=== PATIENT | male | born 1940 ===

== ENCOUNTER 2023-08-22 09:01 | Inpatient (IN) | payer MEDICARE, BC, SELFPAY ==
[2023-08-20 12:41] VITALS: BP 119/67
[2023-08-20 14:42] VITALS: BP 121/73
--- NOTE | 2023-08-20 14:46 | CM ---
Addendum entered by Alesha Caceres RN 08/20/23 16:53:
CM spoke with PENNIE Damico and Steven, unix systems administrator at [facility]. They are refusing to have patient return. CM updated patient's and sister. They will work with CM for placement.
Addendum entered by Alesha Caceres RN 08/20/23 16:22:
JUS spoke with Margaux at [facility]. They are planning to speak with patient's daughter to confirm if they are willing to pay for 1:1. CM will await call back.
Addendum entered by Alesha Caceres RN 08/20/23 15:17:
JUS spoke to Margaux from [facility]. She discussed patient's disposition with her director Steven. Steven feels that patient requires too much care for them to handle patient. Margaux will discuss further with Steven and the patient's daughter to
discuss 1:1 plan. Cm will await call back.
Original Note:
JUS spoke with Margaux from [facility]. She stated that patient has been having frequent falls and they are concerned he needs a higher level of care.
Patient's and sister are at bedside. They are in agreement with having the patient return to [facility] and will pay for a 1:1.
Margaux will discuss this discharge plan with her director. CM will await call back.
[2023-08-20 14:48] LABS: % Basophils 0.6 % (0-2); % Immature Granulocytes 0.8 % (0-0.5); % Lymphocytes 15.6 % (20.5-51.1); % Monocytes 10.6 % (1.7-9.3); % Neutrophils 72.4 % (42.2-75.2); Absolute Lymphocytes 0.8 10^3/uL (1.2-3.4); Absolute Monocytes 0.5 10^3/uL (0.1-0.6); Absolute Neutrophils 3.6 10^3/uL (1.4-6.5); Hematocrit 28.1 % (39.0-52.0); Hemoglobin 9.4 g/dL (13.0-18.0); Mean Corp Hgb Conc. 33.5 g/dL (33.0-37.0); Mean Corpuscular Hgb 32.5 pg (27.0-31.0); Mean Corpuscular Volume 97.2 fL (80.0-94.0); Mean Platelet Volume 8.7 fL (7.4-10.4); Nucleated Red Blood Cells % 0 % (-); Platelet Count 145 10^3/uL (130-400); Red Blood Cell Count 2.89 10^6/uL (4.70-6.10); Red Cell Dist. Width 15.9 % (11.5-14.5)
[2023-08-20 15:27] LABS: ALT (SGPT) 19 U/L (0-50); AST (SGOT) 32 U/L (17-59); Albumin 3.1 g/dl (3.5-5.0); Alkaline Phosphatase 50 U/L (38-126); Blood Urea Nitrogen 18 mg/dl (9-20); Calcium 8.9 mg/dl (8.4-10.2); Carbon Dioxide 28 mmol/L (22-30); Chloride 104 mmol/L (98-107); Glucose 96 mg/dl (70-99); Potassium 4.5 mmol/L (3.5-5.1); Sodium 137 mmol/L (135-145); Total Bilirubin 1.4 mg/dl (0.2-1.3); Total Protein 5.7 g/dl (6.3-8.2); eGFR > 60.00
--- NOTE | 2023-08-20 16:06 | ED.GENMED ---
History of Present Illness
General
Chief Complaint: Fall
Source: patient and family
Exam Limitations: dementia
Time Seen by Provider: 08/20/23 13:13
Nursing documentation reviewed up to this point in time: agreed with
Travel History
Have you had any contact with someone who has COVID-19?: No
Do you have any symptoms of coronavirus? Fever > 100 degrees, chills, cough, shortness of breath, sore throat, loss of taste or smell, muscle aches, or headache?: No
History of Present Illness
History of Present Illness:
pt is a 83 y/o M with h/o alzheimers , HTN from [facility]
mutiple falls x 2-3 weeks (approx 17 times)
despite the rounds ever 45 min pt often gets up on his own and falls
he was on the groun probably no more than 15 min today but it was unwitnessed
has abrasio nto left elbow and complained maybe of right hip pain to staff
but i spoke with staff sarah who knows him well and thinks that with how often he has fallen, that he is too high risk to be there
pt isn't able to offer any complaints, he keeps his eyes closed
his is at bedside and says this is his baseline for a large part of the day
he has not had frequent utis
no fever, chills
Past History
Past History
ED Past Medical History: Arrthythmia (Atrial fibrillation), HTN, Psychiatric (Anxiety, depression) and Other (Dementia)
Review of Systems
Review of Systems
Allergies reviewed?: Yes
All Other Systems: Not applicable
Phy Exam
Physical Exam
Physical Exam:
GENERAL: Alert , in no apparent distress,eyes closed
HEAD: NCAT
EYE: pupils equal and reactive, no nystagmus, no photophobia
NECK: Supple,full rom, nontender
ENT: o/p clr, mmm.
CARDIAC: Regular rate and rhythm . no edema
LUNGS: Clear breath sounds bilaterally, no acute respiratory distress, no wheezes/rales/rhonchi
ABDOMEN: Soft, without focal tenderness, no r/g, no cvat
NEUROLOGICAL: sleeping, arousable but doesn't really open eyes; follows some commands; no obvious facial asymmetry, moves all extremities
SKIN: Warm and dry, skin intact.
MUSCULOSKELETAL: No edema, well perfused.
able to passively range hips
PSYCH: dementia
Course
Orders/Labs/Results
Orders:
Orders
08/20/23 13:38
CT Cervical Spine W/o Iv Contr Urgent
Comment:
Reason For Exam: fall, dementia
CT Head W/o Iv Contrast Urgent
Comment:
Reason For Exam: fall, dementia
08/20/23 14:00
Hip, Right 2-3 Views [CR Hip - RT w/wo Pel 2-3 Vw*] Urgent
Comment:
Reason For Exam: falls
Include a pelvis x-ray?: Yes
08/20/23 14:01
Case Management Consult ONCE
Case Management Consult: Discharge Planning
CR Chest Single View Urgent
Reason For Exam: falls
08/20/23 14:29
Complete Blood Count/With Diff Urgent
Comprehensive Metabolic Panel Urgent
Ferritin Urgent
Comment: ADD ON
Folate Urgent
Comment: ADD ON
Total Iron Binding Urgent
Comment: ADD ON
Vitamin B12 Urgent
Comment: ADD ON
08/20/23 18:12
Add On- LAB Urgent
Tests Added?: b12 folate iron tibc ferritin
08/20/23 18:28
COVID-19 Antigen Urgent
Source: Nasal Swab
Influenza A+B Rapid Molecular Urgent
MANUEL Source: Nasal Swab
Specimen Description:
08/20/23 18:37
Admit/Transfer Patient As Directed
Co-Sign Provider:
Level of Care: Observation services
Assign to:: Medical/Surgical
Physician / Group: lori galvez
Diagnosis: recurrent falls, l elbow skin david r thigh contusin, rash trunk, dementia
EKG [Electrocardiogram (*1)] Urgent
Reason for Study: QTc Monitoring
Code Status As Directed
Resuscitation Status: Do not resuscitate
Reached after discussion with pt or family/Healthcare POA: Yes
Based on pt advanced directive or healthcare POA form: Yes
Decision communicated with: Per Kayla
Olanzapine [Zyprexa] 10 mg IM NOW PRN
DNR Bracelet Application ONCE
Abnormal Lab Results
08/20/23
14:29
RBC 2.89 L 10^6/uL
(4.70-6.10)
Hgb 9.4 L g/dL
(13.0-18.0)
Hct 28.1 L %
(39.0-52.0)
MCV 97.2 H fL
(80.0-94.0)
MCH 32.5 H pg
(27.0-31.0)
RDW 15.9 H %
(11.5-14.5)
Absolute Lymphs (auto) 0.8 L 10^3/uL
(1.2-3.4)
Immature Gran % 0.8 H %
(0-0.5)
Lymphocytes % 15.6 L %
(20.5-51.1)
Monocytes % 10.6 H %
(1.7-9.3)
Total Bilirubin 1.4 H mg/dl
(0.2-1.3)
Total Protein 5.7 L g/dl
(6.3-8.2)
Albumin 3.1 L g/dl
(3.5-5.0)
08/20/23 14:29
08/20/23 14:29
Vital Signs
Initial and Last Documented VS:
Initial Vital Signs
Temp Pulse Resp BP Pulse Ox
98.3 F 73 18 119/67 97
08/20/23 12:41 08/20/23 12:41 08/20/23 12:41 08/20/23 12:41 08/20/23 12:41
Last Documented Vital Signs
Temp Pulse Resp BP Pulse Ox
98.3 F 79 18 124/72 97
08/20/23 12:41 08/20/23 17:38 08/20/23 17:38 08/20/23 17:38 08/20/23 17:38
MDM/Problems Addressed
Differential Diagnosis Includes:
Ambulatory dysfunction, dementia, UTI, hyponatremia
MDM/Problems Addressed:
83-year-old male with a history of dementia from memory care unit as assisted living patient presents after a fall. Has had multiple falls the past couple of weeks, to total 17 times. I spoke with the nurse at the facility who says that at this
point despite rounding on him every 45 minutes they do not feel safe keeping him there. For a brief time the family paid for one-to-one which was helpful but they do not have the funds to do this. The nurse apparently has reached out to the
daughter who is the power of towel hemmer as well as the regarding the needs for higher level of care and it sounds like they are apprehensive because of financial reasons.
Patient has no obvious signs of trauma from today's fall and was only on the ground for 15 minutes. He was initially sleeping and not very easily arousable. I was able to move his hips around without discomfort he really did not seem to have any
signs of trauma. He was worked up with a head and neck CTA because he was placed in a c-collar by EMS, screening blood work given the number of falls has had as well as x-rays of his chest and hips. I independently reviewed the x-rays I did not
see any fractures. His head and neck CTs were negative. There were no obvious causes on laboratory studies. Case management was consulted and she attempted to get the patient back to [facility] but they were unable to accept him unless he had
a one-to-one and the family cannot do that. Will admit
*Critical Care Note
Total Time (30-74mins, 75-104mins- exclusive of procedures): Not Applicable
ED Attending Note
-
Portions of this chart may have been created with voice recognition software.� Occasional wrong word or��sound alike� substitutions may have occurred due to the inherent limitations of voice recognition software.
Discharge Plan
Departure
Patient Disposition: Admit
Date of Disposition: 08/20/23
Time of Disposition: 17:08
Admit to: Med/Surg
Presentation/result/management discussed w/ accepting MD/DO: Hospitalist
Consults for patient: Case Management
Condition: Fair
Covid-19: Not Applicable
Discharge Problem:
Dementia, Multiple falls
Prescriptions:
No Action
lamotrigine 150 mg tablet
150 mg PO DAILY
carvedilol 25 mg tablet
25 mg PO BID
trazodone 50 mg tablet
25 mg PO HS
Rx Instructions:
taken w/ 100mg = 125mg
amlodipine 5 mg tablet
5 mg PO DAILY
aspirin 81 mg tablet,delayed release (DR/EC)
81 mg PO DAILY
potassium chloride 20 mEq tablet,ER particles/crystals
40 meq PO DAILY
tamsulosin 0.4 mg capsule
0.4 mg PO HS
trazodone 100 mg tablet
100 mg PO HS
Rx Instructions:
taken w/ 25mg = 125mg
olanzapine 5 mg tablet,disintegrating
5 mg PO BIDPRN PRN (Reason: anxiety)
duloxetine 20 mg capsule,delayed release(DR/EC)
20 mg PO DAILY
melatonin 5 mg tablet
5 mg PO HS
diphenoxylate-atropine 2.5-0.025 mg tablet
1 tab PO QID
olanzapine 7.5 mg tablet
7.5 mg PO TID
Referrals:
Brock Gandhi MD [Family Provider] -
Interventions
Interventions:
*Risk Screen - Suicide Last Done: 08/20/23 12:41
*General Assessment Last Done: 08/20/23 12:41
*Neglect/Abuse Screening Last Done: 08/20/23 12:41
ED- Fall Risk Assessment Last Done: 08/20/23 14:42
*ED COVID-19 Vaccine History Last Done: 08/20/23 14:42
ED-Musculoskeletal Assessment Last Done: 08/20/23 14:42
ED-Skin Assessment Last Done: 08/20/23 14:42
[2023-08-20 17:38] VITALS: BP 124/72
--- NOTE | 2023-08-20 18:10 | HPS.HSE ---
Addendum entered and electronically signed by Erasmo Ward MD 08/21/23 08:41:
I independently saw and examined the patient on August 20, 2023.
The NIGHT WAREHOUSE MANAGER's note was reviewed and I agree with the note.
Comment:
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
memory care for multiple falls approximately 17 times over the last 2 to 3 weeks per staff and patient's family. Patient's family was present in the room at the time of attempted patient encounter. He was sent to the ER for evaluation due to yet
another fall in the morning along with an abrasion to his left elbow with some right hip pain -- and no one was able to pick her up. [facility] reported they are unable to take care of him as he requires too much care.
Patient had a recent diarrheal illness in July 2023 and after the diarrheal illness, he started falling. Per patient's family, patient was agitated so agitation medications were increased. They also reported an itchy rash in patient's left chest
and left axillary area. His Kayla was at bedside and spoke with ER ship's officer who is going to initiate referral to [facility] for placement.
Vital Signs
AFVSS
Physical Exam
General: Not in acute distress
HEENT: Normocephalic, Moist mucous membranes, PERRL
Respiratory: CTAB
Cardiac: S1/S2, Regular Rhythm and Peripheral Edema (Trace bilateral)
GI: Soft, Non Tender, Non Distended, Normal Bowel Sounds
Musculoskeletal: No Cyanosis, Edema, Left Lower Extremity (Trace) and Edema, Right Lower Extremity (Trace); No Edema, Left Upper Extremity or Edema, Right Upper Extremity
Skin: Warm, Dry, Rash (Macular papular rash scattered left chest wall into axilla) and Other (Skin tear left elbow POA, ecchymosis right medial aspect of upper thigh)
Neuro: Awake, Alert, Oriented (To name only)
Psych: Calm. Intermittently agitated.
Assessment/Plan
#Recurrent falls - reported [facility] falls last [facility]
-Fall precautions
-Family unsure whether patient had any loss of consciousness at any of those falls
-Tylenol as needed
-Electrocardiogram
-Vitamin B12
-Check TSH
-Check Folate
-Iron Studies
-Orthostatic vital signs
-Consider echocardiogram
-Monitor on telemetry
-PT/OT/case management consult for alf placement as patient cannot return to [facility] memory care per staff
-Case management saw near will initiate referral to [facility] per family request
CT head: No acute intracranial abnormality
CT cervical spine no acute fracture or dislocation
Right hip and pelvis x-ray: Mild degenerative changes of the right and left hip no acute fracture or dislocation
CXR: No acute cardiopulmonary process
#Left elbow skin tear, right inner thigh bruise secondary to multiple falls
-Consult wound care
#Skin rash left and right lateral trunk unclear etiology
-Apply hydrocortisone as needed itching
-Will consider discussing with dermatology
#Recent Diarrheal Illness
-Unknown etiology, resolved a few weeks ago
#Alzheimer's Dementia�advanced
-Supportive care
#A-fib paroxysmal
Check EKG
Continue carvedilol 25 mg twice daily and aspirin 81 mg daily
#Anemia-macrocytic
Hgb 9.4 was 11.12 June 2023
-Check B12, folate, iron panel
#HTN�benign
BP 124/72
-Check orthostatic vitals
-Continue carvedilol 25 mg twice daily, Norvasc 5 mg daily
#Anxiety/depression
-Continue olanzapine 5 mg twice daily as needed anxiety and 7.5 mg p.o. 3 times daily scheduled
-Continue duloxetine 20 mg daily, Lamictal 150 mg daily
#Former alcohol abuse
Stopped 2022 drank greater than 2 glasses a day per
#Insomnia
-Continue melatonin at bedtime, trazodone 125 mg at bedtime
#Hx colon cancer with resection of [facility] 2018
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
#BPH
-Continue Flomax 0.4 mg at bedtime
DVT prophylaxis
SCDs
DNR per Kayla with sister at bedside
Original Note:
Family Physician
-
Family Physician: Brock Gandhi
Chief Complaint
-
Recurrent falls
History of Present Illness
83-year-old male from [facility] for multiple falls approximately 17 times over the last 2 to 3 weeks per staff. He was sent to the ER for evaluation has an abrasion to his left elbow with some right hip pain. [facility] reported
they are unable to take care of him as he requires too much care. His Kayla is at bedside and spoke with ER ship's officer who is going to initiate referral to [facility] for placement. He has past medical history of Alzheimer's,
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
Medical History
Past Medical History
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
Past Surgical History: Reports Bowel Resection (2/2 colon cancer )
Social History
Tobacco: Non-smoker
Alcohol: Former (Greater than 2 glasses a day stopped 2022)
Personal:
Living: Jail ([facility])
Employment: Retired
Family History
Family History: Other (mother cva, father killed in War )
Allergies / Home Medications
Allergies reflects when Allergies were last updated in [employer].
Home Medications with original date entered in [employer]
Allergy/Medication List:
Allergies
Allergy/AdvReac Type Severity Reaction Status Date / Time
No Known Allergies Allergy Verified 08/20/23 12:41
Home Medications
amlodipine 5 mg tablet 5 mg PO DAILY 07/03/23
aspirin 81 mg tablet,delayed release 81 mg PO DAILY 07/03/23
carvedilol 25 mg tablet 25 mg PO BID 07/03/23
duloxetine 20 mg capsule,delayed release 20 mg PO DAILY 07/03/23
lamotrigine 150 mg tablet 150 mg PO DAILY 07/03/23
melatonin 5 mg tablet 5 mg PO HS 07/03/23
olanzapine 5 mg disintegrating tablet 5 mg PO BIDPRN PRN anxiety 07/03/23
potassium chloride 20 mEq tablet,extended release(part/cryst) 40 meq PO DAILY 07/03/23
tamsulosin 0.4 mg capsule 0.4 mg PO HS 07/03/23
trazodone 100 mg tablet 100 mg PO HS 07/03/23
trazodone 50 mg tablet 25 mg PO HS 07/03/23
diphenoxylate-atropine 2.5 mg-0.025 mg tablet 1 tab PO QID 08/20/23
olanzapine 7.5 mg tablet 7.5 mg PO TID 08/20/23
Review of Systems
-
History Source: Family ( Kayla and patient's sister at bedside)
A 12 point ROS was completed and negative except as noted: Yes
Constitutional: Reports Other (Multiple falls); Denies Fatigue or Chills
Respiratory: Denies Cough or Trouble Breathing
Cardiac: Denies Diaphoresis or Syncope
Abdomen/GI: Denies Vomiting or Diarrhea
Musculoskeletal: Reports Joint Pain (Right hip, left elbow), Edema (Trace bilateral lower legs) and Other (Skin tear left elbow POA, ecchymosis right medial aspect of upper thigh)
Skin: Reports Rash (Macular papular rash scattered left and right lateral chest wall into axilla); Denies Itching
Neurological: Denies Headache or Weakness
Endocrine: Reports No Symptoms
Hematologic/Lymphatic: Reports No Symptoms
Psych: Reports Calm
Physical Exam
Vital Signs
Vital Signs
Temp Pulse Resp BP Pulse Ox
98.3 F 79 18 124/72 97
08/20/23 12:41 08/20/23 17:38 08/20/23 17:38 08/20/23 17:38 08/20/23 17:38
Physical Exam
General: Comfortable; No Pain, Fever or Chills
HEENT: NormoCephalic, Anicteric, Moist mucous membranes, Atraumatic, PERRLA, [place]in Conjunctivae and No Ptosis
Respiratory: Clear; No Wheezes, Rales or Rhonchi
Cardiac: S1/S2, Regular Rhythm and Peripheral Edema (Trace bilateral); No Murmur, Rub or Gallop
Breast: Deferred by me
GI: Soft, Non Tender, Non Distended, Normal Bowel Sounds and No Hepatosplenomegaly
Rectal: Deferred by Provider
Genito-urinary: Deferred by me
Musculoskeletal: No Clubbing, No Cyanosis, Edema, Left Lower Extremity (Trace) and Edema, Right Lower Extremity (Trace); No Edema, Left Upper Extremity or Edema, Right Upper Extremity
Skin: Warm, Dry, Rash (Macular papular rash scattered left and right lateral chest wall into axilla) and Other (Skin tear left elbow POA, ecchymosis right medial aspect of upper thigh); No Jaundice
Neuro: Awake, Alert, Oriented (To name only) and No Sensory Deficits; No Facial Droop or Tremors
Psych: Calm
Laboratory Results
-
08/20/23 14:29
08/20/23 14:29
Laboratory Results
Total Bilirubin 1.4 mg/dl (0.2-1.3) H 08/20/23 14:29
AST 32 U/L (17-59) 08/20/23 14:29
ALT 19 U/L (0-50) 08/20/23 14:29
Alkaline Phosphatase 50 U/L (38-126) 08/20/23 14:29
Data Reviewed
-
CT Scan: Report Reviewed by me
Lab Data: Labs Reviewed by me
Impression/Plan
-
Impression/plan:
Observation MedSurg
#Recurrent falls
Reported 17 falls last [facility] weeks [facility]
-Fall precautions
-Tylenol as needed
- ekg check
-PT/OT/case management consult for alf placement as patient cannot return to [facility] care per staff
-Case management saw near will initiate referral to [facility] per family request
CT head: No acute intracranial abnormality
CT cervical spine no acute fracture or dislocation
Right hip and pelvis x-ray: Mild degenerative changes of the right and left hip no acute fracture or dislocation
CXR: No acute cardiopulmonary process
#Left elbow skin tear, right inner thigh bruise secondary to multiple falls
-Consult wound care
#Skin rash left and right lateral trunk unclear etiology
-Apply hydrocortisone as needed itching
#Dementia�advanced
-Supportive care
#A-fib paroxysmal
Check EKG
Continue carvedilol 25 mg twice daily and aspirin 81 mg daily
#Anemia-macrocytic
Hgb 9.4 was 11.12 June 2023
-Check B12, folate, iron panel
#HTN�benign
BP 124/72
-Check orthostatic vitals
-Continue carvedilol 25 mg twice daily, Norvasc 5 mg daily
#Anxiety/depression
-Continue olanzapine 5 mg twice daily as needed anxiety and 7.5 mg p.o. 3 times daily scheduled
-Continue duloxetine 20 mg daily, Lamictal 150 mg daily
#Former alcohol abuse
Stopped 2022 drank greater than 2 glasses a day per
#Insomnia
-Continue melatonin at bedtime, trazodone 125 mg at bedtime
#Hx colon cancer with resection of [facility] 2019
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
#BPH
-Continue Flomax 0.4 mg at bedtime
DVT prophylaxis
SCDs
DNR per Kayla with sister at bedside
--- NOTE | 2023-08-20 18:19 | CM ---
Patient's family is requesting referral to be sent to [facility]. CM will send referral via [facility].
[2023-08-20 18:59] LABS: COVID-19 Antigen Negative (Negative)
[2023-08-20 19:10] LABS: Total Iron Binding Capacity 209 ug/dl (261-462)
[2023-08-20 19:20] LABS: Iron 73 ug/dl (49-181); Percent Saturation 34 % (20-50)
[2023-08-20 20:14] LABS: Vitamin B12 312 pg/ml (239-931)
[2023-08-20 20:21] VITALS: BP 123/76
[2023-08-20] MEDS: COREG 25 MG PO (22:29)
[2023-08-20 22:30] VITALS: BP 155/70; BMI 26.1
[2023-08-20] MEDS: DESYREL 100 MG PO (22:30)
[2023-08-20] MEDS: DESYREL 25 MG PO (22:30)
[2023-08-20] MEDS: ZYPREXA 7.5 MG PO (22:31)
[2023-08-20] MEDS: MELATONIN 5 MG PO (22:31)
[2023-08-20] MEDS: FLOMAX 0.400000000000000022 MG PO (22:31)
[2023-08-20] MEDS: HYDROCORTISONE 1% CREAM 1 APPLIC TOPICAL (22:33)
[2023-08-20] MEDS: TYLENOL 650 MG PO (23:58)
[2023-08-21] VITALS (9 sets, daily range): BP systolic 125–159; BP diastolic 60–83; PULSE 55–69; O2SAT 99; BMI 26.1
--- NOTE | 2023-08-21 01:54 | PTCARENOTE ---
Received pt from ER @ 2230, family at bedside. Pt slid over to bed, immediately trying to get up, yelling and becoming combative with staff. Pt calmed down but continues to attempt to get OOB, bed alarm placed. Pt AAOx0. Pt with L arm skin tear and
bruising throughout body.
[2023-08-21] MEDS: TYLENOL 650 MG PO ×5 (04:40→20:06)
[2023-08-21] MEDS: LAMICTAL 150 MG PO (08:23)
[2023-08-21] MEDS: COREG 25 MG PO (08:24)
[2023-08-21] MEDS: CYMBALTA DELAYED RELEASE 20 MG PO (08:24)
[2023-08-21] MEDS: ASPIR LOW (ENTERIC COATED) 81 MG PO (08:24)
[2023-08-21] MEDS: HYDROCORTISONE 1% CREAM 1 APPLIC TOPICAL ×2 (08:25→20:09)
[2023-08-21] MEDS: NORVASC 5 MG PO (08:25)
[2023-08-21 08:44] LABS: % Basophils 0.4 % (0-2); % Immature Granulocytes 1.3 % (0-0.5); % Lymphocytes 13.8 % (20.5-51.1); % Neutrophils 72.5 % (42.2-75.2); Absolute Immature Granulocytes 0.1 10^3/uL (0-0.05); Absolute Lymphocytes 0.8 10^3/uL (1.2-3.4); Absolute Monocytes 0.7 10^3/uL (0.1-0.6); Hemoglobin 9.9 g/dL (13.0-18.0); Mean Corpuscular Hgb 32.4 pg (27.0-31.0); Nucleated Red Blood Cells % 0 % (-); Platelet Count 164 10^3/uL (130-400); Red Blood Cell Count 3.06 10^6/uL (4.70-6.10); Red Cell Dist. Width 16.1 % (11.5-14.5); White Blood Cell Count 5.5 10^3/uL (4.8-10.8)
[2023-08-21 09:24] LABS: Blood Urea Nitrogen 19 mg/dl (9-20); Calcium 8.9 mg/dl (8.4-10.2); Carbon Dioxide 29 mmol/L (22-30); Chloride 101 mmol/L (98-107); Estimated Creatinine Clearance 77 ml/min; Glucose 87 mg/dl (70-99); Potassium 3.9 mmol/L (3.5-5.1); Sodium 138 mmol/L (135-145); eGFR > 60.00
[2023-08-21] MEDS: ZYPREXA 7.5 MG PO ×3 (09:26→21:24)
[2023-08-21 10:28] LABS: INR 1.11; PT 14.5 Sec (11.4-14.6)
[2023-08-21 10:36] LABS: Phosphorus 3.7 mg/dl (2.5-4.5)
[2023-08-21 11:05] LABS: TSH Reflex To Free T4 1.44 uIU/ml (0.47-4.68)
[2023-08-21] MEDS: CYANOCOBALAMIN 1000 MCG IM (11:12)
--- NOTE | 2023-08-21 12:46 | CM ---
Addendum entered by Teresita Vizcarra 08/21/23 14:07:
Patients sister is Ita, not Myriam.
CM met with Ita and patients , Юлия. Discussed referrals sent to LTC facilities, both Ita and Юлия do not feel that patient would benefit from SNF due to his behaviors and do not feel it will be helpful. CM sent message to [facility] as
families first choice in [facility]. Additional referrals sent to [facility] and [facility], awaiting response.
Original Note:
CM spoke with patients sister, Myriam Engel, reports she is currently staying in [place] with her sister in law, Юлия, and wanted to provide additional contacts (Myriam- [phone], Юлия- [phone]). Myriam provided CM with patients
daughter, Lou Ramirez [phone], POA of patient. CM explained to Myriam that patient is currently observation status, if going to SNF, would be private pay. Myriam reports patient has LTC insurance and Lou handles financial information. Myriam
request additional referrals to be sent out that are local to [facility]. CM reports no response from [facility] as of yet, will send additional referrals.
CM spoke with patients daughter and PHYLLIS Blake. Per daughter, her mother lives at [facility], where her father was living before entering [facility] 6 months ago. Lou reports they were surprised to hear that patient cannot return to
[facility] and are now ltrying to figure out the next steps for patient. CM discussed PT recommendation of SNF, and with LTC policy, not all policies will cover SNF. Daughter reports she is not sure how beneficial a SNF would be for her
father with his behaviors and dementia and is looking more for a LTC facility. Daughter reports the LTC policy is through [facility], daughter is going to call to see if SNF is covered. Daughter reports she lives in [place], however has
family that are local who visit her father every day. Daughter reports they do not have time to look at facilities and are asking the lpn medical assistant to lead them in the right direction of facilities they should send patient to. CM reports she
cannot recommend one facility over the other, provided Medicare.gov website to patient to look at list of facilities. Additional referrals sent to [facility] and [facility].
CM awaiting response of facilities at this time. JUS will continue to follow for discarge planning needs.
Plan; LTC pending accepting facility.
--- NOTE | 2023-08-21 14:20 | WOUNDNOTE ---
R BUTTOCKS/POSTERIOR HIP
--- NOTE | 2023-08-21 14:20 | WOUNDNOTE ---
[facility] RN note: Patient admitted with recurrent falls, L elbow skin tear, R thigh contusion. Patient for SNF placement.
See H&P for complete history.
PMH: Alzheimer's, HTN, anxiety/depression.
Wound Location and type/assessment: Patient admitted with: L elbow dermal skin tear. R elbow scabbed abrasion. L coccyx/buttocks blanchable red skin. Bruises R hip, inner thighs, feet.
Appetite: on regular diet.
Pressure redistribution devices in place: One Season Accumax. Patient can be uncooperative as per nursing staff.
Plan: L elbow silicone border foam changed L elbow. Protective silicone border foam applied L coccyx/buttocks. Heels elevated off bed. Air chair cushion placed under sacral/buttocks. t/c Bed tech Pacheco and requested an air mattress.
Will confirm orders with hospitalist and discussed with PENNIE Evans.
Care plan to be updated and will follow as needed.
--- NOTE | 2023-08-21 14:22 | WOUNDNOTE ---
[facility] RN note: Patient admitted with recurrent falls, L elbow skin tear, R thigh contusion. Patient for SNF placement.
See H&P for complete history.
PMH: Alzheimer's, HTN, anxiety/depression.
Wound Location and type/assessment: Patient admitted with: L elbow dermal skin tear. L coccyx/buttocks blanchable red skin. Bruises R hip, inner thighs, feet.
Appetite: on regular diet.
Pressure redistribution devices in place: [employer] Accumax. Patient can be uncooperative as per nursing staff.
Plan: L elbow silicone border foam changed L elbow. Protective silicone border foam applied L coccyx/buttocks. Heels elevated off bed. Air chair cushion placed under sacral/buttocks. t/c Bed tech Pacheco and requested an air mattress.
Will confirm orders with hospitalist and discussed with PENNIE Evans.
Care plan to be updated and will follow as needed.
[2023-08-21 14:29] LABS: Urine Albumin Negative (Neg - Trace); Urine Bilirubin 1+ (Negative); Urine Character Clear (Clear); Urine Color Yellow; Urine Glucose Negative (Negative); Urine Ketone Negative (Negative); Urine Leukocyte Trace (Negative); Urine Nitrite Negative (Negative); Urine Occult Blood Negative (Negative); Urine Urobilinogen 2+ (Neg - 1+)
--- NOTE | 2023-08-21 14:56 | WOUNDNOTE ---
WOC RN Note: Assisted nursing staff (PENNIE Connell, RN Nathan, PCT Grisel) with switching patient's bed from [employer] Accumax to a [employer] Air bed. heels off bed with air chair cushion. EPNNIE oCnnell to apply silicone foam to R elbow scabbed abrasion.
[2023-08-21 15:09] LABS: Urine Bacteria Few (Negative); Urine Mucus Few; Urine Red Blood Cell 0-2 /HPF (0-2); Urine White Cell 0-2 /HPF (0-5)
--- NOTE | 2023-08-21 18:20 | W.PN.HOSP.TC ---
Today's Communication/Plan
-
Monitor on drug regulatory affairs specialist for pauses, bradycardia, rapid A-Fib
Hold beta-gretchen for now
Assessment / Plan
Assessment / Plan
Physical Exam
General: Not in acute distress
HEENT: Normocephalic, Moist mucous membranes
Respiratory: CTAB
Cardiac: S1/S2, Regular Rhythm and Peripheral Edema (Trace bilateral)
GI: Soft, Non Tender, Non Distended, Normal Bowel Sounds
Musculoskeletal: No Cyanosis, Edema, Left Lower Extremity (Trace) and Edema, Right Lower Extremity (Trace); No Edema, Left Upper Extremity or Edema, Right Upper Extremity
Skin: Warm, Dry, Rash (Macular papular rash scattered left chest wall into axilla) and Other (Skin tear left elbow POA, ecchymosis right medial aspect of upper thigh)
Neuro: Awake, Alert, Oriented (To name only)
Psych: Calm. Intermittently agitated.
Assessment/Plan
#Recurrent falls - reported 17 falls last 2 to 3 weeks per [facility] staff
-Fall precautions
-Family unsure whether patient had any loss of consciousness at any of those falls
-Tylenol as needed
-Electrocardiogram
-Vitamin B12 is 312 significantly decreased from a few months ago; will supplement more Vitamin B12 for a short course
-TSH: 1.44
-Folate: 12
-Iron Studies noted
-Orthostatic vital signs
-Consider echocardiogram
-Monitor on telemetry: bradycardia, pauses on tele and A-Fib (has history of A-Fib) on EKG: will consult cardiology
-Hold Coreg for now due to above
-PT/OT/case management consult for [facility] placement as patient cannot return to [facility] memory care per staff
-Case management saw near will initiate referral to [facility] per family request
�� CT head: No acute intracranial abnormality
�� CT cervical spine no acute fracture or dislocation
�� Right hip and pelvis x-ray: Mild degenerative changes of the right and left hip no acute fracture or dislocation
�� CXR: No acute cardiopulmonary process
#Left elbow skin tear, right inner thigh bruise secondary to multiple falls
-Consulted wound care, recommendations appreciated
#Skin rash left and right lateral trunk unclear etiology
-Apply hydrocortisone as needed itching
-Will consider discussing with dermatology
-Triamcinolone cream. Antihistamines
-Will check fingers, groin for lesions to make sure not scabies and contagious
-Consider ID consultation
#Recent Diarrheal Illness
-Unknown etiology, resolved a few weeks ago
#Alzheimer's Dementia�advanced
-Supportive care
#A-fib paroxysmal
Hold carvedilol 25 mg twice daily for now (see above)
#Anemia-macrocytic
Hgb 9.4 was 11.12 June 2023
-B12, folate, iron panel as noted above
#HTN�benign
BP 124/72
-Check orthostatic vitals
-Hold carvedilol 25 mg twice daily
-Continue Norvasc 5 mg daily
#Anxiety/depression
-Continue olanzapine 5 mg twice daily as needed anxiety and 7.5 mg p.o. 3 times daily scheduled
-Continue duloxetine 20 mg daily, Lamictal 150 mg daily
#Former alcohol abuse
Stopped 2022 drank greater than 2 glasses a day per
#Insomnia
-Continue melatonin at bedtime, trazodone 125 mg at bedtime
#Hx colon cancer with resection of [facility] 2018
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
#BPH
-Continue Flomax 0.4 mg at bedtime
DVT prophylaxis
SCDs
DNR per Kayla with sister at bedside at the time of admission this hospitalization
Anticipated Discharge: > 48 hours
Subjective/Interval History
-
Date of Service: August 21, 2023
Patient was seen and examined seated at the nurses station. No new symptoms or complaints reported, however patient slid off bed and was agitated overnight.
Objective Data
-
Labs:
Laboratory Results
08/21/23 08/21/23
06:54 09:45
WBC 5.5
Hgb 9.9 L
Hct 30.0 L
Plt Count 164
PT 14.5
INR 1.11
Sodium 138
Potassium 3.9
Chloride 101
Carbon Dioxide 29
BUN 19
Creatinine 0.8
Glucose 87
Calcium 8.9
Vital Signs:
Vital Signs
Temp Pulse Resp BP Pulse Ox
97.4 F 66 16 156/69 99
08/21/23 15:33 08/21/23 15:33 08/21/23 15:33 08/21/23 15:33 08/21/23 15:33
I&O
08/20/23 08/21/23 08/22/23
06:59 06:59 06:59
Intake Total 590 / 590
Output Total 375 / 375
Balance 215 / 215
[2023-08-21] MEDS: DESYREL 100 MG PO (21:23)
[2023-08-21] MEDS: DESYREL 25 MG PO (21:24)
[2023-08-21] MEDS: MELATONIN 5 MG PO (21:24)
[2023-08-21] MEDS: FLOMAX 0.400000000000000022 MG PO (21:25)
[2023-08-22] MEDS: TYLENOL PO ×2 (01:23→05:08)
[2023-08-22 03:42] VITALS: BP 152/79
[2023-08-22 07:30] VITALS: BP 157/69
[2023-08-22] MEDS: ZYPREXA 7.5 MG PO (09:35)
[2023-08-22] MEDS: ASPIR LOW (ENTERIC COATED) 81 MG PO (09:36)
[2023-08-22] MEDS: NORVASC 5 MG PO (09:36)
[2023-08-22] MEDS: CYMBALTA DELAYED RELEASE 20 MG PO (09:36)
[2023-08-22] MEDS: LAMICTAL 150 MG PO (09:36)
[2023-08-22] MEDS: CYANOCOBALAMIN 1000 MCG IM (09:36)
[2023-08-22] MEDS: TYLENOL 650 MG PO ×4 (09:36→21:54)
[2023-08-22] MEDS: HYDROCORTISONE 1% CREAM 1 APPLIC TOPICAL ×2 (09:36→21:54)
[2023-08-22 09:46] LABS: Hematocrit 32.6 % (39.0-52.0); Hemoglobin 10.7 g/dL (13.0-18.0); Mean Corp Hgb Conc. 32.8 g/dL (33.0-37.0); Mean Corpuscular Hgb 31.9 pg (27.0-31.0); Mean Corpuscular Volume 97.3 fL (80.0-94.0); Mean Platelet Volume 8.5 fL (7.4-10.4); Platelet Count 169 10^3/uL (130-400); Red Blood Cell Count 3.35 10^6/uL (4.70-6.10); Red Cell Dist. Width 15.9 % (11.5-14.5); White Blood Cell Count 5.9 10^3/uL (4.8-10.8)
[2023-08-22 10:01] LABS: Blood Urea Nitrogen 17 mg/dl (9-20); Carbon Dioxide 29 mmol/L (22-30); Chloride 101 mmol/L (98-107); Estimated Creatinine Clearance 88 ml/min; Glucose 127 mg/dl (70-99); Magnesium 2.2 mg/dl (1.6-2.3); Potassium 3.8 mmol/L (3.5-5.1); Sodium 138 mmol/L (135-145); eGFR > 60.00
--- NOTE | 2023-08-22 10:21 | CON.CAR ---
Addendum entered and electronically signed by Darrell Tapia MD 08/22/23 11:50:
I saw and examined the patient.
The NOZZLE WORKER's note was reviewed and I agree with the note.
Comment: 83M with dementia and falls. We are called with permanent AF that is slow.
- carvedilol held -> probably will need some dose going forward, but less than 25
- I see no long pauses or profound bradycardia-> no indication that PPM would help
Original Note:
Consultation
Consultation Request
Date/Time Consultation Requested: 08/22/23 9:30a
Date/Time Consultation Performed: 08/22/23 10a
Requesting Provider: Dr. Ward
Performing Provider: TAMARA Gerard for Dr. Tapia
Reason for Consultation: slow Afib, falls
Medical History
-
Chief Complaint: fall
History of Present Illness:
Mr. Ramirez is an 83 yo male with HTN, Afib not on OAC, anxiety/depression and dementia, who presents to the ER from [facility] unit after a fall. They report he has fallen about 17 times in the last 2-3 weeks, not always witnessed
by staff so unclear if this is syncope. He is demented, disoriented and combative this am, therefore history is limited and obtained via his medical records. He is admitted to the hospitalist service and we are consulted for slow Afib. Tele shows
rates as slow as 43 bpm, no significant pauses. Coreg is being held currently. According to his medication list, he is only on ASA, no OAC.
Past Medical History
Past Medical History: Other (as above)
Social History
Tobacco: Non-Smoker
Alcohol: Former
Personal:
Living: Longterm ([facility])
Family History
Family History: Unable to Obtain (dementia, disoriented)
Allergies / Home Medications
Allergy/AdvReac Type Severity Reaction Status Date / Time
No Known Allergies Allergy Verified 08/20/23 12:41
Medication Instructions Recorded Confirmed Type
amlodipine 5 mg tablet 5 mg PO DAILY Blood Pressure 07/03/23 08/20/23 History
aspirin 81 mg tablet,delayed 81 mg PO DAILY Blood Clot 07/03/23 08/20/23 History
release Prevention/Tx
carvedilol 25 mg tablet 25 mg PO BID Heart Failure 07/03/23 08/20/23 History
duloxetine 20 mg capsule,delayed 20 mg PO DAILY Pain 07/03/23 08/20/23 History
release
lamotrigine 150 mg tablet 150 mg PO DAILY Neurological 07/03/23 08/20/23 History
Condition
melatonin 5 mg tablet 5 mg PO HS Sleep 07/03/23 08/20/23 History
olanzapine 5 mg disintegrating 5 mg PO BIDPRN PRN anxiety 07/03/23 08/20/23 History
tablet
potassium chloride 20 mEq 40 meq PO DAILY Electrolyte 07/03/23 08/20/23 History
tablet,extended release(part/cryst) Repletion
tamsulosin 0.4 mg capsule 0.4 mg PO HS Urinary Issue 07/03/23 08/20/23 History
trazodone 100 mg tablet 100 mg PO HS Sleep 07/03/23 08/20/23 History
trazodone 50 mg tablet 25 mg PO HS Sleep 07/03/23 08/20/23 History
diphenoxylate-atropine 2.5 1 tab PO QID diarrhea 08/20/23 08/20/23 History
mg-0.025 mg tablet
olanzapine 7.5 mg tablet 7.5 mg PO TID Mental Health/Anxiety 08/20/23 08/20/23 History
Review of Systems
-
Unable to obtain full review of systems at this time due to: Dementia
Physical Exam
Vital Signs
Temp Pulse Resp BP Pulse Ox
97.7 F 61 20 157/69 96
08/22/23 07:30 08/22/23 07:30 08/22/23 07:30 08/22/23 07:30 08/22/23 07:30
Lab Results
08/22/23 09:08
08/22/23 09:08
Physical Exam
General: Well Developed and Other (agitated/combative)
HEENT: Normocephalic and Moist Mucous Membranes
Respiratory: Other (did not perform as he was agitated/combative)
Cardiac: S1/S2 and Irregular Rhythm (slow Afib)
Breast: Deferred by me
GI: Other (did not perform as he was agitated/combative)
Rectal: Deferred by Provider
Skin: Warm and Dry
Neuro: Awake and Alert (disoriented, agitated, combative)
Psych: Agitated (combative)
Impression / Plan
-
Falls - recurrent.
- sometimes witnessed by staff and others not, unsure if syncope.
- monitor on tele.
- could be from slow Afib, Coreg held.
- he is unable to provide any symptoms or history.
- check echo today.
Afib - unknown chronicity.
- slow rates as low as 43 bpm on tele.
- monitor on tele.
- check echo today.
- [id number] VASC score is 3 (age, HTN), he is on ASA and with recurrent falls and dementia he is not a candidate for OAC at this time.
HTN - stable on meds, continue.
Dementia - chronic.
- lives at [facility].
- agitated and combative today, requires a 1:1.
Data Reviewed
-
EKG: Tracing Personally Visualized and interpreted (Afib 67 bpm)
Radiology: Report Reviewed by me (cxr: nad)
Labs: Labs Reviewed by me
[2023-08-22 12:14] VITALS: BP 152/81
--- NOTE | 2023-08-22 13:48 | CON.MD ---
Consultation - Medical
-
patient seen chart reviewed. discussed w dr galvez. this patient w hx of dementia is admitted after seventeen falls. he lives in [facility] and due to his repeated falls they are saying they cannot take him back. [facility] is
being investigated. he has hx dementia and mood disorder. his current meds include zypexa 7.5 mg tid with a prn for ten more mg trazodone 125 mg q hs lamictal 150 mg daily and cymbalta 20 mg daily. according to his med list he also had a prn for
lomotil up to qid and takes meds for bp including amlodopine and caredilol. no history can be obtained from patient given his dementia and his speech is very garbled. patient has had periods of agitation where he has been given even more
anticholinergic medications eg zyprexa 10 mg im
past medical hx see above re falls. he has hx a fib htn anxiety depession dementia colon ca w resection squamous cell ca macrocytic anemia bph there were incidences of bradycardia which are noted as 'no longer seen' unclear if falls
represent syncope. imaging of brain , chest, hip and cervical spine show no new findings. hbg is 10.7 bp 152/81
fh not relevant
substance abuse according to chart hx alcoholism in the very distant past
social resides in [place]. . alternate placement being sought
mse unable to engage verbally with patient
dx dementia with hx affective d/o and anxiety
recommendations if you are looking for a reason for the falls look no further than trazodone at hs and heavy doses of anticholinergic medications eg lomotil ordered qid for diarrhea not clear how much he is receiving and zyprexa. the top dose of
zyprexa is usually 20 mg for adults and he is as an 83 year old already receiving in a scheduled dose 22.5 mg. he has an order for ten more via 5 mg prn's and received 10 mg in an im dose since coming here. i would suggest that in addition to falls
he could be suffering from akathisia which is a known side effect of antipsychotic medication. it can be experienced by the patient as agitation which we are seeing although he was calm when i saw him. . have dc'ed trazodone use melatonin for
sleep . for now would try ativan prn for agitation which could also increase risk for falls but would not cause akathisia. would increase lamictal by 25 mg which may help w agitation. would continue cymbalta for now although i don't know that he
is truly depressed. lastly would avoid lomotil qid.
would check b12 and folate if not already checked given macrocytosis . psych will follow
--- NOTE | 2023-08-22 14:48 | CM ---
CM spoke with patients daughter, Lou, discussed patient now inpatient status. CM discussed there has still not been an accepting LTC facility. Lou reports [facility] still the number once choice, CM reports the admissions liaison at
[facility] is off today but aware that family is extremely interested in facility. Lou reports she will call [facility] to see if they would accept patient as her mother resides there. CM discussed patient can go to facility as skilled and
transition into LTC, patient would require three night inpatient stay. CM provided case management contact number as CM is not here this weekend. CM will continue to follow for discharge planning needs.
Plan; LTC, pending facility acceptance.
[2023-08-22 15:00] VITALS: BP 158/79
--- NOTE | 2023-08-22 17:35 | W.PN.HOSP.TC ---
Today's Communication/Plan
-
Placement still pending
See below
Assessment / Plan
Assessment / Plan
Physical Exam
General: Not in acute distress
HEENT: Normocephalic, Moist mucous membranes
Respiratory: CTAB
Cardiac: S1/S2, Regular Rhythm and Peripheral Edema (Trace bilateral)
GI: Soft, Non Tender, Non Distended, Normal Bowel Sounds
Musculoskeletal: No Cyanosis, Edema, Left Lower Extremity (Trace) and Edema, Right Lower Extremity (Trace)
Skin: Warm, Dry, Rash (Macular papular rash scattered left chest wall into axilla) and Other (Skin tear left elbow POA, ecchymosis right medial aspect of upper thigh)
Neuro: Awake, Alert, Oriented (To name only)
Psych: Calm. Intermittently agitated.
Assessment/Plan
#Recurrent falls - reported 17 falls last 2 to 3 weeks per [facility] staff
-Fall precautions
-Family unsure whether patient had any loss of consciousness at any of those falls
-Tylenol as needed
-Electrocardiogram
-Vitamin B12 is 312 significantly decreased from a few months ago; will supplement more Vitamin B12 for a short course
-TSH: 1.44
-Folate: 12
-Iron Studies noted
-Orthostatic vital signs
-Consider echocardiogram
-Monitor on telemetry: bradycardia, pauses on tele and A-Fib (has history of A-Fib) on EKG: consulted cardiology --> no long pauses or profound bradycardia-> no indication for PPM or that it would help ----> recommendations appreciated
-Hold Coreg for now due to above --> but will need a smaller dose then 25 mg BID
-PT/OT/case management consult for [facility] placement as patient cannot return to [facility] memory care per staff
-Case management saw near will initiate referral to [facility] per family request
�� CT head: No acute intracranial abnormality
�� CT cervical spine no acute fracture or dislocation
�� Right hip and pelvis x-ray: Mild degenerative changes of the right and left hip no acute fracture or dislocation
�� CXR: No acute cardiopulmonary process
#Left elbow skin tear, right inner thigh bruise secondary to multiple falls
-Consulted wound care, recommendations appreciated
#Skin rash left and right lateral trunk unclear etiology
-Apply hydrocortisone as needed itching
-Will consider discussing with dermatology
-Triamcinolone cream. Antihistamines
-ID consulted, recommendations appreciated
#Recent Diarrheal Illness
-Unknown etiology, resolved a few weeks ago
#Alzheimer's Dementia�advanced
-Supportive care
#A-fib paroxysmal
Hold carvedilol 25 mg twice daily for now (see above) --> but consider resuming soon at a lower dose
#Anemia-macrocytic
Hgb 9.4 was 11.12 June 2023
-B12, folate, iron panel as noted above
#HTN�benign
BP 124/72
-Check orthostatic vitals
-Hold carvedilol 25 mg twice daily -- see above
-Continue Norvasc 5 mg daily
#Anxiety/depression
#Agitation
-Continue olanzapine 5 mg twice daily as needed anxiety and 7.5 mg p.o. 3 times daily scheduled
-Continue duloxetine 20 mg daily, Lamictal 150 mg daily
-Consulted psychiatry, recommendations appreciated
#Former alcohol abuse
Stopped 2022 drank greater than 2 glasses a day per
#Insomnia
-Continue melatonin at bedtime, trazodone 125 mg at bedtime
#Hx colon cancer with resection of [facility] 2018
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
#BPH
-Continue Flomax 0.4 mg at bedtime
DVT prophylaxis
SCDs
DNR per Kayla with sister at bedside at the time of admission this hospitalization
Anticipated Discharge: 24 - 48 hours
Subjective/Interval History
-
Date of Service: August 22, 2023
Patient was seen and examined. He was agitated earlier but then the 1:1 sitter was able to help him relax. No other events reported.
Objective Data
-
Labs:
Laboratory Results
08/22/23
09:08
WBC 5.9
Hgb 10.7 L
Hct 32.6 L
Plt Count 169
Sodium 138
Potassium 3.8
Chloride 101
Carbon Dioxide 29
BUN 17
Creatinine 0.7
Glucose 127 H
Calcium 9.0
Vital Signs:
Vital Signs
Temp Pulse Resp BP Pulse Ox
97.7 F 76 20 158/79 96
08/22/23 15:00 08/22/23 15:00 08/22/23 15:00 08/22/23 15:00 08/22/23 15:00
I&O
08/21/23 08/22/23 08/23/23
06:59 06:59 06:59
Intake Total 1070 / 1070 420 / 420
Output Total 375 / 375
Balance 695 / 695 420 / 420
[2023-08-22 19:30] VITALS: BP 139/71
[2023-08-22] MEDS: FLOMAX 0.400000000000000022 MG PO (21:54)
[2023-08-22] MEDS: MELATONIN 5 MG PO (21:54)
[2023-08-22 23:15] VITALS: BP 162/80
[2023-08-23] MEDS: TYLENOL PO ×3 (01:08→23:54)
[2023-08-23] MEDS: TYLENOL 650 MG PO ×4 (07:53→22:10)
[2023-08-23 07:54] VITALS: BP 109/83
[2023-08-23] MEDS: HYDROCORTISONE 1% CREAM 1 APPLIC TOPICAL ×2 (07:54→22:10)
[2023-08-23] MEDS: NORVASC 5 MG PO (07:54)
[2023-08-23] MEDS: LAMICTAL 175 MG PO (07:54)
[2023-08-23] MEDS: ASPIR LOW (ENTERIC COATED) 81 MG PO (07:54)
[2023-08-23] MEDS: CYANOCOBALAMIN 1000 MCG IM (07:54)
[2023-08-23] MEDS: COREG 6.25 MG PO (11:00)
[2023-08-23 11:30] VITALS: BP 126/64; BP 128/65; PULSE 63; PULSE 66
--- NOTE | 2023-08-23 11:56 | W.PN.CD ---
Addendum entered and electronically signed by Darrell Tapia MD 08/23/23 12:15:
I saw and examined the patient.
The BINDER STRIPPER HAND's note was reviewed and I agree with the note.
Comment: 83M with AF with slower ventricular response on carvedilol 25 po BID. There were no long pauses (>3 seconds) or profound bradycardia. Rhythm is improved off BB
- hold carvedilol
- when/if HR averages over 100, resume carvedilol 6.25 po BID
- I will sign off
- follow up with me prn (if PMD feels it is indicated). I see Mr. Ramirez's .
Original Note:
Today's Communication / Plan
-
-remain off BB and follow tele
Impression / Plan
-
Assessment/Plan: 83 yo male with HTN, Afib not on OAC, anxiety/depression and dementia, who presented to the ER from [facility] with recurrent falls and details unclear. We were consulted since HR slow, and BB held
Falls - recurrent.
-details unclear
-PT/OT
-tele with mild valentina, but no severe valentina or long pauses on my review- remain off BB
-echo normal: Normal left ventricular systolic function. Left ventricular ejection fraction is 60-65%. Mild mitral regurgitation. Mild tricuspid regurgitation. Estimated pulmonary artery pressure of 30 mmHg
Afib - unknown chronicity.
- off BB as above, for bradycardia
- [id number] VASC score is 3 (age, HTN), he is on ASA and with recurrent falls and dementia he is not a candidate for OAC at this time.
HTN:
-stable, monitor with medicine adjustments
Dementia - chronic.
- cooperative for me
-no distress
Physical Exam
Vital Signs/Labs
Vital Signs
Temp Pulse Resp BP Pulse Ox
97.8 F 66 16 128/65 97
08/23/23 07:54 08/23/23 11:00 08/23/23 07:54 08/23/23 11:00 08/23/23 07:54
08/22/23 09:08
08/22/23 09:08
PT 14.5 Sec (11.4-14.6) 08/21/23 09:45
INR 1.11 08/21/23 09:45
Magnesium 2.2 mg/dl (1.6-2.3) 08/22/23 09:08
Physical Exam
Constitutional: No acute distress
EENT: Anicteric
Cardiovascular: Rhythm/rate is irregular
Respiratory: Respiratory effort normal and Lungs clear to auscul.
GI: Soft, Non tender and Normal bowel sounds
Neuro/Psych: Alert
Data Reviewed
-
Date of Service: August 23, 2023
EKG: Other (tele afib, bradycardia)
[2023-08-23] MEDS: ZYPREXA 10 MG IM (12:12)
--- NOTE | 2023-08-23 13:38 | W.PN.UPDATE ---
Update Note
Progress Note Update
Pt. who has history of falls in longterm has had all psych meds except Lamictal stopped during this admission as they were thought to be the cause of his falls. He required Zyprexa 10 mg. IM at 12:12 today and is now fast asleep and snoring.
Will follow-may need some amount of antipsychotic medication, ideally one that does not cause hypotension or have strong anticholinergic effects. Discussed case with nurse.
--- NOTE | 2023-08-23 13:44 | CON.ID ---
Consultation
-
Date/Time Consultation Requested: 08/22/23 17:40
Date/Time Consultation Performed: 08/23/23 13:44
Requesting Provider: Dr Ward
Performing Provider: Dr Sethi
Reason for Consultation: Itchy rash on left upper chest - consulting to eval for infection
Chief Complaint / Past History
Chief Complaint
falls
History of Present Illness
Mr Ramirez is an 83 year old male with history of SCC removal from back, former etoh abuse who presented here 08/20 for multiple falls. Of note with recent increase in sedative medications for agitation. No reporting an itchy rash on the L chest
and left axillary area.
Since arrival here she has been afebrile, bp stable, without leukocytosis or L shift, cr stable,t bili 1.4, ast 32, alt 19, alk phos 50, covid ag negative, imaging reports this admission reviewed and unremarkable, flu negative
Past History
Additional Past Medical History:
Alzheimer's Dementia, anxiety, depression, paroxysmal A-fib, hypertension, colon cancer with resection 2018, squamous cell CA removal from back and former alcohol abuse�
Additional Past Surgical History:
Bowel Resection (2/2 colon cancer )
Allergy History:
No Known Allergies Allergy (Verified 08/20/23 12:41)
Medications Reviewed: Yes
Social History
Tobacco: Non-Smoker
Alcohol: Former
Personal:
Family History
Family History: Not Pertinent
Review of Systems
Review of Systems
General: Negative Fever or Chills
All systems: All other systems were reviewed and were negative
Vital Signs
Temp Pulse Resp BP Pulse Ox
97.8 F 66 16 128/65 97
08/23/23 07:54 08/23/23 11:00 08/23/23 07:54 08/23/23 11:00 08/23/23 07:54
Physical Exam
Physical Exam
Constitutional: No Acute Distress
Cardiovascular: Regular Rate
Pulmonary: Symmetric and Non Labored
Gastrointestinal: Non Tender and Non Distended
Skin: Warm, Dry and Rash (raise, red, nonexcoriated papules on the L chest); Negative Jaundice
Neurological: Awake
Lab / Diagnostic Study Results
08/22/23 09:08
08/22/23 09:08
Abs Immat Gran (auto) 0.1 10^3/uL (0-0.05) H 08/21/23 06:54
Absolute Neuts (auto) 4.0 10^3/uL (1.4-6.5) 08/21/23 06:54
Absolute Lymphs (auto) 0.8 10^3/uL (1.2-3.4) L 08/21/23 06:54
Absolute Monos (auto) 0.7 10^3/uL (0.1-0.6) H 08/21/23 06:54
Absolute Basos (auto) 0.0 10^3/uL (0-0.2) 08/21/23 06:54
Immature Gran % 1.3 % (0-0.5) H 08/21/23 06:54
Neutrophils % 72.5 % (42.2-75.2) 08/21/23 06:54
Lymphocytes % 13.8 % (20.5-51.1) L 08/21/23 06:54
Monocytes % 12.0 % (1.7-9.3) H 08/21/23 06:54
Eosinophils % 0.0 % (0-6) 08/21/23 06:54
Basophils % 0.4 % (0-2) 08/21/23 06:54
PT 14.5 Sec (11.4-14.6) 08/21/23 09:45
INR 1.11 08/21/23 09:45
Ur Squamous Epith Cells 3-5 /LPF (Few) 08/21/23 14:18
Microbiology Results
Micro:
08/20/23 18:28 Influenza Types A & B (SERGE) - Final
Nasal Swab Negative for Influenza A & B, NAAT
Negative results must be combined with clinical observations
and patient history.
Nucleic Acid Amplification test (NAAT)performed on the
[employer] ID NOW platform.
Assessment / Plan
Possible Folliculitis
- raised, papular rash, no excoriations
- fine to try a 5 day course of keflex
- if not resolving then can follow up with PCP outpatient
ID service will no longer actively follow this patient please recall for further questions
[2023-08-23] MEDS: ATIVAN 0.5 MG PO ×2 (15:04→22:14)
[2023-08-23 15:14] VITALS: BP 137/79
[2023-08-23] MEDS: KEFLEX 500 MG PO ×2 (17:00→22:14)
[2023-08-23] MEDS: ZYPREXA 2.5 MG IM (18:05)
[2023-08-23] MEDS: STERILE WATER FOR INJECTION 2.10000000000000009 ML IM (18:05)
[2023-08-23 19:00] VITALS: BP 161/73
--- NOTE | 2023-08-23 19:08 | W.PN.HOSP.TC ---
Today's Communication/Plan
-
Placement Pending
Please see below
Assessment / Plan
Assessment / Plan
Physical Exam
General: Not in acute distress
HEENT: Normocephalic, Moist mucous membranes
Respiratory: CTAB
Cardiac: S1/S2, Regular Rhythm and Peripheral Edema (Trace bilateral)
GI: Soft, Non Tender, Non Distended, Normal Bowel Sounds
Musculoskeletal: No Cyanosis, Edema, Left Lower Extremity (Trace) and Edema, Right Lower Extremity (Trace)
Skin: Warm, Dry, Rash (Macular papular rash scattered left chest wall into axilla) and Other (Skin tear left elbow POA, ecchymosis right medial aspect of upper thigh)
Neuro: Awake, Alert, Oriented (To name only)
Psych: Calm. Intermittently agitated.
Assessment/Plan
#Recurrent falls - reported 17 falls last 2 to 3 weeks per NH staff
-Fall precautions
-Family unsure whether patient had any loss of consciousness at any of those falls
-Tylenol as needed
-Electrocardiogram
-Vitamin B12 is 312 significantly decreased from a few months ago; will supplement more Vitamin B12 for a short course
-TSH: 1.44
-Folate: 12
-Iron Studies noted
-Orthostatic vital signs
-Consider echocardiogram
-Monitor on telemetry: bradycardia, pauses on tele and A-Fib (has history of A-Fib) on EKG: consulted cardiology --> no long pauses or profound bradycardia-> no indication for PPM or that it would help ----> recommendations appreciated
-Hold Coreg for now due to above --> but if HR averages over 100 bpm, resume carvedilol 6.25 po BID
-Consulted psychiatry: trazodone and Lomotil (Diphenoxylate-Atropine) discontinued. Zyprexa should be avoided due to possible akathisia resulting in falls. Lamictal increased to 175 mg daily
-PT/OT/case management consult for prison placement as patient cannot return to [facility] memory care per staff
-Case management saw near will initiate referral to [facility] per family request
�� CT head: No acute intracranial abnormality
�� CT cervical spine no acute fracture or dislocation
�� Right hip and pelvis x-ray: Mild degenerative changes of the right and left hip no acute fracture or dislocation
�� CXR: No acute cardiopulmonary process
#Agitation
-Use prn Ativan only (see psychiatry noted from August 22, 2023)
#Left elbow skin tear, right inner thigh bruise secondary to multiple falls
-Consulted wound care, recommendations appreciated
#Skin rash left and right lateral trunk unclear etiology - Possible folliculitis
-Apply hydrocortisone as needed itching
-Will consider discussing with dermatology
-Triamcinolone cream. Antihistamines
-ID consulted, recommendations appreciated: 5 day course of Keflex - if not resolving then can follow up with PCP outpatient
#Recent Diarrheal Illness
-Unknown etiology, resolved a few weeks ago
#Alzheimer's Dementia�advanced
-Supportive care
#A-fib paroxysmal
#Mild Bradycardia on Telemetry
No severe bradycardia or long pauses on telemetry, as per cardiology
Hold carvedilol 25 mg twice daily for now (see above) --> but if HR averages over 100 bpm, resume carvedilol 6.25 po BID
With recurrent falls, he is not a candidate for anticoagulation right now
Follow-up as needed with [facility] cardiology with Dr. Tapia
#Anemia-macrocytic
Hgb 9.4 was 11.12 June 2023
-B12, folate, iron panel as noted above
#HTN�benign
BP 124/72
-Check orthostatic vitals
-Hold carvedilol 25 mg twice daily -- see above
-Continue Norvasc 5 mg daily
#Anxiety/depression
#Agitation
-Consulted psychiatry: trazodone and Lomotil (Diphenoxylate-Atropine) discontinued. Zyprexa should be avoided due to possible akathisia resulting in falls. Lamictal increased to 175 mg daily
-Continue duloxetine 20 mg daily
-Consulted psychiatry, recommendations appreciated
#Former alcohol abuse
Stopped 2022 drank greater than 2 glasses a day per
#Insomnia
-Continue melatonin at bedtime, trazodone 125 mg at bedtime
#Hx colon cancer with resection of [facility] 2018
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
#BPH
-Continue Flomax 0.4 mg at bedtime
DVT prophylaxis
SCDs
DNR per Kayla with sister at bedside at the time of admission this hospitalization
Anticipated Discharge: 24 - 48 hours
Subjective/Interval History
-
Date of Service: August 23, 2023
Patient was seen and examined. No new symptoms or complaints reported.
Objective Data
-
Vital Signs:
Vital Signs
Temp Pulse Resp BP Pulse Ox
98.2 F 60 18 137/79 97
08/23/23 15:14 08/23/23 15:14 08/23/23 15:14 08/23/23 15:14 08/23/23 07:54
I&O
08/22/23 08/23/23 08/24/23
06:59 06:59 06:59
Intake Total 1070 / 1070 1140 / 1140 300 / 300
Output Total 375 / 375 975 / 975
Balance 695 / 695 165 / 165 300 / 300
[2023-08-23] MEDS: FLOMAX 0.400000000000000022 MG PO (22:14)
[2023-08-23] MEDS: MELATONIN 5 MG PO (22:14)
[2023-08-23 22:59] VITALS: BP 158/73
[2023-08-24] VITALS (7 sets, daily range): BP systolic 119–152; BP diastolic 62–76; PULSE 78–79
[2023-08-24] MEDS: TYLENOL PO ×2 (03:57→12:30)
[2023-08-24] MEDS: ATIVAN 0.5 MG PO ×3 (04:53→18:26)
--- NOTE | 2023-08-24 08:34 | CM ---
Addendum entered by Ofelia Mckeon 08/24/23 11:10:
spoke again with daughter she is concerned about medications and update provided re SNF options. CM will continue to try to reach admissions.
Original Note:
CM spoke with patient daughter 08/23 additional referrals sent and awaiting bed availability. Patient family continue to hope for [facility], however, no response to call and VM. CM will continue to look for available bed. CM will continue to follow for
discharge planning needs.
Plan; SNF
[2023-08-24] MEDS: ASPIR LOW (ENTERIC COATED) 81 MG PO (09:59)
[2023-08-24] MEDS: KEFLEX 500 MG PO ×4 (10:00→21:41)
[2023-08-24] MEDS: LAMICTAL 175 MG PO (10:00)
[2023-08-24] MEDS: TYLENOL 650 MG PO ×3 (10:01→21:40)
[2023-08-24] MEDS: NORVASC 5 MG PO (10:02)
[2023-08-24] MEDS: HYDROCORTISONE 1% CREAM 1 APPLIC TOPICAL ×2 (10:10→21:41)
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
[2023-08-24 17:26] LABS: COVID-19 Antigen Negative (Negative)
[2023-08-24] MEDS: CELEXA 20 MG PO (17:43)
--- NOTE | 2023-08-24 18:21 | PTCARENOTE ---
Assumed care of pt from previous nurse. Pt provided ativan for agitation with positive results. Pt with no noted pain. Pt call ghotra is within reach, pt does not ring, 1:1 at bedside, rounding in place. 1:1 calls for pt, will cont to monitor.
--- NOTE | 2023-08-24 19:07 | W.PN.HOSP.TC ---
Today's Communication/Plan
-
Disposition Efforts
Assessment / Plan
Assessment / Plan
Physical Exam
General: Not in acute distress
HEENT: Normocephalic, Moist mucous membranes
Respiratory: CTAB
Cardiac: S1/S2, Regular Rhythm and Peripheral Edema (Trace bilateral)
GI: Soft, Non Tender, Non Distended, Normal Bowel Sounds
Musculoskeletal: No Cyanosis, Edema, Left Lower Extremity (Trace) and Edema, Right Lower Extremity (Trace)
Skin: Warm, Dry, Rash (Macular papular rash scattered left chest wall into axilla) and Other (Skin tear left elbow POA, ecchymosis right medial aspect of upper thigh)
Neuro: Awake, Alert, Oriented (To name only)
Psych: Calm. Intermittently agitated.
Assessment/Plan
#Recurrent falls - reported 17 falls last 2 to 3 weeks per NH staff
-Fall precautions
-Family unsure whether patient had any loss of consciousness at any of those falls
-Tylenol as needed
-Electrocardiogram
-Vitamin B12 is 312 significantly decreased from a few months ago; although technically in normal range, will supplement more Vitamin B12 for a short course during hospitalization with plans to recheck it outpatient
-TSH: 1.44
-Folate: 12
-Iron Studies noted
-Orthostatic vital signs
-Monitor on telemetry: bradycardia, pauses on tele and A-Fib (has history of A-Fib) on EKG: consulted cardiology --> no long pauses or profound bradycardia-> no indication for PPM or that it would help ----> recommendations appreciated
-Hold Coreg for now due to bradycardia --> but if HR averages over 100 bpm, resume carvedilol 6.25 po BID
-Consulted psychiatry: trazodone and Lomotil (Diphenoxylate-Atropine) discontinued. Zyprexa made scheduled medication per psychiatry on August 24, 2023. Lamictal increased to 175 mg daily
-PT/OT/case management consult for snf placement as patient cannot return to [facility] memory care per staff
-Case management saw near will initiate referral to [facility] per family request
�� CT head: No acute intracranial abnormality
�� CT cervical spine no acute fracture or dislocation
�� Right hip and pelvis x-ray: Mild degenerative changes of the right and left hip no acute fracture or dislocation
�� CXR: No acute cardiopulmonary process
#Agitation
-Use prn Ativan and prn Zyprexa as per psychiatry (see psychiatry noted from August 22, 2023)
#Left elbow skin tear, right inner thigh bruise secondary to multiple falls
-Consulted wound care, recommendations appreciated
#Skin rash left and right lateral trunk unclear etiology - Possible folliculitis
-Apply hydrocortisone as needed itching
-No barrel rifler button control manager at the time to see patient
-Triamcinolone cream. Antihistamines
-ID consulted, recommendations appreciated: 5 day course of Keflex - if not resolving then can follow up with PCP outpatient
#Recent Diarrheal Illness
-Unknown etiology, resolved a few weeks ago
#Alzheimer's Dementia�advanced
-Supportive care
#A-fib paroxysmal
#Mild Bradycardia on Telemetry
No severe bradycardia or long pauses on telemetry, as per cardiology
Hold carvedilol 25 mg twice daily for now (see above) --> but if HR averages over 100 bpm, resume carvedilol 6.25 po BID
With recurrent falls, he is not a candidate for anticoagulation right now
Follow-up as needed with [facility] cardiology with Dr. Tapia
#Anemia-macrocytic
Hgb 9.4 was 11.12 June 2023
-B12, folate, iron panel as noted above
#HTN�benign
BP 124/72
-Check orthostatic vitals
-Hold carvedilol 25 mg twice daily -- see above
-Continue Norvasc 5 mg daily
#Anxiety/depression
#Agitation
-Consulted psychiatry: trazodone and Lomotil (Diphenoxylate-Atropine) discontinued. Zyprexa continued. Lamictal increased to 175 mg daily
-Consulted psychiatry, recommendations appreciated
#Former alcohol abuse
Stopped 2022 drank greater than 2 glasses a day per
#Insomnia
-Continue melatonin at bedtime, trazodone 125 mg at bedtime
#Hx colon cancer with resection of [facility] 2018
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
#BPH
-Continue Flomax 0.4 mg at bedtime
DVT prophylaxis
SCDs
DNR per Kayla with sister at bedside at the time of admission this hospitalization
Family will need update before discharge
Anticipated Discharge: 24 - 48 hours
Subjective/Interval History
-
Date of Service: August 24, 2023
Patient was seen and examined. He was sleeping comfortably and woke up when called, no new complaints.
Objective Data
-
Vital Signs:
Vital Signs
Temp Pulse Resp BP Pulse Ox
98.0 F 71 18 128/65 96
08/24/23 15:19 08/24/23 15:19 08/24/23 15:19 08/24/23 15:19 08/24/23 15:19
I&O
08/23/23 08/24/23 08/25/23
06:59 06:59 06:59
Intake Total 1140 / 1140 300 / 300
Output Total 975 / 975
Balance 165 / 165 300 / 300
[2023-08-24 19:28] LABS: Hematocrit 33.3 % (39.0-52.0); Hemoglobin 11.4 g/dL (13.0-18.0); Mean Corp Hgb Conc. 34.2 g/dL (33.0-37.0); Mean Corpuscular Hgb 32.2 pg (27.0-31.0); Mean Corpuscular Volume 94.1 fL (80.0-94.0); Mean Platelet Volume 8.3 fL (7.4-10.4); Platelet Count 165 10^3/uL (130-400); Red Blood Cell Count 3.54 10^6/uL (4.70-6.10); Red Cell Dist. Width 16.1 % (11.5-14.5); White Blood Cell Count 7.3 10^3/uL (4.8-10.8)
[2023-08-24 19:54] LABS: Blood Urea Nitrogen 18 mg/dl (9-20); Calcium 9.1 mg/dl (8.4-10.2); Carbon Dioxide 29 mmol/L (22-30); Chloride 101 mmol/L (98-107); Estimated Creatinine Clearance 77 ml/min; Glucose 134 mg/dl (70-99); Potassium 3.9 mmol/L (3.5-5.1); Sodium 135 mmol/L (135-145); eGFR > 60.00
[2023-08-24] MEDS: MELATONIN 5 MG PO (21:41)
[2023-08-24] MEDS: FLOMAX 0.400000000000000022 MG PO (21:41)
[2023-08-25] MEDS: TYLENOL PO ×2 (00:32→04:24)
[2023-08-25 03:06] VITALS: BP 148/68
[2023-08-25 08:00] VITALS: BP 163/68
[2023-08-25] MEDS: ASPIR LOW (ENTERIC COATED) 81 MG PO (08:48)
[2023-08-25] MEDS: NORVASC 5 MG PO (08:49)
[2023-08-25] MEDS: KEFLEX 500 MG PO ×4 (08:49→20:46)
[2023-08-25] MEDS: LAMICTAL 175 MG PO (08:49)
[2023-08-25] MEDS: TYLENOL 650 MG PO ×4 (08:50→20:38)
[2023-08-25] MEDS: HYDROCORTISONE 1% CREAM 1 APPLIC TOPICAL ×2 (08:51→20:39)
[2023-08-25] MEDS: CELEXA 20 MG PO (08:51)
[2023-08-25 08:55] LABS: Blood Urea Nitrogen 15 mg/dl (9-20); Calcium 8.9 mg/dl (8.4-10.2); Carbon Dioxide 32 mmol/L (22-30); Chloride 103 mmol/L (98-107); Estimated Creatinine Clearance 77 ml/min; Glucose 86 mg/dl (70-99); Potassium 3.9 mmol/L (3.5-5.1); Sodium 138 mmol/L (135-145); eGFR > 60.00
[2023-08-25 09:43] LABS: Hematocrit 36.4 % (39.0-52.0); Hemoglobin 11.9 g/dL (13.0-18.0); Mean Corp Hgb Conc. 32.7 g/dL (33.0-37.0); Mean Corpuscular Hgb 32.4 pg (27.0-31.0); Mean Corpuscular Volume 99.2 fL (80.0-94.0); Mean Platelet Volume 8.6 fL (7.4-10.4); Platelet Count 170 10^3/uL (130-400); Red Blood Cell Count 3.67 10^6/uL (4.70-6.10); Red Cell Dist. Width 15.9 % (11.5-14.5); White Blood Cell Count 5.5 10^3/uL (4.8-10.8)
[2023-08-25 11:49] VITALS: PULSE 65; O2SAT 99
--- NOTE | 2023-08-25 12:14 | CM ---
Chart reviewed and patient is currently on 1:1 supervision. Plan is for skilled placement however patient will need to be off 1:1 for placement. Patient cannot be on med sitter for residential placement. Nursing and physician made aware.
Plan; Placement, patient needs to be off 1:1 for placement, patient cannot be on med sitter.
--- NOTE | 2023-08-25 12:36 | W.PN.HOSP.TC ---
Today's Communication/Plan
-
med adjustment per psychiatry
eventual SNF
Assessment / Plan
Assessment / Plan
Physical Exam
General: Not in acute distress, confused
HEENT: Normocephalic, Moist mucous membranes
Respiratory: CTAB
Cardiac: S1/S2, Regular Rhythm and Peripheral Edema (Trace bilateral)
GI: Soft, Non Tender, Non Distended, Normal Bowel Sounds
Musculoskeletal: No Cyanosis, Edema, Left Lower Extremity (Trace) and Edema, Right Lower Extremity (Trace)
Skin: Warm, Dry, Rash (Macular papular rash scattered left chest wall into axilla) and Other (Skin tear left elbow POA, ecchymosis right medial aspect of upper thigh)
Neuro: Awake, Alert, Oriented (To name only)
Psych: Calm. Intermittently agitated.
Assessment/Plan
#Recurrent falls - reported 17 falls last 2 to 3 weeks per NH staff
-Fall precautions
-Family unsure whether patient had any loss of consciousness at any of those falls
-Tylenol as needed
-Electrocardiogram
-Vitamin B12 is 312 significantly decreased from a few months ago; although technically in normal range, will supplement more Vitamin B12 for a short course during hospitalization with plans to recheck it outpatient
-TSH: 1.44
-Folate: 12
-Iron Studies noted
-Orthostatic vital signs
-Monitor on telemetry: bradycardia, pauses on tele and A-Fib (has history of A-Fib) on EKG: consulted cardiology --> no long pauses or profound bradycardia-> no indication for PPM or that it would help ----> recommendations appreciated
-held Coreg for now due to bradycardia --> but if HR averages over 100 bpm, resume carvedilol 6.25 po BID
-Consulted psychiatry: trazodone and Lomotil (Diphenoxylate-Atropine) discontinued. Zyprexa made scheduled medication per psychiatry on August 24, 2023. Lamictal increased to 175 mg daily
-patient remains confused on 1:1, needs to be off 1:1 for 24 hours before SNF placement; appreciate Psychiatry
-PT/OT/case management consult for [facility] placement as patient cannot return to [facility] care per staff
-Case management saw near will initiate referral to [facility] per family request
�� CT head: No acute intracranial abnormality
�� CT cervical spine no acute fracture or dislocation
�� Right hip and pelvis x-ray: Mild degenerative changes of the right and left hip no acute fracture or dislocation
�� CXR: No acute cardiopulmonary process
#Agitation
-Use prn Ativan and prn Zyprexa as per psychiatry (see psychiatry noted from August 22, 2023)
#Left elbow skin tear, right inner thigh bruise secondary to multiple falls
-Consulted wound care, recommendations appreciated
#Skin rash left and right lateral trunk unclear etiology - Possible folliculitis
-Apply hydrocortisone as needed itching
-No stage director transplant surgeon at the time to see patient
-Triamcinolone cream. Antihistamines
-ID consulted, recommendations appreciated: 5 day course of Keflex - if not resolving then can follow up with PCP outpatient (take through 08/28)
#Recent Diarrheal Illness
-Unknown etiology, resolved a few weeks ago
#Alzheimer's Dementia�advanced
-Supportive care
#A-fib paroxysmal
#Mild Bradycardia on Telemetry
No severe bradycardia or long pauses on telemetry, as per cardiology
Hold carvedilol 25 mg twice daily for now (see above) --> but if HR averages over 100 bpm, resume carvedilol 6.25 po BID
With recurrent falls, he is not a candidate for anticoagulation right now
Follow-up as needed with [facility] cardiology with Dr. Tapia
#Anemia-macrocytic
Hgb 9.4 was 11.12 June 2023
-B12, folate, iron panel as noted above
#HTN�benign
BP 124/72
-Check orthostatic vitals
-Hold carvedilol 25 mg twice daily -- see above
-Continue Norvasc 5 mg daily
#Anxiety/depression
#Agitation
-Consulted psychiatry: trazodone and Lomotil (Diphenoxylate-Atropine) discontinued. Zyprexa continued. Lamictal increased to 175 mg daily
-Consulted psychiatry, recommendations appreciated
#Former alcohol abuse
Stopped 2022 drank greater than 2 glasses a day per
#Insomnia
-Continue melatonin at bedtime, trazodone 125 mg at bedtime
#Hx colon cancer with resection of [facility] 2018
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
#BPH
-Continue Flomax 0.4 mg at bedtime
DVT prophylaxis
SCDs
DNR per Kayla with sister at bedside at the time of admission this hospitalization
Family will need update before discharge
Anticipated Discharge: 24 - 48 hours
Subjective/Interval History
-
Date of Service: August 25, 2023
no new complaints
patient confused
Objective Data
-
Labs:
Laboratory Results
08/25/23
07:22
WBC 5.5
Hgb 11.9 L
Hct 36.4 L
Plt Count 170
Sodium 138
Potassium 3.9
Chloride 103
Carbon Dioxide 32 H
BUN 15
Creatinine 0.8
Glucose 86
Calcium 8.9
Vital Signs:
Vital Signs
Temp Pulse Resp BP Pulse Ox
98.0 F 65 16 163/68 99
08/25/23 11:47 08/25/23 11:47 08/25/23 11:47 08/25/23 08:00 08/25/23 11:47
I&O
08/24/23 08/25/23 08/26/23
06:59 06:59 06:59
Intake Total 300 / 300 240 / 240
Output Total 100 / 100
Balance 300 / 300 140 / 140
Review of Systems
-
History Source: Patient
All other systems: Reviewed and negative
Data Reviewed
-
Diagnostic Radiology: Report Reviewed by me
Labs: Labs Reviewed by me
[2023-08-25] MEDS: ZYPREXA 2.5 MG PO (17:22)
[2023-08-25] MEDS: STERILE WATER FOR INJECTION 2.10000000000000009 ML IM (18:10)
[2023-08-25] MEDS: ZYPREXA 2.5 MG IM (18:10)
--- NOTE | 2023-08-25 18:16 | PTCARENOTE ---
Pt with increasing agitation. Attempting to get out of bed. Toileting attempted but pt pushing away. Unable to redirect. PRN Zyprexa 2.5mg IM administered. 1:1 observation maintained.
[2023-08-25 19:25] VITALS: BP 121/64
[2023-08-25] MEDS: MELATONIN 5 MG PO (20:46)
[2023-08-25] MEDS: FLOMAX 0.400000000000000022 MG PO (20:46)
[2023-08-25 23:31] VITALS: BP 100/46
[2023-08-26] MEDS: TYLENOL PO ×4 (00:14→23:31)
[2023-08-26] MEDS: ATIVAN 0.5 MG PO ×3 (02:02→19:16)
[2023-08-26 03:21] VITALS: BP 129/75
[2023-08-26 07:21] VITALS: BP 170/97
[2023-08-26 08:06] LABS: Hematocrit 33.7 % (39.0-52.0); Hemoglobin 11.2 g/dL (13.0-18.0); Mean Corp Hgb Conc. 33.2 g/dL (33.0-37.0); Mean Corpuscular Hgb 32.8 pg (27.0-31.0); Mean Corpuscular Volume 98.8 fL (80.0-94.0); Mean Platelet Volume 8.9 fL (7.4-10.4); Platelet Count 157 10^3/uL (130-400); Red Blood Cell Count 3.41 10^6/uL (4.70-6.10); White Blood Cell Count 4.5 10^3/uL (4.8-10.8)
[2023-08-26 08:38] LABS: Blood Urea Nitrogen 19 mg/dl (9-20); Calcium 8.9 mg/dl (8.4-10.2); Carbon Dioxide 29 mmol/L (22-30); Chloride 102 mmol/L (98-107); Estimated Creatinine Clearance 77 ml/min; Glucose 87 mg/dl (70-99); Potassium 3.7 mmol/L (3.5-5.1); Sodium 139 mmol/L (135-145); eGFR > 60.00
[2023-08-26] MEDS: LAMICTAL 175 MG PO (09:00)
[2023-08-26] MEDS: TYLENOL 650 MG PO ×3 (09:00→19:17)
[2023-08-26] MEDS: ASPIR LOW (ENTERIC COATED) 81 MG PO (09:00)
[2023-08-26] MEDS: NORVASC 5 MG PO (09:00)
[2023-08-26] MEDS: CELEXA 20 MG PO (09:00)
[2023-08-26] MEDS: HYDROCORTISONE 1% CREAM 1 APPLIC TOPICAL ×2 (09:01→19:17)
[2023-08-26] MEDS: KEFLEX 500 MG PO ×4 (09:01→21:36)
[2023-08-26 11:00] VITALS: BP 162/69
--- NOTE | 2023-08-26 11:31 | W.PN.UPDATE ---
Update Note
Progress Note Update
Patient seen at bedside, chart reviewed, discussed with staff. Patient continues to have periods of agitation that can be difficult to redirect. RN reports most episodes seem to be related to a need such as needing to be changed. It is reported that
most times after need is met, patient will settle down. Efforts for placement continue however, patient will need to be off of 1:1 supervision prior to this happening. Unfortunately, at this time he is in a room in the corner and that is not an
option. They are looking to move him closer to the nursing station if room becomes available as well as using a gerichair in the hallway. Patient had been on much higher doses of Zyprexa and may need to consider with his size he may require a small
increase in dose for better behavioral support.
Impression/Plan: Advanced dementia�with history of affective disorder and anxiety - Increase Zyprexa to 5mg HS in hopes to decreased need for PRNs and 1:1 supervision. Cymbalta and Trazodone have been DC'd. Continue with citalopram 20 mg. Psych will
follow.
--- NOTE | 2023-08-26 11:33 | W.PN.HOSP.TC ---
Today's Communication/Plan
-
F/U further psychiatry recommendations
Assessment / Plan
Assessment / Plan
Physical Exam
General: Not in acute distress, confused
HEENT: Normocephalic, Moist mucous membranes
Respiratory: CTAB
Cardiac: S1/S2, Regular Rhythm and Peripheral Edema (Trace bilateral)
GI: Soft, Non Tender, Non Distended, Normal Bowel Sounds
Musculoskeletal: No Cyanosis, Edema, Left Lower Extremity (Trace) and Edema, Right Lower Extremity (Trace)
Skin: Warm, Dry, Rash (Macular papular rash scattered left chest wall into axilla) and Other (Skin tear left elbow POA, ecchymosis right medial aspect of upper thigh)
Neuro: Awake, Alert, Oriented (To name only)
Psych: Calm. Intermittently agitated.
Assessment/Plan
#Recurrent falls - reported 17 falls last 2 to 3 weeks per NH staff
-Fall precautions
-Family unsure whether patient had any loss of consciousness at any of those falls
-Tylenol as needed
-Electrocardiogram
-Vitamin B12 is 312 significantly decreased from a few months ago; although technically in normal range, will supplement more Vitamin B12 for a short course during hospitalization with plans to recheck it outpatient
-TSH: 1.44
-Folate: 12
-Iron Studies noted
-Orthostatic vital signs
-Monitor on telemetry: bradycardia, pauses on tele and A-Fib (has history of A-Fib) on EKG: consulted cardiology --> no long pauses or profound bradycardia-> no indication for PPM or that it would help ----> recommendations appreciated
-held Coreg for now due to bradycardia --> but if HR averages over 100 bpm, resume carvedilol 6.25 po BID
-Consulted psychiatry: trazodone and Lomotil (Diphenoxylate-Atropine) discontinued. Zyprexa made scheduled medication per psychiatry on August 24, 2023. Lamictal increased to 175 mg daily
-patient remains confused on 1:1, needs to be off 1:1 for 24 hours before SNF placement; appreciate Psychiatry
-PT/OT/case management consult for snf placement as patient cannot return to [facility] care per staff
-Case management saw near will initiate referral to [facility] per family request
�� CT head: No acute intracranial abnormality
�� CT cervical spine no acute fracture or dislocation
�� Right hip and pelvis x-ray: Mild degenerative changes of the right and left hip no acute fracture or dislocation
�� CXR: No acute cardiopulmonary process
#Agitation
-Use prn Ativan and prn Zyprexa as per psychiatry (see psychiatry noted from August 22, 2023)
#Left elbow skin tear, right inner thigh bruise secondary to multiple falls
-Consulted wound care, recommendations appreciated
#Skin rash left and right lateral trunk unclear etiology - Possible folliculitis
-Apply hydrocortisone as needed itching
-No cloth cutting machine operator stoneworker at the time to see patient
-Triamcinolone cream. Antihistamines
-ID consulted, recommendations appreciated: 5 day course of Keflex - if not resolving then can follow up with PCP outpatient (take through 08/28)
#Recent Diarrheal Illness
-Unknown etiology, resolved a few weeks ago
#Alzheimer's Dementia�advanced
-Supportive care
#A-fib paroxysmal
#Mild Bradycardia on Telemetry
No severe bradycardia or long pauses on telemetry, as per cardiology
Hold carvedilol 25 mg twice daily for now (see above) --> but if HR averages over 100 bpm, resume carvedilol 6.25 po BID
With recurrent falls, he is not a candidate for anticoagulation right now
Follow-up as needed with [facility] cardiology with Dr. Tapia
#Anemia-macrocytic
Hgb 9.4 was 11.12 June 2023
-B12, folate, iron panel as noted above
#HTN�benign
BP 124/72
-Check orthostatic vitals
-Hold carvedilol 25 mg twice daily -- see above
-Continue Norvasc 5 mg daily
#Former alcohol abuse
Stopped 2022 drank greater than 2 glasses a day per
#Insomnia
-Continue melatonin at bedtime, trazodone 125 mg at bedtime
#Hx colon cancer with resection of [facility] 2018
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
#BPH
-Continue Flomax 0.4 mg at bedtime
DVT prophylaxis
SCDs
DNR per Kayla with sister at bedside at the time of admission this hospitalization
Family will need update before discharge
Anticipated Discharge: 24 - 48 hours
Subjective/Interval History
-
Date of Service: August 26, 2023
patient resting
he was agitated earlier
Objective Data
-
Labs:
Laboratory Results
08/26/23
07:08
WBC 4.5 L
Hgb 11.2 L
Hct 33.7 L
Plt Count 157
Sodium 139
Potassium 3.7
Chloride 102
Carbon Dioxide 29
BUN 19
Creatinine 0.8
Glucose 87
Calcium 8.9
Vital Signs:
Vital Signs
Temp Pulse Resp BP Pulse Ox
97.9 F 79 18 170/97 93
08/26/23 03:21 08/26/23 07:21 08/26/23 07:21 08/26/23 07:21 08/26/23 07:21
I&O
08/25/23 08/26/23 08/27/23
06:59 06:59 06:59
Intake Total 240 / 240 720 / 720
Output Total 100 / 100 250 / 250
Balance 140 / 140 470 / 470
Review of Systems
-
History Source: Patient
All other systems: Reviewed and negative
Physical Exam
-
General: No Apparent Distress
Neuro: Sedated
Psych: Calm
Data Reviewed
-
Diagnostic Radiology: Report Reviewed by me
Labs: Labs Reviewed by me
--- NOTE | 2023-08-26 12:50 | CM ---
outpatient pharmacy manager reviewed patient's chart and patient remains on 1:1, plan is for detention placement however patient will need to be off 1:1 for placement, caser up spoke with patient's spouse and patient's daughter regarding placement.
patient's daughter has selected [facility], application form for admission was placed in patient's room family will need to complete. Daughter who is out of state plans on looking for online application form for [facility].
Plan; Skilled placement when patient is off 1:1.
--- NOTE | 2023-08-26 13:11 | PTCARENOTE ---
Pt combative and making repeated attempts to get OOB. Elissa- chair order requested and rec'd from Dr. Branham. Request to remove Tele also approved by Dr. Branham as Cardiology has signed off and Pt does not meet protocol. Pt medicated with PRN ativan
and scheduled meds as ordered.
[2023-08-26 15:00] VITALS: BP 112/55; BP 119/67
[2023-08-26] MEDS: ZYPREXA 5 MG PO (17:29)
[2023-08-26] MEDS: FLOMAX 0.400000000000000022 MG PO (21:36)
[2023-08-26] MEDS: MELATONIN 5 MG PO (21:36)
[2023-08-26 22:41] VITALS: BP 123/54
[2023-08-26 23:00] VITALS: BP 123/54
[2023-08-27] MEDS: TYLENOL PO (04:52)
[2023-08-27 07:31] VITALS: BP 127/60
[2023-08-27 08:28] LABS: COVID-19 Antigen Negative (Negative)
[2023-08-27] MEDS: CELEXA 20 MG PO (08:52)
[2023-08-27] MEDS: LAMICTAL 175 MG PO (08:52)
[2023-08-27] MEDS: HYDROCORTISONE 1% CREAM 1 APPLIC TOPICAL ×2 (08:52→20:48)
[2023-08-27] MEDS: ATIVAN 0.5 MG PO ×2 (08:52→22:53)
[2023-08-27] MEDS: TYLENOL 650 MG PO ×4 (08:53→20:49)
[2023-08-27] MEDS: ASPIR LOW (ENTERIC COATED) 81 MG PO (08:53)
[2023-08-27] MEDS: KEFLEX 500 MG PO ×4 (08:53→22:53)
[2023-08-27] MEDS: NORVASC 5 MG PO (08:53)
--- NOTE | 2023-08-27 11:08 | W.PN.HOSP.TC ---
Addendum entered and electronically signed by Cassie Branham MD 08/27/23 11:54:
I spoke to daughter, Lou, and updated her.
Original Note:
Today's Communication/Plan
-
dispo planning
appreciate psych
Assessment / Plan
Assessment / Plan
Physical Exam
General: Not in acute distress, confused
HEENT: Normocephalic, Moist mucous membranes
Respiratory: CTAB
Cardiac: S1/S2, Regular Rhythm and Peripheral Edema (Trace bilateral)
GI: Soft, Non Tender, Non Distended, Normal Bowel Sounds
Musculoskeletal: No Cyanosis, Edema, Left Lower Extremity (Trace) and Edema, Right Lower Extremity (Trace)
Skin: Warm, Dry, Rash (Macular papular rash scattered left chest wall into axilla) and Other (Skin tear left elbow POA, ecchymosis right medial aspect of upper thigh)
Neuro: Awake, Alert, Oriented (To name only)
Psych: Calm. Intermittently agitated.
Assessment/Plan
#Recurrent falls - reported 17 falls last 2 to 3 weeks per NH staff
-Fall precautions
-Family unsure whether patient had any loss of consciousness at any of those falls
-Vitamin B12 is 312 significantly decreased from a few months ago; although technically in normal range, will supplement more Vitamin B12 for a short course during hospitalization with plans to recheck it outpatient
-TSH: 1.44
-Folate: 12
-Iron Studies noted
-Orthostatic vital signs
-Monitor on telemetry: bradycardia, pauses on tele and A-Fib (has history of A-Fib) on EKG: coreg held; --> no long pauses or profound bradycardia-> no indication for PPM per cardiology
-Consulted psychiatry: trazodone and Lomotil (Diphenoxylate-Atropine) discontinued. Zyprexa made scheduled medication per psychiatry on August 24, 2023 and dose increased 08/25. Lamictal increased to 175 mg daily
-improvement in confusion today; off 1:1
-PT/OT/case management consult for intermediate placement as patient cannot return to [facility] memory care per staff
-Case management saw near will initiate referral to [facility] per family request
�� CT head: No acute intracranial abnormality
�� CT cervical spine no acute fracture or dislocation
�� Right hip and pelvis x-ray: Mild degenerative changes of the right and left hip no acute fracture or dislocation
�� CXR: No acute cardiopulmonary process
#Agitation
-Use prn Ativan and prn Zyprexa as per psychiatry (see psychiatry noted from August 22, 2023)
#Left elbow skin tear, right inner thigh bruise secondary to multiple falls
-Consulted wound care, recommendations appreciated
#Skin rash left and right lateral trunk unclear etiology - Possible folliculitis
-Apply hydrocortisone as needed itching
-No voice and data technician data visualization developer at the time to see patient
-Triamcinolone cream. Antihistamines
-ID consulted, recommendations appreciated: 5 day course of Keflex - if not resolving then can follow up with PCP outpatient (take through 08/28)
#Recent Diarrheal Illness
-Unknown etiology, resolved a few weeks ago
#Alzheimer's Dementia�advanced
-Supportive care
#Afib
-not candidate for AC 2/2 falls
#Anemia-macrocytic
Hgb 9.4 was 11.12 June 2023
-B12, folate, iron panel as noted above
#HTN�benign
BP 124/72
-Check orthostatic vitals
-Hold carvedilol 25 mg twice daily -- see above
-Continue Norvasc 5 mg daily
#Former alcohol abuse
Stopped 2022 drank greater than 2 glasses a day per
#Insomnia
-Continue melatonin at bedtime, trazodone 125 mg at bedtime
#Hx colon cancer with resection of [facility] 2018
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
#BPH
-Continue Flomax 0.4 mg at bedtime
DVT prophylaxis
SCDs
DNR per Kayla with sister at bedside at the time of admission this hospitalization
Family will need update before discharge
Anticipated Discharge: 24 - 48 hours
Subjective/Interval History
-
Date of Service: August 27, 2023
patient getting cleaned, resting
Objective Data
-
Vital Signs:
Vital Signs
Temp Pulse Resp BP Pulse Ox
97.5 F 62 18 127/60 98
08/27/23 07:31 08/27/23 07:31 08/27/23 07:31 08/27/23 07:31 08/27/23 07:31
I&O
08/26/23 08/27/23 08/28/23
06:59 06:59 06:59
Intake Total 720 / 720 900 / 900
Output Total 250 / 250
Balance 470 / 470 900 / 900
Review of Systems
-
History Source: Patient
All other systems: Reviewed and negative
Physical Exam
-
General: No Apparent Distress
Neuro: Sedated
Psych: Calm
Data Reviewed
-
Diagnostic Radiology: Report Reviewed by me
Labs: Labs Reviewed by me
--- NOTE | 2023-08-27 11:30 | CM ---
operations manager spoke with admissions at [facility] and per admissions they may not be able to accept patient as patient still with agitation and they do not any beds in their care home dementia unit. operations manager reviewed other options with
patient's daughter and will need to wait till patient stabilizes and then proceed with placement.
Plan; Skilled placement.
--- NOTE | 2023-08-27 12:53 | W.PN.UPDATE ---
Update Note
Progress Note Update
patient seen chart reviewed. spoke with nursing. patient has had periods of agitation. yesterday zyprexa was increased to 5 mg daily. it is too soon to see an impact. he has been receiving one to three doses of prn ativan daily. he was in a
recliner this evening from 2 am to about an hour and a half ago. he is now in bed sleeping deeply and snoring loudly. i tried half heartedly to wake him but it seemed after my discussion w nursing that he needed to sleep. on the one hand we do not
want him needing large amounts of ativan ...on the other zyprexa is very anticholinergic and i am reluctant to increase beyond 5 mg. will see how he does between now and tomorrow. as stated right now he is very calm....if he continues tomorrow to
require several doses of atvain will consider a standing am dose of ativan to see if that would prevent him from getting to the point of needing multiple doses and / or consider switch to risperdal which is not quite so anticholinergic although it
does have other side effects. anothe option would be to increase lamictal but i just increased it on the and to decrease risk of brannon kathy in psych we only increase by 25 mg every seven days. so this coming friday could increase am
dose. should consider perhaps moving him closer to the nurses station. nursing plans to try a recliner as well. need to dc med sitter restraints etc to get him into nh.
[2023-08-27] MEDS: ZYPREXA 5 MG PO (17:03)
--- NOTE | 2023-08-27 18:11 | PTCARENOTE ---
Pt removed from 1:1 and placed on Medsitter at 11am. Medsitter then had downtime until approx 1600. No issues- was visiting for part of the time. Pt more calm and slightly more re-directable today. Elissa-chair order not renewed at this time. Pt
has great appetite and is motivated to be cooperative when assisted with meals.
[2023-08-27] MEDS: MELATONIN 5 MG PO (22:53)
[2023-08-27] MEDS: FLOMAX 0.400000000000000022 MG PO (22:54)
[2023-08-27 23:35] VITALS: BP 106/62
[2023-08-28] MEDS: TYLENOL PO ×3 (00:33→15:27)
[2023-08-28 07:00] VITALS: BP 163/83
[2023-08-28] MEDS: KEFLEX 500 MG PO ×2 (08:11→12:34)
[2023-08-28] MEDS: CELEXA 20 MG PO (08:11)
[2023-08-28] MEDS: LAMICTAL 175 MG PO (08:12)
[2023-08-28] MEDS: ASPIR LOW (ENTERIC COATED) 81 MG PO (08:12)
[2023-08-28] MEDS: TYLENOL 650 MG PO ×3 (08:13→19:13)
[2023-08-28] MEDS: NORVASC 5 MG PO (09:28)
[2023-08-28] MEDS: HYDROCORTISONE 1% CREAM 1 APPLIC TOPICAL ×2 (09:29→19:12)
--- NOTE | 2023-08-28 10:05 | CM ---
Addendum entered by Ludivina Burciaga 08/28/23 14:26:
Referrals sent to [facility], bottle caser spoke with [facility] care facility, admissions, Dominique [phone], and per Dominique they have a director foundation on staff which may benefit patient. manager risk management will
follow with patient's activity level, and alertness. manager risk management will invite facilities out to meet with patient in person. Calls placed to patient's spouse and daughter.
Original Note:
manager risk management reviewed patient's chart and per updated progress notes patient is off 1:1 nursing but patient has been sleeping most of the time. manager risk management spoke with family and discussed referrals and referrals sent to [facility]
[place]. manager risk management reached out again to admissions at [facility] but they do not have any beds for patient. Update provided to family
Plan; Skilled placement with LTC option.
--- NOTE | 2023-08-28 11:59 | W.PN.HOSP.TC ---
Today's Communication/Plan
-
dispo planning
Assessment / Plan
Assessment / Plan
Physical Exam
General: Not in acute distress, confused
HEENT: Normocephalic, Moist mucous membranes
Respiratory: CTAB
Cardiac: S1/S2, Regular Rhythm and Peripheral Edema (Trace bilateral)
GI: Soft, Non Tender, Non Distended, Normal Bowel Sounds
Musculoskeletal: No Cyanosis, Edema, Left Lower Extremity (Trace) and Edema, Right Lower Extremity (Trace)
Skin: Warm, Dry, Rash (Macular papular rash scattered left chest wall into axilla) and Other (Skin tear left elbow POA, ecchymosis right medial aspect of upper thigh)
Neuro: Awake, Alert, Oriented (To name only)
Psych: Calm. Intermittently agitated.
Assessment/Plan
#Recurrent falls - reported 17 falls last 2 to 3 weeks per [facility] staff
-Fall precautions
-Family unsure whether patient had any loss of consciousness at any of those falls
-Vitamin B12 is 312 significantly decreased from a few months ago; although technically in normal range, will supplement more Vitamin B12 for a short course during hospitalization with plans to recheck it outpatient
-TSH: 1.44
-Folate: 12
-Iron Studies noted
-Orthostatic vital signs
-Monitor on telemetry: bradycardia, pauses on tele and A-Fib (has history of A-Fib) on EKG: coreg held; --> no long pauses or profound bradycardia-> no indication for PPM per cardiology
-Consulted psychiatry: trazodone and Lomotil (Diphenoxylate-Atropine) discontinued. Zyprexa made scheduled medication per psychiatry on August 24, 2023 and dose increased 08/25. Lamictal increased to 175 mg daily
-improvement in confusion today; off 1:1
-PT/OT/case management consult for shelter placement as patient cannot return to [facility] memory care per staff
-Case management saw near will initiate referral to [facility] per family request
�� CT head: No acute intracranial abnormality
�� CT cervical spine no acute fracture or dislocation
�� Right hip and pelvis x-ray: Mild degenerative changes of the right and left hip no acute fracture or dislocation
�� CXR: No acute cardiopulmonary process
#Agitation
-Use prn Ativan and prn Zyprexa as per psychiatry; hesitant to increase zyprexa further given risk falls
#Left elbow skin tear, right inner thigh bruise secondary to multiple falls
-Consulted wound care, recommendations appreciated
#Skin rash left and right lateral trunk unclear etiology - Possible folliculitis
-Apply hydrocortisone as needed itching
-No solar electric/photovoltaic installer finance and administration manager at the time to see patient
-Triamcinolone cream. Antihistamines
-ID consulted, recommendations appreciated: 5 day course of Keflex - if not resolving then can follow up with PCP outpatient (take through 08/28) - last day today
#Recent Diarrheal Illness
-Unknown etiology, resolved a few weeks ago
#Alzheimer's Dementia�advanced
-Supportive care
#Afib
-not candidate for AC 2/2 falls
#Anemia-macrocytic
Hgb 9.4 was 11.12 June 2023
-B12, folate, iron panel as noted above
#HTN�benign
BP 124/72
-Check orthostatic vitals
-BP ranges widely
-Hold carvedilol 25 mg twice daily -- see above
-Continue Norvasc 5 mg daily
#Former alcohol abuse
Stopped 2022 drank greater than 2 glasses a day per
#Insomnia
-Continue melatonin at bedtime, trazodone 125 mg at bedtime
#Hx colon cancer with resection of [facility] 2018
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
#BPH
-Continue Flomax 0.4 mg at bedtime
DVT prophylaxis
SCDs
DNR per Kayla with sister at bedside at the time of admission this hospitalization
updating family
Anticipated Discharge: 24 - 48 hours
Subjective/Interval History
-
Date of Service: August 28, 2023
sleeping comfortably, did not disturb
Objective Data
-
Vital Signs:
Vital Signs
Temp Pulse Resp BP Pulse Ox
97.3 F 71 18 163/83 97
08/28/23 07:00 08/28/23 07:00 08/28/23 07:00 08/28/23 07:00 08/28/23 07:00
I&O
08/27/23 08/28/23 08/29/23
06:59 06:59 06:59
Intake Total 900 / 900 1800 / 1800
Balance 900 / 900 1800 / 1800
Review of Systems
-
History Source: Patient
All other systems: Reviewed and negative
Physical Exam
-
General: No Apparent Distress
Neuro: Sedated
Psych: Calm
Data Reviewed
-
Diagnostic Radiology: Report Reviewed by me
Labs: Labs Reviewed by me
[2023-08-28 15:00] VITALS: BP 115/58
--- NOTE | 2023-08-28 15:20 | W.PN.UPDATE ---
Update Note
Progress Note Update
Patient is calmer now, possibly as his Zyprexa was increased and/or his sister is visiting. Presently not aggressive or agitated.
For now would continue current meds.
Discussed with sister.
[2023-08-28] MEDS: ZYPREXA 5 MG PO (17:54)
[2023-08-28] MEDS: MELATONIN 5 MG PO (21:14)
[2023-08-28] MEDS: ATIVAN 0.5 MG PO (21:14)
[2023-08-28] MEDS: FLOMAX 0.400000000000000022 MG PO (21:14)
[2023-08-28 23:04] VITALS: BP 113/51
[2023-08-29] MEDS: TYLENOL PO ×4 (00:07→16:50)
[2023-08-29] MEDS: ATIVAN 0.5 MG PO ×3 (05:51→21:45)
[2023-08-29 07:45] VITALS: BP 109/73
[2023-08-29] MEDS: CELEXA 20 MG PO (09:24)
[2023-08-29] MEDS: LAMICTAL 175 MG PO (09:24)
[2023-08-29] MEDS: TYLENOL 650 MG PO ×2 (09:24→20:25)
[2023-08-29] MEDS: ASPIR LOW (ENTERIC COATED) 81 MG PO (09:24)
[2023-08-29] MEDS: HYDROCORTISONE 1% CREAM 1 APPLIC TOPICAL ×2 (09:25→20:25)
[2023-08-29] MEDS: NORVASC 5 MG PO (09:25)
--- NOTE | 2023-08-29 09:36 | W.PN.HOSP.TC ---
Today's Communication/Plan
-
dispo planning
Assessment / Plan
Assessment / Plan
Physical Exam
General: Not in acute distress, confused
HEENT: Normocephalic, Moist mucous membranes
Respiratory: CTAB
Cardiac: S1/S2, Regular Rhythm and Peripheral Edema (Trace bilateral)
GI: Soft, Non Tender, Non Distended, Normal Bowel Sounds
Musculoskeletal: No Cyanosis, Edema, Left Lower Extremity (Trace) and Edema, Right Lower Extremity (Trace)
Skin: Warm, Dry, Rash (Macular papular rash scattered left chest wall into axilla) and Other (Skin tear left elbow POA, ecchymosis right medial aspect of upper thigh)
Neuro: Awake, Alert, Oriented (To name only)
Psych: Calm. Intermittently agitated.
Assessment/Plan
#Recurrent falls - reported 17 falls last 2 to 3 weeks per [facility] staff
-Fall precautions
-Family unsure whether patient had any loss of consciousness at any of those falls
-Vitamin B12 is 312 significantly decreased from a few months ago; although technically in normal range, will supplement more Vitamin B12 for a short course during hospitalization with plans to recheck it outpatient
-TSH: 1.44
-Folate: 12
-Iron Studies noted
-Orthostatic vital signs
-Monitor on telemetry: bradycardia, pauses on tele and A-Fib (has history of A-Fib) on EKG: coreg held; --> no long pauses or profound bradycardia-> no indication for PPM per cardiology
-Consulted psychiatry: trazodone and Lomotil (Diphenoxylate-Atropine) discontinued. Zyprexa made scheduled at lower dosing than ADMINISTRATIVE SUPPORT MANAGER. Lamictal increased to 175 mg daily
-may need scheduled ativan? discuss further with psych
-still requiring med sitter
-PT/OT/case management consult for half-way placement as patient cannot return to [facility] memory care per staff
-Case management saw near will initiate referral to [facility] per family request
�� CT head: No acute intracranial abnormality
�� CT cervical spine no acute fracture or dislocation
�� Right hip and pelvis x-ray: Mild degenerative changes of the right and left hip no acute fracture or dislocation
�� CXR: No acute cardiopulmonary process
#Agitation
-Use prn Ativan and prn Zyprexa as per psychiatry; hesitant to increase zyprexa further given risk falls
#Left elbow skin tear, right inner thigh bruise secondary to multiple falls
-Consulted wound care, recommendations appreciated
#Skin rash left and right lateral trunk unclear etiology - Possible folliculitis
-Apply hydrocortisone as needed itching
-No biomass technician neonatal intensive care nurse at the time to see patient
-Triamcinolone cream. Antihistamines
-ID consulted, recommendations appreciated: 5 day course of Keflex - if not resolving then can follow up with PCP outpatient (take through 08/28) - last day today
#Recent Diarrheal Illness
-Unknown etiology, resolved a few weeks ago
#Alzheimer's Dementia�advanced
-Supportive care
#Afib
-not candidate for AC 2/2 falls
#Anemia-macrocytic
Hgb 9.4 was 11.12 June 2023
-B12, folate, iron panel as noted above
#HTN�benign
BP 124/72
-Check orthostatic vitals
-BP ranges widely
-Hold carvedilol 25 mg twice daily -- see above
-Continue Norvasc 5 mg daily
#Former alcohol abuse
Stopped 2022 drank greater than 2 glasses a day per
#Insomnia
-Continue melatonin at bedtime, trazodone 125 mg at bedtime
#Hx colon cancer with resection of [facility] 2018
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
#BPH
-Continue Flomax 0.4 mg at bedtime
DVT prophylaxis
SCDs
DNR per Kayla with sister at bedside at the time of admission this hospitalization
updating family
Anticipated Discharge: 24 - 48 hours
Subjective/Interval History
-
Date of Service: August 29, 2023
patient sedated post morning ativan
Objective Data
-
Vital Signs:
Vital Signs
Temp Pulse Resp BP Pulse Ox
98.1 F 66 16 113/51 95
08/28/23 23:04 08/28/23 23:04 08/28/23 23:04 08/28/23 23:04 08/28/23 23:04
I&O
08/28/23 08/29/23 08/30/23
06:59 06:59 06:59
Intake Total 1800 / 1800 1200 / 1200 1440 / 1440
Balance 1800 / 1800 1200 / 1200 1440 / 1440
Review of Systems
-
History Source: Patient
All other systems: Reviewed and negative
Physical Exam
-
General: No Apparent Distress
Neuro: Sedated
Psych: Calm
Data Reviewed
-
Diagnostic Radiology: Report Reviewed by me
Labs: Labs Reviewed by me
--- NOTE | 2023-08-29 09:50 | PN.CDI ---
CDI
- -
CDI:
Physician Documentation Request
Admit Date: 08/22/23 09:01
Dear Doctor Yonas,
Please review the following and provide your response in the progress notes.
Clinical Indicators:
H+P, 08/20
#A-fib paroxysmal
Cardiology, consult, 08/22
#...We are called with permanent AF that is slow.
PN, 08/28
#Afib
#...-not candidate for AC 2/2 falls
Please provide further specificity regarding atrial fibrillation, such as:
Permanent atrial fibrillation - when a decision has been made to accept the presence of AF and there is no further attempt to restore or maintain sinus rhythm
Paroxysmal atrial fibrillation - terminates spontaneously or with intervention within 7 days of onset
Other - please specify
Use of terms such as suspected, likely, concern for, or probable (associated with a specific diagnosis that is being evaluated, monitored, or treated as if it exists) are acceptable and can be coded in the inpatient setting, when documented at the
time of discharge.
Thank you,
Mahnaz Rodriguez RN BSN CCDS
CDI Specialist
please contact via tiger text
Please use your independent medical judgment in providing your response.
--- NOTE | 2023-08-29 15:31 | CM ---
account financial manager reviewed patient's chart and met with patient and spouse and sister in law today, patient's spouse would like patient to go to the [facility]. account financial manager spoke with Hayde in admissions at the [facility] along with HINA at [place]
[place] and they plan on coming out to the hospital to meet with patient, patient will need to be off med sitter for residential placement, nursing aware.
Plan; Placement, patient needs to be off medsitter.
--- NOTE | 2023-08-29 15:41 | W.PN.UPDATE ---
Update Note
Progress Note Update
Patient is still agitated frequently. He needs 1:1 as he keeps getting up and is a fall risk. Family is very helpful in supervising him.
Interms of medications I could increase the Lamictal to 200 mg daily starting tomorrow. I would be reluctant to use Ativan regularly as it tends to impair cognition and increases risk for falling.
[2023-08-29 16:00] VITALS: BP 130/57
[2023-08-29] MEDS: ZYPREXA 5 MG PO (17:32)
--- NOTE | 2023-08-29 21:03 | PTCARENOTE ---
Patient transfered to room 426 to be closer to nurses station. Medsitter discontinued at 19:45.
[2023-08-29] MEDS: FLOMAX 0.400000000000000022 MG PO (21:29)
[2023-08-29] MEDS: MELATONIN 5 MG PO (21:29)
[2023-08-29 22:45] VITALS: BP 133/63
[2023-08-30] MEDS: TYLENOL PO ×4 (00:30→16:56)
[2023-08-30] MEDS: ZYPREXA 2.5 MG IM (02:33)
[2023-08-30] MEDS: STERILE WATER FOR INJECTION 2.10000000000000009 ML IM (02:34)
[2023-08-30] MEDS: ZYRTEC 5 MG PO (03:53)
[2023-08-30] MEDS: TYLENOL 650 MG PO ×3 (03:53→22:02)
[2023-08-30 07:07] VITALS: BP 141/72
[2023-08-30] MEDS: HYDROCORTISONE 1% CREAM 1 APPLIC TOPICAL ×2 (09:28→22:02)
[2023-08-30] MEDS: NORVASC 5 MG PO (09:28)
[2023-08-30] MEDS: CELEXA 20 MG PO (09:28)
[2023-08-30] MEDS: LAMICTAL 200 MG PO (09:28)
[2023-08-30] MEDS: ASPIR LOW (ENTERIC COATED) 81 MG PO (09:28)
--- NOTE | 2023-08-30 12:16 | W.PN.HOSP.TC ---
Addendum entered and electronically signed by Cassie Branham MD 08/30/23 14:28:
Permanent atrial fibrillation�
-not cancidate for AC
-stable off coreg
Original Note:
Today's Communication/Plan
-
continue current med regimen
dispo planning
Assessment / Plan
Assessment / Plan
Physical Exam
General: Not in acute distress, confused
HEENT: Normocephalic, Moist mucous membranes
Respiratory: CTAB
Cardiac: S1/S2, Regular Rhythm and Peripheral Edema (Trace bilateral)
GI: Soft, Non Tender, Non Distended, Normal Bowel Sounds
Musculoskeletal: No Cyanosis, Edema, Left Lower Extremity (Trace) and Edema, Right Lower Extremity (Trace)
Skin: Warm, Dry, Rash (Macular papular rash scattered left chest wall into axilla) and Other (Skin tear left elbow POA, ecchymosis right medial aspect of upper thigh)
Neuro: Awake, Alert, Oriented (To name only)
Psych: Calm. Intermittently agitated.
�� CT head: No acute intracranial abnormality
�� CT cervical spine no acute fracture or dislocation
�� Right hip and pelvis x-ray: Mild degenerative changes of the right and left hip no acute fracture or dislocation
�� CXR: No acute cardiopulmonary process
Assessment/Plan
#Recurrent falls - reported 17 falls last 2 to 3 weeks per NH staff
-likely 2/2 antipsychotic regimen wtih high doses zyprexa that has anticholinergic properties
-fall precautions
-PT/OT, eventual SNF
-not concerned falls related to syncope (see below)
-psychotropic med adjustment per psychiatry - stop trazodone, decreased zyprexa dosing, stop standing Lomotil (Diphenoxylate-Atropine)
-patient now off sitter since last night
#Agitation
-continue lower dose Zyprexa
-Lamictal dose increased today
-ativan PRN
#Left elbow skin tear, right inner thigh bruise secondary to multiple falls
-Consulted wound care, recommendations appreciated
#Skin rash left and right lateral trunk unclear etiology - Possible folliculitis
-s/p keflex course
#Recent Diarrheal Illness
-Unknown etiology, resolved a few weeks ago
#Alzheimer's Dementia�advanced
-Supportive care
#Afib
-not candidate for AC 2/2 falls
Bradycardia
-ENTEROSTOMAL NURSE Coreg stopped
#Anemia-macrocytic
Hgb 9.4 was 11.12 June 2023
-B12, folate, iron panel as noted above
#HTN�benign
BP 124/72
-BP ranges widely
-Continue Norvasc 5 mg daily
-hold Coreg 2/2 falls, bradycardia
#Former alcohol abuse
Stopped 2022 drank greater than 2 glasses a day per
#Insomnia
-Continue melatonin at bedtime, trazodone 125 mg at bedtime
#Hx colon cancer with resection of [facility] 2018
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
#BPH
-Continue Flomax 0.4 mg at bedtime
DVT prophylaxis
SCDs
DNR per Kayla with sister at bedside at the time of admission this hospitalization
updating family
Anticipated Discharge: 24 - 48 hours
Subjective/Interval History
-
Date of Service: August 30, 2023
patient resting comfortably, did not disturb
Objective Data
-
Vital Signs:
Vital Signs
Temp Pulse Resp BP Pulse Ox
97.4 F 68 20 141/72 95
08/30/23 07:07 08/30/23 07:07 08/30/23 07:07 08/30/23 07:07 08/30/23 07:07
I&O
08/29/23 08/30/23 08/31/23
06:59 06:59 06:59
Intake Total 1200 / 1200 2240 / 2240 960 / 960
Balance 1200 / 1200 2240 / 2240 960 / 960
Review of Systems
-
History Source: Patient
All other systems: Reviewed and negative
Physical Exam
-
General: No Apparent Distress
Neuro: Sedated
Psych: Calm
Data Reviewed
-
Diagnostic Radiology: Report Reviewed by me
Labs: Labs Reviewed by me
--- NOTE | 2023-08-30 14:45 | PTCARENOTE ---
Patients visitors brought a bag of cookies for a snack. Patients visitor informed us that he would not stop eating cookies, so they were given to us in the nursing station.
--- NOTE | 2023-08-30 15:16 | CM ---
Per update note, patient off of Medsitter as of 08/29/23 at 19:45. CM will update Cheryl Ruvalcaba in [facility] as families first choice. CM will continue to follow for discharge planning needs.
Plan; Placement pending accepting facility.
[2023-08-30 15:46] VITALS: BP 142/63
[2023-08-30] MEDS: ATIVAN 0.5 MG PO ×2 (16:02→22:02)
--- NOTE | 2023-08-30 16:14 | PTCARENOTE ---
Patient increasingly restless, making multiple, consecutive attempts to get OOB unassisted without using his call ghotra. Bed alarm in place. Patient redirected, made comfortable, and toileting offered. Ativan given.
[2023-08-30] MEDS: ZYPREXA 5 MG PO (17:08)
[2023-08-30] MEDS: MELATONIN 5 MG PO (22:02)
[2023-08-30] MEDS: FLOMAX 0.400000000000000022 MG PO (22:02)
[2023-08-31] MEDS: TYLENOL PO ×3 (01:31→12:05)
[2023-08-31 03:00] VITALS: BP 160/82
[2023-08-31 07:46] VITALS: BP 167/85
[2023-08-31] MEDS: LAMICTAL 200 MG PO (07:50)
[2023-08-31] MEDS: NORVASC 5 MG PO (07:50)
[2023-08-31] MEDS: ASPIR LOW (ENTERIC COATED) 81 MG PO (07:50)
[2023-08-31] MEDS: TYLENOL 650 MG PO ×2 (07:50→17:25)
[2023-08-31] MEDS: CELEXA 20 MG PO (07:50)
[2023-08-31] MEDS: HYDROCORTISONE 1% CREAM 1 APPLIC TOPICAL (07:51)
--- NOTE | 2023-08-31 12:09 | W.PN.HOSP.TC ---
Addendum entered and electronically signed by Cassie Branham MD 08/31/23 14:42:
left VM for daughter
Original Note:
Today's Communication/Plan
-
dispo planning
Assessment / Plan
Assessment / Plan
�� CT head: No acute intracranial abnormality
�� CT cervical spine no acute fracture or dislocation
�� Right hip and pelvis x-ray: Mild degenerative changes of the right and left hip no acute fracture or dislocation
�� CXR: No acute cardiopulmonary process
Assessment/Plan
#Recurrent falls - reported 17 falls last 2 to 3 weeks per [facility] staff
-likely 2/2 antipsychotic regimen with high doses zyprexa that has anticholinergic properties
-fall precautions
-PT/OT, eventual SNF
-not concerned falls related to syncope (see below)
-psychotropic med adjustment per psychiatry - stop trazodone, decreased zyprexa dosing, stop standing Lomotil (Diphenoxylate-Atropine)
-patient now off sitter over 24 hours; hopefully SNF on Friday
#Agitation
-continue lower dose Zyprexa
-Lamictal dose increased on 08/30
-ativan PRN
-has been without sitter; OK for SNF tomorrow
#Left elbow skin tear, right inner thigh bruise secondary to multiple falls
-Consulted wound care, recommendations appreciated
#Skin rash left and right lateral trunk unclear etiology - Possible folliculitis
-s/p keflex course
#Recent Diarrheal Illness
-Unknown etiology, resolved a few weeks ago
#Alzheimer's Dementia�advanced
-Supportive care
#Afib
-not candidate for AC 2/2 falls
-rate OK off of Coreg
Bradycardia
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
#Anemia-macrocytic
Hgb 9.4 was 11.12 June 2023
-B12, folate, iron panel as noted above
#HTN�benign
BP 124/72
-BP ranges widely
-Continue Norvasc 5 mg daily
-hold Coreg 2/2 falls, bradycardia
#Former alcohol abuse
Stopped 2022 drank greater than 2 glasses a day per
#Insomnia
-Continue melatonin at bedtime, trazodone 125 mg at bedtime
#Hx colon cancer with resection of [facility] 2018
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
#BPH
-Continue Flomax 0.4 mg at bedtime
DVT prophylaxis
SCDs
DNR per Kayla with sister at bedside at the time of admission this hospitalization
updating family
Anticipated Discharge: 24 - 48 hours
Subjective/Interval History
-
Date of Service: August 31, 2023
sleeping comfortably
Objective Data
-
Vital Signs:
Vital Signs
Temp Pulse Resp BP Pulse Ox
97.5 F 74 20 167/85 100
08/31/23 07:46 08/31/23 07:46 08/31/23 07:46 08/31/23 07:46 08/31/23 07:46
I&O
08/30/23 08/31/23 09/01/23
06:59 06:59 06:59
Intake Total 2240 / 2240 2360 / 2360
Balance 2240 / 2240 2360 / 2360
Review of Systems
-
Unable to obtain full review of systems at this time due to: Dementia
History Source: Patient
Physical Exam
-
General: No Apparent Distress
Neuro: Sedated
Psych: Calm
Data Reviewed
-
Diagnostic Radiology: Report Reviewed by me
Labs: Labs Reviewed by me
[2023-08-31 15:25] VITALS: BP 144/69
[2023-08-31] MEDS: ZYPREXA 5 MG PO (17:25)
[2023-08-31 19:36] VITALS: BP 147/67
[2023-09-01] MEDS: HYDROCORTISONE 1% CREAM 1 APPLIC TOPICAL ×3 (01:14→20:20)
[2023-09-01] MEDS: TYLENOL PO ×4 (01:15→12:00)
[2023-09-01] MEDS: FLOMAX 0.400000000000000022 MG PO ×2 (01:15→22:05)
[2023-09-01] MEDS: TYLENOL 650 MG PO ×4 (01:15→22:05)
[2023-09-01] MEDS: MELATONIN 5 MG PO ×2 (01:16→22:05)
[2023-09-01] MEDS: ASPIR LOW (ENTERIC COATED) 81 MG PO (07:41)
[2023-09-01] MEDS: NORVASC 5 MG PO (07:41)
[2023-09-01] MEDS: CELEXA 20 MG PO (07:41)
[2023-09-01] MEDS: LAMICTAL 200 MG PO (07:41)
[2023-09-01 07:44] VITALS: BP 144/87
--- NOTE | 2023-09-01 09:04 | W.PN.HOSP.TC ---
Today's Communication/Plan
-
Disposition efforts, appreciate CM efforts
Assessment / Plan
Assessment / Plan
Physical Exam
General: No Apparent Distress
Cardiac: S1 and S2
Respiratory: CTAB
GI: Positive bowel sounds. Soft and nontender.
Neuro: Alert. Awake.
Psych: Calm

�� CT head: No acute intracranial abnormality
�� CT cervical spine no acute fracture or dislocation
�� Right hip and pelvis x-ray: Mild degenerative changes of the right and left hip no acute fracture or dislocation
�� CXR: No acute cardiopulmonary process

Assessment/Plan
#Recurrent falls - reported 17 falls (in the 2 to 3 weeks prior to admission) per [facility] staff
-likely 2/2 antipsychotic regimen with high doses zyprexa that has anticholinergic properties
-fall precautions
-PT/OT, eventual SNF
-not concerned falls related to syncope (see below)
-psychotropic med adjustment per psychiatry - stop trazodone, decreased zyprexa dosing, stop standing Lomotil (Diphenoxylate-Atropine)
-patient now off sitter over 24 hours; hopefully SNF soon
#Agitation
-continue lower dose Zyprexa
-Lamictal dose increased on 08/30
-ativan PRN
-has been without sitter; OK for SNF anytime
#Left elbow skin tear, right inner thigh bruise secondary to multiple falls
-Consulted wound care, recommendations appreciated
#Skin rash left and right lateral trunk unclear etiology - Possible folliculitis
-s/p keflex course
#Recent Diarrheal Illness
-Unknown etiology, resolved a few weeks ago
#Alzheimer's Dementia�advanced
-Supportive care
#Afib
-not candidate for AC 2/2 falls
-rate OK off of Coreg
Bradycardia
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
#Anemia-macrocytic
Hgb 9.4 was 11.12 June 2023
-B12, folate, iron panel as noted above
#HTN�benign
BP 124/72
-BP ranges widely
-Continue Norvasc 5 mg daily
-hold Coreg 2/2 falls, bradycardia
#Former alcohol abuse
Stopped 2022 drank greater than 2 glasses a day per
#Insomnia
-Continue melatonin at bedtime, trazodone 125 mg at bedtime
#Hx colon cancer with resection of [facility] 2018
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
#BPH
-Continue Flomax 0.4 mg at bedtime
DVT prophylaxis
SCDs
DNR per Kayla with sister at bedside at the time of admission this hospitalization
Anticipated Discharge: 24 - 48 hours
Subjective/Interval History
-
Date of Service: September 01, 2023
Patient was seen and examined. He was sitting up in his chair eating snacks. No new events reported.
Objective Data
-
Vital Signs:
Vital Signs
Temp Pulse Resp BP Pulse Ox
98.1 F 70 16 144/87 98
09/01/23 07:44 09/01/23 07:44 09/01/23 07:44 09/01/23 07:44 09/01/23 07:44
I&O
08/31/23 09/01/23 09/02/23
06:59 06:59 06:59
Intake Total 2360 / 2360 700 / 700
Output Total /
Balance 2360 / 2360 696 / 696
--- NOTE | 2023-09-01 14:35 | W.PN.UPDATE ---
Update Note
Progress Note Update
Pt seen, reviewed with nursing staff. Pt in darrel-chair, sleeping/resting quietly in the nurse's station. Staff reports pt has been manageable with close supervision and reassurance. No apparent side effects on current psychotropic medications.
Pt on routine Zyprexa, has not required prn dose since overnight 08/29 to 08/30.
Imp: advanced Dementia, with intermittent agitation, improved on medication adjustments
Rec: continue current psych med mgt
pt psychiatrically stable for discharge to SNF
[2023-09-01 15:30] VITALS: BP 118/65
[2023-09-01] MEDS: ZYPREXA 5 MG PO (17:22)
[2023-09-01] MEDS: ATIVAN 0.5 MG PO (20:20)
[2023-09-01 23:06] VITALS: BP 118/70
[2023-09-02] MEDS: TYLENOL PO ×5 (01:02→23:53)
[2023-09-02] MEDS: LAMICTAL 200 MG PO (07:57)
[2023-09-02] MEDS: TYLENOL 650 MG PO ×2 (07:57→19:37)
[2023-09-02] MEDS: ASPIR LOW (ENTERIC COATED) 81 MG PO (07:57)
[2023-09-02] MEDS: CELEXA 20 MG PO (07:58)
[2023-09-02] MEDS: NORVASC 5 MG PO (08:01)
[2023-09-02] MEDS: HYDROCORTISONE 1% CREAM 1 APPLIC TOPICAL ×2 (08:02→19:36)
[2023-09-02 08:15] VITALS: BP 139/82
[2023-09-02 08:18] LABS: Hematocrit 33.9 % (39.0-52.0); Hemoglobin 11.5 g/dL (13.0-18.0); Mean Corp Hgb Conc. 33.9 g/dL (33.0-37.0); Mean Corpuscular Volume 97.4 fL (80.0-94.0); Mean Platelet Volume 8.8 fL (7.4-10.4); Platelet Count 155 10^3/uL (130-400); Red Blood Cell Count 3.48 10^6/uL (4.70-6.10); Red Cell Dist. Width 15.8 % (11.5-14.5); White Blood Cell Count 4.4 10^3/uL (4.8-10.8)
[2023-09-02 08:58] LABS: ALT (SGPT) 62 U/L (0-50); AST (SGOT) 51 U/L (17-59); Albumin 3.2 g/dl (3.5-5.0); Alkaline Phosphatase 60 U/L (38-126); Blood Urea Nitrogen 19 mg/dl (9-20); Calcium 8.8 mg/dl (8.4-10.2); Carbon Dioxide 32 mmol/L (22-30); Chloride 104 mmol/L (98-107); Estimated Creatinine Clearance 77 ml/min; Glucose 83 mg/dl (70-99); Magnesium 2.2 mg/dl (1.6-2.3); Potassium 4.1 mmol/L (3.5-5.1); Sodium 136 mmol/L (135-145); Total Bilirubin 0.7 mg/dl (0.2-1.3); Total Protein 5.6 g/dl (6.3-8.2); eGFR > 60.00
--- NOTE | 2023-09-02 10:47 | W.PN.UPDATE ---
Update Note
Progress Note Update
Patient seen in his room, sitting up in the chair. Chart reviewed, discussed with staff. Mr. Ramirez is awake and alert, cooperative and pleasant. Awaiting D/C to SNF. Some restlessness last evening. more easily redirected. No other issues reported.
Impression/Plan: Advanced dementia�with history of affective disorder and anxiety - Continue Zyprexa 5mg HS, Lamictal 200mg daily, and citalopram 20 mg; 1:1 discontinued since ; PRN ativan and Zyprexa available as needed. Psych will follow.
[2023-09-02] MEDS: ATIVAN 0.5 MG PO (14:35)
[2023-09-02 15:20] VITALS: BP 144/97
[2023-09-02] MEDS: ZYPREXA 5 MG PO (17:20)
--- NOTE | 2023-09-02 17:53 | W.PN.HOSP.TC ---
Today's Communication/Plan
-
Still waiting for bed; CM efforts appreciated
Assessment / Plan
Assessment / Plan
Physical Exam
General: No Apparent Distress
Cardiac: S1 and S2
Respiratory: CTAB
GI: Positive bowel sounds. Soft and nontender.
Neuro: Alert. Awake.
Psych: Calm

�� CT head: No acute intracranial abnormality
�� CT cervical spine no acute fracture or dislocation
�� Right hip and pelvis x-ray: Mild degenerative changes of the right and left hip no acute fracture or dislocation
�� CXR: No acute cardiopulmonary process

Assessment/Plan
#Recurrent falls - reported 17 falls (in the 2 to 3 weeks prior to admission) per [facility] staff
-likely 2/2 antipsychotic regimen with high doses zyprexa that has anticholinergic properties
-fall precautions
-PT/OT, eventual SNF
-not concerned falls related to syncope (see below)
-psychotropic med adjustment per psychiatry - stop trazodone, decreased zyprexa dosing, stop standing Lomotil (Diphenoxylate-Atropine)
-patient now off sitter over 24 hours; hopefully SNF soon
#Agitation
-continue lower dose Zyprexa
-Lamictal dose increased on 08/30
-Continue Citalopram
-ativan PRN and zyprexa prn
-has been without sitter; OK for SNF anytime
#Left elbow skin tear, right inner thigh bruise secondary to multiple falls
-Consulted wound care, recommendations appreciated
#Skin rash left and right lateral trunk unclear etiology - Possible folliculitis
-s/p keflex course
#Recent Diarrheal Illness
-Unknown etiology, resolved a few weeks ago
#Alzheimer's Dementia�advanced
-Supportive care
#Afib
-not candidate for AC 2/2 falls
-rate OK off of Coreg
Bradycardia
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
#Anemia-macrocytic
Hgb 9.4 was 11.12 June 2023
-B12, folate, iron panel as noted above
#HTN�benign
BP 124/72
-BP ranges widely
-Continue Norvasc 5 mg daily
-hold Coreg 2/2 falls, bradycardia
#Former alcohol abuse
Stopped 2022 drank greater than 2 glasses a day per
#Insomnia
-Continue melatonin at bedtime, trazodone 125 mg at bedtime
#Hx colon cancer with resection of [facility] 2018
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
#BPH
-Continue Flomax 0.4 mg at bedtime
DVT prophylaxis
SCDs
DNR per Kayla with sister at bedside at the time of admission this hospitalization
Anticipated Discharge: 24 - 48 hours
Subjective/Interval History
-
Date of Service: September 02, 2023
Patient was seen and examined. He was sleeping comfortably, was arousable when called, and was able answer and say that he did not have any new complaints.
Objective Data
-
Labs:
Laboratory Results
09/02/23
07:36
WBC 4.4 L
Hgb 11.5 L
Hct 33.9 L
Plt Count 155
Sodium 136
Potassium 4.1
Chloride 104
Carbon Dioxide 32 H
BUN 19
Creatinine 0.8
Glucose 83
Calcium 8.8
Total Bilirubin 0.7
AST 51
ALT 62 H
Alkaline Phosphatase 60
Vital Signs:
Vital Signs
Temp Pulse Resp BP Pulse Ox
98.0 F 73 18 144/97 95
09/02/23 15:20 09/02/23 15:20 09/02/23 15:20 09/02/23 15:20 09/02/23 15:20
I&O
09/01/23 09/02/23 09/03/23
06:59 06:59 06:59
Intake Total 700 / 700 1740 / 1740
Output Total
Balance 696 / 696 1740 / 1740
--- NOTE | 2023-09-02 17:57 | CM ---
Level 2 assessment initiated and all paperwork completed and faxed to [facility]. Family are looking at [facility] placement, despite patient having been accepted at [facility] and [facility] assisted livings/personal care facilities.
Plan; Skilled placement, with [facility] care option needs Level 2 assessment.
[2023-09-02] MEDS: MELATONIN 5 MG PO (21:49)
[2023-09-02] MEDS: FLOMAX 0.400000000000000022 MG PO (21:49)
[2023-09-02 23:30] VITALS: BP 115/59
[2023-09-03] MEDS: TYLENOL PO ×5 (03:50→23:45)
[2023-09-03 07:20] VITALS: BP 134/116
[2023-09-03] MEDS: LAMICTAL PO ×2 (08:12→08:48)
[2023-09-03] MEDS: NORVASC PO ×2 (08:12→08:48)
[2023-09-03] MEDS: HYDROCORTISONE 1% CREAM 1 APPLIC TOPICAL ×2 (08:21→20:17)
[2023-09-03] MEDS: CELEXA PO ×2 (08:21→08:48)
[2023-09-03] MEDS: ASPIR LOW (ENTERIC COATED) PO ×2 (08:21→08:48)
[2023-09-03] MEDS: ATIVAN 0.5 MG PO ×2 (10:40→16:54)
[2023-09-03] MEDS: LAMICTAL 200 MG PO (10:45)
[2023-09-03] MEDS: ASPIR LOW (ENTERIC COATED) 81 MG PO (10:46)
[2023-09-03] MEDS: CELEXA 20 MG PO (10:46)
[2023-09-03] MEDS: NORVASC 5 MG PO (10:46)
--- NOTE | 2023-09-03 11:55 | CM ---
Addendum entered by Tiff Linn 09/03/23 16:07:
Nile from [facility] here to evaluate patient.
Await determination.
Will continue skilled bed search.
Patient with medicare primary.
Original Note:
TC from Jasmin ESCALONA
Jasmin requested H+P and correction to MA51 form.
Per Jasmin patient may not require a level 2.
Await TCB.
Plan: Skilled rehab once cleared by [facility] and bed available.
--- NOTE | 2023-09-03 12:47 | W.PN.UPDATE ---
Addendum entered and electronically signed by Yayo Dixon MD 09/03/23 12:50:
note family asked a number of ? re meds, placement which i did my best to answer. they report they are happy that he seemed calm and comfortable today. they also told me some of the background hx of mr alonso's life.
Original Note:
Update Note
Progress Note Update
patient seen chart reviewed. discussed w nursing. family at bedside who seemed very kind and concerned about mr wilson. the patient was calm and appeared comfortable.nursing tells me he is not always cooperative eg w taking meds but he is no
longer agitated and combative. i also spoke w xavier who report he was accepted [facility] but patient want a higher level of care . would not make any changes in his current psych meds. he has used occasional ativan prn. has not required im zyprexa
in past several days. psych will check in every couple of days.
[2023-09-03 15:15] VITALS: BP 129/67
--- NOTE | 2023-09-03 16:20 | W.PN.HOSP.TC ---
Today's Communication/Plan
-
Waiting for placement
Assessment / Plan
Assessment / Plan
Physical Exam
General: No Apparent Distress
Cardiac: S1 and S2
Respiratory: CTAB
GI: Positive bowel sounds. Soft and nontender.
Neuro: Alert. Awake.
Psych: Calm

�� CT head: No acute intracranial abnormality
�� CT cervical spine no acute fracture or dislocation
�� Right hip and pelvis x-ray: Mild degenerative changes of the right and left hip no acute fracture or dislocation
�� CXR: No acute cardiopulmonary process

Assessment/Plan
#Recurrent falls - reported 17 falls (in the 2 to 3 weeks prior to admission) per [place] staff
-likely 2/2 antipsychotic regimen with high doses zyprexa that has anticholinergic properties
-fall precautions
-PT/OT, eventual SNF
-not concerned falls related to syncope (see below)
-psychotropic med adjustment per psychiatry - stop trazodone, decreased zyprexa dosing, stop standing Lomotil (Diphenoxylate-Atropine)
-patient now off sitter over 24 hours; hopefully SNF soon
#Agitation
-continue lower dose Zyprexa
-Lamictal dose increased on 08/30
-Continue Citalopram
-ativan PRN and zyprexa prn
-has been without sitter; OK for SNF anytime
#Left elbow skin tear, right inner thigh bruise secondary to multiple falls
-Consulted wound care, recommendations appreciated
#Skin rash left and right lateral trunk unclear etiology - Possible folliculitis
-s/p keflex course
#Recent Diarrheal Illness
-Unknown etiology, resolved a few weeks ago
#Alzheimer's Dementia�advanced
-Supportive care
#Afib
-not candidate for AC 2/2 falls
-rate OK off of Coreg
Bradycardia
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
#Anemia-macrocytic
Hgb 9.4 was 11.12 June 2023
-B12, folate, iron panel as noted above
#HTN�benign
-BP ranges widely
-Continue Norvasc 5 mg daily
-hold Coreg 2/2 falls, bradycardia
#Former alcohol abuse
Stopped 2022 drank greater than 2 glasses a day per
#Insomnia
-Continue melatonin at bedtime, trazodone 125 mg at bedtime
#Hx colon cancer with resection of [facility] 2018
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
#BPH
-Continue Flomax 0.4 mg at bedtime
DVT prophylaxis
SCDs
DNR per Kayla with sister at bedside at the time of admission this hospitalization
Anticipated Discharge: > 48 hours
Subjective/Interval History
-
Date of Service: September 03, 2023
Patient was seen and examined. Per patient's nurse, he spit out his medications this morning. No other new symptoms or significant complaints reported.
Objective Data
-
Vital Signs:
Vital Signs
Temp Pulse Resp BP Pulse Ox
98.5 F 64 16 134/116 98
09/03/23 07:20 09/03/23 07:20 09/03/23 07:20 09/03/23 07:20 09/03/23 07:20
I&O
09/02/23 09/03/23 09/04/23
06:59 06:59 06:59
Intake Total 1740 / 1740 1979 / 1979
Output Total 100 / 100
Balance 1740 / 1740 1879 / 1879
[2023-09-03] MEDS: ZYPREXA 5 MG PO (17:03)
[2023-09-03] MEDS: TYLENOL 650 MG PO (20:17)
[2023-09-03] MEDS: MELATONIN 5 MG PO (21:04)
[2023-09-03] MEDS: FLOMAX 0.400000000000000022 MG PO (21:04)
[2023-09-03 23:10] VITALS: BP 121/65
[2023-09-04] MEDS: TYLENOL PO (03:04)
[2023-09-04 07:30] VITALS: BP 139/60
[2023-09-04] MEDS: CELEXA 20 MG PO (08:12)
[2023-09-04] MEDS: NORVASC 5 MG PO (08:13)
[2023-09-04] MEDS: TYLENOL 650 MG PO ×4 (08:13→20:06)
[2023-09-04] MEDS: ASPIR LOW (ENTERIC COATED) 81 MG PO (08:14)
[2023-09-04] MEDS: LAMICTAL 200 MG PO (08:14)
[2023-09-04] MEDS: HYDROCORTISONE 1% CREAM 1 APPLIC TOPICAL ×2 (08:15→20:07)
--- NOTE | 2023-09-04 11:18 | CM ---
Await state/[place]ounty fax.
[facility] in for level 2 eval yesterday.
PT/OT recommending skilled rehab.
Patient will require skilled rehab, medicare primary.
Spoke with daughter Lou by phone late yesterday she would like skilled rehab with probable LTC, she will reach out to [facility] again.
Per nursing patient calm, sitting in chair.
Multiple referrals placed.
Will continue bed search.
Plan: skilled rehab once bed available.
--- NOTE | 2023-09-04 12:43 | W.PN.HOSP.TC ---
Today's Communication/Plan
-
Dispositions efforts - appreciate case management efforts
Assessment / Plan
Assessment / Plan
Physical Exam
General: No Apparent Distress
Cardiac: S1 and S2
Respiratory: CTAB
GI: Positive bowel sounds. Soft and nontender.
Neuro: Alert. Awake.
Psych: Calm

�� CT head: No acute intracranial abnormality
�� CT cervical spine no acute fracture or dislocation
�� Right hip and pelvis x-ray: Mild degenerative changes of the right and left hip no acute fracture or dislocation
�� CXR: No acute cardiopulmonary process

Assessment/Plan
#Recurrent falls - reported 17 falls (in the 2 to 3 weeks prior to admission) per [place] staff
-likely 2/2 antipsychotic regimen with high doses zyprexa that has anticholinergic properties
-fall precautions
-PT/OT, eventual SNF
-not concerned falls related to syncope (see below)
-psychotropic med adjustment per psychiatry - stop trazodone, decreased zyprexa dosing, stop standing Lomotil (Diphenoxylate-Atropine)
-patient now off sitter over 24 hours; hopefully SNF soon
#Agitation
-continue lower dose Zyprexa
-Lamictal dose increased on 08/30
-Continue Citalopram
-ativan PRN and zyprexa prn
-has been without sitter; OK for SNF anytime
#Left elbow skin tear, right inner thigh bruise secondary to multiple falls
-Consulted wound care, recommendations appreciated
#Skin rash left and right lateral trunk unclear etiology - Possible folliculitis
-s/p keflex course
#Recent Diarrheal Illness
-Unknown etiology, resolved a few weeks ago
#Alzheimer's Dementia�advanced
-Supportive care
#Afib
-not candidate for AC 2/2 falls
-rate OK off of Coreg
Bradycardia
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
#Anemia-macrocytic
Hgb 9.4 was 11.12 June 2023
-B12, folate, iron panel as noted above
#HTN�benign
-BP ranges widely
-Continue Norvasc 5 mg daily
-hold Coreg 2/2 falls, bradycardia
#Former alcohol abuse
Stopped 2022 drank greater than 2 glasses a day per
#Insomnia
-Continue melatonin at bedtime, trazodone 125 mg at bedtime
#Hx colon cancer with resection of [facility] 2018
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
#BPH
-Continue Flomax 0.4 mg at bedtime
DVT prophylaxis
SCDs
DNR per Kayla with sister at bedside at the time of admission this hospitalization
Anticipated Discharge: > 48 hours
Subjective/Interval History
-
Date of Service: September 04, 2023
Patient was seen and examined. He was sitting at the nurses station, and appeared to have already had breakfast.
Objective Data
-
Vital Signs:
Vital Signs
Temp Pulse Resp BP Pulse Ox
98.0 F 61 16 139/60 98
09/04/23 07:30 09/04/23 07:30 09/04/23 07:30 09/04/23 07:30 09/04/23 11:59
I&O
09/03/23 09/04/23 09/05/23
06:59 06:59 06:59
Intake Total 1979 / 1979 1140 / 1140
Output Total 100 / 100
Balance 1879 / 1879 1140 / 1140
[2023-09-04] MEDS: ATIVAN 0.5 MG PO (13:49)
--- NOTE | 2023-09-04 13:55 | PTCARENOTE ---
Pt with frequent attempts to stand. Assisted to bathroom. Pt (+) large soft formed bowel movement and voided judah urine. Assisted back to chair. Pt still with frequent attempts to stand. Hypervigilant; sensitive to stimuli. Quickly snapping head to
sounds or lights or touch. Furrowed brow. PRN Ativan 0.5mg PO administered for agitation.
--- NOTE | 2023-09-04 15:13 | W.PN.UPDATE ---
Update Note
Progress Note Update
patient seen chart reviewed. discussed w nursing. mrs alonso at bedside. mr alonso has had a few moments of agitation requiring a prn but overall he is better. he was smiling when i saw him and actually asked his a relevant clearly
articulated question 'are you staying with me here today?' they were sitting together her feet up on his chair his feet on hers with him holding on to her foot. it was truly a touching scene. mrs alonso does feel that her is improving
although he remains of course confused. i discussed w nursing whether we should make the ativan cortes but he felt it would be better to have it available when he needs it and hopefully avoid sedating him unnecessarily. will continue to follow
[2023-09-04 15:30] VITALS: BP 129/61
[2023-09-04] MEDS: ZYPREXA 5 MG PO (17:01)
[2023-09-04] MEDS: FLOMAX 0.400000000000000022 MG PO (21:38)
[2023-09-04] MEDS: MELATONIN 5 MG PO (21:38)
[2023-09-04 23:59] VITALS: BP 139/65
[2023-09-05] MEDS: TYLENOL PO ×2 (00:06→04:12)
[2023-09-05] MEDS: ATIVAN 0.5 MG PO ×2 (00:43→16:15)
[2023-09-05] MEDS: ZYPREXA 2.5 MG IM (03:55)
[2023-09-05 08:03] VITALS: BP 174/87
[2023-09-05] MEDS: NORVASC 5 MG PO (09:03)
[2023-09-05] MEDS: TYLENOL 650 MG PO ×4 (09:03→20:07)
[2023-09-05] MEDS: CELEXA 20 MG PO (09:03)
[2023-09-05] MEDS: ASPIR LOW (ENTERIC COATED) 81 MG PO (09:03)
[2023-09-05] MEDS: LAMICTAL 200 MG PO (09:03)
[2023-09-05] MEDS: HYDROCORTISONE 1% CREAM 1 APPLIC TOPICAL ×2 (09:04→20:13)
--- NOTE | 2023-09-05 12:18 | CM ---
Level 2 assessment was completed and paperwork submitted, waiting on letter of determination. Patient cannot be on restraints for skilled placement. Reviewed with nursing. Plan will be skilled placement for patient.
Plan; Skilled placement when Level 2 determination received.
--- NOTE | 2023-09-05 13:46 | W.PN.UPDATE ---
Update Note
Progress Note Update
patient seen chart reviewed. discussed w nursing. the patient was dozing in the hallway in a recliner. he has received prn twice over the past day..once ativan as well as im zyprexa. noted he gets up from chair but the type of agitation for which
zyprexa used is not noted in chart. i considered yesterday and today leaving a cortes dose of ativan and given that he had two prns one of them an im which i would lke to avoid i am going to order a scheduled small dose of ativan to see if im's can be
avoided. will check in tomorrow to reasses.
[2023-09-05 16:25] VITALS: BP 129/71
[2023-09-05] MEDS: ZYPREXA 5 MG PO (17:50)
--- NOTE | 2023-09-05 18:20 | W.PN.HOSP.TC ---
Today's Communication/Plan
-
Placement pending
Assessment / Plan
Assessment / Plan
Physical Exam
General: No Apparent Distress
Cardiac: S1 and S2
Respiratory: CTAB
GI: Positive bowel sounds. Soft and nontender.
Neuro: Alert. Awake.
Psych: Calm

�� CT head: No acute intracranial abnormality
�� CT cervical spine no acute fracture or dislocation
�� Right hip and pelvis x-ray: Mild degenerative changes of the right and left hip no acute fracture or dislocation
�� CXR: No acute cardiopulmonary process

Assessment/Plan
#Recurrent falls - reported 17 falls (in the 2 to 3 weeks prior to admission) per [place] staff
-likely 2/2 antipsychotic regimen with high doses zyprexa that has anticholinergic properties
-fall precautions
-PT/OT, eventual SNF
-not concerned falls related to syncope (see below)
-psychotropic med adjustment per psychiatry - stop trazodone, decreased zyprexa dosing, stop standing Lomotil (Diphenoxylate-Atropine)
-Hopefully SNF soon
#Agitation
-continue lower dose Zyprexa
-Lamictal dose increased on 08/30
-Continue Citalopram
-ativan PRN and zyprexa prn
-has been without sitter; OK for SNF anytime
#Left elbow skin tear, right inner thigh bruise secondary to multiple falls
-Consulted wound care, recommendations appreciated
#Skin rash left and right lateral trunk unclear etiology - Possible folliculitis
-s/p keflex course
#Recent Diarrheal Illness
-Unknown etiology, resolved a few weeks ago
#Alzheimer's Dementia�advanced
-Supportive care
#Afib
-not candidate for AC 2/2 falls
-rate OK off of Coreg
Bradycardia
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
#Anemia-macrocytic
Hgb 9.4 was 11.12 June 2023
-B12, folate, iron panel as noted above
#Hypertension�benign
-BP ranges widely
-Continue Norvasc 5 mg daily
-hold Coreg 2/2 falls, bradycardia
#Former alcohol abuse
Stopped 2022 drank greater than 2 glasses a day per
#Insomnia
-Continue melatonin at bedtime, trazodone 125 mg at bedtime
#History of colon cancer with resection of [facility] 2018
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
#BPH
-Continue Flomax 0.4 mg at bedtime
DVT prophylaxis
SCDs
DNR per Kayla with sister at bedside at the time of admission this hospitalization
Anticipated Discharge: > 48 hours
Subjective/Interval History
-
Date of Service: September 05, 2023
Patient was seen and examined. He was at the nurses station in a chair since he was agitated overnight.
Objective Data
-
Vital Signs:
Vital Signs
Temp Pulse Resp BP Pulse Ox
97.6 F 60 17 129/71 97
09/05/23 16:25 09/05/23 16:25 09/05/23 16:25 09/05/23 16:25 09/05/23 16:25
I&O
09/04/23 09/05/23 09/06/23
06:59 06:59 06:59
Intake Total 1140 / 1140 1260 / 1260 660 / 660
Output Total 150 / 150
Balance 1140 / 1140 1110 / 1110 660 / 660
[2023-09-05] MEDS: ATIVAN 0.25 MG PO (20:08)
[2023-09-05] MEDS: MELATONIN 5 MG PO (21:05)
[2023-09-05] MEDS: FLOMAX 0.400000000000000022 MG PO (21:05)
[2023-09-06] MEDS: TYLENOL PO ×2 (01:07→05:11)
[2023-09-06] MEDS: ATIVAN 0.5 MG PO ×2 (01:56→19:55)
[2023-09-06 07:25] VITALS: BP 151/66
[2023-09-06] MEDS: ASPIR LOW (ENTERIC COATED) 81 MG PO (08:44)
[2023-09-06] MEDS: CELEXA 20 MG PO (08:44)
[2023-09-06] MEDS: LAMICTAL 200 MG PO (08:44)
[2023-09-06] MEDS: NORVASC 5 MG PO (08:44)
[2023-09-06] MEDS: TYLENOL 650 MG PO ×4 (08:45→19:55)
[2023-09-06] MEDS: ATIVAN 0.25 MG PO (08:45)
[2023-09-06] MEDS: HYDROCORTISONE 1% CREAM 1 APPLIC TOPICAL ×2 (08:49→19:56)
--- NOTE | 2023-09-06 14:27 | W.PN.UPDATE ---
Update Note
Progress Note Update
patient seen chart reviewed. mr alonso continues w periods of agitation. have increase the ativan to o.5 mg bid and will reassess tomorrow whether this is smoothing out agitation during the daytime hours. i can see little rhyme or reason to how
his days go. a couple of days ago sitting w his he was the best i have seen him then he was struggling again ....discussed w case reviewer whether he might benefit from a psychiatric ([facility] ) stay. not clear to me that they would accept him
given how much care he needs. the next stop might be an am dose of zyprexa perhaps. will continue to follow
[2023-09-06 15:50] VITALS: BP 151/79
[2023-09-06] MEDS: ZYPREXA 5 MG PO (17:45)
--- NOTE | 2023-09-06 18:54 | W.PN.HOSP.TC ---
Today's Communication/Plan
-
Awaiting placement
Assessment / Plan
Assessment / Plan
Physical Exam
General: No Apparent Distress
Cardiac: S1 and S2
Respiratory: CTAB
GI: Positive bowel sounds. Soft and nontender.
Neuro: Alert. Awake.
Psych: Calm

�� CT head: No acute intracranial abnormality
�� CT cervical spine no acute fracture or dislocation
�� Right hip and pelvis x-ray: Mild degenerative changes of the right and left hip no acute fracture or dislocation
�� CXR: No acute cardiopulmonary process

Assessment/Plan
#Recurrent falls - reported 17 falls (in the 2 to 3 weeks prior to admission) per [facility] staff
-likely 2/2 antipsychotic regimen with high doses zyprexa that has anticholinergic properties
-fall precautions
-PT/OT, eventual SNF
-not concerned falls related to syncope (see below)
-psychotropic med adjustment per psychiatry - stop trazodone, decreased zyprexa dosing, stop standing Lomotil (Diphenoxylate-Atropine)
-Hopefully SNF soon
#Agitation
-continue lower dose Zyprexa
-Lamictal dose increased on 08/30
-Continue Citalopram
-ativan PRN and zyprexa prn
-has been without sitter; OK for SNF anytime
#Left elbow skin tear, right inner thigh bruise secondary to multiple falls
-Consulted wound care, recommendations appreciated
#Skin rash left and right lateral trunk unclear etiology - Possible folliculitis
-s/p keflex course
#Recent Diarrheal Illness
-Unknown etiology, resolved a few weeks ago
#Alzheimer's Dementia�advanced
-Supportive care
#Afib
-not candidate for AC 2/2 falls
-rate OK off of Coreg
Bradycardia - RESOLVED
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
#Anemia-macrocytic
Hgb 9.4 was 11.12 June 2023
-B12, folate, iron panel as noted above
#Hypertension�benign
-BP ranges widely
-Continue Norvasc 5 mg daily
-hold Coreg 2/2 falls, bradycardia
#Former alcohol abuse
Stopped 2022 drank greater than 2 glasses a day per
#Insomnia
-Continue melatonin at bedtime, trazodone 125 mg at bedtime
#History of colon cancer with resection of [facility] 2018
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
#BPH
-Continue Flomax 0.4 mg at bedtime
DVT prophylaxis
SCDs
DNR per Kayla with sister at bedside at the time of admission this hospitalization
Anticipated Discharge: > 48 hours
Subjective/Interval History
-
Date of Service: September 06, 2023
Patient was seen and examined. He was sleeping comfortably.
Objective Data
-
Vital Signs:
Vital Signs
Temp Pulse Resp BP Pulse Ox
97.3 F 72 18 151/79 98
09/06/23 15:50 09/06/23 15:50 09/06/23 15:50 09/06/23 15:50 09/06/23 15:50
I&O
09/05/23 09/06/23 09/07/23
06:59 06:59 06:59
Intake Total 1260 / 1260 1020 / 1020 1080 / 1080
Output Total 150 / 150
Balance 1110 / 1110 1020 / 1020 1080 / 1080
[2023-09-06] MEDS: MELATONIN 5 MG PO (22:05)
[2023-09-06] MEDS: FLOMAX 0.400000000000000022 MG PO (22:05)
[2023-09-06 23:54] VITALS: BP 149/85
[2023-09-07] MEDS: TYLENOL 650 MG PO ×5 (00:45→23:30)
[2023-09-07] MEDS: ATIVAN 0.5 MG PO ×5 (02:36→23:30)
[2023-09-07] MEDS: TYLENOL PO ×2 (05:19→16:00)
[2023-09-07] MEDS: LAMICTAL 200 MG PO (08:50)
[2023-09-07] MEDS: ASPIR LOW (ENTERIC COATED) 81 MG PO (08:53)
[2023-09-07] MEDS: HYDROCORTISONE 1% CREAM 1 APPLIC TOPICAL ×2 (08:54→20:12)
[2023-09-07] MEDS: NORVASC 5 MG PO (08:54)
[2023-09-07] MEDS: CELEXA 20 MG PO (08:54)
--- NOTE | 2023-09-07 09:57 | PTCARENOTE ---
Patient incont of large amount of loose stool, is able to follow simple commands at times. Out of bed to chair for breakfast , gait is slow and slightly unsteady, did tolerate out of bed for about 1 hour then back to bed. No respiratory distress
noted. 1:1 maintained for patient safety.
--- NOTE | 2023-09-07 10:47 | W.PN.UPDATE ---
Update Note
Progress Note Update
patient seen chart reviewed. spoke w nursing and patient's aide. he is doing better this am so far. nursing feels the cortes ativan dose is helping. nursing describes that he is cooperative with eating toileting. the issues arise when he tries to get
up. he does not remember to ask for help and that is not going to change given dementia. nursing also suggests he may have gt. she reports snoring which is very very loud during the day ( which i can attest to) and stoppages of respiration. not
clear what we would do even w a sleep study which would be hard to get not to mention eliciting cooperation w the therapy for gt. have dc'ed celexa. sometimes it can agitated patients. another possibility might be to increase lamictal in the
future. i did not do this today. will continue to follow
--- NOTE | 2023-09-07 16:11 | CM ---
Await level 2 determination.
Patient currently on 1:1.
Snf referrals (P).
Plan: skilled rehab when medically stable and bed available.
[2023-09-07] MEDS: ZYPREXA 5 MG PO (17:25)
--- NOTE | 2023-09-07 18:09 | PTCARENOTE ---
Patient woke up from nap incontinent of large amount of urine, physically aggressive with staff when trying to change linens. Removed all clothing, refuses to put on diaper or other incontinent products. Removed socks, insists on being naked.
Received Prn ativan for agitation. Takes meds crushed in applesauce.
--- NOTE | 2023-09-07 18:19 | W.PN.HOSP.TC ---
Today's Communication/Plan
-
Placement pending
Psychiatry recommendations appreciated
Case management disposition efforts appreciated
Assessment / Plan
Assessment / Plan
Physical Exam
General: No Apparent Distress
Cardiac: S1 and S2
Respiratory: CTAB
GI: Positive bowel sounds. Soft and nontender.
Neuro: Alert. Awake.
Psych: Calm

�� CT head: No acute intracranial abnormality
�� CT cervical spine no acute fracture or dislocation
�� Right hip and pelvis x-ray: Mild degenerative changes of the right and left hip no acute fracture or dislocation
�� CXR: No acute cardiopulmonary process

Assessment/Plan
#Recurrent falls - reported 17 falls (in the 2 to 3 weeks prior to admission) per [facility] staff
-likely 2/2 antipsychotic regimen with high doses zyprexa that has anticholinergic properties
-fall precautions
-PT/OT, eventual SNF
-not concerned falls related to syncope (see below)
-psychotropic med adjustment per psychiatry - stop trazodone, decreased zyprexa dosing, stop standing Lomotil (Diphenoxylate-Atropine)
-Hopefully SNF soon
#Agitation
-continue lower dose Zyprexa
-Lamictal dose increased on 08/30
-Continue scheduled Ativan
-Citalopram discontinued on 09/07/23 as per psychiatry
-has been without sitter; OK for SNF anytime
#Left elbow skin tear, right inner thigh bruise secondary to multiple falls
-Consulted wound care, recommendations appreciated
#Skin rash left and right lateral trunk unclear etiology - Possible folliculitis
-s/p keflex course
#Recent Diarrheal Illness
-Unknown etiology, resolved a few weeks ago
#Alzheimer's Dementia�advanced
-Supportive care
#Afib
-not candidate for AC 2/2 falls
-rate OK off of Coreg
Bradycardia - RESOLVED
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
#Anemia-macrocytic
Hgb 9.4 was 11.12 June 2023
-B12, folate, iron panel as noted above
#Hypertension�benign
-BP ranges widely
-Continue Norvasc 5 mg daily
-hold Coreg 2/2 falls, bradycardia
#Former alcohol abuse
Stopped 2022 drank greater than 2 glasses a day per
#Insomnia
-Continue melatonin at bedtime, trazodone 125 mg at bedtime
#History of colon cancer with resection of [facility] 2018
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
#BPH
-Continue Flomax 0.4 mg at bedtime
DVT prophylaxis
SCDs
DNR per Kayla with sister at bedside at the time of admission this hospitalization
Anticipated Discharge: > 48 hours
Subjective/Interval History
-
Date of Service: September 07, 2023
Patient was seen and examined. He was sleeping comfortably. No new significant issues reported. He is eating and drinking well.
Objective Data
-
Vital Signs:
Vital Signs
Temp Pulse Resp BP Pulse Ox
97.5 F 67 18 149/85 97
09/06/23 23:54 09/06/23 23:54 09/06/23 23:54 09/06/23 23:54 09/06/23 23:54
I&O
09/06/23 09/07/23 09/08/23
06:59 06:59 06:59
Intake Total 1020 / 1020 1320 / 1320
Balance 1020 / 1020 1320 / 1320
[2023-09-07] MEDS: FLOMAX 0.400000000000000022 MG PO (20:12)
[2023-09-07] MEDS: MELATONIN 5 MG PO (20:12)
[2023-09-07 23:30] VITALS: BP 174/78
[2023-09-08] MEDS: ATIVAN 0.5 MG PO ×6 (00:05→23:45)
--- NOTE | 2023-09-08 00:20 | PTCARENOTE ---
This nurse attempted to give pt. PRN ativan d/t agitation and repeatedly attempting to get OOB while becoming increasingly uncooperative. Pt. spit medication and applesauce out all over himself. Provider notified and a one time dose was ordered in
order for pt. to receive medication. Med given whole, in ice cream; pt. successfully swallowed medication. VSS at this time, will continue to monitor.
[2023-09-08] MEDS: TYLENOL PO ×2 (05:21→12:09)
[2023-09-08 07:47] VITALS: BP 134/80
[2023-09-08] MEDS: HYDROCORTISONE 1% CREAM 1 APPLIC TOPICAL ×2 (08:00→19:27)
[2023-09-08] MEDS: LAMICTAL 200 MG PO (08:01)
[2023-09-08] MEDS: ASPIR LOW (ENTERIC COATED) 81 MG PO (08:01)
[2023-09-08] MEDS: NORVASC 5 MG PO (08:01)
[2023-09-08] MEDS: TYLENOL 650 MG PO ×4 (08:02→23:45)
[2023-09-08 14:52] VITALS: BP 143/73
--- NOTE | 2023-09-08 15:39 | W.PN.UPDATE ---
Update Note
Progress Note Update
Pt seen, reviewed with staff, fairly alert, sitting up, attempting to eat. No agitation or aggressive behavior when seen this morning. Pt reportedly has been sleepy this am, did not sleep well last night, was given Ativan 0.5 mg. Pt continues to
be on Zyprexa 5 mg at 1800, Ativan 0.5 mg BID added on 09/06/23, Lamictal 200 mg daily. Celexa trial was stopped after 15 days with no clear benefit and possibility of worsening agitation.
Imp: Dementia, advanced, with intermittent behavior disturbance/agitation. Pt showing typical progression of dementia; behavior overall manageable
Rec: Will continue current psychotropic medications; continue to follow peripherally. Pt appears psychiatrically stable for discharge to SNF
[2023-09-08] MEDS: ZYPREXA 5 MG PO (16:51)
--- NOTE | 2023-09-08 17:44 | CM ---
Patient remains on a 1:1
medications being adjusted.
Needs skilled placement.
Plan: Await skilled bed.
--- NOTE | 2023-09-08 18:22 | W.PN.HOSP.TC ---
Today's Communication/Plan
-
await dispo
Assessment / Plan
Assessment / Plan
�� CT head: No acute intracranial abnormality
�� CT cervical spine no acute fracture or dislocation
�� Right hip and pelvis x-ray: Mild degenerative changes of the right and left hip no acute fracture or dislocation
�� CXR: No acute cardiopulmonary process

Assessment/Plan
#Recurrent falls - reported 17 falls (in the 2 to 3 weeks prior to admission) per [facility] staff
-likely 2/2 antipsychotic regimen with high doses zyprexa that has anticholinergic properties
-fall precautions
-PT/OT, eventual SNF
-not concerned falls related to syncope (see below)
-psychotropic med adjustment per psychiatry - stop trazodone, decreased zyprexa dosing, stop standing Lomotil (Diphenoxylate-Atropine)
-Hopefully SNF soon
#Agitation/Dementia
-continue lower dose Zyprexa
-Lamictal dose increased on 08/30
-Continue scheduled Ativan
-Citalopram discontinued on 09/07/23 as per psychiatry
-has been without sitter; OK for SNF anytime
#Left elbow skin tear, right inner thigh bruise secondary to multiple falls
-Consulted wound care, recommendations appreciated
#Skin rash left and right lateral trunk unclear etiology - Possible folliculitis
-s/p keflex course
#Recent Diarrheal Illness
-Unknown etiology, resolved a few weeks ago
#Alzheimer's Dementia�advanced
-Supportive care
#Afib
-not candidate for AC 2/2 falls
-rate OK off of Coreg
Bradycardia - RESOLVED
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
#Anemia-macrocytic
Hgb 9.4 was 11.12 June 2023
-B12, folate, iron panel as noted above
#Hypertension�benign
-BP ranges widely
-Continue Norvasc 5 mg daily
-hold Coreg 2/2 falls, bradycardia
#Former alcohol abuse
Stopped 2022 drank greater than 2 glasses a day per
#Insomnia
-Continue melatonin at bedtime, trazodone 125 mg at bedtime
#History of colon cancer with resection of [facility] 2018
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
#BPH
-Continue Flomax 0.4 mg at bedtime
DVT prophylaxis
SCDs
DNR per Kayla with sister at bedside at the time of admission this hospitalization
Anticipated Discharge: > 48 hours
Subjective/Interval History
-
Date of Service: September 08, 2023
Appears calm
Objective Data
-
Vital Signs:
Vital Signs
Temp Pulse Resp BP Pulse Ox
97.8 F 79 18 143/73 98
09/08/23 14:52 09/08/23 14:52 09/08/23 14:52 09/08/23 14:52 09/08/23 14:52
I&O
09/07/23 09/08/23 09/09/23
06:59 06:59 06:59
Intake Total 1320 / 1320 780 / 780 480 / 480
Output Total 700 / 700
Balance 1320 / 1320 80 / 80 480 / 480
Review of Systems
-
Unable to obtain full review of systems at this time due to: Dementia
History Source: Coordinated Provider
Constitutional: Denies Fever
Respiratory: Reports No Symptoms
Cardiac: Reports No Symptoms
Physical Exam
-
General: Well Developed, Well Nourished and No Apparent Distress
HEENT: Normocephalic and Atraumatic
Respiratory: Clear to Auscultation; Negative Wheezes, Rales or Rhonchi
Cardiac: Regular Rhythm and S1/S2
GI: Soft, Nontender and Nondistended
Musculoskeletal: No Clubbing, No Cyanosis and No Edema
Neuro: Awake
Psych: Confused
[2023-09-08] MEDS: FLOMAX 0.400000000000000022 MG PO (19:58)
[2023-09-08] MEDS: MELATONIN 5 MG PO (19:58)
[2023-09-08] MEDS: ZYRTEC 10 MG PO (21:22)
[2023-09-08 23:53] VITALS: BP 151/77
[2023-09-09] MEDS: TYLENOL PO ×2 (04:01→12:49)
[2023-09-09] MEDS: ATIVAN 0.5 MG PO ×3 (05:53→21:29)
[2023-09-09] MEDS: TYLENOL 650 MG PO ×3 (09:29→21:29)
[2023-09-09] MEDS: NORVASC 5 MG PO (09:30)
[2023-09-09] MEDS: LAMICTAL 200 MG PO (09:30)
[2023-09-09] MEDS: HYDROCORTISONE 1% CREAM 1 APPLIC TOPICAL ×2 (09:30→21:30)
[2023-09-09] MEDS: ASPIR LOW (ENTERIC COATED) 81 MG PO (09:31)
[2023-09-09 09:36] VITALS: BP 150/99
--- NOTE | 2023-09-09 10:30 | W.PN.UPDATE ---
Update Note
Progress Note Update
Patient seen at bedside resting, 1:1 present, chart reviewed, discussed with staff. Patient continues to have intermittent episodes of agitation that seem to be trigger by staff trying to get him to do something or when staff is performing care. He
also continues to attempt to get up on his own and can be unsteady on his feet at first. Patient did well with PT per RN.
Pt continues to be on Zyprexa 5 mg at 1800, Ativan 0.5 mg BID added on 09/06/23, Lamictal 200 mg daily.� Celexa trial was stopped after 15 days with no clear benefit and possibility of worsening agitation.
Impression/Plan:� Advanced dementia with intermittent behavioral disturbances/agitation which is typical progression of the disease; behavior is manageable with current medication regimen. Continue Zyprexa 5 mg at 1800, Ativan 0.5 mg BID & Lamictal
200 mg daily. Safety precautions in place at this time with a 1:1. Patient appears to be psychiatrically stable for discharge to SNF.
--- NOTE | 2023-09-09 13:29 | PTCARENOTE ---
Late entry 2/5 1600 Pt with restless agitation, unable to redirect, voided on floor. Received Ativan Prn with some effect. Rests for short periods and awake for short periods. Easily agitated, need to anticipate needs.1:1 maintained for patient
safety.
[2023-09-09] MEDS: ZYPREXA 5 MG PO (16:37)
--- NOTE | 2023-09-09 17:06 | W.PN.HOSP.TC ---
Today's Communication/Plan
-
await placement, confirmed with that she is unable to care for patient
Assessment / Plan
Assessment / Plan
#Recurrent falls - reported 17 falls (in the 2 to 3 weeks prior to admission) per [facility] staff
-likely 2/2 antipsychotic regimen with high doses zyprexa that has anticholinergic properties
-fall precautions
-PT/OT, eventual SNF
-not concerned falls related to syncope (see below)
-psychotropic med adjustment per psychiatry - stop trazodone, decreased zyprexa dosing, stop standing Lomotil (Diphenoxylate-Atropine)
-Hopefully SNF soon
#Agitation/Dementia
-continue lower dose Zyprexa
-Lamictal dose increased on 08/30
-Continue scheduled Ativan
-Citalopram discontinued on 09/07/23 as per psychiatry
-has been without sitter; OK for SNF anytime
#Left elbow skin tear, right inner thigh bruise secondary to multiple falls
-Consulted wound care, recommendations appreciated
#Skin rash left and right lateral trunk unclear etiology - Possible folliculitis
-s/p keflex course
#Recent Diarrheal Illness
-Unknown etiology, resolved a few weeks ago
#Alzheimer's Dementia�advanced
-Supportive care
#Afib
-not candidate for AC 2/2 falls
-rate OK off of Coreg
Bradycardia - RESOLVED
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
#Anemia-macrocytic
Hgb 9.4 was 11.12 June 2023
#Hypertension�benign
-BP ranges widely
-Continue Norvasc 5 mg daily
-hold Coreg 2/2 falls, bradycardia
#Former alcohol abuse
Stopped 2022 drank greater than 2 glasses a day per
#Insomnia
-Continue melatonin at bedtime, trazodone 125 mg at bedtime
#History of colon cancer with resection of [facility] 2018
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
#BPH
-Continue Flomax 0.4 mg at bedtime
DVT prophylaxis
SCDs
DNR per Kayla with sister at bedside at the time of admission this hospitalization
Anticipated Discharge: > 48 hours
Anticipated Discharge: > 48 hours
Subjective/Interval History
-
Date of Service: September 09, 2023
Walking around room, met with pt's in the room
Objective Data
-
Vital Signs:
Vital Signs
Temp Pulse Resp BP Pulse Ox
97.4 F 67 20 150/99 98
09/09/23 09:36 09/09/23 09:36 09/09/23 09:36 09/09/23 09:36 09/09/23 09:36
I&O
09/08/23 09/09/23 09/10/23
06:59 06:59 06:59
Intake Total 780 / 780 480 / 480
Output Total 700 / 700
Balance 80 / 80 480 / 480
Review of Systems
-
Unable to obtain full review of systems at this time due to: Dementia
History Source: Coordinated Provider
Constitutional: Denies Fever
Respiratory: Reports No Symptoms
Cardiac: Reports No Symptoms
Physical Exam
-
General: Well Developed, Well Nourished and No Apparent Distress
HEENT: Normocephalic and Atraumatic
Respiratory: Clear to Auscultation; Negative Wheezes, Rales or Rhonchi
Cardiac: Regular Rhythm and S1/S2
GI: Soft, Nontender and Nondistended
Musculoskeletal: No Clubbing, No Cyanosis and No Edema
Neuro: Awake
Psych: Confused
--- NOTE | 2023-09-09 17:45 | PTCARENOTE ---
Patient with varying behaviors throughout the day. Emotionally labile at times, goes from being agreeable to being frustrated. Difficulty redirecting. Smiled a few times today. Attempts to urinate in bathroom but dribble as he walks. Garbled
speech, which is his baseline. Resting at present
[2023-09-09] MEDS: FLOMAX 0.400000000000000022 MG PO (21:29)
[2023-09-09] MEDS: MELATONIN 5 MG PO (21:29)
[2023-09-09 23:37] VITALS: BP 147/96
[2023-09-10] MEDS: TYLENOL 650 MG PO ×3 (00:04→19:45)
[2023-09-10] MEDS: ATIVAN 0.5 MG PO ×3 (00:05→19:45)
[2023-09-10] MEDS: TYLENOL PO ×3 (04:46→13:07)
[2023-09-10] MEDS: NORVASC 5 MG PO (09:04)
[2023-09-10] MEDS: ASPIR LOW (ENTERIC COATED) 81 MG PO (09:04)
[2023-09-10] MEDS: LAMICTAL 200 MG PO (09:04)
[2023-09-10] MEDS: HYDROCORTISONE 1% CREAM 1 APPLIC TOPICAL (09:05)
--- NOTE | 2023-09-10 10:03 | CM ---
Addendum entered by Ludivina Burciaga 09/10/23 14:48:
Patient has been denied at [facility], and denied at [facility] facilities.
Addendum entered by Ludivina Burciaga 09/10/23 11:12:
Referral also sent to [facility], , residential case manager spoke with Iveth in admissions.
Original Note:
auto fleet manager reviewed patient's chart and patient is still with behaviors/agitation and on 1:1, patient cannot be placed in a retirement on 1:1, therefore residential case manager reached out to [facility] and spoke with Lynn in
admissions and referral faxed to [phone], [facility] Sergio in [facility] and faxed a referral .
Plan; To follow up with above facilities for possible further treatment for behaviors/agitation.
--- NOTE | 2023-09-10 12:47 | CM ---
Patient seen bedside.
Remains on 1:1.
Level 2 completed. Forms on chart.
Skilled bed search continues.
additional referrals and calls completed.
Spoke with daughter by phone, updated on bed search.
Plan: skilled rehab placement vs geripsych
--- NOTE | 2023-09-10 13:37 | W.PN.UPDATE ---
Update Note
Progress Note Update
patient seen chart reviewed. discussed with case mgt. the patient continues w periods of agitation. at this moment he was pleasant as he devoured the food on his tray with one to one present. he offered no complaints. discussed w cm whether we
might find him a [facility] psych bed for further stabilization of his periods of agitation which typically occur in the evening. have increase daily zyprexa dose to 7.5 mg
--- NOTE | 2023-09-10 16:10 | W.PN.HOSP.TC ---
Today's Communication/Plan
-
Psych medication adjusted by Psych otherwise await dispo
Assessment / Plan
Assessment / Plan
#Recurrent falls - reported 17 falls (in the 2 to 3 weeks prior to admission) per [place] staff
-likely 2/2 antipsychotic regimen with high doses zyprexa that has anticholinergic properties
-fall precautions
-PT/OT, eventual SNF
-not concerned falls related to syncope (see below)
-psychotropic med adjustment per psychiatry - stop trazodone, decreased zyprexa dosing, stop standing Lomotil (Diphenoxylate-Atropine)
-Hopefully SNF soon
#Agitation/Dementia
- Zyprexa increased to 7.5 mg daily
-Lamictal dose increased on 08/30
-Continue scheduled Ativan
-Citalopram discontinued on 09/07/23 as per psychiatry
-has been without sitter; OK for SNF anytime
#Left elbow skin tear, right inner thigh bruise secondary to multiple falls
-Consulted wound care, recommendations appreciated
#Skin rash left and right lateral trunk unclear etiology - Possible folliculitis
-s/p keflex course. Will need follow up with winemaker once determined where he will be residing
#Recent Diarrheal Illness
-Unknown etiology, resolved a few weeks ago
#Alzheimer's Dementia�advanced
-Supportive care
#Afib
-not candidate for AC 2/2 falls
-rate OK off of Coreg
Bradycardia - RESOLVED
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
#Anemia-macrocytic
Hgb 9.4 was 11.12 June 2023
#Hypertension�benign
-BP ranges widely
-Continue Norvasc 5 mg daily
-hold Coreg 2/2 falls, bradycardia
#Former alcohol abuse
Stopped 2022 drank greater than 2 glasses a day per
#Insomnia
-Continue melatonin at bedtime, trazodone 125 mg at bedtime
#History of colon cancer with resection of [facility] 2019
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
#BPH
-Continue Flomax 0.4 mg at bedtime
DVT prophylaxis
SCDs
DNR per Kayla with sister at bedside at the time of admission this hospitalization
nursing relayed that dgtNazia, requested phone call to update. Attempted to reach, left message on voice mail
Anticipated Discharge: > 48 hours
Anticipated Discharge: > 48 hours
Subjective/Interval History
-
Date of Service: September 10, 2023
Appears comfortable
Objective Data
-
Vital Signs:
Vital Signs
Temp Pulse Resp BP Pulse Ox
97.5 F 86 16 147/96 94
09/09/23 23:37 09/09/23 23:37 09/09/23 23:37 09/09/23 23:37 09/09/23 23:37
I&O
09/09/23 09/10/23 09/11/23
06:59 06:59 06:59
Intake Total 480 / 480 1220 / 1220
Balance 480 / 480 1220 / 1220
Review of Systems
-
Unable to obtain full review of systems at this time due to: Dementia
History Source: Coordinated Provider
Constitutional: Denies Fever
Respiratory: Reports No Symptoms
Cardiac: Reports No Symptoms
Physical Exam
-
General: Well Developed, Well Nourished and No Apparent Distress
HEENT: Normocephalic and Atraumatic
Respiratory: Clear to Auscultation; Negative Wheezes, Rales or Rhonchi
Cardiac: Regular Rhythm and S1/S2
GI: Soft, Nontender and Nondistended
Musculoskeletal: No Clubbing, No Cyanosis and No Edema
Neuro: Awake
Psych: Confused
[2023-09-10] MEDS: ZYPREXA 7.5 MG PO (17:29)
[2023-09-10] MEDS: FLOMAX 0.400000000000000022 MG PO (21:42)
[2023-09-10] MEDS: MELATONIN 5 MG PO (21:42)
[2023-09-10] MEDS: HYDROCORTISONE 1% CREAM TOPICAL (22:16)
[2023-09-10 23:13] VITALS: BP 136/71
[2023-09-11] MEDS: TYLENOL PO ×4 (00:44→16:30)
[2023-09-11] MEDS: ATIVAN 0.5 MG PO ×4 (02:15→20:14)
[2023-09-11 07:29] VITALS: BP 119/95
[2023-09-11] MEDS: LAMICTAL 200 MG PO (09:06)
[2023-09-11] MEDS: HYDROCORTISONE 1% CREAM 1 APPLIC TOPICAL ×2 (09:06→20:15)
[2023-09-11] MEDS: ASPIR LOW (ENTERIC COATED) 81 MG PO (09:06)
[2023-09-11] MEDS: TYLENOL 650 MG PO ×2 (09:06→20:14)
[2023-09-11] MEDS: NORVASC 5 MG PO (09:07)
--- NOTE | 2023-09-11 09:36 | CM ---
transcription manager spoke with Sergio in admissions at [facility] and they have declined patient, at this time plan will be to stabilize patient, remove one to one supervision and place patient in a skilled facility.
Plan; Follow with patient and when patient is off one to one supervision proceed with skilled placement.
--- NOTE | 2023-09-11 10:15 | CM ---
Addendum entered by Tiff Linn 09/11/23 16:27:
TCB from [facility], patient does not seem to meet criteria for admission at this time and needs a disposition.
If anything changes they will re-review.
Addendum entered by Tiff Linn 09/11/23 12:09:
TCB from [facility] requesting additional information.
Most recent EKG, CXR, labs and admission Psychiatry note sent for review.
Original Note:
Patient remains on 1:1.
Per nursing OOB to bathroom with assistance.
Medications adjusted yesterday.
Plan: Disposition efforts continue.
Unable to transfer to skilled rehab until patient of 1:1.
Referral to be sent to [facility] agreeable to review.
--- NOTE | 2023-09-11 13:11 | W.PN.UPDATE ---
Addendum entered and electronically signed by Yayo Dixon MD 09/11/23 13:26:
dr driver replied she is no longer on staff.
Original Note:
Update Note
Progress Note Update
patient seen chart reviewed. discussed w nursing and case mgt. the patient continues to have periods of agitation. it is not possible to really get from him as he is so impaired cognitively what is going on with him. at this moment he is quietly
sleeping and he received ativan at midday. i did not he was scratching his arms and legs and the rash noted before seems to be worsening in terms of itching. i don't think this is brannon chavez ...he is on lamictal as mucous membranes don't seem
involved...he eats with no difficulty. stopped lamictal any way and have sapna texted dr driver to see if she would be willing to come to to see him or whether she can offer curbside consult. sapna texted dr westbrook re rash which actually
precedes his arrival at . it really could be any of his meds or none. he was taking both lamictal and olanzapine at admission asked nursing to do postural signs given that we increased the zyprexa yesterday and there are anticholinergic side
effects. did not make other changes in meds today. spoke w case mgt who continues to search for a bed in snf or hospital
[2023-09-11 15:23] VITALS: BP 145/74
--- NOTE | 2023-09-11 15:38 | W.PN.UPDATE ---
Update Note
Progress Note Update
dr driver kindly offered us a curbside consult and has been texting dr westbrook and myself. she has advised a bx and an eosinophil count. she reviewed meds and feels anything could be causing rash . the bx is to r.o sj syndrome. have dc'ed
lamictal. will hold zyprexa for tonight. would consider switching the antipsychotic. called pharmacy ([facility]) to see if he had ever taken seroquel . they do not see any seroquel in his profile. qtc is okay. will start with 50 mg seroquel this
evening.
--- NOTE | 2023-09-11 16:23 | W.PN.HOSP.TC ---
Today's Communication/Plan
-
consult surg for skin bx
Assessment / Plan
Assessment / Plan
#Recurrent falls - reported 17 falls (in the 2 to 3 weeks prior to admission) per NH staff
-most likely multifactorial and associated with advance dementia
-fall precautions
-PT/OT, eventual SNF
-psychotropic med adjustment per psychiatry -Rash noted at time of admission to hospital (POA) Dr. Dixon is concerned that the rash could be a drug rash and is stopping the Zyprexa and Lamictal and requested I stop the Amlodipine. Then received a
phone call from Mahnaz Charles (derm) who relayed that derm does not come to the hospital, but nursing had forwarded pictures and rash does look like a drug rash. Requested I place order for Surgery to do a punch bx. Call placed to [facility] cone grad[facility]
(Alphonse Joy) and reviewed the situation. Plan is for bx in the morning
-Hopefully SNF soon
recheck CBC with diff (?eosinophil)
#Agitation/Dementia
- Zyprexa was increased to 7.5 mg daily and now stopped
-Lamictal dose increased on 08/30 and now stopped
Seroquel started
-Continue scheduled Ativan
-Citalopram discontinued on 09/07/23 as per psychiatry
-Continues to need 1:1
#Left elbow skin tear, right inner thigh bruise secondary to multiple falls
-Consulted wound care, recommendations appreciated
#Skin rash left and right lateral trunk unclear etiology - Possible folliculitis
-s/p keflex course. Skin bx will be requested. Could be Ocampo Jules Syndrome or more likely Erythema Multiforme. Await bx results
#Recent Diarrheal Illness
-Unknown etiology, resolved a few weeks ago
#Alzheimer's Dementia�advanced
-Supportive care
#Afib
-not candidate for AC 2/2 falls
-rate OK off of Coreg
Bradycardia - RESOLVED
-FURNACE HELPER Coreg stopped
#Anemia-macrocytic
Hgb 9.4 was 11.12 June 2023
#Hypertension�benign
will follow BP off Norvasc and consider alternative Rx
-BP ranges widely
-Stop Norvasc 5 mg daily
-consider resumption of Coreg depending on BP off Norvasc
#Former alcohol abuse
Stopped 2022 drank greater than 2 glasses a day per
#Insomnia
-Continue melatonin at bedtime, trazodone 125 mg at bedtime
#History of colon cancer with resection of [facility] 2018
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
#BPH
-Continue Flomax 0.4 mg at bedtime
DVT prophylaxis
SCDs
DNR per Kayla with sister at bedside at the time of admission this hospitalization. Юлия was updated in room by me 09/09
nursing relayed that Lou wells also requested call to update and she was updated today, 09/11
extensive complex visit
discussed situation with nursing and CM
time 60 min
Anticipated Discharge: > 48 hours
Anticipated Discharge: > 48 hours
Subjective/Interval History
-
Date of Service: September 11, 2023
Pt remains confused and impulsive
Objective Data
-
Vital Signs:
Vital Signs
Temp Pulse Resp BP Pulse Ox
97.9 F 74 18 145/74 98
09/11/23 15:23 09/11/23 15:23 09/11/23 15:23 09/11/23 15:23 09/11/23 15:23
I&O
09/10/23 09/11/23 09/12/23
06:59 06:59 06:59
Intake Total 1220 / 1220 2039
Balance 1220 / 1220 2039
Review of Systems
-
Unable to obtain full review of systems at this time due to: Dementia
History Source: Physician (reviewed with Dr. Dixon) and Coordinated Provider
Constitutional: Denies Fever
Respiratory: Reports No Symptoms
Cardiac: Reports No Symptoms
Physical Exam
-
General: Well Developed, Well Nourished and No Apparent Distress
HEENT: Normocephalic and Atraumatic
Respiratory: Clear to Auscultation; Negative Wheezes, Rales or Rhonchi
Cardiac: Regular Rhythm and S1/S2
GI: Soft, Nontender and Nondistended
Musculoskeletal: No Clubbing, No Cyanosis and No Edema
Skin: Rash (diffuse, potential drug rash (noted on admission))
Neuro: Awake; Negative Oriented
Psych: Confused
[2023-09-11 17:15] VITALS: BP 127/86; PULSE 92
--- NOTE | 2023-09-11 18:03 | PTCARENOTE ---
Collaborated with attending provider and dermatology via tiger text regarding patient's rash.
[2023-09-11] MEDS: FLOMAX 0.400000000000000022 MG PO (20:14)
[2023-09-11] MEDS: SEROQUEL 50 MG PO (20:15)
[2023-09-11] MEDS: MELATONIN PO (22:57)
[2023-09-11 23:18] VITALS: BP 143/74
[2023-09-12] MEDS: TYLENOL PO ×3 (00:34→23:29)
[2023-09-12] MEDS: ASPIR LOW (ENTERIC COATED) 81 MG PO (08:10)
[2023-09-12] MEDS: ATIVAN 0.5 MG PO ×2 (08:10→19:53)
[2023-09-12] MEDS: HYDROCORTISONE 1% CREAM 1 APPLIC TOPICAL ×2 (08:11→19:55)
[2023-09-12] MEDS: TYLENOL 650 MG PO ×4 (08:11→19:52)
[2023-09-12 08:25] VITALS: BP 93/65
--- NOTE | 2023-09-12 10:15 | W.PN.UPDATE ---
Update Note
Progress Note Update
patient seen chart reviewed. spoke with nursing. despite the dc of zyprexa and lamictal mr alonso happily does not seem any worse. he struggles when he wants to get up but you cannot reason with him. another issue is when blood needs to be drawn,
vital signs need to be done etc and now a biopsy may be in the offing for rash. (the ointment dr driver suggested seems to be helpfin some) it is very difficult to imagine that somehow his disposition will be resolved. he would be a very very
difficult patient for a skilled nursing.will it be possible? he really needs constant one to one. should hospice be considered? he still has a voracious appetite and right now no severe medical illness . should we stop drawing blood which upsets
him. replacing iv's upsets him. , (we do need to deal with the rash to keep him comfortable), doing frequent vitals upsets him etc. (he is here for falling and we do need to try to keep him from falling). perhaps this needs to be broached with
family. for now would continue the seroquel which seems no worse than the prior regimen. qtc done in late august okay.
[2023-09-12 13:05] LABS: % Basophils 0.7 % (0-2); % Immature Granulocytes 0.4 % (0-0.5); % Lymphocytes 20.9 % (20.5-51.1); % Monocytes 10.9 % (1.7-9.3); % Neutrophils 67.1 % (42.2-75.2); Absolute Lymphocytes 1.2 10^3/uL (1.2-3.4); Absolute Monocytes 0.6 10^3/uL (0.1-0.6); Absolute Neutrophils 3.8 10^3/uL (1.4-6.5); Hematocrit 40.6 % (39.0-52.0); Hemoglobin 13.5 g/dL (13.0-18.0); Mean Corp Hgb Conc. 33.3 g/dL (33.0-37.0); Mean Corpuscular Hgb 32.5 pg (27.0-31.0); Mean Corpuscular Volume 97.8 fL (80.0-94.0); Mean Platelet Volume 8.7 fL (7.4-10.4); Nucleated Red Blood Cells % 0 % (-); Platelet Count 132 10^3/uL (130-400); Red Blood Cell Count 4.15 10^6/uL (4.70-6.10); Red Cell Dist. Width 14.7 % (11.5-14.5); White Blood Cell Count 5.6 10^3/uL (4.8-10.8)
[2023-09-12 13:43] LABS: ALT (SGPT) 31 U/L (0-50); AST (SGOT) 29 U/L (17-59); Albumin 3.6 g/dl (3.5-5.0); Alkaline Phosphatase 55 U/L (38-126); Blood Urea Nitrogen 13 mg/dl (9-20); Calcium 9.6 mg/dl (8.4-10.2); Carbon Dioxide 31 mmol/L (22-30); Chloride 100 mmol/L (98-107); Estimated Creatinine Clearance 77 ml/min; Glucose 105 mg/dl (70-99); Sodium 138 mmol/L (135-145); Total Bilirubin 0.7 mg/dl (0.2-1.3); Total Protein 6.2 g/dl (6.3-8.2); eGFR > 60.00
--- NOTE | 2023-09-12 15:16 | CM ---
spoke with nurse.patient remains confused and is still on 1 to 1.nurse reports patient gets upset having his blood drawn,taking vital signs etc.patient now with skin rash-plan is for snf placement when off 1 to 1.cm to follow patient's progress.
Plan is for dishcharge tp snf when appropriate.
--- NOTE | 2023-09-12 16:15 | W.PN.HOSP.TC ---
Today's Communication/Plan
-
await dispo
Assessment / Plan
Assessment / Plan
#Recurrent falls - reported 17 falls (in the 2 to 3 weeks prior to admission) per NH staff
-most likely multifactorial and associated with advance dementia
-fall precautions
-PT/OT, eventual SNF
-psychotropic med adjustment per psychiatry -Rash noted at time of admission to hospital (POA) Dr. Dixon is concerned that the rash could be a drug rash and is stopping the Zyprexa and Lamictal and requested I stop the Amlodipine. Then received a
phone call from Mahnaz Charles (derm) who relayed that derm does not come to the hospital, but nursing had forwarded pictures and rash does look like a drug rash. Requested I place order for Surgery to do a punch bx. Call placed to electronic bench technician Surgery
(Alphonse Joy) and reviewed the situation. Plan is for bx in the morning
-Hopefully SNF soon
recheck CBC with diff eos ct is 0
#Agitation/Dementia
- Zyprexa was increased to 7.5 mg daily and now stopped
-Lamictal dose increased on 08/30 and now stopped
Seroquel started
-Continue scheduled Ativan
-Citalopram discontinued on 09/07/23 as per psychiatry
-Continues to need 1:1
#Left elbow skin tear, right inner thigh bruise secondary to multiple falls
-Consulted wound care, recommendations appreciated
#Skin rash left and right lateral trunk unclear etiology -
-s/p keflex course. Skin bx will be requested. Could be Ocampo Jules Syndrome or more likely Erythema Multiforme. Await bx results. Requested Gen Surg to do bx, due to scheduling issues apparently unable to get done today
#Recent Diarrheal Illness
-Unknown etiology, resolved a few weeks ago
#Alzheimer's Dementia�advanced
-Supportive care
#Afib
-not candidate for AC 2/2 falls
-rate OK off of Coreg
Bradycardia - RESOLVED
-HALL CLERK Coreg stopped
#Anemia-macrocytic
Hgb 13.5 on 09/12 was 11.12 June 2023
#Hypertension�benign
will follow BP off Norvasc and consider alternative Rx
-BP ranges widely
-Stop Norvasc 5 mg daily
-consider resumption of Coreg depending on BP off Norvasc
BP 93-143/65-95
#Former alcohol abuse
Stopped 2022 drank greater than 2 glasses a day per
#Insomnia
-Continue melatonin at bedtime, trazodone 125 mg at bedtime
#History of colon cancer with resection of [facility] 2018
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
#BPH
-Continue Flomax 0.4 mg at bedtime
DVT prophylaxis
SCDs
DNR per Юлия with sister at bedside at the time of admission this hospitalization. Юлия was updated in room by me 09/09
nursing relayed that Lou wells also requested call to update and she was updated today, 09/11
extensive complex visit
discussed situation with nursing and CM
time 30 min
Anticipated Discharge: > 48 hours
Anticipated Discharge: > 48 hours
Subjective/Interval History
-
Date of Service: September 12, 2023
No obvious distress
Objective Data
-
Labs:
Laboratory Results
09/12/23
12:47
WBC 5.6
Hgb 13.5
Hct 40.6
Plt Count 132
Sodium 138
Potassium 4.0
Chloride 100
Carbon Dioxide 31 H
BUN 13
Creatinine 0.8
Glucose 105 H
Calcium 9.6
Total Bilirubin 0.7
AST 29
ALT 31
Alkaline Phosphatase 55
Vital Signs:
Vital Signs
Temp Pulse Resp BP Pulse Ox
97.1 F 67 17 93/65 93
09/11/23 23:18 09/12/23 08:25 09/12/23 08:25 09/12/23 08:25 09/12/23 08:25
I&O
09/11/23 09/12/23 09/13/23
06:59 06:59 06:59
Intake Total 2039 1080 / 1080
Balance 2039 1080 / 1080
Review of Systems
-
Unable to obtain full review of systems at this time due to: Dementia
History Source: Coordinated Provider
Constitutional: Denies Fever
Respiratory: Reports No Symptoms
Cardiac: Reports No Symptoms
Physical Exam
-
General: Well Developed, Well Nourished and No Apparent Distress
HEENT: Normocephalic and Atraumatic
Respiratory: Clear to Auscultation; Negative Wheezes, Rales or Rhonchi
Cardiac: Regular Rhythm and S1/S2
GI: Soft, Nontender and Nondistended
Musculoskeletal: No Clubbing, No Cyanosis and No Edema
Skin: Rash (diffuse, potential drug rash (noted on admission), may have become a little less prominent past 24 hrs)
Neuro: Awake; Negative Oriented
Psych: Confused
[2023-09-12] MEDS: SEROQUEL 50 MG PO (17:53)
[2023-09-12] MEDS: MELATONIN 5 MG PO (19:52)
[2023-09-12] MEDS: FLOMAX 0.400000000000000022 MG PO (19:52)
[2023-09-12 19:57] VITALS: BP 168/98
--- NOTE | 2023-09-12 21:55 | PTCARENOTE ---
PCT attempted to collect vital signs from patient at 1900. Patient was agitated. Blood pressure obtained; however, unable to obtain temperature or pulse ox. Reorientation provided to patient.
[2023-09-13] MEDS: TYLENOL PO (04:36)
[2023-09-13] MEDS: HYDROCORTISONE 1% CREAM 1 APPLIC TOPICAL ×2 (07:17→21:40)
[2023-09-13] MEDS: TYLENOL 650 MG PO ×4 (07:17→21:44)
[2023-09-13] MEDS: ASPIR LOW (ENTERIC COATED) 81 MG PO (07:17)
[2023-09-13] MEDS: ATIVAN 0.5 MG PO ×2 (07:17→21:39)
[2023-09-13 08:00] VITALS: BP 143/69
[2023-09-13 15:00] VITALS: BP 140/62
--- NOTE | 2023-09-13 16:13 | W.PN.HOSP.TC ---
Today's Communication/Plan
-
continue current Tx
Assessment / Plan
Assessment / Plan
#Recurrent falls - reported 17 falls (in the 2 to 3 weeks prior to admission) per NH staff
-most likely multifactorial and associated with advance dementia
-fall precautions
-PT/OT, eventual SNF
-psychotropic med adjustment per psychiatry -Rash noted at time of admission to hospital (POA) Dr. Dixon is concerned that the rash could be a drug rash and is stopping the Zyprexa and Lamictal and requested I stop the Amlodipine. Then received a
phone call from Mahnaz Charles (derm) who relayed that derm does not come to the hospital, but nursing had forwarded pictures and rash does look like a drug rash. Requested I place order for Surgery to do a punch bx. Call placed to [facility]
(Alphonse Joy) and reviewed the situation. Plan is for bx in the morning
-Hopefully SNF soon
recheck CBC with diff eos ct is 0
#Agitation/Dementia
- Zyprexa was increased to 7.5 mg daily and now stopped
-Lamictal dose increased on 08/30 and now stopped
Seroquel started
-Continue scheduled Ativan
-Citalopram discontinued on 09/07/23 as per psychiatry
-Continues to need 1:1
#Left elbow skin tear, right inner thigh bruise secondary to multiple falls
-Consulted wound care, recommendations appreciated
#Skin rash left and right lateral trunk unclear etiology -
-s/p keflex course. Skin bx will be requested. Could be Ocampo Jules Syndrome or more likely Erythema Multiforme. Await bx results. Requested Gen Surg to do bx, due to scheduling issues apparently unable to get done today. Rash does seem
like it is fading
WBC 5.6k with 0% Eosinophils
#Recent Diarrheal Illness
-Unknown etiology, resolved a few weeks ago
#Alzheimer's Dementia�advanced
-Supportive care
#Afib
-not candidate for AC 2/2 falls
-rate OK off of Coreg
Bradycardia - RESOLVED
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
#Anemia-macrocytic
Hgb 13.5 on 09/12 was 11.12 June 2023
#Hypertension�benign
will follow BP off Norvasc and consider alternative Rx
-BP ranges widely, currently 143/69
-Stop Norvasc 5 mg daily
-consider resumption of Coreg depending on BP off Norvasc
BP 93-143/65-95
#Former alcohol abuse
Stopped 2022 drank greater than 2 glasses a day per
#Insomnia
-Continue melatonin at bedtime, trazodone 125 mg at bedtime
#History of colon cancer with resection of [facility] 2018
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
#BPH
-Continue Flomax 0.4 mg at bedtime
DVT prophylaxis
SCDs
DNR per Юлия with sister at bedside at the time of admission this hospitalization. Юлия was updated in room by me 09/09
nursing relayed that Lou wells also requested call to update and she was updated today, 09/11
discussed situation with nursing and CM
time 30 min
Anticipated Discharge: > 48 hours
Anticipated Discharge: > 48 hours
Subjective/Interval History
-
Date of Service: September 13, 2023
Appears calm
Objective Data
-
Vital Signs:
Vital Signs
Temp Pulse Resp BP Pulse Ox
97.5 F 90 16 143/69 94
09/13/23 08:00 09/13/23 08:00 09/13/23 08:00 09/13/23 08:00 09/13/23 08:00
I&O
09/12/23 09/13/23 09/14/23
06:59 06:59 06:59
Intake Total 1080 / 1080 1760 / 1760
Output Total 50 / 50
Balance 1080 / 1080 1710 / 1710
Review of Systems
-
Unable to obtain full review of systems at this time due to: Dementia
History Source: Coordinated Provider
Constitutional: Denies Fever
Respiratory: Reports No Symptoms
Cardiac: Reports No Symptoms
Physical Exam
-
General: Well Developed, Well Nourished and No Apparent Distress
HEENT: Normocephalic and Atraumatic
Respiratory: Clear to Auscultation; Negative Wheezes, Rales or Rhonchi
Cardiac: Regular Rhythm and S1/S2
GI: Soft, Nontender and Nondistended
Musculoskeletal: No Clubbing, No Cyanosis and No Edema
Skin: Rash (diffuse, potential drug rash (noted on admission), continues to appear a little less prominent past 24 hrs)
Neuro: Awake; Negative Oriented
Psych: Confused
[2023-09-13] MEDS: SEROQUEL 50 MG PO (17:11)
--- NOTE | 2023-09-13 18:05 | W.PN.UPDATE ---
Update Note
Progress Note Update
Pt seen & evaluated at bedside with 1 to1 present. Is calm and at times pleasant, however unable to participate in meaningful interview - responses often do not meaningfully relate to posed questions, often trails off mumbling or speaks too quietly
to be heard. Is not oriented.
Reviewed notes and spoke to staff, it seems that he has been a bit calmer since starting seroquel, however remains intermittently agitated and difficult to redirect, continues to require a 1-1 which precludes from dispo planning.
Increase seroquel to 25mg AM & afternoon + 50mg hs, maintain lowest dose needed for behavioral stability
[2023-09-13] MEDS: FLOMAX 0.400000000000000022 MG PO (21:48)
[2023-09-13] MEDS: MELATONIN 5 MG PO (21:49)
[2023-09-13 22:56] VITALS: BP 125/82
[2023-09-14] MEDS: TYLENOL PO ×2 (00:28→04:47)
--- NOTE | 2023-09-14 01:17 | PTCARENOTE ---
Patient knows when they have to urinate. Patient urinates all over the floors, sometimes makes to the toliet.
[2023-09-14] MEDS: ASPIR LOW (ENTERIC COATED) 81 MG PO (07:26)
[2023-09-14] MEDS: ATIVAN 0.5 MG PO ×3 (07:27→20:15)
[2023-09-14] MEDS: SEROQUEL 25 MG PO ×2 (07:28→12:17)
[2023-09-14] MEDS: HYDROCORTISONE 1% CREAM 1 APPLIC TOPICAL ×2 (07:29→20:15)
[2023-09-14] MEDS: TYLENOL 650 MG PO ×4 (07:30→20:15)
[2023-09-14 10:09] VITALS: BP 148/69
--- NOTE | 2023-09-14 14:43 | W.PN.HOSP.TC ---
Addendum entered and electronically signed by Cecilio Deshpande MD 09/14/23 15:45:
met with in pt's room and she has been updated
Original Note:
Today's Communication/Plan
-
continue supportive care
Surgery was unable to do skin bx on 09/12, will need to check with psych whether they still want done on Friday
Assessment / Plan
Assessment / Plan
#Recurrent falls - reported 17 falls (in the 2 to 3 weeks prior to admission) per [facility] staff
-most likely multifactorial and associated with advance dementia
-fall precautions
-PT/OT, eventual SNF
-psychotropic med adjustment per psychiatry -Rash noted at time of admission to hospital (POA) Dr. Dixon is concerned that the rash could be a drug rash and is stopping the Zyprexa and Lamictal and requested I stop the Amlodipine. Then received a
phone call from Mahnaz Charles (derm) who relayed that derm does not come to the hospital, but nursing had forwarded pictures and rash does look like a drug rash. Requested I place order for Surgery to do a punch bx. Call placed to motion graphics designer Surgery
(Alphonse Joy) and reviewed the situation. Plan is for bx in the morning
-Hopefully SNF soon
recheck CBC with diff eos ct is 0
#Agitation/Dementia
- Zyprexa was increased to 7.5 mg daily and now stopped
-Lamictal dose increased on 08/30 and now stopped
Seroquel started
-Continue scheduled Ativan
-Citalopram discontinued on 09/07/23 as per psychiatry
-Continues to need 1:1
#Left elbow skin tear, right inner thigh bruise secondary to multiple falls
-Consulted wound care, recommendations appreciated
#Skin rash left and right lateral trunk unclear etiology -
-s/p keflex course. Skin bx will be requested. Could be Ocampo Jules Syndrome or more likely Erythema Multiforme. Await bx results. Requested Gen Surg to do bx, due to scheduling issues apparently unable to get done today. Rash does seem
like it is fading
WBC 5.6k with 0% Eosinophils
#Recent Diarrheal Illness
-Unknown etiology, resolved a few weeks ago
#Alzheimer's Dementia�advanced
-Supportive care
#Afib
-not candidate for AC 09/05 falls
-rate OK off of Coreg
Bradycardia - RESOLVED
-MEDICAL ASST Coreg stopped
#Anemia-macrocytic
Hgb 13.5 on 09/12 was 11.12 June 2023
#Hypertension�benign
will follow BP off Norvasc and consider alternative Rx
-BP ranges widely, currently 143/69
-Stop Norvasc 5 mg daily
-consider resumption of Coreg depending on BP off Norvasc
BP 93-143/65-95
#Former alcohol abuse
Stopped 2022 drank greater than 2 glasses a day per
#Insomnia
-Continue melatonin at bedtime, trazodone 125 mg at bedtime
#History of colon cancer with resection of [facility] 2018
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
#BPH
-Continue Flomax 0.4 mg at bedtime
DVT prophylaxis
SCDs
DNR per Юлия with sister at bedside at the time of admission this hospitalization. Юлия was updated in room by me 09/09
nursing relayed that Lou wells also requested call to update and she was updated, 09/11
Anticipated Discharge: > 48 hours
Anticipated Discharge: > 48 hours
Subjective/Interval History
-
Date of Service: September 14, 2023
Currently calm
Objective Data
-
Vital Signs:
Vital Signs
Temp Pulse Resp BP Pulse Ox
97.0 F 72 18 148/69 94
09/14/23 10:09/14/23 10:09/14/23 10:09/14/23 10:24 22:56
I&O
09/13/23 09/14/23 09/15/23
06:59 06:59 06:59
Intake Total 1760 / 1760 720 / 720
Output Total 50 / 50 150 / 150
Balance 1710 / 1710 570 / 570
Review of Systems
-
Unable to obtain full review of systems at this time due to: Dementia
History Source: Coordinated Provider
Constitutional: Denies Fever
Respiratory: Reports No Symptoms
Cardiac: Reports No Symptoms
Physical Exam
-
General: Well Developed, Well Nourished and No Apparent Distress
HEENT: Normocephalic and Atraumatic
Respiratory: Clear to Auscultation; Negative Wheezes, Rales or Rhonchi
Cardiac: Regular Rhythm and S1/S2
GI: Soft, Nontender and Nondistended
Musculoskeletal: No Clubbing, No Cyanosis and No Edema
Skin: Rash (diffuse, potential drug rash (noted on admission), continues to appear a little less prominent past 24 hrs)
Neuro: Awake; Negative Oriented
Psych: Confused
--- NOTE | 2023-09-14 15:33 | PTCARENOTE ---
Received pt from room 426. Pt transported by chair and PCT to maintain the 1:1 coverage. Resumed care.
[2023-09-14] MEDS: SEROQUEL 50 MG PO (17:31)
--- NOTE | 2023-09-14 18:23 | W.PN.UPDATE ---
Update Note
Progress Note Update
Pt seen & evaluated at bedside. Not answering my questions today, at times will look at me pensively but still will not respond. Is sitting calmly in chair with jacket on partially (one arm in sleeve only). Reviewed notes & spoke to nursing staff,
although still having times of unpredictable agitation, this has decreased and he has overall been calmer today.
Increase seroquel slightly more to 50mg AM-25mg afternoon-50mg HS, monitor for sedation (none reported thus far), needs to be off 1-1 for dispo planning
[2023-09-14] MEDS: FLOMAX 0.400000000000000022 MG PO (21:24)
[2023-09-14] MEDS: MELATONIN 5 MG PO (21:24)
[2023-09-15] VITALS: BP 147/97
[2023-09-15 00:01] VITALS: BP 147/97
[2023-09-15] MEDS: TYLENOL PO ×2 (00:13→04:12)
[2023-09-15 07:00] VITALS: BP 145/94
--- NOTE | 2023-09-15 08:06 | W.PN.HOSP.TC ---
Today's Communication/Plan
-
Disposition efforts
Psych input appreciated for patient's agitation
Will monitor skin rash
Assessment / Plan
Assessment / Plan
still waiting for placement, main issue this week was the skin rash. Psych was concerned for [facility] with meds. Psych meds all stopped, no derm manager of application development, so Gen Surg was to do the punch bx, but did not have time. I think the rash
looks better, so may want to check with psych to see if they still want the bx
Physical Exam
General: Well Developed, Well Nourished and No Apparent Distress
HEENT: Normocephalic and Atraumatic
Respiratory: Clear to Auscultation; Negative Wheezes, Rales or Rhonchi
Cardiac: Regular Rhythm and S1/S2
GI: Soft, Nontender and Nondistended
Musculoskeletal: No Clubbing, No Cyanosis and No Edema
Skin: Rash (diffuse, potential drug rash (noted on admission), continues to appear a little less prominent past 24 hrs)
Neuro: Awake; Negative Oriented
Psych: Confused
Assessment/Plan
#Recurrent falls - reported 17 falls (in the 2 to 3 weeks prior to admission) per NH staff
-most likely multifactorial and associated with advance dementia
-fall precautions
-PT/OT, eventual SNF
-psychotropic med adjustment per psychiatry -Rash noted at time of admission to hospital (POA) Dr. Dixon is concerned that the rash could be a drug rash and is stopping the Zyprexa and Lamictal and requested I stop the Amlodipine. Then received a
phone call from Mahnaz Charles (derm) who relayed that derm does not come to the hospital, but nursing had forwarded pictures and rash does look like a drug rash. Requested I place order for Surgery to do a punch bx. Call placed to manager of application development Surgery
(Alphonse Joy) and reviewed the situation. Plan is for bx in the morning
-Hopefully SNF soon
recheck CBC with diff eos ct is 0
#Agitation/Dementia
- Zyprexa was increased to 7.5 mg daily and now stopped
-Lamictal dose increased on 08/30 and now stopped
Seroquel started
-Continue scheduled Ativan
-Citalopram discontinued on 09/07/23 as per psychiatry
-Continues to need 1:1
#Left elbow skin tear, right inner thigh bruise secondary to multiple falls
-Consulted wound care, recommendations appreciated
#Skin rash left and right lateral trunk unclear etiology -
-s/p keflex course. Skin bx will be requested. Could be Ocampo Jules Syndrome or more likely Erythema Multiforme. Requested Gen Surg to do bx, due to scheduling issues apparently unable to get done yet. Rash did appear recently to be fading.
WBC 5.6k with 0% Eosinophils
#Recent Diarrheal Illness
-Unknown etiology, resolved a few weeks ago
#Alzheimer's Dementia�advanced
-Supportive care
#Afib
-not candidate for AC 09/05 falls
-rate OK off of Coreg
Bradycardia - RESOLVED
-DIE CAST OPERATOR Coreg stopped
#Anemia-macrocytic
Hgb 13.5 on 09/12 was 11.12 June 2023
#Hypertension�benign
will follow BP off Norvasc and consider alternative Rx
-BP ranges widely, currently 143/69
-Stop Norvasc 5 mg daily
-consider resumption of Coreg depending on BP off Norvasc
BP 93-143/65-95
#Former alcohol abuse
Stopped 2022 drank greater than 2 glasses a day per
#Insomnia
-Continue melatonin at bedtime, trazodone 125 mg at bedtime
#History of colon cancer with resection of [facility] 2018
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
#BPH
-Continue Flomax 0.4 mg at bedtime
DVT prophylaxis
SCDs
DNR per Юлия with sister at bedside at the time of admission this hospitalization. Юлия was updated in room on 09/09
nursing relayed that Lou wells also requested call to update and she was updated, 09/11
Anticipated Discharge: > 48 hours
Subjective/Interval History
-
Date of Service: September 15, 2023
Patient was seen and examined. He was sleeping comfortably, nurse reported he was agitated earlier.
Objective Data
-
Vital Signs:
Vital Signs
Temp Pulse Resp BP Pulse Ox
97.8 F 75 18 145/94 96
09/15/23 07:00 09/15/23 07:00 09/15/23 07:00 09/15/23 07:00 09/15/23 07:00
I&O
09/14/23 09/15/23 09/16/23
06:59 06:59 06:59
Intake Total 1400 / 1400
Output Total 290 / 290
Balance 1110 / 1110
[2023-09-15] MEDS: HYDROCORTISONE 1% CREAM 1 APPLIC TOPICAL ×2 (08:22→19:51)
[2023-09-15] MEDS: ATIVAN 0.5 MG PO ×3 (08:22→19:50)
[2023-09-15] MEDS: ASPIR LOW (ENTERIC COATED) 81 MG PO (08:22)
[2023-09-15] MEDS: SEROQUEL 50 MG PO ×2 (08:22→17:19)
[2023-09-15] MEDS: SEROQUEL 25 MG PO (13:05)
[2023-09-15 15:00] VITALS: BP 148/77
--- NOTE | 2023-09-15 16:05 | CM ---
Per message from patients daughter Lou, Pitch Worker will be coming to meet with patient/family Wedneday 09/17/23. CM left voicemail with Lou, requested return call. Patient still on 1:1. CM will continue to follow for discharge planning
needs.
Plan; SNF pending accepting facility, unable to transfer to skilled rehab until patient off 1:1.
[2023-09-15] MEDS: MELATONIN 5 MG PO (21:59)
[2023-09-15] MEDS: FLOMAX 0.400000000000000022 MG PO (21:59)
[2023-09-15 22:52] VITALS: BP 166/81
[2023-09-16 07:59] VITALS: BP 159/77
[2023-09-16] MEDS: HYDROCORTISONE 1% CREAM 1 APPLIC TOPICAL ×2 (09:37→21:34)
[2023-09-16] MEDS: ATIVAN 0.5 MG PO ×3 (09:38→22:33)
[2023-09-16] MEDS: SEROQUEL 50 MG PO ×2 (09:38→17:29)
[2023-09-16] MEDS: ASPIR LOW (ENTERIC COATED) 81 MG PO (09:39)
[2023-09-16] MEDS: SEROQUEL 25 MG PO (13:08)
--- NOTE | 2023-09-16 14:53 | W.PN.HOSP.TC ---
Today's Communication/Plan
-
Follow rash - will need to follow-up with surgery about biopsy for rash
Placement pending
Assessment / Plan
Assessment / Plan
Physical Exam
General: Well Developed, Well Nourished and No Apparent Distress
HEENT: Normocephalic and Atraumatic
Respiratory: Clear to Auscultation; Negative Wheezes, Rales or Rhonchi
Cardiac: Regular Rhythm and S1/S2
GI: Soft, Nontender and Nondistended
Musculoskeletal: No Clubbing, No Cyanosis and No Edema
Skin: Rash (diffuse, potential drug rash (noted on admission))
Neuro: Awake; Negative Oriented
Psych: Confused
Assessment/Plan
#Recurrent falls - reported 17 falls (in the 2 to 3 weeks prior to admission) per NH staff
-most likely multifactorial and associated with advance dementia
-fall precautions
-PT/OT, eventual SNF
-psychotropic med adjustment per psychiatry -Rash noted at time of admission to hospital (POA) Dr. Dixon is concerned that the rash could be a drug rash and is stopping the Zyprexa and Lamictal and requested we stop the Amlodipine. Then received
a phone call from Mahnaz Charles (derm) who relayed that derm does not come to the hospital, but nursing had forwarded pictures and rash does look like a drug rash. Requested order for Surgery to do a punch bx. Call placed to assembler semiconductor Surgery (Alphonse
Rufino) and Dr. Deshpande reviewed the situation. Plan is for bx soon.
-Hopefully SNF soon
recheck CBC with diff eos ct is 0
#Agitation/Dementia
- Zyprexa was increased to 7.5 mg daily and now stopped
-Lamictal dose increased on 08/30 and now stopped
-Seroquel started: continue
-Continue scheduled Ativan
-Citalopram discontinued on 09/07/23 as per psychiatry
-Continues to need 1:1
#Left elbow skin tear, right inner thigh bruise secondary to multiple falls
-Consulted wound care, recommendations appreciated
#Skin rash left and right lateral trunk unclear etiology -
-s/p keflex course. Skin bx will be requested. Could be Ocampo Jules Syndrome or more likely Erythema Multiforme. Dr. Deshpande requested Gen Surg to do bx, due to scheduling issues apparently unable to get done yet. Rash did appear recently to
be fading.
WBC 5.6k with 0% Eosinophils
#Recent Diarrheal Illness
-Unknown etiology, resolved a few weeks ago
#Alzheimer's Dementia�advanced
-Supportive care
#Afib
-not candidate for AC 09/05 falls
-rate OK off of Coreg
Bradycardia - RESOLVED
-GOLD BUYER Coreg stopped
#Anemia-macrocytic
Hgb 13.5 on 09/12 was 11.12 June 2023
#Hypertension�benign
will follow BP off Norvasc and consider alternative Rx
-BP ranges widely, currently 143/69
-Stop Norvasc 5 mg daily
-consider resumption of Coreg depending on BP off Norvasc
BP 93-143/65-95
#Former alcohol abuse
Stopped 2022 drank greater than 2 glasses a day per
#Insomnia
-Continue melatonin at bedtime, trazodone 125 mg at bedtime
#History of colon cancer with resection of [facility] 2018
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
#BPH
-Continue Flomax 0.4 mg at bedtime
DVT prophylaxis
SCDs
DNR per Юлия with sister at bedside at the time of admission this hospitalization. Юлия was updated in room on 09/09
nursing relayed that Lou wells also requested call to update and she was updated, 09/11
Anticipated Discharge: > 48 hours
Subjective/Interval History
-
Date of Service: September 16, 2023
Patient was seen and examined. No new significant events or complaints were reported.
Objective Data
-
Vital Signs:
Vital Signs
Temp Pulse Resp BP Pulse Ox
97.9 F 67 16 159/77 98
09/16/23 07:59 09/16/23 07:59 09/16/23 07:59 09/16/23 07:59 09/16/23 07:59
I&O
09/15/23 09/16/23 09/17/23
06:59 06:59 06:59
Intake Total 1400 / 1400 600 / 600
Output Total 290 / 290 675 / 675
Balance 1110 / 1110 -75 / -75
--- NOTE | 2023-09-16 15:24 | CM ---
CM spoke with patients daughter, Lou, requesting call from Hospitalist in regards to plan for getting patient off of 1:1. Lou reports they have hired [facility] and a Geology Scientist, Myriam, will be out tomorrow to meet with
patient and . CM provided fax and email per Lou's request to provide to [facility]. Lou concerned patient will not be able to get off 1:1 and therefor not able to go to SNF. CM expressed empathy and support, CM will continue to follow for
discharge planning needs.
Plan; SNF pending facility acceptance, needs to be of 1:1.
--- NOTE | 2023-09-16 15:47 | W.PN.UPDATE ---
Update Note
Progress Note Update
Pt seen, walking in the hernadez with walker, having PT, responding to redirection. Pt appears to be tolerating small increase in Seroquel. No agitation at present.
Imp: Dementia, advanced, with intermittent behavior disturbance/agitation.� Pt showing typical progression of dementia; behavior overall manageable
Rec:� Will continue current psychotropic medications; continue to follow peripherally.� Pt appears psychiatrically stable for discharge to SNF
[2023-09-16 15:55] VITALS: BP 145/73
[2023-09-16] MEDS: MELATONIN 5 MG PO (20:33)
[2023-09-16] MEDS: FLOMAX 0.400000000000000022 MG PO (20:33)
[2023-09-16] MEDS: TYLENOL 650 MG PO (22:34)
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
[2023-09-17] MEDS: ATIVAN 0.5 MG PO ×5 (04:05→20:04)
[2023-09-17 07:00] VITALS: BP 181/112
[2023-09-17] MEDS: SEROQUEL 50 MG PO ×3 (07:05→17:07)
[2023-09-17] MEDS: ASPIR LOW (ENTERIC COATED) 81 MG PO (07:05)
[2023-09-17] MEDS: HYDROCORTISONE 1% CREAM 1 APPLIC TOPICAL ×2 (07:51→20:03)
--- NOTE | 2023-09-17 11:35 | W.PN.UPDATE ---
Update Note
Progress Note Update
patient seen chart reviewed. discussed with nursing. the patient has had more periods of agitation striking out at staff . when i saw him he was restless . not communicative. at this point have increase ativan to o.5 mg tid and seroquel to 50 mg
tid. spoke to case management. so far no placements found for mr alonso.
--- NOTE | 2023-09-17 17:01 | CM ---
credit portfolio manager reviewed patient's chart and spoke with Myriam cell [phone], and patient's spouse today. Myriam is from [facility] Coordinator's office who came out to see patient today, patient is currently on 1:1 and restraints. Patient will need to be off
1:1 and restraints for placement, per Myriam she will reach out to her contacts at facilities to see if they could accept patient when patient is off 1:1.
Plan; skilled placement when patient is off 1:1 and restraints.
--- NOTE | 2023-09-17 17:29 | W.PN.HOSP.TC ---
Today's Communication/Plan
-
Placement pending
Ativan and Seroquel doses increased to help with agitation
Assessment / Plan
Assessment / Plan
Physical Exam
General: Well Developed, Well Nourished and No Apparent Distress
HEENT: Normocephalic and Atraumatic
Respiratory: Clear to Auscultation; Negative Wheezes, Rales or Rhonchi
Cardiac: Regular Rhythm and S1/S2
GI: Soft, Nontender and Nondistended
Musculoskeletal: No Clubbing, No Cyanosis and No Edema
Skin: Rash (diffuse, potential drug rash (noted on admission))
Neuro: Awake; Negative Oriented
Psych: Confused. Calm
Assessment/Plan
#Recurrent falls - reported 17 falls (in the 2 to 3 weeks prior to admission) per NH staff
-most likely multifactorial and associated with advance dementia
-fall precautions
-PT/OT, eventual SNF
-psychotropic med adjustment per psychiatry -Rash noted at time of admission to hospital (POA) Dr. Dixon is concerned that the rash could be a drug rash and is stopping the Zyprexa and Lamictal and requested we stop the Amlodipine. Then received
a phone call from Mahnaz Charles (derm) who relayed that derm does not come to the hospital, but nursing had forwarded pictures and rash does look like a drug rash. Requested order for Surgery to do a punch bx. Call placed to integration director Surgery (Alphonse
Rufino) and Dr. Deshpande reviewed the situation. Plan is for bx soon.
-Hopefully SNF soon
recheck CBC with diff eos ct is 0
#Agitation/Dementia
- Zyprexa was increased to 7.5 mg daily and now stopped
-Lamictal dose increased on 08/30 and now stopped
-Ativan and Seroquel increased to 0.5 mg tid and 50 mg daily, respectively
-Citalopram discontinued on 09/07/23 as per psychiatry
-Continues to need 1:1
#Left elbow skin tear, right inner thigh bruise secondary to multiple falls
-Consulted wound care, recommendations appreciated
#Skin rash left and right lateral trunk unclear etiology -
-s/p keflex course. Skin bx will be requested. Could be Ocampo Jules Syndrome or more likely Erythema Multiforme. Dr. Deshpande requested Gen Surg to do bx, due to scheduling issues apparently unable to get done yet. Rash did appear recently to
be fading.
WBC 5.6k with 0% Eosinophils
#Recent Diarrheal Illness
-Unknown etiology, resolved a few weeks ago
#Alzheimer's Dementia�advanced
-Supportive care
#Afib
-not candidate for AC 09/05 falls
-rate OK off of Coreg
Bradycardia - RESOLVED
-LADLE HANDLER Coreg stopped
#Anemia-macrocytic
Hgb 13.5 on 09/12 was 11.12 June 2023
#Hypertension�benign
will follow BP off Norvasc and consider alternative Rx
-BP ranges widely, currently 143/69
-Stop Norvasc 5 mg daily
-consider resumption of Coreg depending on BP off Norvasc
BP 93-143/65-95
#Former alcohol abuse
Stopped 2022 drank greater than 2 glasses a day per
#Insomnia
-Continue melatonin at bedtime, trazodone 125 mg at bedtime
#History of colon cancer with resection of [facility] 2018
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
#BPH
-Continue Flomax 0.4 mg at bedtime
DVT prophylaxis
SCDs
DNR per Юлия with sister at bedside at the time of admission this hospitalization. Юлия was updated in room on 09/09
nursing relayed that Lou wells also requested call to update and she was updated, 09/11
Anticipated Discharge: > 48 hours
Subjective/Interval History
-
Date of Service: September 17, 2023
Patient was seen and examined. He was agitated overnight, striking out at staff.
Objective Data
-
Vital Signs:
Vital Signs
Temp Pulse Resp BP Pulse Ox
97.6 F 76 18 181/112 98
09/17/23 07:00 09/17/23 07:00 09/17/23 07:00 09/17/23 07:00 09/17/23 07:00
I&O
09/16/23 09/17/23 09/18/23
06:59 06:59 06:59
Intake Total 600 / 600 2580 / 2580
Output Total 675 / 675 300 / 300
Balance -75 / -75 2280 / 2280
[2023-09-17] MEDS: FLOMAX 0.400000000000000022 MG PO (20:04)
[2023-09-17] MEDS: MELATONIN 5 MG PO (20:04)
[2023-09-17 22:33] VITALS: BP 166/86
[2023-09-18 00:10] VITALS: BP 138/77
[2023-09-18] MEDS: ATIVAN 0.5 MG PO ×5 (00:18→21:25)
[2023-09-18 07:53] VITALS: BP 153/76
--- NOTE | 2023-09-18 08:27 | W.PN.HOSP.TC ---
Today's Communication/Plan
-
Placement pending
Appreciate psychiatry and medication changes to help with agitation
Assessment / Plan
Assessment / Plan
Physical Exam
General: Well Developed, Well Nourished and No Apparent Distress
HEENT: Normocephalic and Atraumatic
Respiratory: Clear to Auscultation; Negative Wheezes, Rales or Rhonchi
Cardiac: Regular Rhythm and S1/S2
GI: Soft, Nontender and Nondistended
Musculoskeletal: No Clubbing, No Cyanosis and No Edema
Skin: Rash (diffuse, potential drug rash (noted on admission))
Neuro: Awake; Negative Oriented
Psych: Confused. Calm
Assessment/Plan
#Recurrent falls - reported 17 falls (in the 2 to 3 weeks prior to admission) per NH staff
-most likely multifactorial and associated with advance dementia
-fall precautions
-PT/OT, eventual SNF
-psychotropic med adjustment per psychiatry -Rash noted at time of admission to hospital (POA) Dr. Dixon is concerned that the rash could be a drug rash and is stopping the Zyprexa and Lamictal and requested we stop the Amlodipine. Then received
a phone call from Mahnaz Charles (derm) who relayed that derm does not come to the hospital, but nursing had forwarded pictures and rash does look like a drug rash. Requested order for Surgery to do a punch bx. Call placed to information security specialist Surgery (Alphonse
Rufino) and Dr. Deshpande reviewed the situation. Discussed with surgeon Dr. Joy via [place] Text on 09/18/23: can consider outpatient dermatology follow-up with biopsy
-Hopefully SNF soon
recheck CBC with diff eos ct is 0
#Agitation/Dementia
- Zyprexa was increased to 7.5 mg daily and now stopped
-Lamictal dose increased on 08/30 and now stopped
-Ativan and Seroquel increased to 0.5 mg tid and 50 mg daily, respectively --> will take a few days to work
-Citalopram discontinued on 09/07/23 as per psychiatry
-Continues to need 1:1
#Left elbow skin tear, right inner thigh bruise secondary to multiple falls
-Consulted wound care, recommendations appreciated
#Skin rash left and right lateral trunk unclear etiology -
-s/p keflex course. Skin bx will be requested. Could be Ocampo Jules Syndrome or more likely Erythema Multiforme. Dr. Deshpande requested Gen Surg to do bx, due to scheduling issues apparently unable to get done yet. Rash did appear recently to
be fading. Discussed with surgeon Dr. Joy via [place] Text on 09/18/23: can consider outpatient dermatology follow-up with biopsy
WBC 5.6k with 0% Eosinophils
-[place] Texted Dr. Joy on 09/18/23: He mentioned that he didn�t do it because it didn�t seem necessary since the patient's rash was resolving and wouldn�t change treatments particularly in light of the patient�s dementia and combativeness
#Recent Diarrheal Illness
-Unknown etiology, resolved a few weeks ago
#Alzheimer's Dementia�advanced
-Supportive care
#Afib
-not candidate for AC 2/2 falls
-rate OK off of Coreg
Bradycardia - RESOLVED
-COOKING INSTRUCTOR Coreg stopped
#Anemia-macrocytic
Hgb 13.5 on 09/12 was 11.12 June 2023
#Hypertension�benign
will follow BP off Norvasc and consider alternative Rx
-BP ranges widely, currently 143/69
-Stop Norvasc 5 mg daily
-consider resumption of Coreg depending on BP off Norvasc
BP 93-143/65-95
#Former alcohol abuse
Stopped 2022 drank greater than 2 glasses a day per
#Insomnia
-Continue melatonin at bedtime, trazodone 125 mg at bedtime
#History of colon cancer with resection of [facility] 2018
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
#BPH
-Continue Flomax 0.4 mg at bedtime
DVT prophylaxis
SCDs
DNR per Юлия with sister at bedside at the time of admission this hospitalization. Юлия was updated in room on 09/09
nursing relayed that Lou wells also requested call to update and she was updated, 09/11
Anticipated Discharge: > 48 hours
Subjective/Interval History
-
Date of Service: September 18, 2023
Patient was seen and examined. He was agitated overnight.
Objective Data
-
Vital Signs:
Vital Signs
Temp Pulse Resp BP Pulse Ox
97.0 F 61 16 153/76 97
09/18/23 07:53 09/18/23 07:53 09/18/23 07:53 09/18/23 07:53 09/18/23 07:53
I&O
09/17/23 09/18/23 09/19/23
06:59 06:59 06:59
Intake Total 2580 / 2580 1440 / 1440
Output Total 300 / 300 200 / 200
Balance 2280 / 2280 1240 / 1240
[2023-09-18] MEDS: SEROQUEL 50 MG PO ×3 (08:38→18:25)
[2023-09-18] MEDS: ASPIR LOW (ENTERIC COATED) 81 MG PO (08:38)
[2023-09-18] MEDS: HYDROCORTISONE 1% CREAM 1 APPLIC TOPICAL ×2 (08:39→21:24)
--- NOTE | 2023-09-18 12:04 | W.PN.UPDATE ---
Update Note
Progress Note Update
patient seen chart reviewed. spoke with nursing and with cm. mr alonso remains much the same. he can be quiet/sleeping and at other moments agitated and aggressive. sometimes the cause of his agitation is that he wants to stand up and walk...at
other times the reason is not evident. yesterday increased seroquel and ativan. will give it a few days to assess the impact.
--- NOTE | 2023-09-18 12:52 | PTCARENOTE ---
Pt received in bed in B/L soft limb restraints. Pt calm, restraints removed. Able to eat 100% of breakfast. Increasing agitation. Pt stating he wants to go to bathroom. Assisted to bathroom. Pt very unsteady on feet. Getting frustrated, yelling 'you
fucking putz!' Attends fell to ground, pt incontinent of stool and urine. Pt cleaned and assisted back to bed and briefly fell asleep. Awoke suddenly with agitation. Sensitive to external stimuli, appearing startled by noises. Attempting to get up.
'I want to leave.' Attempted to reposition or stand or comfort. Pt unsteady on feet, unable to stand without maximal assistance. Pushing staff. Staff remained close by to prevent fall and pt with increasing agitation. Stumbling to bed and guided by
staff safely to bed without injury. Pt began punching staff. 2 point soft limb restraints in place with 4 side rails up. Observation maintained.
--- NOTE | 2023-09-18 14:00 | CM ---
CM left voicemail for Maria [phone] at [facility] in regards to Elissa-Psych for patient, requested return call. CM will continue to follow for discharge planning needs.
Plan; SNF pending accepting facility, family working with Myriam, health social work professor from [facility] [employer], will assist in finding facilities, pt still on 1:1 and restraints.
[2023-09-18 16:25] VITALS: BP 162/80
--- NOTE | 2023-09-18 16:43 | WOUNDNOTE ---
[facility] RN note: Patient developed a small stage 2 L coccyx buttocks pressure injury. Silicone border foam changed. Patient is on a Versacare Accumax. RN Maria Luisa Ocampo to coordinate switching bed to an air bed. Patient sits in a recliner intermittently
with an air chair cushion. Patient incontinent of urine. Samantha care given and patient turned to R side with help from PENNIE Sue. Heels off bed with air chair cushion. Discussed with PENNIE Glass. Updated Dr. Ward who approved local wound care and
stand/ambulate patient q hour while in chair with air chair cushion and reposition q 2-30 minutes while in chair. Care plan to be updated. Will follow as needed. Patient is for SNF placement.
--- NOTE | 2023-09-18 16:53 | WOUNDNOTE ---
[facility] RN note: Patient developed a small stage 2 L coccyx buttocks pressure injury. Silicone border foam changed. Patient is on a Versacare Accumax. RN Maria Luisa Ocampo to coordinate switching bed to an air bed. Patient sits in a recliner intermittently
with an air chair cushion. Patient incontinent of urine. Samantha care given and patient turned to R side with help from PENNIE Sue. Heels off bed with air chair cushion. Discussed with PENNIE Glass. Updated Dr. Ward who approved local wound care and
stand/ambulate patient q hour while in chair with air chair cushion and reposition q 2-30 minutes while in chair. Care plan to be updated. Will follow as needed. Patient is for SNF placement. t/c Spoke with who is POA re: skin status.
[2023-09-18] MEDS: FLOMAX 0.400000000000000022 MG PO (21:25)
[2023-09-18] MEDS: MELATONIN 5 MG PO (21:25)
[2023-09-19 00:10] VITALS: BP 138/77
--- NOTE | 2023-09-19 00:11 | PTCARENOTE ---
Pt was attempted to be awaken by RN for vital signs. Pt would not open eyes for RN. Pt respirations regular, VSS BP 138/77 HR 62. When pt cheek touched pt would flinch, when feet touched would move, when fingers placed in pt hand pt would squeeze
but would not open eyes. SEGUN Luther made aware, TANKAGE GRINDER asked to come to bedside to see pt. TANKAGE GRINDER at bedside believes adjustment of psych meds is what has caused this, says as long as VSS he is fine. No further orders.
--- NOTE | 2023-09-19 01:03 | W.PN.UPDATE ---
Update Note
Progress Note Update
Nursing notified me about patient's lack of agitation including what appears to be deep sleep..minimal response to sternal rub and not following direction to open eyes as examples. vital signs are stable, no tachypnea. On room air 93%. Apparently he
has been increasing anxious and agitated over the past month while here and his Ativan and Seroquel doses have been adjusted many times including most recently yesterday when a third dose of seroquel was added at 1300 and Ativan was given TID today
without and prns.
[2023-09-19 07:40] VITALS: BP 134/109
[2023-09-19] MEDS: ATIVAN 0.5 MG PO ×3 (08:17→21:22)
[2023-09-19] MEDS: ASPIR LOW (ENTERIC COATED) 81 MG PO (08:17)
[2023-09-19] MEDS: HYDROCORTISONE 1% CREAM 1 APPLIC TOPICAL ×2 (08:17→20:28)
[2023-09-19] MEDS: SEROQUEL 50 MG PO ×3 (08:17→17:56)
--- NOTE | 2023-09-19 08:34 | PTCARENOTE ---
Pt received in bed @ 0700 in B/L soft limb restraints. Awoke calm and cooperative. Oriented to self. Able to follow simple directions. Stated he had to urinate. B/L soft limb restraints removed. Pt stood with minimal assistance to void. Followed
direction to return to bed.
--- NOTE | 2023-09-19 11:41 | CM ---
CM spoke with Myriam [phone], Plastic Press Molder from [facility]. CM shared that patient is still on restraints and 1:1 at this time. CM will stay in communication with Myriam in regards to the patients status, once off 1:1 and restraints, then
patient can discharge to accepting SNF. Cm will continue to follow for all discharge planning needs.
Plan; SNF once off 1:1 and restraints, family working with [facility].
--- NOTE | 2023-09-19 13:44 | W.PN.UPDATE ---
Update Note
Progress Note Update
patient seen chart reviewed. discussed w nursing. the patient has not received a prn for agitation in 24+ hours. he can be restless as i saw today. he then becomes very difficult to control as he is quite strong. noted nursing attempted to wake
him during the night for vital signs. if the patient is sleeping asked dr galvez to write an order to skip vitals as it just would be one more stimulus to potentially agitate him plus he needs to sleep. he was itching the rash. it is unclear to
me if it is better or worse but clearly he was scratching it. ordered a very small dose of atarax 10 mg tid which can be increased if he tolerates it. will follow
--- NOTE | 2023-09-19 15:08 | W.PN.HOSP.TC ---
Today's Communication/Plan
-
Placement pending
Please see below
Assessment / Plan
Assessment / Plan
Physical Exam
General: Well Developed, Well Nourished and No Apparent Distress
HEENT: Normocephalic and Atraumatic
Respiratory: Clear to Auscultation; Negative Wheezes, Rales or Rhonchi
Cardiac: Regular Rhythm and S1/S2
GI: Soft, Nontender and Nondistended
Musculoskeletal: No Clubbing, No Cyanosis and No Edema
Skin: Rash (diffuse, potential drug rash (noted on admission))
Neuro: Awake; Negative Oriented
Psych: Confused. Calm
Assessment/Plan
#Recurrent falls - reported 17 falls (in the 2 to 3 weeks prior to admission) per NH staff
-most likely multifactorial and associated with advance dementia
-fall precautions
-PT/OT, eventual SNF
-psychotropic med adjustment per psychiatry -Rash noted at time of admission to hospital (POA) Dr. Dixon is concerned that the rash could be a drug rash and is stopping the Zyprexa and Lamictal and requested we stop the Amlodipine. Then received
a phone call from Mahnaz Charles (derm) who relayed that derm does not come to the hospital, but nursing had forwarded pictures and rash does look like a drug rash. Requested order for Surgery to do a punch bx. Call placed to data integrity consultant Surgery (Alphonse
Rufino) and Dr. Deshpande reviewed the situation. Discussed with surgeon Dr. Joy via [facility] Text on 09/18/23: can consider outpatient dermatology follow-up with biopsy
-Hopefully SNF soon
recheck CBC with diff eos ct is 0
#Agitation/Dementia
- Zyprexa was increased to 7.5 mg daily and now stopped
-Lamictal dose increased on 08/30 and now stopped
-Ativan and Seroquel increased to 0.5 mg tid and 50 mg daily, respectively --> will take a few days to work: now starting to really work
-Citalopram discontinued on 09/07/23 as per psychiatry
-Continues to need 1:1
-Do not wake patient for vital signs after 10 pm, unless it is an emergency
#Left elbow skin tear, right inner thigh bruise secondary to multiple falls
-Consulted wound care, recommendations appreciated
#Skin rash left and right lateral trunk unclear etiology -
-s/p keflex course. Skin bx will be requested. Could be Ocampo Jules Syndrome or more likely Erythema Multiforme. Dr. Deshpande requested Gen Surg to do bx, due to scheduling issues apparently unable to get done. Rash did appear recently to be
fading. Discussed with surgeon Dr. Joy via [facility] on 09/18/23: can consider outpatient dermatology follow-up with biopsy
WBC 5.6k with 0% Eosinophils
-[facility] Texted Dr. Joy on 09/18/23: He mentioned that he didn�t do it because it didn�t seem necessary since the patient's rash was resolving and wouldn�t change treatments particularly in light of the patient�s dementia and combativeness
#Recent Diarrheal Illness
-Unknown etiology, resolved a few weeks ago
#Alzheimer's Dementia�advanced
-Supportive care
#Afib
-not candidate for AC 09/05 falls
-rate OK off of Coreg
Bradycardia - RESOLVED
-MEDICAID BILLING SPECIALIST Coreg stopped
#Anemia-macrocytic
Hgb 13.5 on 09/12 was 11.12 June 2023
#Hypertension�benign
will follow BP off Norvasc and consider alternative Rx
-BP ranges widely, currently 143/69
-Stop Norvasc 5 mg daily
-consider resumption of Coreg depending on BP off Norvasc
#Former alcohol abuse
Stopped 2022 drank greater than 2 glasses a day per
#Insomnia
-Continue melatonin at bedtime, trazodone 125 mg at bedtime
#History of colon cancer with resection of [facility] 2018
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
#BPH
-Continue Flomax 0.4 mg at bedtime
DVT prophylaxis
SCDs
DNR per Юляи with sister at bedside at the time of admission this hospitalization. Юлия was updated in room on 09/09
nursing relayed that Lou wells also requested call to update and she was updated, 09/11
Anticipated Discharge: > 48 hours
Subjective/Interval History
-
Date of Service: September 19, 2023
Patient was seen and examined. No new significant events or symptoms reported.
Objective Data
-
Vital Signs:
Vital Signs
Temp Pulse Resp BP Pulse Ox
97.2 F 88 16 134/109 98
09/19/23 07:40 09/19/23 07:40 09/19/23 07:40 09/19/23 07:40 09/19/23 11:37
I&O
09/18/23 09/19/23 09/20/23
06:59 06:59 06:59
Intake Total 1440 / 1440 1920 / 1920
Output Total 200 / 200 130 / 130
Balance 1240 / 1240 1790 / 1790
[2023-09-19 16:03] VITALS: BP 152/73
[2023-09-19] MEDS: ATARAX 10 MG PO ×2 (16:23→21:22)
--- NOTE | 2023-09-19 17:45 | PTCARENOTE ---
Pt remains out of restraints. Drowsy, sleeping intermittently. Refused breakfast. Ate 100% of lunch and dinner.
[2023-09-19] MEDS: FLOMAX 0.400000000000000022 MG PO (21:22)
[2023-09-19] MEDS: MELATONIN 5 MG PO (21:22)
[2023-09-19 21:50] VITALS: BP 145/73
--- NOTE | 2023-09-20 04:40 | PTCARENOTE ---
Pt wakes up about 3-4 times an hour needing to urinate. Pt only is able to urinate 15-20 mls/episode while completely saturating at other times. Due to urinary frequency pt appears uncomfortable and restless which sometimes transpires to aggression/
combativeness.
--- NOTE | 2023-09-20 07:07 | W.PN.HOSP.TC ---
Today's Communication/Plan
-
cont 1:1 as per psych
cont scheduled ativan seroquel atarax
prn ativan, avoid further QT prolonging agents beyond what is scheduled
Assessment / Plan
Assessment / Plan
Physical Exam
General: Well Developed, Well Nourished and No Apparent Distress
HEENT: Normocephalic and Atraumatic
Respiratory: Clear to Auscultation; Negative Wheezes, Rales or Rhonchi
Cardiac: Regular Rhythm and S1/S2
GI: Soft, Nontender and Nondistended
Musculoskeletal: No Clubbing, No Cyanosis and No Edema
Skin: Rash (diffuse, potential drug rash (noted on admission))
Neuro: Awake; Nonverbal following simple commands to an extent
Psych: Confused. Calm
Assessment/Plan
#Recurrent falls - reported 17 falls (in the 2 to 3 weeks prior to admission) per NH staff
-most likely multifactorial and associated with advance dementia
-fall precautions
-PT/OT, eventual SNF
-psychotropic med adjustment per psychiatry -Rash noted at time of admission to hospital (POA) possible drug rash Zyprexa, Lamictal, and Amlodipine stopped. Rash improving with hydrocortisone cream
#Agitation/Dementia
- Zyprexa Lamictal discontinued as above
-Ativan and Seroquel increased to 0.5 mg tid and 50 mg TID, respectively
-Citalopram discontinued on 09/07/23 as per psychiatry
-Continues to need 1:1
#Left elbow skin tear, right inner thigh bruise secondary to multiple falls
-Consulted wound care, recommendations appreciated
#Skin rash left and right lateral trunk unclear etiology -
-s/p keflex course. Rash improving as above
#Recent Diarrheal Illness
-Unknown etiology, resolved a few weeks ago
#Alzheimer's Dementia�advanced
-Supportive care
#Afib
-not candidate for AC 2/2 falls
-rate OK off of Coreg
Bradycardia - RESOLVED
-PLASTICS PATTERNMAKER Coreg stopped
#Anemia-macrocytic
Hgb 13.5 on 09/12 was 11.12 June 2023
#Hypertension�benign
will follow BP off Norvasc and consider alternative Rx
-BP ranges widely, currently 143/69
-Stop Norvasc 5 mg daily
-consider resumption of Coreg depending on BP off Norvasc
#Former alcohol abuse
Stopped 2022 drank greater than 2 glasses a day per
#Insomnia
-Continue melatonin at bedtime, trazodone 125 mg at bedtime
#History of colon cancer with resection of [facility] 2018
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
#BPH
-Continue Flomax 0.4 mg at bedtime
DVT prophylaxis
SCDs
DNR
I spent a total of 50 minutes with the patient or on the floor. More than 50% of this time involved counseling and coordination of care.
Anticipated Discharge: 24 - 48 hours
Subjective/Interval History
-
Date of Service: September 20, 2023
Calm cooperative nonverbal at this time. No acute distress
Objective Data
-
Vital Signs:
Vital Signs
Temp Pulse Resp BP Pulse Ox
97.4 F 74 16 145/73 96
09/19/23 21:50 09/19/23 21:50 09/19/23 21:50 09/19/23 21:50 09/19/23 21:50
I&O
09/19/23 09/20/23 09/21/23
06:59 06:59 06:59
Intake Total 1919 / 1920 480 / 480
Output Total 130 / 130 225 / 225
Balance 1790 / 1790 255 / 255
[2023-09-20 07:11] VITALS: BP 146/84
[2023-09-20] MEDS: HYDROCORTISONE 1% CREAM 1 APPLIC TOPICAL ×2 (11:03→21:43)
[2023-09-20] MEDS: SEROQUEL 50 MG PO ×3 (11:04→17:44)
[2023-09-20] MEDS: ATIVAN 0.5 MG PO ×4 (11:04→21:44)
[2023-09-20] MEDS: ATARAX 10 MG PO ×3 (11:04→21:44)
[2023-09-20] MEDS: ASPIR LOW (ENTERIC COATED) 81 MG PO (11:05)
--- NOTE | 2023-09-20 12:11 | W.PN.UPDATE ---
Update Note
Progress Note Update
Psychiatry follow up. Chart reviewed. Standing Ativan and Seroquel were increased in 09/17. Patient will have to be off 1:1 and out of restraints for placement per CM. His last PRNs were on 09/18. At this time he is lying in bed somnolent and but
arousable and easily agitated. He remains confused and disoriented per 1:1 and nursing.
Unable to do full MSE due to confusion/somnolence
Plan- continue current treatment. await clinical response to recent medication increase. Consider further adjustments if needed. Continue 1:1 for safety at this time. Psychiatry will follow.
[2023-09-20 14:24] VITALS: BP 128/64
[2023-09-20] MEDS: MELATONIN 5 MG PO (21:44)
[2023-09-20] MEDS: FLOMAX 0.400000000000000022 MG PO (21:44)
[2023-09-20 23:15] VITALS: BP 151/81
--- NOTE | 2023-09-21 07:26 | W.PN.HOSP.TC ---
Today's Communication/Plan
-
cont 1:1 as per psych
cont scheduled ativan seroquel atarax
prn ativan, avoid further QT prolonging agents beyond what is scheduled
Assessment / Plan
Assessment / Plan
Physical Exam
General: Well Developed, Well Nourished and No Apparent Distress
HEENT: Normocephalic and Atraumatic
Respiratory: Clear to Auscultation; Negative Wheezes, Rales or Rhonchi
Cardiac: Regular Rhythm and S1/S2
GI: Soft, Nontender and Nondistended
Musculoskeletal: No Clubbing, No Cyanosis and No Edema
Skin: Rash (diffuse, potential drug rash (noted on admission))
Neuro: Awake; intermittently Nonverbal following simple commands to an extent,
Psych: Confused. Calm
Assessment/Plan
#Recurrent falls - reported 17 falls (in the 2 to 3 weeks prior to admission) per NH staff
-most likely multifactorial and associated with advance dementia
-fall precautions
-PT/OT, eventual SNF
-psychotropic med adjustment per psychiatry -Rash noted at time of admission to hospital (POA) possible drug rash Zyprexa, Lamictal, and Amlodipine stopped. Rash improving with hydrocortisone cream
#Agitation/Dementia
- Zyprexa Lamictal discontinued as above
-Ativan and Seroquel increased to 0.5 mg tid and 50 mg TID, respectively
-Citalopram discontinued on 09/07/23 as per psychiatry
-Continues to need 1:1
#Left elbow skin tear, right inner thigh bruise secondary to multiple falls
-Consulted wound care, recommendations appreciated
#Skin rash left and right lateral trunk unclear etiology -
-s/p keflex course. Rash improving as above
#Recent Diarrheal Illness
-Unknown etiology, resolved a few weeks ago
#Alzheimer's Dementia�advanced
-Supportive care
#Afib
-not candidate for AC 2/2 falls
-rate OK off of Coreg
Bradycardia - RESOLVED
-RANGE MANAGER Coreg stopped
#Anemia-macrocytic
Hgb 13.5 on 09/12 was 11.12 June 2023
#Hypertension�benign
will follow BP off Norvasc and consider alternative Rx
-BP ranges widely, currently 143/69
-Stop Norvasc 5 mg daily
-consider resumption of Coreg depending on BP off Norvasc
#Former alcohol abuse
Stopped 2022 drank greater than 2 glasses a day per
#Insomnia
-Continue melatonin at bedtime, trazodone 125 mg at bedtime
#History of colon cancer with resection of [facility] 2018
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
#BPH
-Continue Flomax 0.4 mg at bedtime
DVT prophylaxis
SCDs
DNR
I spent a total of 50 minutes with the patient or on the floor. More than 50% of this time involved counseling and coordination of care.
Anticipated Discharge: 24 - 48 hours
Subjective/Interval History
-
Date of Service: September 21, 2023
More calm and cooperative though interaction limited, patient selective with communication. seen intermittently conversing with 1:1. Non communicative during evaluation.
Objective Data
-
Vital Signs:
Vital Signs
Temp Pulse Resp BP Pulse Ox
97.8 F 65 16 151/81 96
09/20/23 23:15 09/20/23 23:15 09/20/23 23:15 09/20/23 23:15 09/20/23 23:15
I&O
09/20/23 09/21/23 09/22/23
06:59 06:59 06:59
Intake Total 480 / 480 480 / 480
Output Total 225 / 225
Balance 255 / 255 480 / 480
[2023-09-21 07:55] VITALS: BP 152/82
[2023-09-21] MEDS: SEROQUEL 50 MG PO ×3 (10:55→17:16)
[2023-09-21] MEDS: HYDROCORTISONE 1% CREAM 1 APPLIC TOPICAL ×2 (10:55→21:34)
[2023-09-21] MEDS: ATIVAN 0.5 MG PO ×3 (10:55→21:34)
[2023-09-21] MEDS: ATARAX 10 MG PO ×3 (10:55→21:34)
[2023-09-21] MEDS: ASPIR LOW (ENTERIC COATED) 81 MG PO (10:55)
--- NOTE | 2023-09-21 14:37 | CM ---
Chart reviewed. Patient still on 1:1. Patient will need to be off 1:1 for SNF placement. CM will continue to follow for discharge planning needs.
Plan: SNF pending accepting facility, will need to be of 1:1
[2023-09-21 15:07] VITALS: BP 154/71
[2023-09-21] MEDS: FLOMAX 0.400000000000000022 MG PO (21:34)
[2023-09-21] MEDS: MELATONIN 5 MG PO (21:34)
[2023-09-21 23:00] VITALS: BP 129/63
[2023-09-22] MEDS: ATIVAN 0.5 MG PO ×4 (04:23→20:20)
--- NOTE | 2023-09-22 06:59 | W.PN.HOSP.TC ---
Today's Communication/Plan
-
cont 1:1 as per psych
cont scheduled ativan seroquel atarax
prn ativan, avoid further QT prolonging agents beyond what is scheduled
discontinue hydrocortisone cream rash appears significantly improved/resolved, monitor off steroid cream
Assessment / Plan
Assessment / Plan
Physical Exam
General: Well Developed, Well Nourished and No Apparent Distress
HEENT: Normocephalic and Atraumatic
Respiratory: Clear to Auscultation; Negative Wheezes, Rales or Rhonchi
Cardiac: Regular Rhythm and S1/S2
GI: Soft, Nontender and Nondistended
Musculoskeletal: No Clubbing, No Cyanosis and No Edema
Skin: Rash improved resolving
Neuro: Awake; intermittently Nonverbal following simple commands to an extent,
Psych: Confused. Calm
Assessment/Plan
#Recurrent falls - reported 17 falls (in the 2 to 3 weeks prior to admission) per NH staff
-most likely multifactorial and associated with advance dementia
-fall precautions
-PT/OT, eventual SNF
-psychotropic med adjustment per psychiatry -Rash noted at time of admission to hospital (POA) possible drug rash Zyprexa, Lamictal, and Amlodipine stopped. Rash improving with hydrocortisone cream since discontinued monitoring off
#Agitation/Dementia
- Zyprexa Lamictal discontinued as above
-Ativan and Seroquel increased to 0.5 mg tid and 50 mg TID, respectively
-Citalopram discontinued on 09/07/23 as per psychiatry
-Continue 1:1 as per psych
#Left elbow skin tear, right inner thigh bruise secondary to multiple falls
-Consulted wound care, recommendations appreciated
#Skin rash left and right lateral trunk unclear etiology -
-s/p keflex course. Rash improving as above
#Recent Diarrheal Illness
-Unknown etiology, resolved a few weeks ago
#Alzheimer's Dementia�advanced
-Supportive care
#Afib
-not candidate for AC 09/05 falls
-rate OK off of Coreg
Bradycardia - RESOLVED
-TIE BUYER Coreg stopped
#Anemia-macrocytic
Hgb 13.5 on 09/12 was 11.12 June 2023
#Hypertension�benign
will follow BP off Norvasc and consider alternative Rx
-BP ranges widely, currently 143/69
-Stop Norvasc 5 mg daily
-consider resumption of Coreg depending on BP off Norvasc
#Former alcohol abuse
Stopped 2022 drank greater than 2 glasses a day per
#Insomnia
-Continue melatonin at bedtime, trazodone 125 mg at bedtime
#History of colon cancer with resection of [facility] 2018
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
#BPH
-Continue Flomax 0.4 mg at bedtime
DVT prophylaxis
SCDs
DNR
discussed with patient's Юлия
I spent a total of 50 minutes with the patient or on the floor. More than 50% of this time involved counseling and coordination of care.
Anticipated Discharge: 24 - 48 hours
Subjective/Interval History
-
Date of Service: September 22, 2023
sleeping at time of evaluation. no acute distress. appears comfortable.
Objective Data
-
Vital Signs:
Vital Signs
Temp Pulse Resp BP Pulse Ox
98.8 F 76 18 129/63 95
09/21/23 23:00 09/21/23 23:00 09/21/23 23:00 09/21/23 23:00 09/21/23 23:00
I&O
09/20/23 09/21/23 09/22/23
06:59 06:59 06:59
Intake Total 480 / 480 480 / 480 960 / 960
Output Total 225 / 225
Balance 255 / 255 480 / 480 960 / 960
[2023-09-22 07:30] VITALS: BP 149/71
[2023-09-22] MEDS: ASPIR LOW (ENTERIC COATED) 81 MG PO (08:25)
[2023-09-22] MEDS: HYDROCORTISONE 1% CREAM 1 APPLIC TOPICAL (08:25)
[2023-09-22] MEDS: SEROQUEL 50 MG PO ×3 (08:25→18:25)
[2023-09-22] MEDS: ATARAX 10 MG PO ×3 (08:25→20:20)
--- NOTE | 2023-09-22 15:14 | CM ---
medication manager reviewed patient's chart and met with patient today and patient is still on 1:1 supervision, patient is currently of restraints.
Plan; Placement when patient is off 1:1.
[2023-09-22] MEDS: MELATONIN 5 MG PO (20:20)
[2023-09-22] MEDS: FLOMAX 0.400000000000000022 MG PO (20:20)
[2023-09-22 22:41] VITALS: BP 148/88
--- NOTE | 2023-09-23 07:27 | W.PN.HOSP.TC ---
Addendum entered and electronically signed by Lorie Sanford MD 09/24/23 08:54:
small stage 2 L coccyx buttocks pressure injury
-continue local wound care
Original Note:
Today's Communication/Plan
-
cont 1:1 as per psych
cont scheduled ativan seroquel atarax
prn ativan, avoid further QT prolonging agents beyond what is scheduled
steroid cream restarted
Assessment / Plan
Assessment / Plan
Physical Exam
General: Well Developed, Well Nourished and No Apparent Distress
HEENT: Normocephalic and Atraumatic
Respiratory: Clear to Auscultation; Negative Wheezes, Rales or Rhonchi
Cardiac: Regular Rhythm and S1/S2
GI: Soft, Nontender and Nondistended
Musculoskeletal: No Clubbing, No Cyanosis and No Edema
Skin: maculopapular rash lateral torso upper arms b/l
Neuro: Awake; intermittently Nonverbal following simple commands to an extent,
Psych: Confused. Calm
Assessment/Plan
#Recurrent falls - reported 17 falls (in the 2 to 3 weeks prior to admission) per NH staff
-most likely multifactorial and associated with advance dementia
-fall precautions
-PT/OT, eventual SNF
-psychotropic med adjustment per psychiatry -Rash noted at time of admission to hospital (POA) possible drug rash Zyprexa, Lamictal, and Amlodipine stopped. Rash improving with hydrocortisone cream since discontinued monitoring off
#Agitation/Dementia
- Zyprexa Lamictal discontinued as above
-Ativan and Seroquel increased to 0.5 mg tid and 50 mg TID, respectively
-Citalopram discontinued on 09/07/23 as per psychiatry
-Continue 1:1 as per psych
#Left elbow skin tear, right inner thigh bruise secondary to multiple falls
-Consulted wound care, recommendations appreciated
#Skin rash left and right lateral trunk unclear etiology -
-s/p Keflex course. Rash improved as above, though worsened following discontinuation topical steroids, restarted
#Recent Diarrheal Illness
-Unknown etiology, currently resolved
#Alzheimer's Dementia�advanced
-Supportive care
#Afib
-not candidate for AC 09/05 falls
-rate OK off of Coreg
Bradycardia - RESOLVED
-MOHS SURGEON Coreg stopped
#Anemia-macrocytic
Hgb 13.5 on 09/12 was 11.12 June 2023
#Hypertension�benign
will follow BP off Norvasc and consider alternative Rx
-BP ranges widely, currently 143/69
-Stop Norvasc 5 mg daily
-consider resumption of Coreg depending on BP off Norvasc
#Former alcohol abuse
Stopped 2022 drank greater than 2 glasses a day per
#Insomnia
-Continue melatonin at bedtime
#History of colon cancer with resection of [facility] 2018
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
#BPH
-Continue Flomax 0.4 mg at bedtime
DVT prophylaxis
SCDs
DNR
discussed with patient's Юлия
I spent a total of 50 minutes with the patient or on the floor. More than 50% of this time involved counseling and coordination of care.
Anticipated Discharge: > 48 hours
Subjective/Interval History
-
Date of Service: September 23, 2023
Purple code this morning requiring restraints. Calm during assessment following. Rash appears to have worsen though mild. Юлия present during evaluation.
Objective Data
-
Vital Signs:
Vital Signs
Temp Pulse Resp BP Pulse Ox
97.3 F 64 20 148/88 96
09/22/23 22:41 09/22/23 22:41 09/22/23 22:41 09/22/23 22:41 09/22/23 22:41
I&O
09/22/23 09/23/23 09/24/23
06:59 06:59 06:59
Intake Total 960 / 960 2280 / 2280
Output Total 1050 / 1050
Balance 960 / 960 1230 / 1230
[2023-09-23 07:47] VITALS: BP 139/58
--- NOTE | 2023-09-23 07:50 | PTCARENOTE ---
pt wakes to name. garbled slow speech. confused. follows minimal commands. will become agitated with do much redirection. one person assist with walker to bathroom. nurse sitting in room for fall risk.
[2023-09-23] MEDS: ASPIR LOW (ENTERIC COATED) 81 MG PO (09:10)
[2023-09-23] MEDS: ATARAX 10 MG PO ×3 (09:10→21:17)
[2023-09-23] MEDS: TYLENOL 650 MG PO (09:10)
[2023-09-23] MEDS: SEROQUEL 50 MG PO ×3 (09:10→18:02)
[2023-09-23] MEDS: ATIVAN 0.5 MG PO ×4 (09:10→21:17)
--- NOTE | 2023-09-23 10:02 | PTCARENOTE ---
pt woke up attempting to get out of bed. tried to use urinal and assess if pt had to use the bathroom. pt puling at gown and depends and sliding out of bed. when tried to redirect, pt swung at nurse and pulled leg back to kick. code purple
called. calming attitude used by all associates. pt placed in restraints for safety. pt given morning meds as ordered. pt fed breakfast.
--- NOTE | 2023-09-23 10:49 | W.PN.UPDATE ---
Update Note
Progress Note Update
Patient seen at bedside, 1:1 present, discussed with staff, chart reviewed. I saw Mr. Ramirez this AM right after a Code Purple. The RN was trying to assist Mr. Ramirez with the urinal when he swung and tried to kick staff. This seems to be the
pattern or trigger of agitation of when staff tries to do something or help with something that Mr. Ramirez does not want to do. Unfortunately, this is the typical progression of advanced dementia and there is no fail proof solution especially here
in the hospital. Redirection, ensuring safety, and avoiding unnecessary stimulation when able is the best approach. He is currently on 4 point restrains for safety and continues with 1: 1 staff for the same. Medications have been adjusted,
attempting to avoid over medicating and sedating as the initial presentation to the hospital was for frequent falls that were thought to be related to medications.
Impression/Plan:� Dementia, advanced, with intermittent behavioral disturbance/agitation which is typical progression of dementia - will continue to follow and consider further adjustment of medications. A dementia unit would seem a more appropriate
placement however, it appears he will not be accepted unless able to be off of 1:1 which as stated would be difficult in this current environment.
--- NOTE | 2023-09-23 11:55 | PN.CDI ---
CDI
- -
CDI:
Physician Documentation Request
Admit Date: 08/22/23 09:01
Dear Doctor Juvenal,
Please review the following and provide your response in the progress notes.
Clinical Indicators:
09/18/23 16:53 - Wound Note
#[facility] RN note: Patient developed a small stage 2 L coccyx buttocks pressure injury.
Physician documentation of the type and location of wounds is required for compliant documentation. Based on the above clinical findings and your assessment, please provide the following in your progress note:
Developed stage 2 left coccyx / buttocks pressure injury
Other (please specify)
1. Location of the ulcer/wound, including laterality.
2. Type (etiology) of ulcer/wound:
- Diabetic ulcer
- Arterial (ischemic) ulcer
- Traumatic wound
- Pressure (decubitus) ulcer
3. If a pressure ulcer, please also include the stage* of the ulcer:
- Stage 1 - Skin intact, non-blanchable redness
- Stage 2 - Partial thickness loss of dermis, includes intact or open blister
- Stage 3 - Full thickness tissue not including bone, tendon or muscle
- Stage 4 - Full thickness tissue loss, including exposed bone, tendon or muscle
Use of terms such as suspected, likely, concern for, or probable (associated with a specific diagnosis that is being evaluated, monitored, or treated as if it exists) are acceptable and can be coded in the inpatient setting, when documented at the
time of discharge.
Thank you,
Mahnaz Rodriguez TOOL HONING MACHINE SET UP OPERATOR CCDS
CDI Specialist
please contact via tiger text
Please use your independent medical judgment in providing your response.
*Source: National Pressure Ulcer Advisory Panel (NPUAP)
--- NOTE | 2023-09-23 15:02 | CM ---
CM reviewed chart. Patient remains on 1:1, restraints added. CM will continue to follow for discharge planning needs.
Plan; SNF once off restraints and 1:[facility], [facility], update ESTHER Miguel once patient off 1:1
[2023-09-23] MEDS: HYDROCORTISONE 1% CREAM 1 APPLIC TOPICAL (20:25)
[2023-09-23] MEDS: FLOMAX 0.400000000000000022 MG PO (21:17)
[2023-09-23] MEDS: MELATONIN 5 MG PO (21:17)
[2023-09-23 23:08] VITALS: BP 165/94
[2023-09-24] MEDS: ATIVAN 0.5 MG PO ×4 (00:33→21:45)
--- NOTE | 2023-09-24 04:07 | DOWNTIME ---
There was a [employer] Downtime on 09/24/2023 from 0111 to 09/24/2023 at 0405. Downtime documentation of patient's care, including medication administrations, has been reconciled in the electronic record per guidelines. Refer to the
patient's paper chart under the miscellaneous tab to see printed paper medication records and downtime forms.
--- NOTE | 2023-09-24 07:13 | W.PN.HOSP.TC ---
Today's Communication/Plan
-
cont 1:1 as per psych
cont scheduled ativan seroquel atarax
prn ativan, avoid further QT prolonging agents beyond what is scheduled
discontinue steroid cream and start Aquaphor dry skin lesions upper exts lateral chest
Assessment / Plan
Assessment / Plan
Physical Exam
General: Well Developed, Well Nourished and No Apparent Distress
HEENT: Normocephalic and Atraumatic
Respiratory: Clear to Auscultation; Negative Wheezes, Rales or Rhonchi
Cardiac: Regular Rhythm and S1/S2
GI: Soft, Nontender and Nondistended
Musculoskeletal: No Clubbing, No Cyanosis and No Edema
Skin: erythematous lesions lateral torso upper arms b/l signs of scratching, dry skin
Neuro: Awake; largely noncommunicative speaks few words at time if any following simple commands to an extent,
Psych: Confused. Calm
Assessment/Plan
#Recurrent falls - reported 17 falls (in the 2 to 3 weeks prior to admission) per NH staff
-most likely multifactorial and associated with advance dementia
-fall precautions
-PT/OT, eventual SNF
-psychotropic med adjustment per psychiatry -Rash noted at time of admission to hospital (POA) possible drug rash Zyprexa, Lamictal, and Amlodipine stopped. Rash improving with hydrocortisone cream since discontinued
#Agitation/Dementia
- Zyprexa Lamictal discontinued as above
-Ativan and Seroquel increased to 0.5 mg tid and 50 mg TID, respectively
-Citalopram discontinued on 09/07/23 as per psychiatry
-Continue 1:1 as per psych
#Left elbow skin tear, right inner thigh bruise secondary to multiple falls
-Consulted wound care, recommendations appreciated
#Skin rash left and right lateral trunk unclear etiology -
-s/p Keflex course. Rash improved as above
-steroids discontinued as above
-noted dry skin with signs of scratching small lesions possibly d/t itching
-started acuaphor 09/24, will cont to monitor.
#Recent Diarrheal Illness
-Unknown etiology, currently resolved
#Alzheimer's Dementia�advanced
-Supportive care
#Afib
-not candidate for AC 09/05 falls
-rate OK off of Coreg
Bradycardia - RESOLVED
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
#Anemia-macrocytic
Hgb 13.5 on 09/12 was 11.12 June 2023
#Hypertension�benign
will follow BP off Norvasc and consider alternative Rx
-BP ranges widely, currently 143/69
-Stop Norvasc 5 mg daily
-consider resumption of Coreg depending on BP off Norvasc
#Former alcohol abuse
Stopped 2022 drank greater than 2 glasses a day per
#Insomnia
-Continue melatonin at bedtime
#History of colon cancer with resection of [facility] 2018
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
#BPH
-Continue Flomax 0.4 mg at bedtime
small stage 2 L coccyx buttocks pressure injury.�
-cont local wound care.
DVT prophylaxis
SCDs
DNR
discussed with patient's Юлия
I spent a total of 50 minutes with the patient or on the floor. More than 50% of this time involved counseling and coordination of care.
Anticipated Discharge: > 48 hours
Subjective/Interval History
-
Date of Service: September 24, 2023
remains on restraints due to intermittent confusion agitation combativeness. Calm at time of evaluation more communicative speaks few words if any. Selective mutism
Objective Data
-
Vital Signs:
Vital Signs
Temp Pulse Resp BP Pulse Ox
97.6 F 63 18 165/94 96
09/23/23 23:08 09/23/23 23:08 09/23/23 23:08 09/23/23 23:08 09/23/23 23:08
I&O
09/23/23 09/24/23 09/25/23
06:59 06:59 06:59
Intake Total 2280 / 2280 1560 / 1560
Output Total 1050 / 1050 250 / 250
Balance 1230 / 1230 1310 / 1310
[2023-09-24] MEDS: SEROQUEL 50 MG PO ×3 (08:26→17:50)
[2023-09-24] MEDS: ATARAX 10 MG PO ×3 (08:26→21:45)
[2023-09-24] MEDS: ASPIR LOW (ENTERIC COATED) 81 MG PO (08:26)
[2023-09-24] MEDS: HYDROCORTISONE 1% CREAM 1 APPLIC TOPICAL (08:27)
[2023-09-24 08:49] VITALS: BP 146/81
--- NOTE | 2023-09-24 11:52 | W.PN.UPDATE ---
Update Note
Progress Note Update
patient seen chart reviewed. spoke with nursing. the patient remains much the same with periods of intermittent agitation. in the last several days he has occasionally received one dose of a prn daily but he often remains in soft restraints and his
condition necessitates a one to one. nursing told me the family has expressed a desire for him to try rexulti which has been approved for agitation in dementia which is not formulary here at . i could possibly get samples although i am not sure
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 will look into this possibility. another possibility is that perhaps his insurance would cover it and family could waste picker scrip at local pharmacy and bring it in to . it is of course not in any way
certain t hat it would help mr wilson but it does have an fda approved indication for treatment in this scenario. will follow
[2023-09-24 15:19] VITALS: BP 129/64
[2023-09-24] MEDS: HYDROPHOR 1 APPLIC TOPICAL (15:31)
--- NOTE | 2023-09-24 21:34 | PTCARENOTE ---
pt taking off restraints. pt is calm and takes redirection - but does get agitated and aggressive- but listens to this RN. pt was taken out of restraints. pt walkeded, used toliet, and placed in recliner and took stroll through unit. pt in pleasant
mood and is singing.
[2023-09-24] MEDS: FLOMAX 0.400000000000000022 MG PO (21:45)
[2023-09-24] MEDS: MELATONIN 5 MG PO (21:45)
--- NOTE | 2023-09-25 06:43 | W.PN.HOSP.TC ---
Today's Communication/Plan
-
wean restraints as tolerated
1:1, Seroquel increase, and hydroxyzine taper as per psych
Aquaphor dry skin care
Assessment / Plan
Assessment / Plan
Physical Exam
General: Well Developed, Well Nourished and No Apparent Distress
HEENT: Normocephalic and Atraumatic
Respiratory: Clear to Auscultation; Negative Wheezes, Rales or Rhonchi
Cardiac: Regular Rhythm and S1/S2
GI: Soft, Nontender and Nondistended
Musculoskeletal: No Clubbing, No Cyanosis and No Edema
Skin: erythematous lesions lateral torso upper arms b/l signs of scratching, dry skin
Neuro: Awake; largely noncommunicative speaks few words at time if any following simple commands to an extent,
Psych: Confused. Calm
Assessment/Plan
#Recurrent falls - reported 17 falls (in the 2 to 3 weeks prior to admission) per NH staff
-most likely multifactorial and associated with advance dementia
-fall precautions
-PT/OT, eventual SNF
-psychotropic med adjustment per psychiatry -Rash noted at time of admission to hospital (POA) possible drug rash Zyprexa, Lamictal, and Amlodipine stopped. Rash improving with hydrocortisone cream since discontinued
#Agitation/Dementia
- Zyprexa Lamictal discontinued as above
-Ativan and Seroquel increased to 0.5 mg tid and 50 mg TID, respectively, seroquel further increased to QID as per psych
-Citalopram discontinued on 09/07/23 as per psychiatry
-Continue 1:1 as per psych
#Left elbow skin tear, right inner thigh bruise secondary to multiple falls
-Consulted wound care, recommendations appreciated
#Skin rash left and right lateral trunk unclear etiology -
-s/p Keflex course. Rash improved as above
-steroids discontinued as above
-switched to Aquaphor for dry skin itching, small dot like lesions likely due to scratching dry skin irritation
-hydroxyzine taper as per psych
#Alzheimer's Dementia�advanced
-Supportive care
#Afib
-not candidate for AC / falls
-rate OK off of Coreg
Bradycardia - RESOLVED
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
#Anemia-macrocytic
Hgb 13.5 on 09/12 was 11.12 June 2023
#Hypertension�benign
will follow BP off Norvasc and consider alternative Rx
-BP ranges widely, currently 143/69
-Stop Norvasc 5 mg daily
-consider resumption of Coreg depending on BP off Norvasc
#Former alcohol abuse
Stopped 2022 drank greater than 2 glasses a day per
#Insomnia
-Continue melatonin at bedtime
#History of colon cancer with resection of [facility] 2018
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
#BPH
-Continue Flomax 0.4 mg at bedtime
small stage 2 L coccyx buttocks pressure injury.�
-cont local wound care.
DVT prophylaxis
SCDs
DNR
discussed with patient's Юлия
I spent a total of 52 minutes with the patient or on the floor. More than 50% of this time involved counseling and coordination of care.
Anticipated Discharge: 24 - 48 hours
Subjective/Interval History
-
Date of Service: September 25, 2023
calm no acute distress remains on restraints and 1:1
Objective Data
-
Vital Signs:
Vital Signs
Temp Pulse Resp BP Pulse Ox
98.7 F 77 18 129/64 94
09/24/23 15:19 09/24/23 15:19 09/24/23 15:19 09/24/23 15:19 09/24/23 15:19
I&O
09/23/23 09/24/23 09/25/23
06:59 06:59 06:59
Intake Total 2280 / 2280 1560 / 1560 1320 / 1320
Output Total 1050 / 1050 250 / 250 400 / 400
Balance 1230 / 1230 1310 / 1310 920 / 920
[2023-09-25 07:22] VITALS: BP 176/65
[2023-09-25] MEDS: ASPIR LOW (ENTERIC COATED) 81 MG PO (07:35)
[2023-09-25] MEDS: SEROQUEL 50 MG PO ×3 (07:35→19:39)
[2023-09-25] MEDS: ATIVAN 0.5 MG PO ×4 (07:39→21:09)
[2023-09-25] MEDS: HYDROPHOR 1 APPLIC TOPICAL (07:39)
[2023-09-25] MEDS: ATARAX 10 MG PO ×2 (07:39→19:39)
--- NOTE | 2023-09-25 09:23 | CM ---
Addendum entered by Teresita Vizcarra 09/25/23 12:13:
CM received voicemail from patients daughter, Lou. CM left message for Lou with call back number.
Original Note:
CM sent referral to [facility] through [facility], faxed paper copy to Bladimir Hernandez, Mya, phone ([phone]) fax ([phone]), left voicemail for Bladimir to discuss patient. CM will continue to follow for discharge planning
needs.
Plan; SNF pending placement, patient off restraints, will need to be off 1:1.
--- NOTE | 2023-09-25 12:19 | W.PN.UPDATE ---
Addendum entered and electronically signed by Yayo Dixon MD 09/25/23 13:31:
since we are unable to do rexulti will try increasing the seroquel to 50 mg qid . on another note patient's rash while still visible seems better. i have noted less scratching. will taper and dc hydroxyzine.
Addendum entered and electronically signed by Yayo Dixon MD 09/25/23 13:28:
pharmacy returned call. the cost will be over 400 monthly . i spoke to mrs alonso and they cannot afford this [facility]. pharma sponsored indigent programs generally do not allow patients on medicare to participate and receive the drugs free of
charge. while we could get samples for a short time could not get them for the rest of mr alonso's life so that is not a practicial plan.
Addendum entered and electronically signed by Yayo Dixon MD 09/25/23 13:20:
patient's is willing to do rexulti. called their pharmacy [facility] is over 400 monthly for rexulti w their insurance pharmacist said she will call insurance company and get back to me if there is anything that could be done to reduce cost.
Original Note:
Update Note
Progress Note Update
patient seen chart reviewed. spoke to patient's about trying to get rexulti from their local pharmacy . rexulti is the only medication approved to rx agitation in dementia. the patient remains much the same with periods of intermittent
agitation and requiring a one to one for a number or reasons including agitation, fall risk, etc etc. does agree and will get me the name and phone number of the pharmacy they use and i will call and see if insurance will cover it. have been
discussing with nursing staff whether we could try to take mr wilson off one to one which has proven improssible for prolonged periods up until now.
[2023-09-25 15:11] VITALS: BP 143/69
[2023-09-25] MEDS: SEROQUEL PO (17:46)
[2023-09-25] MEDS: MELATONIN 5 MG PO (21:09)
[2023-09-25] MEDS: FLOMAX 0.400000000000000022 MG PO (21:10)
--- NOTE | 2023-09-25 23:00 | PTCARENOTE ---
no vitals taken due to physician order and pt sleeping
[2023-09-26] MEDS: ATIVAN 0.5 MG PO ×4 (03:39→23:16)
--- NOTE | 2023-09-26 04:00 | PTCARENOTE ---
pt saturated in urine. attempted to change linens and brief. pt became aggressive and agitated. po ativan given w/o issue (see mar). no further incident. Will monitor.
--- NOTE | 2023-09-26 07:36 | W.PN.HOSP.TC ---
Today's Communication/Plan
-
seroquel depakote 1:1 as per psych
wean restraints as possible
Assessment / Plan
Assessment / Plan
Physical Exam
General: Well Developed, Well Nourished and No Apparent Distress
HEENT: Normocephalic and Atraumatic
Respiratory: Clear to Auscultation; Negative Wheezes, Rales or Rhonchi
Cardiac: Regular Rhythm and S1/S2
GI: Soft, Nontender and Nondistended
Musculoskeletal: No Clubbing, No Cyanosis and No Edema
Skin: erythematous lesions lateral torso upper arms b/l signs of scratching, dry skin
Neuro: Awake; largely noncommunicative speaks few words at time if any following simple commands to an extent,
Psych: Confused. Calm
Assessment/Plan
#Recurrent falls - reported 17 falls (in the 2 to 3 weeks prior to admission) per NH staff
-most likely multifactorial and associated with advance dementia
-fall precautions
-PT/OT, eventual SNF
-psychotropic med adjustment per psychiatry -Rash noted at time of admission to hospital (POA) possible drug rash Zyprexa, Lamictal, and Amlodipine stopped. Rash improving with hydrocortisone cream since discontinued
#Agitation/Dementia
- Zyprexa Lamictal discontinued as above
-Ativan and Seroquel increased to 0.5 mg tid and 50 mg TID, respectively, seroquel further increased to QID as per psych
-Citalopram discontinued on 09/07/23 as per psychiatry
-Continue 1:1 as per psych, depakote started 09/26
#Left elbow skin tear, right inner thigh bruise secondary to multiple falls
-Consulted wound care, recommendations appreciated
#Skin rash left and right lateral trunk unclear etiology -
-s/p Keflex course. Rash improved as above
-steroids discontinued as above
-switched to Aquaphor for dry skin itching, small dot like lesions likely due to scratching dry skin irritation
-hydroxyzine taper as per psych
#Alzheimer's Dementia�advanced
-Supportive care
#Afib
-not candidate for AC / falls
-rate OK off of Coreg
Bradycardia - RESOLVED
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
#Anemia-macrocytic
Hgb 13.5 on 09/12 was 11.12 June 2023
#Hypertension�benign
will follow BP off Norvasc and consider alternative Rx
-BP ranges widely, currently 143/69
-Stop Norvasc 5 mg daily
-consider resumption of Coreg depending on BP off Norvasc
#Former alcohol abuse
Stopped 2022 drank greater than 2 glasses a day per
#Insomnia
-Continue melatonin at bedtime
#History of colon cancer with resection of [facility] 2018
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
#BPH
-Continue Flomax 0.4 mg at bedtime
small stage 2 L coccyx buttocks pressure injury.�
-cont local wound care.
DVT prophylaxis
SCDs
DNR
I spent a total of 51 minutes with the patient or on the floor. More than 50% of this time involved counseling and coordination of care.
Anticipated Discharge: 24 - 48 hours
Subjective/Interval History
-
Date of Service: September 26, 2023
No acute distress appears comfortable at this time. Off restraints. Remains on 1:1
Objective Data
-
Vital Signs:
Vital Signs
Temp Pulse Resp BP Pulse Ox
97.5 F 72 15 143/69 95
09/25/23 15:11 09/25/23 15:11 09/25/23 15:11 09/25/23 15:11 09/25/23 15:11
I&O
09/25/23 09/26/23 09/27/23
06:59 06:59 06:59
Intake Total 1320 / 1320
Output Total 400 / 400 350 / 350
Balance 920 / 920 -350 / -350
[2023-09-26] MEDS: ATARAX 10 MG PO ×2 (08:33→19:20)
[2023-09-26] MEDS: HYDROPHOR 1 APPLIC TOPICAL (08:33)
[2023-09-26] MEDS: SEROQUEL 50 MG PO ×4 (08:33→19:51)
[2023-09-26] MEDS: ASPIR LOW (ENTERIC COATED) 81 MG PO (08:34)
--- NOTE | 2023-09-26 09:13 | CM ---
Addendum entered by Teresita Vizcarra 09/26/23 15:04:
CM spoke with Dominique ([phone]) from [facility], Dominique spoke with patients daughter, plan for DON from [facility] to come assess patient Friday morning. Patients scheduled to tour facility Friday evening. CM will continue to follow
for discharge planning needs, will follow up with Matthieu on Friday.
Addendum entered by Teresita Vizcarra 09/26/23 10:56:
TT sent to [facility] in regards to patients daughter requesting phone call. CM received return call from Lynn at [facility] [place], unable to accept patient. CM received phone call from [facility], unable to accept patient.
Addendum entered by Teresita Vizcarra 09/26/23 09:38:
CM spoke with Lynn, Mya at [facility], faxed clinicals to [phone].
Original Note:
[facility], awaiting responses. CM spoke with patients daughter Lou Blake requesting to become the primary contact. CM spoke with Admissions, will switch Lou to primary. Lou
inquiring about hospice and if this would be appropriate for her father. Lou requesting a call from Dr. Dixon, as she would like to explore the medication for her father, TT sent to Dr. Dixon. Lou inquiring if PT is able to work with her
father more to get him moving around, maybe it would help the agitation. CM will continue to follow for discharge planning needs.
Plan; placement pending, patient still on 1:1, off restraints.
--- NOTE | 2023-09-26 09:36 | W.PN.UPDATE ---
Addendum entered and electronically signed by Yayo Dixon MD 09/26/23 10:04:
blood level on friday of next week.
Original Note:
Update Note
Progress Note Update
patient seen chart reviewed, spoke with nursing. also called patient's daughter emilio who is primary contact. we talked about the rexulti issue...cost, possible benefits etc. she asked about the hx of med rx...his rash etc. reconsidered what he
has been on nothing of which has helped. she felt PT could be useful for him and if he were more active it might mitigate his agitation and reduce risk for falls. I reviewed PT records with her and he has either been too agitated and / or in
restraints for PT, sleeping and no one wanted to wake him so has not had PT in some days. i am not so confident that it would help and i do worry that he could get agitated/difficult to control in the halls as PT tried to walk him, asked pharmacy
to review whether mr alonso had ever been on depakote to their knowledge. they have records from out pt. he apparently has not. i had considered this in the past but given lamictal was wary of inc risk of rash by prescribing both depakote and
lamictal which has been described. he is no longer on lamictal so this clears the way for depakote which i discussed w daughter. will start 250 mg tid and follow blood levels. will continue other meds as they are. when i saw him this am mr alonso
actively disrobed . he was then sitting naked in his chair eating his breakfast with video journalist observing. it did not seem prudent to force him to dress at that moment. psych will follow
--- NOTE | 2023-09-26 10:47 | HOSPNOTE ---
Spoke at length with daughter about hospice and the philosophy. They will have a family meeting and get back to us.
[2023-09-26 11:30] VITALS: BP 202/97
[2023-09-26] MEDS: DEPAKOTE (12 HR RELEASE) 250 MG PO ×2 (16:34→21:19)
[2023-09-26] MEDS: MELATONIN 5 MG PO (21:18)
[2023-09-26] MEDS: FLOMAX 0.400000000000000022 MG PO (21:19)
[2023-09-26 22:58] VITALS: BP 154/85
--- NOTE | 2023-09-27 00:44 | PTCARENOTE ---
Pt has been itching throughout the night, having difficulty sleeping. WINTER INTERN on called notified and another cream order.
[2023-09-27] MEDS: CALAMINE LOTION 1 ML TOPICAL (00:59)
--- NOTE | 2023-09-27 07:37 | W.PN.HOSP.TC ---
Today's Communication/Plan
-
seroquel depakote 1:1 as per psych
Desenex back suspected bed rash
Assessment / Plan
Assessment / Plan
Physical Exam
General: Well Developed, Well Nourished and No Apparent Distress
HEENT: Normocephalic and Atraumatic
Respiratory: Clear to Auscultation; Negative Wheezes, Rales or Rhonchi
Cardiac: Regular Rhythm and S1/S2
GI: Soft, Nontender and Nondistended
Musculoskeletal: No Clubbing, No Cyanosis and No Edema
Skin: erythematous lesions lateral torso upper arms b/l signs of scratching, dry skin
Neuro: Awake alert paucity of speech
Psych: Confused. Calm cooperative
Assessment/Plan
#Recurrent falls - reported 17 falls (in the 2 to 3 weeks prior to admission) per NH staff
-most likely multifactorial and associated with advance dementia
-fall precautions
-PT/OT, eventual SNF
-psychotropic med adjustment per psychiatry -Rash noted at time of admission to hospital (POA) possible drug rash Zyprexa, Lamictal, and Amlodipine stopped. Rash improving with hydrocortisone cream since discontinued
#Agitation/Dementia
- Zyprexa Lamictal discontinued as above
-Ativan and Seroquel increased to 0.5 mg tid and 50 mg TID, respectively, seroquel further increased to QID as per psych
-Citalopram discontinued on 09/07/23 as per psychiatry
-Continue 1:1 as per psych, depakote started 09/26
#Left elbow skin tear, right inner thigh bruise secondary to multiple falls
-Consulted wound care, recommendations appreciated
#Skin rash left and right lateral trunk unclear etiology -
-s/p Keflex course. Rash improved as above
-steroids discontinued as above
-switched to Aquaphor for dry skin itching, small dot like lesions likely due to scratching dry skin irritation
-hydroxyzine taper as per psych
-desenex back suspect bed rash
#Alzheimer's Dementia�advanced
-Supportive care
#Afib
-not candidate for AC 2/2 falls
-rate OK off of Coreg
Bradycardia - RESOLVED
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
#Anemia-macrocytic
Hgb 13.5 on 09/12 was 11.12 June 2023
#Hypertension�benign
will follow BP off Norvasc and consider alternative Rx
-BP ranges widely, currently 143/69
-Stop Norvasc 5 mg daily
-consider resumption of Coreg depending on BP off Norvasc
#Former alcohol abuse
Stopped 2022 drank greater than 2 glasses a day per
#Insomnia
-Continue melatonin at bedtime
#History of colon cancer with resection of [facility] 2018
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
#BPH
-Continue Flomax 0.4 mg at bedtime
small stage 2 L coccyx buttocks pressure injury.�
-cont local wound care.
DVT prophylaxis
SCDs
DNR
I spent a total of 51 minutes with the patient or on the floor. More than 50% of this time involved counseling and coordination of care.
Anticipated Discharge: 24 - 48 hours
Subjective/Interval History
-
Date of Service: September 27, 2023
Off restraints awake calm cooperative paucity of speech seems internally preoccupied
Objective Data
-
Vital Signs:
Vital Signs
Temp Pulse Resp BP Pulse Ox
97.3 F 72 18 154/85 98
09/26/23 22:58 09/26/23 22:58 09/26/23 22:58 09/26/23 22:58 09/26/23 22:58
I&O
09/26/23 09/27/23 09/28/23
06:59 06:59 06:59
Intake Total 720 / 720
Output Total 350 / 350 200 / 200
Balance -350 / -350 520 / 520
[2023-09-27] MEDS: ASPIR LOW (ENTERIC COATED) 81 MG PO (07:56)
[2023-09-27] MEDS: HYDROPHOR 1 APPLIC TOPICAL (07:56)
[2023-09-27] MEDS: ATARAX 10 MG PO ×2 (07:56→19:03)
[2023-09-27] MEDS: ATIVAN 0.5 MG PO ×3 (07:56→22:49)
[2023-09-27] MEDS: DEPAKOTE (12 HR RELEASE) 250 MG PO ×3 (07:56→21:00)
[2023-09-27] MEDS: SEROQUEL 50 MG PO ×4 (08:08→19:03)
[2023-09-27] MEDS: CALAMINE LOTION 180 ML TOPICAL (10:32)
--- NOTE | 2023-09-27 11:34 | W.PN.UPDATE ---
Update Note
Progress Note Update
Pt seen, receiving nursing care. Nurse reports pt has been cooperative thus far this morning. Pt alert, steady on his feet, with no agitation at present. Pt unable to give any history due to advanced dementia. Pt appears to be tolerating trial
of Depakote thus far, received 3 doses since yesterday afternoon. Pt on Seroquel 50 mg Q I D. No EPS evident (would be a rare side effect).
Imp: Dementia, advanced, with intermittent behavior disturbance/agitation. Pt started on Depakote, more cooperative today
Rec:� Will continue current psychotropic medications; continue to follow
[2023-09-27] MEDS: DESENEX/MITRAZOL/ZEASORB 1 APPLIC TOPICAL (19:03)
[2023-09-27] MEDS: MELATONIN 5 MG PO (21:00)
[2023-09-27] MEDS: FLOMAX 0.400000000000000022 MG PO (21:00)
[2023-09-27 23:31] VITALS: BP 151/70
--- NOTE | 2023-09-28 07:20 | W.PN.HOSP.TC ---
Today's Communication/Plan
-
seroquel depakote 1:1 as per psych
continue skin care
Disposition planning
Assessment / Plan
Assessment / Plan
Physical Exam
General: Well Developed, Well Nourished and No Apparent Distress
HEENT: Normocephalic and Atraumatic
Respiratory: Clear to Auscultation; Negative Wheezes, Rales or Rhonchi
Cardiac: Regular Rhythm and S1/S2
GI: Soft, Nontender and Nondistended
Musculoskeletal: No Clubbing, No Cyanosis and No Edema
Skin: erythematous lesions lateral torso upper arms b/l signs of scratching, dry skin
Neuro: Awake alert paucity of speech
Psych: Confused. Calm cooperative
Assessment/Plan
#Recurrent falls - reported 17 falls (in the 2 to 3 weeks prior to admission) per NH staff
-most likely multifactorial and associated with advance dementia
-fall precautions
-PT/OT, eventual SNF
-psychotropic med adjustment per psychiatry -Rash noted at time of admission to hospital (POA) possible drug rash Zyprexa, Lamictal, and Amlodipine stopped. Rash improving with hydrocortisone cream since discontinued
#Agitation/Dementia
- Zyprexa Lamictal discontinued as above
-Ativan and Seroquel increased to 0.5 mg tid and 50 mg TID, respectively, seroquel further increased to QID as per psych
-Citalopram discontinued on 09/07/23 as per psychiatry
-Continue 1:1 as per psych, depakote started 09/26
Depakote lvl, repeat labwork 09.30
#Left elbow skin tear, right inner thigh bruise secondary to multiple falls
-Consulted wound care, recommendations appreciated
-improving
#Skin rash left and right lateral trunk unclear etiology -
-s/p Keflex course. Rash improved as above
-steroids discontinued as above
-switched to Aquaphor for dry skin itching, small dot like lesions likely due to scratching dry skin irritation
-hydroxyzine taper as per psych
-desenex back suspect bed rash
#Alzheimer's Dementia�advanced
-Supportive care
#Afib
-not candidate for AC 09/05 falls
-rate OK off of Coreg
Bradycardia - RESOLVED
-HOSPITAL SECRETARY Coreg stopped
#Anemia-macrocytic
Hgb 13.5 on 09/12 was 11.12 June 2023
#Hypertension�benign
-BP ranges widely, relatively well controlled at this time, high values likely due to intermittent agitation
-Stopped Norvasc 5 mg daily
-consider resumption of Coreg depending on BP off Norvasc
-monitor and titrate antihypertensive regimen as tolerated
-given falls and dementia would avoid aggressively treating hypertension.
#Former alcohol abuse
Stopped 2022 drank greater than 2 glasses a day per
#Insomnia
-Continue melatonin at bedtime
#History of colon cancer with resection of [facility] 2018
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
#BPH
-Continue Flomax 0.4 mg at bedtime
small stage 2 L coccyx buttocks pressure injury.�
-cont local wound care.
DVT prophylaxis
SCDs
DNR
I spent a total of 51 minutes with the patient or on the floor. More than 50% of this time involved counseling and coordination of care.
Anticipated Discharge: 24 - 48 hours
Subjective/Interval History
-
Date of Service: September 28, 2023
No acute distress off restraints sleeping appears comfortable. 1:1 present
Objective Data
-
Vital Signs:
Vital Signs
Temp Pulse Resp BP Pulse Ox
97.5 F 66 18 151/70 96
09/27/23 23:31 09/27/23 23:31 09/27/23 23:31 09/27/23 23:31 09/27/23 23:31
I&O
09/27/23 09/28/23 09/29/23
06:59 06:59 06:59
Intake Total 720 / 720 1825 / 1825
Output Total 200 / 200 650 / 650
Balance 520 / 520 1175 / 1175
[2023-09-28] MEDS: DEPAKOTE (12 HR RELEASE) 250 MG PO ×3 (07:21→21:41)
[2023-09-28] MEDS: ATARAX 10 MG PO (07:21)
[2023-09-28] MEDS: ASPIR LOW (ENTERIC COATED) 81 MG PO (07:21)
[2023-09-28] MEDS: ATIVAN 0.5 MG PO ×4 (07:21→21:41)
[2023-09-28] MEDS: HYDROPHOR 1 APPLIC TOPICAL (07:22)
[2023-09-28] MEDS: DESENEX/MITRAZOL/ZEASORB 1 APPLIC TOPICAL ×2 (07:22→20:07)
[2023-09-28] MEDS: SEROQUEL 50 MG PO ×4 (07:31→20:40)
[2023-09-28 07:46] VITALS: BP 164/92
[2023-09-28 15:02] VITALS: BP 137/75
[2023-09-28] MEDS: CALAMINE LOTION 1 ML TOPICAL (20:09)
[2023-09-28 21:24] VITALS: BP 141/99
[2023-09-28] MEDS: FLOMAX 0.400000000000000022 MG PO (21:41)
[2023-09-28] MEDS: MELATONIN 5 MG PO (21:41)
--- NOTE | 2023-09-29 02:22 | PTCARENOTE ---
PT restless, but cooperative with this nurse. pt ambulated 50 feet w/ assistance.
--- NOTE | 2023-09-29 08:39 | W.PN.HOSP.TC ---
Today's Communication/Plan
-
Please see below
Assessment / Plan
Assessment / Plan
Physical Exam
General: Well Developed, Well Nourished and No Apparent Distress
HEENT: Normocephalic and Atraumatic
Respiratory: Clear to Auscultation
Cardiac: Regular Rhythm and S1/S2
GI: Soft, Nontender and Nondistended
Musculoskeletal: No Cyanosis and No Edema
Skin: erythematous lesions lateral torso upper arms b/l signs of scratching, dry skin
Neuro: Awake alert paucity of speech
Psych: Confused. Calm cooperative
Assessment/Plan
#Recurrent falls - reported 17 falls (in the 2 to 3 weeks prior to admission) per NH staff
-most likely multifactorial and associated with advance dementia
-fall precautions
-PT/OT, eventual SNF
-psychotropic med adjustment per psychiatry -Rash noted at time of admission to hospital (POA) possible drug rash Zyprexa, Lamictal, and Amlodipine stopped.
#Agitation/Dementia
- Zyprexa Lamictal discontinued as above
-Ativan and Seroquel increased to 0.5 mg tid and 50 mg QID, respectively
-Citalopram discontinued on 09/07/23 as per psychiatry
-Continue 1:1 as per psych, depakote started 09/26
Depakote lvl, repeat labwork 09.30
#Left elbow skin tear, right inner thigh bruise secondary to multiple falls
-Consulted wound care, recommendations appreciated
-improving
#Skin rash left and right lateral trunk unclear etiology -
-s/p Keflex course. Rash improved as above
-steroids discontinued as above
-switched to Aquaphor for dry skin itching, small dot like lesions likely due to scratching dry skin irritation
-hydroxyzine taper as per psych
-desenex back suspect bed rash
#New Rash on R flank/R posterior LE
-See wound note (dated 09/29/23) from Kathrin Love
-Appears to be macular with patches and papules
-No sheltered workshop worker on-call
-Will discuss with psychiatry
-Consulted ID, recommendations appreciated
-Will consider surgery consult
#Alzheimer's Dementia�advanced
-Supportive care
#Afib
-not candidate for AC 09/05 falls
-rate OK off of Coreg
Bradycardia - RESOLVED
-EDUCATION AND TRAINING MANAGER Coreg stopped
#Anemia-macrocytic
Hgb 13.5 on 09/12 was 11.12 June 2023
#Hypertension�benign
-BP ranges widely, relatively well controlled at this time, high values likely due to intermittent agitation
-Stopped Norvasc 5 mg daily
-consider resumption of Coreg depending on BP off Norvasc
-monitor and titrate antihypertensive regimen as tolerated
-given falls and dementia would avoid aggressively treating hypertension.
#Former alcohol abuse
Stopped 2022 drank greater than 2 glasses a day per
#Insomnia
-Continue melatonin at bedtime
#History of colon cancer with resection of [facility] 2018
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
#BPH
-Continue Flomax 0.4 mg at bedtime
Small stage 2 L coccyx buttocks pressure injury.�
New small open area on R sacrum (see wound note (dated 09/29/23) from Kathrin Love)
-cont local wound care.
DVT prophylaxis
SCDs
DNR
Anticipated Discharge: > 48 hours
Subjective/Interval History
-
Date of Service: September 29, 2023
Patient was seen and examined. He was sitting comfortably in his chair, eating breakfast. He was restless overnight.
Objective Data
-
Vital Signs:
Vital Signs
Temp Pulse Resp BP Pulse Ox
97.4 F 81 16 141/99 97
09/28/23 21:24 09/28/23 21:24 09/28/23 21:24 09/28/23 21:24 09/28/23 21:24
I&O
09/28/23 09/29/23 09/30/23
06:59 06:59 06:59
Intake Total 1825 / 1825 1680 / 1680
Output Total 650 / 650
Balance 1175 / 1175 1680 / 1680
--- NOTE | 2023-09-29 10:28 | CM ---
CM spoke with Gage from [employer] ([phone]), nurse Rema will be coming out this afternoon to assess patient. Per Gage, family touring facility later this afternoon. CM relayed patient remains on 1:1, no longer on restraints,
behaviors appear to be improving. CM will be available when nurse arrives to do assessment. CM will update Myriam from [facility]. CM will continue to follow for discharge planing needs.
Plan; awaiting eval from [employer].
[2023-09-29 10:33] VITALS: BP 145/71
[2023-09-29] MEDS: SEROQUEL PO (11:21)
[2023-09-29] MEDS: DEPAKOTE (12 HR RELEASE) 250 MG PO ×3 (11:21→23:02)
[2023-09-29] MEDS: ASPIR LOW (ENTERIC COATED) 81 MG PO (11:21)
[2023-09-29] MEDS: ATIVAN 0.5 MG PO ×3 (11:22→23:02)
[2023-09-29] MEDS: DESENEX/MITRAZOL/ZEASORB 1 APPLIC TOPICAL ×2 (12:47→20:27)
[2023-09-29] MEDS: HYDROPHOR 1 APPLIC TOPICAL (12:48)
[2023-09-29] MEDS: SEROQUEL 50 MG PO ×3 (12:48→20:26)
--- NOTE | 2023-09-29 15:00 | WOUNDNOTE ---
R FLANK (shadow in photo)
--- NOTE | 2023-09-29 15:30 | WOUNDNOTE ---
[facility] RN note: Patient seen for HAPI report for new open area R buttocks. R sacral/buttocks with .4x.4x.1cm stage 2 open area. L sacral/coccyx stage 2 ulcer scabbed. Silicone border foam dressing applied. Patient is on a Vers[employer] accumax bed. RN
Julee to coordinate switching his bed to a Vers[employer]are air bed (bed tech obtained). Air chair cushion in room. Patient moves his legs frequently. He can be difficult to turn r/t his dementia. PENNIE Ladd assisted with turning patient to his L side for
skin assessment. He continues with body rash. Took photo of R posterior leg and R flank rash for documentation. Updated Dr. Stroud re: new small open area on R sacrum, rash pics in chart R flank/R posterior LE for review.
--- NOTE | 2023-09-29 15:31 | WOUNDNOTE ---
[facility] RN note: Patient seen for HAPI report for new open area R buttocks. R sacral/buttocks with .4x.4x.1cm stage 2 open area. L sacral/coccyx stage 2 ulcer scabbed. Silicone border foam dressing applied. Patient is on a Vers[employer]are air bed. PENNIE Ladd to
coordinate switching his bed to a [employer] air bed. Air chair cushion in room. Patient moves his legs frequently. He can be difficult to turn r/t his dementia. PENNIE Ladd assisted with turning patient to his L side for skin assessment. He continues
with body rash. Took photo of R posterior leg and R flank rash for documentation. Updated Dr. Stroud re: new small open area on R sacrum, rash pics in chart R flank/R posterior LE to review.
[2023-09-29 17:32] VITALS: BP 160/82
[2023-09-29] MEDS: FLOMAX 0.400000000000000022 MG PO (23:02)
[2023-09-29] MEDS: MELATONIN 5 MG PO (23:02)
[2023-09-30 00:21] VITALS: BP 151/80
[2023-09-30] MEDS: ATIVAN 0.5 MG PO ×4 (03:03→20:15)
[2023-09-30] MEDS: TYLENOL 650 MG PO (06:51)
[2023-09-30] MEDS: ASPIR LOW (ENTERIC COATED) 81 MG PO (06:51)
[2023-09-30] MEDS: DEPAKOTE (12 HR RELEASE) 250 MG PO ×3 (06:51→20:15)
[2023-09-30] MEDS: DESENEX/MITRAZOL/ZEASORB 1 APPLIC TOPICAL ×2 (06:52→20:26)
[2023-09-30] MEDS: HYDROPHOR 1 APPLIC TOPICAL (06:52)
[2023-09-30] MEDS: SEROQUEL 50 MG PO ×4 (06:56→20:08)
[2023-09-30 07:28] VITALS: BP 145/79
[2023-09-30 07:30] VITALS: BP 145/79
[2023-09-30 08:35] LABS: Hematocrit 44.1 % (39.0-52.0); Hemoglobin 14.7 g/dL (13.0-18.0); Mean Corp Hgb Conc. 33.3 g/dL (33.0-37.0); Mean Corpuscular Hgb 31.6 pg (27.0-31.0); Mean Corpuscular Volume 94.8 fL (80.0-94.0); Mean Platelet Volume 9.6 fL (7.4-10.4); Platelet Count 121 10^3/uL (130-400); Red Blood Cell Count 4.65 10^6/uL (4.70-6.10); Red Cell Dist. Width 13.6 % (11.5-14.5); White Blood Cell Count 5.3 10^3/uL (4.8-10.8)
[2023-09-30 08:43] LABS: Depakane 64.4 ug/ml (50.0-120.0)
[2023-09-30 09:22] LABS: ALT (SGPT) 14 U/L (0-50); AST (SGOT) 22 U/L (17-59); Albumin 3.6 g/dl (3.5-5.0); Alkaline Phosphatase 56 U/L (38-126); Blood Urea Nitrogen 16 mg/dl (9-20); Calcium 9.5 mg/dl (8.4-10.2); Carbon Dioxide 31 mmol/L (22-30); Chloride 101 mmol/L (98-107); Direct Bilirubin 0.4 mg/dl (0.0-0.4); Estimated Creatinine Clearance 77 ml/min; Glucose 88 mg/dl (70-99); Potassium 3.9 mmol/L (3.5-5.1); Sodium 140 mmol/L (135-145); Total Bilirubin 0.8 mg/dl (0.2-1.3); Total Protein 6.6 g/dl (6.3-8.2); eGFR > 60.00
--- NOTE | 2023-09-30 11:31 | W.PN.UPDATE ---
Update Note
Progress Note Update
Patient seen at bedside, 1:1 present which is Mr. Ramirez's RN at the moment, chart reviewed. Mr. Ramirez is sleepy this AM and I did not attempt to wake him since this could have caused him to become agitated as seen in the past. It has been
noted that since the initiation of Depakote, Mr. Ramirez has been less agitated with no reported aggression in the last 24+ hours. He walked with therapy yesterday. He is more sedate than usual and may have to consider this as a side effect of his
medication. Mr. Ramirez's noted behaviors are the unfortunate but typical progression of advanced dementia. Again, there is no fail proof solution especially in the hospital environment. Continued efforts of redirection, ensuring safety, and
avoiding unnecessary stimulation when able is the best approach. I do think all attempts to safely discontinue 1: 1 staff while continuing to ensure his safety is imperative. I am told there will be attempts to put him in a private room closer to
the nursing station which I think would be beneficial. We need to continue to be cautious in attempting to avoid over medicating and sedating as this was the initial concern leading to hospitalization with frequent falls.
Impression/Plan:� Dementia, advanced, with intermittent behavioral disturbance/agitation which is typical progression of dementia - will continue to follow and consider further adjustment of medications. Attempts to safely discontinue 1: 1 staff
while continuing to ensure his safety is imperative for discharge planning. VPA level stable at 64.4. May need to consider adjustment of meds if daytime sedation persists. For now, continue Seroquel 50mg QID, Ativan 0.5mg TID, and Depakote 25.mg
TID.
--- NOTE | 2023-09-30 13:37 | CM ---
Addendum entered by Teresita Vizcarra 09/30/23 15:33:
JUS spoke with Rema from [facility], at this time, they are unable to accept patient. Rema reports if anything changes in regards to patients behavior, to reach out. CM will call patients daughter to provide update.
Original Note:
JUS met with nurse Rema from [facility], ([phone]). Rema reports she was unable to assess patient yesterday as he was asleep. Rema reports that is why she came out this morning to see if it was a better time to assess patient.
Unfortunately patient is asleep and Rema is unable to assess. Rema reports she has some availability tomorrow and is more available . Rema will report to her Director and will update CM on next steps for coming out this week.
Rema inquiring about patients behaviors, CM discussed per nursing, patient has been calmer but does still have aggressive behaviors. Rema wants to ensure facility can accept patient safely and not have patient return to Hospital. CM left
voicemail for patients daughter with update. CM will continue to follow for discharge planning needs.
Plan; awaiting assessment from [facility], has been unable to assess past two days due to patient sleeping.
--- NOTE | 2023-09-30 13:39 | PTCARENOTE ---
Pt resting comfortably this morning, slept in until 11 with intermittent waking periods to urinate. Shortly after he was assisted into the recliner for breakfast. Pt ate 65% of his breakfast and then became restless again. Assisted pt to the [facility]
where he had a large BM. He has trouble following commands which makes goal directed ambulation difficult. He is very steady on his feet and is quite strong. 1:1 maintained.
--- NOTE | 2023-09-30 13:40 | W.PN.ID1 ---
Date of Service
Date of Service: September 30, 2023
Today's Communication
- doxycycline x 7 days
- improve hygiene if safe/feasible - daily bathing and sheet changes
With advanced dementia with poor quality of life would be a candidate for hospice
Assessment / Plan
Folliculitis
- raised, papular rash, no excoriations
- doxycycline x 7 days
- improve hygiene if safe/feasible - daily bathing and sheet changes
With advanced dementia with poor quality of life would be a candidate for hospice
Chief Complaint
-: Other (rash)
Subjective / Review of Systems
Asked to reevaluate new rash
patient in house 39 days for dementia with behavioral disturbance
Patient remains afebrile, bp stable, no leukocytosis or L shift, no eos present, cr stable
Initial rash assessed as possible folliculitis with improvement with 5 day course of keflex. Rash was L chest and L axilla
Wound care note reviewed - new pressure wounds are noted and likely due to immobility; also new papular rash in the dependant areas
sedated
Vital Signs / Physical Exam
Vital Signs
Vital Signs
Temp Pulse Resp BP Pulse Ox
97.8 F 63 14 145/79 96
09/30/23 07:30 09/30/23 07:30 09/30/23 07:30 09/30/23 07:30 09/30/23 07:34
Physical Exam
Constitutional: No Acute Distress
Cardiovascular: Regular Rate and S1/S2; Negative Murmur or Rub
Pulmonary: Clear and Symmetric; Negative Wheezes or Rales
Gastrointestinal: Soft, Non Tender, Non Distended and Normal Bowel Sounds
Skin: Warm, Dry and Rash (raised, follicular pattern on the back and posterior limbs); Negative Jaundice
Objective Data
Lab Data
Lab Results
09/30/23 07:44
09/30/23 07:44
PT 14.5 Sec (11.4-14.6) 08/21/23 09:45
INR 1.11 08/21/23 09:45
Estimated Creat Clear 77 ml/min 09/30/23 07:44
Total Bilirubin 0.8 mg/dl (0.2-1.3) 09/30/23 07:44
AST 22 U/L (17-59) 09/30/23 07:44
ALT 14 U/L (0-50) 09/30/23 07:44
Alkaline Phosphatase 56 U/L (38-126) 09/30/23 07:44
Most recent labs reviewed.
Micro Results:
08/20/23 18:28 Influenza Types A & B (SERGE) - Final
Nasal Swab Negative for Influenza A & B, NAAT
Negative results must be combined with clinical observations
and patient history.
Nucleic Acid Amplification test (NAAT)performed on the
[employer] platform.
--- NOTE | 2023-09-30 19:18 | W.PN.HOSP.TC ---
Today's Communication/Plan
-
Sedation with meds will need to continue to be monitored
Appreciate ID and psych recommendations
Assessment / Plan
Assessment / Plan
Physical Exam
General: Well Developed, Well Nourished and No Apparent Distress
HEENT: Normocephalic and Atraumatic
Respiratory: Clear to Auscultation
Cardiac: Regular Rhythm and S1/S2
GI: Soft, Nontender and Nondistended. Positive bowel sounds.
Musculoskeletal: No Cyanosis and No Edema
Skin: erythematous lesions lateral torso upper arms b/l signs of scratching, dry skin
Neuro: Awake alert paucity of speech
Psych: Confused. Calm cooperative
Assessment/Plan
#Recurrent falls - reported 17 falls (in the 2 to 3 weeks prior to admission) per NH staff
-most likely multifactorial and associated with advance dementia
-fall precautions
-PT/OT, eventual SNF
-psychotropic med adjustment per psychiatry -Rash noted at time of admission to hospital (POA) possible drug rash Zyprexa, Lamictal, and Amlodipine stopped.
#Agitation/Dementia
- Zyprexa Lamictal discontinued as above
-Ativan and Seroquel increased to 0.5 mg tid and 50 mg QID, respectively
-Citalopram discontinued on 09/07/23 as per psychiatry
-Continue 1:1 as per psych, depakote started 09/26
Depakote lvl, repeat labwork 09.30
#Left elbow skin tear, right inner thigh bruise secondary to multiple falls
-Consulted wound care, recommendations appreciated
-improving
#Skin rash left and right lateral trunk unclear etiology -
-s/p Keflex course. Rash improved as above
-steroids discontinued as above
-switched to Aquaphor for dry skin itching, small dot like lesions likely due to scratching dry skin irritation
-hydroxyzine taper as per psych
-desenex back suspect bed rash
#New Rash on R flank/R posterior LE - likely Folliculitis
-See wound note (dated 09/29/23) from Kathrin Love
-Appears to be papular rash
-No quality control inspector on-call: doxycycline x 7 days and improve hygiene if safe/feasible - daily bathing and sheet changes
-Consulted ID, recommendations appreciated
#Alzheimer's Dementia�advanced
-Supportive care
#Afib
-not candidate for AC 09/05 falls
-rate OK off of Coreg
Bradycardia - RESOLVED
-MOTOR ADJUSTER Coreg stopped
#Anemia-macrocytic
Hgb 13.5 on 09/12 was 11.12 June 2023
#Hypertension�benign
-BP ranges widely, relatively well controlled at this time, high values likely due to intermittent agitation
-Stopped Norvasc 5 mg daily
-consider resumption of Coreg depending on BP off Norvasc
-monitor and titrate antihypertensive regimen as tolerated
-given falls and dementia would avoid aggressively treating hypertension.
#Former alcohol abuse
Stopped 2022 drank greater than 2 glasses a day per
#Insomnia
-Continue melatonin at bedtime
#History of colon cancer with resection of [facility] 2018
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
#BPH
-Continue Flomax 0.4 mg at bedtime
Small stage 2 L coccyx buttocks pressure injury.�
New small open area on R sacrum (see wound note (dated 09/29/23) from Kathrin Love)
-cont local wound care.
DVT prophylaxis
SCDs
DNR
Anticipated Discharge: > 48 hours
Subjective/Interval History
-
Date of Service: September 30, 2023
Patient was seen and examined. No new significant symptoms or complaints reported. He has been restless at times as per patient's nurse.
Objective Data
-
Labs:
Laboratory Results
02/27/24
07:44
WBC 5.3
Hgb 14.7
Hct 44.1
Plt Count 121 L
Sodium 140
Potassium 3.9
Chloride 101
Carbon Dioxide 31 H
BUN 16
Creatinine 0.8
Glucose 88
Calcium 9.5
Total Bilirubin 0.8
AST 22
ALT 14
Alkaline Phosphatase 56
Vital Signs:
Vital Signs
Temp Pulse Resp BP Pulse Ox
97.8 F 63 14 145/79 96
09/30/23 07:30 09/30/23 07:30 09/30/23 07:30 09/30/23 07:30 09/30/23 07:34
I&O
09/29/23 09/30/23 10/01/23
06:59 06:59 06:59
Intake Total 1680 / 1680 480 / 480 720 / 720
Output Total 300 / 300
Balance 1680 / 1680 180 / 180 720 / 720
[2023-09-30] MEDS: VIBRAMYCIN 100 MG PO (20:07)
[2023-09-30] MEDS: MELATONIN 5 MG PO (20:15)
[2023-09-30] MEDS: FLOMAX 0.400000000000000022 MG PO (20:15)
--- NOTE | 2023-09-30 20:30 | PTCARENOTE ---
Received report from evon RN, assumed care of patient at 1900. Patient transferred via bed into private room 424 at change of shift, resting comfortably in bed at this time. 1:1 nursing maintained.
~1999 Patient became restless in bed, multiple attempts made to throw legs over side rail to get OOB, patient unable to state needs and does not answer appropriately when asked. Patient unable to direct, impulsive, pulling at gown, took socks off
and thrown across room, pulling at incontinence pads, and blankets/sheets. Patient incontinent and saturated in urine at this time, hygiene care provided. Attempted diversional activities without success. PM medicated given crushed in applesauce
with no issues, see MAR. 1:1 nursing maintained, care ongoing.
[2023-09-30 20:39] VITALS: BP 138/74
[2023-10-01] MEDS: ATIVAN 0.5 MG PO ×6 (02:40→20:45)
[2023-10-01] MEDS: DEPAKOTE (12 HR RELEASE) 250 MG PO ×3 (09:18→20:45)
[2023-10-01] MEDS: ASPIR LOW (ENTERIC COATED) 81 MG PO (09:18)
[2023-10-01] MEDS: VIBRAMYCIN 100 MG PO ×2 (09:18→19:07)
[2023-10-01] MEDS: DESENEX/MITRAZOL/ZEASORB 1 APPLIC TOPICAL ×2 (09:20→19:08)
[2023-10-01] MEDS: HYDROPHOR 1 APPLIC TOPICAL (09:20)
[2023-10-01] MEDS: SEROQUEL 50 MG PO ×4 (09:20→19:07)
[2023-10-01 09:25] VITALS: BP 182/94
--- NOTE | 2023-10-01 11:30 | W.PN.UPDATE ---
Update Note
Progress Note Update
patient seen chart reviewed. spoke with one to one who reports that the patient has two modes....sedated or agitated . when he is agitated he is at risk for aggressing upon others and falling. he was sleeping when i saw him this am and waking him
up only results in my experience in his becoming agitated. no changes were made in his medication. there have been many suggestions as to how to get mr alonso off one to one but i don't see any of them mitigating the fall risk issue. hospice has
been suggested but he has no serious medical issues at this moment for which we could withhold rx.i will speak to hospice to see what they might offer. noted he has been placed on an antibiotic for skin rash which is very longstanding by this
point. will continue to follow
--- NOTE | 2023-10-01 14:02 | W.PN.ID1 ---
Date of Service
Date of Service: October 01, 2023
Today's Communication
continue doxy
Assessment / Plan
Folliculitis
- raised, papular rash, no excoriations - improving
- doxycycline x 7 days
- improve hygiene if safe/feasible - daily bathing and sheet changes
With advanced dementia with poor quality of life would be a candidate for hospice
Chief Complaint
-: Other (rash)
Subjective / Review of Systems
afebrile
bp stable
no labs today
sedated
folliculitis improving
Vital Signs / Physical Exam
Vital Signs
Vital Signs
Temp Pulse Resp BP Pulse Ox
98.7 F 82 16 182/94 96
09/30/23 20:39 10/01/23 09:25 10/01/23 09:25 10/01/23 09:25 10/01/23 09:25
Physical Exam
Constitutional: No Acute Distress
Cardiovascular: Regular Rate and S1/S2; Negative Murmur or Rub
Pulmonary: Clear and Symmetric; Negative Wheezes or Rales
Gastrointestinal: Soft, Non Tender, Non Distended and Normal Bowel Sounds
Skin: Warm, Dry and Rash (folliculitis improving); Negative Jaundice
Objective Data
Lab Data
Lab Results
09/30/23 07:44
09/30/23 07:44
PT 14.5 Sec (11.4-14.6) 08/21/23 09:45
INR 1.11 08/21/23 09:45
Estimated Creat Clear 77 ml/min 09/30/23 07:44
Total Bilirubin 0.8 mg/dl (0.2-1.3) 09/30/23 07:44
AST 22 U/L (17-59) 09/30/23 07:44
ALT 14 U/L (0-50) 09/30/23 07:44
Alkaline Phosphatase 56 U/L (38-126) 09/30/23 07:44
Most recent labs reviewed.
Micro Results:
08/20/23 18:28 Influenza Types A & B (SERGE) - Final
Nasal Swab Negative for Influenza A & B, NAAT
Negative results must be combined with clinical observations
and patient history.
Nucleic Acid Amplification test (NAAT)performed on the
[employer] platform.
--- NOTE | 2023-10-01 15:04 | W.PN.HOSP.TC ---
Today's Communication/Plan
-
Continue current management
Appreciate ID and Psychiatry
Assessment / Plan
Assessment / Plan
Physical Exam
General: Well Developed, Well Nourished and No Apparent Distress
HEENT: Normocephalic and Atraumatic
Respiratory: Clear to Auscultation
Cardiac: Regular Rhythm and S1/S2
GI: Soft, Nontender and Nondistended. Positive bowel sounds.
Musculoskeletal: No Cyanosis and No Edema
Skin: erythematous lesions lateral torso upper arms b/l signs of scratching, dry skin
Neuro: Awake alert paucity of speech
Psych: Confused. Calm cooperative
Assessment/Plan
#Recurrent falls - reported 17 falls (in the 2 to 3 weeks prior to admission) per NH staff
-most likely multifactorial and associated with advance dementia
-fall precautions
-PT/OT, eventual SNF
-psychotropic med adjustment per psychiatry -Rash noted at time of admission to hospital (POA) possible drug rash Zyprexa, Lamictal, and Amlodipine stopped.
#Agitation/Dementia
- Zyprexa Lamictal discontinued as above
-Ativan and Seroquel increased to 0.5 mg tid and 50 mg QID, respectively
-Citalopram discontinued on 09/07/23 as per psychiatry
-Continue 1:1 as per psych, depakote started 09/26/23
Depakote lvl, repeat labwork 09.30
#Left elbow skin tear, right inner thigh bruise secondary to multiple falls
-Consulted wound care, recommendations appreciated
-improving
#Skin rash left and right lateral trunk unclear etiology -
-s/p Keflex course. Rash improved as above
-steroids discontinued as above
-switched to Aquaphor for dry skin itching, small dot like lesions likely due to scratching dry skin irritation
-hydroxyzine taper as per psych
-desenex back suspect bed rash
#New Rash on R flank/R posterior LE - likely Folliculitis
-See wound note (dated 09/29/23) from Kathrin Love
-Appears to be papular rash
-No film sorter on-call: doxycycline x 7 days and improve hygiene if safe/feasible - daily bathing and sheet changes
-Consulted ID, recommendations appreciated
#Alzheimer's Dementia�advanced
-Supportive care
#Afib
-not candidate for AC 09/05 falls
-rate OK off of Coreg
Bradycardia - RESOLVED
-COFFEE SHOP MANAGER Coreg stopped
#Anemia-macrocytic
Hgb 13.5 on 09/12 was 11.12 June 2023
#Hypertension�benign
-BP ranges widely, relatively well controlled at this time, high values likely due to intermittent agitation
-Stopped Norvasc 5 mg daily
-consider resumption of Coreg depending on BP off Norvasc
-monitor and titrate antihypertensive regimen as tolerated
-given falls and dementia would avoid aggressively treating hypertension.
#Former alcohol abuse
Stopped 2022 drank greater than 2 glasses a day per
#Insomnia
-Continue melatonin at bedtime
#History of colon cancer with resection of [facility] 2018
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
#BPH
-Continue Flomax 0.4 mg at bedtime
Small stage 2 L coccyx buttocks pressure injury.�
New small open area on R sacrum (see wound note (dated 09/29/23) from Kathrin Love)
-cont local wound care.
DVT prophylaxis
SCDs
DNR
Anticipated Discharge: > 48 hours
Subjective/Interval History
-
Date of Service: October 01, 2023
Patient was seen and examined. He was sleeping at the time he was seen, he had to be move to a private room over the past 24 hours due to aggression to his roommate, as per the 1:1.
Objective Data
-
Vital Signs:
Vital Signs
Temp Pulse Resp BP Pulse Ox
98.7 F 82 16 182/94 96
09/30/23 20:39 10/01/23 09:25 10/01/23 09:25 10/01/23 09:25 10/01/23 09:25
I&O
09/30/23 10/01/23 10/02/23
06:59 06:59 06:59
Intake Total 480 / 480 960 / 960 360 / 360
Output Total 300 / 300
Balance 180 / 180 960 / 960 360 / 360
[2023-10-01] MEDS: MELATONIN 5 MG PO (20:45)
[2023-10-01] MEDS: FLOMAX 0.400000000000000022 MG PO (20:45)
[2023-10-01 21:29] VITALS: BP 132/92
[2023-10-02 03:27] VITALS: BP 135/98
[2023-10-02] MEDS: SEROQUEL 50 MG PO ×4 (07:15→21:42)
[2023-10-02] MEDS: ATIVAN 0.5 MG PO ×3 (07:15→21:42)
[2023-10-02] MEDS: VIBRAMYCIN 100 MG PO ×2 (07:15→19:25)
[2023-10-02] MEDS: DESENEX/MITRAZOL/ZEASORB 1 APPLIC TOPICAL ×2 (07:15→19:25)
[2023-10-02] MEDS: ASPIR LOW (ENTERIC COATED) 81 MG PO (07:15)
[2023-10-02] MEDS: DEPAKOTE (12 HR RELEASE) 250 MG PO (07:15)
[2023-10-02 07:41] VITALS: BP 128/98
--- NOTE | 2023-10-02 10:42 | PTCARENOTE ---
Pt received in bed @ 0700. Drowsy but startles awake and immediately tries to get up out of. Demonstrating lack of coordination. Unable to stand up with assist x1. Dropped cup of coffee and bowl of cereal while eating breakfast. Becomes agitated
with staff interventions to change and clean after episodes of incontinence; pushing against staff, grabbing, and small punches. CHF cloth bath performed and linens changed.
[2023-10-02] MEDS: HYDROPHOR 1 APPLIC TOPICAL (11:49)
--- NOTE | 2023-10-02 13:11 | W.PN.UPDATE ---
Update Note
Progress Note Update
patient seen chart reviewed. discussed w nursing. mr alonso was sitting at the edge of the bed scratching vigorously. noted he is now on doxycycline for ?rash. this rash present for some time and unclear as to etiology. it does seem a little bit
better but still clearly irritating for him. asked nursing to use aquaphor very liberally. nursing reports that patient is chewing the depakote. have changed to sprinkle caps and increased dose to 250 mg qid level is low 60's so still some room
for increase in the hope that it may help mr alonso to settle. patient did receive three prn's of ativan yesterday hence the increase in depakote. did not make any other med changes. will follow
--- NOTE | 2023-10-02 13:16 | W.PN.ID1 ---
Date of Service
Date of Service: October 02, 2023
Today's Communication
- agree with emollients for xerosis which may resolve itch
- add cetirizine
- raised, papular rash, no excoriations - overall improving
- c/w doxycycline x 7 days total - pruritus not likely to be due to doxycycline
Assessment / Plan
Folliculitis
Pruritus - likely due to xerosis
Advanced dementia with frequent falls
- agree with emollients for xerosis which may resolve itch
- add cetirizine
- raised, papular rash, no excoriations - overall improving
- c/w doxycycline x 7 days total - pruritus not likely to be due to doxycycline
- improve hygiene if safe/feasible - daily bathing and sheet changes
Chief Complaint
-: Other (rash)
Subjective / Review of Systems
afebrile
bp stable
pruritus noted by psychiatry - agree with treating xerosis
Vital Signs / Physical Exam
Vital Signs
Vital Signs
Temp Pulse Resp BP Pulse Ox
97.8 F 75 18 128/98 97
10/02/23 07:41 10/02/23 07:41 10/02/23 07:41 10/02/23 07:41 10/02/23 08:10
Physical Exam
Constitutional: No Acute Distress and Chronically Ill
Cardiovascular: Regular Rate and S1/S2; Negative Murmur or Rub
Pulmonary: Clear and Symmetric; Negative Wheezes or Rales
Gastrointestinal: Soft, Non Tender, Non Distended and Normal Bowel Sounds
Skin: Warm, Dry and Rash (much less folliculitis on my exam); Negative Jaundice
Objective Data
Lab Data
Lab Results
09/30/23 07:44
09/30/23 07:44
PT 14.5 Sec (11.4-14.6) 08/21/23 09:45
INR 1.11 08/21/23 09:45
Estimated Creat Clear 77 ml/min 09/30/23 07:44
Total Bilirubin 0.8 mg/dl (0.2-1.3) 09/30/23 07:44
AST 22 U/L (17-59) 09/30/23 07:44
ALT 14 U/L (0-50) 09/30/23 07:44
Alkaline Phosphatase 56 U/L (38-126) 09/30/23 07:44
Most recent labs reviewed.
Micro Results:
08/20/23 18:28 Influenza Types A & B (SERGE) - Final
Nasal Swab Negative for Influenza A & B, NAAT
Negative results must be combined with clinical observations
and patient history.
Nucleic Acid Amplification test (NAAT)performed on the
[employer] platform.
[2023-10-02] MEDS: DEPAKOTE SPRINKLE 250 MG PO ×3 (13:42→21:42)
[2023-10-02] MEDS: ZYRTEC 10 MG PO (13:42)
[2023-10-02 15:27] VITALS: BP 135/98
--- NOTE | 2023-10-02 15:36 | PTCARENOTE ---
Pt stood with minimal assistance. Ambulated to bathroom. Attempted to urinate in toilet, but voided on floor. Evidence of incontinence, new brief applied. Ambulated back to chair briefly before returning to bed. Pt napped and awoke startled,
attempting to stand. Unable to stand despite maximum assistance x1. No evidence of incontinence and not able to follow direction to void into urinal. Pt ate lunch with at bedside.
--- NOTE | 2023-10-02 17:10 | W.PN.HOSP.TC ---
Today's Communication/Plan
-
Itching - emollients and Cetirizine -- appreciate ID assistance
Depakote increased, appreciate psych assistance
Placement pending, still on 1:1 sitter
Assessment / Plan
Assessment / Plan
Physical Exam
General: Well Developed, Well Nourished and No Apparent Distress
HEENT: Normocephalic and Atraumatic
Respiratory: Clear to Auscultation
Cardiac: Regular Rhythm and S1/S2
GI: Soft, Nontender and Nondistended. Positive bowel sounds.
Musculoskeletal: No Cyanosis and No Edema
Skin: erythematous lesions lateral torso upper arms b/l signs of scratching, dry skin, right lower extremity papular rash
Neuro: Awake alert paucity of speech
Psych: Confused. Calm cooperative
Assessment/Plan
#Recurrent falls - reported 17 falls (in the 2 to 3 weeks prior to admission) per NH staff
-most likely multifactorial and associated with advance dementia
-fall precautions
-PT/OT, eventual SNF
-psychotropic med adjustment per psychiatry -Rash noted at time of admission to hospital (POA) possible drug rash Zyprexa, Lamictal, and Amlodipine stopped.
#Agitation/Dementia
- Zyprexa Lamictal discontinued as above
-Ativan and Seroquel increased to 0.5 mg tid and 50 mg QID, respectively
-Citalopram discontinued on 09/07/23 as per psychiatry
-Continue 1:1 as per psych, depakote started 09/26/23 - depakote increased on 10/02/23 - appreciate psychiatry assistance with this
Depakote lvl, repeat labwork 09.30
#Left elbow skin tear, right inner thigh bruise secondary to multiple falls
-Consulted wound care, recommendations appreciated
-improving
#Skin rash left and right lateral trunk unclear etiology -
-s/p Keflex course. Rash improved as above
-steroids discontinued as above
-switched to Aquaphor for dry skin itching, small dot like lesions likely due to scratching dry skin irritation
-hydroxyzine taper as per psych
-desenex back suspect bed rash
#New Rash on R flank/R posterior LE - likely Folliculitis
#Pruritus
-Emollients for the dry skin
-Cetirizine
-See wound note (dated 09/29/23) from Kathrin Love
-Appears to be papular rash
-No liquor gallery operator on-call: doxycycline x 7 days and improve hygiene if safe/feasible - daily bathing and sheet changes
-Consulted ID, recommendations appreciated
#Alzheimer's Dementia�advanced
-Supportive care
#Afib
-not candidate for AC 09/05 falls
-rate OK off of Coreg
Bradycardia - RESOLVED
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
#Anemia-macrocytic
Hgb 13.5 on 09/12 was 11.12 June 2023
#Hypertension�benign
-BP ranges widely, relatively well controlled at this time, high values likely due to intermittent agitation
-Stopped Norvasc 5 mg daily
-consider resumption of Coreg depending on BP off Norvasc
-monitor and titrate antihypertensive regimen as tolerated
-given falls and dementia would avoid aggressively treating hypertension.
#Former alcohol abuse
Stopped 2022 drank greater than 2 glasses a day per
#Insomnia
-Continue melatonin at bedtime
#History of colon cancer with resection of [facility] 2018
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
#BPH
-Continue Flomax 0.4 mg at bedtime
Small stage 2 L coccyx buttocks pressure injury.�
New small open area on R sacrum (see wound note (dated 09/29/23) from Kathrin Love)
-cont local wound care.
DVT prophylaxis
SCDs
DNR
Anticipated Discharge: > 48 hours
Subjective/Interval History
-
Date of Service: October 02, 2023
Patient was seen and examined. He was sleeping comfortably, he was agitated at times earlier.
Objective Data
-
Vital Signs:
Vital Signs
Temp Pulse Resp BP Pulse Ox
97.8 F 75 18 128/98 97
10/02/23 07:41 10/02/23 07:41 10/02/23 07:41 10/02/23 07:41 10/02/23 08:10
I&O
10/01/23 10/02/23 10/03/23
06:59 06:59 06:59
Intake Total 960 / 960 720 / 720
Balance 960 / 960 720 / 720
--- NOTE | 2023-10-02 18:29 | PTCARENOTE ---
Pt with repeated attempts to stand; assisted x1. Ambulated to bathroom with nursing in close proximity. Pt stumbled heading back to bed and unable to regain footing; assisted slowly to chair without injury. Pt became frustrated. Yelling, 'Fucking
useless!' Emotional support given. Assisted back to bed and warm blanket provided.
[2023-10-02] MEDS: MELATONIN 5 MG PO (19:24)
[2023-10-02] MEDS: FLOMAX 0.400000000000000022 MG PO (19:25)
[2023-10-02 21:48] VITALS: BP 172/85
[2023-10-03] MEDS: SEROQUEL 50 MG PO ×4 (07:08→21:45)
[2023-10-03] MEDS: VIBRAMYCIN 100 MG PO ×2 (07:08→21:42)
[2023-10-03] MEDS: ZYRTEC 10 MG PO (07:09)
[2023-10-03] MEDS: DESENEX/MITRAZOL/ZEASORB 1 APPLIC TOPICAL ×2 (07:09→21:45)
[2023-10-03] MEDS: DEPAKOTE SPRINKLE 250 MG PO ×4 (07:09→21:41)
[2023-10-03] MEDS: ASPIR LOW (ENTERIC COATED) 81 MG PO (07:09)
[2023-10-03] MEDS: ATIVAN 0.5 MG PO ×3 (07:09→21:41)
[2023-10-03 08:15] VITALS: BP 159/82
--- NOTE | 2023-10-03 10:02 | CM ---
Addendum entered by Tiff Linn 10/03/23 10:08:
additional referrals sent.
Original Note:
Bed search continues.
Patient back on 1:1.
Plan: placement when stable and bed available.
--- NOTE | 2023-10-03 11:47 | W.PN.ID1 ---
Date of Service
Date of Service: October 03, 2023
Today's Communication
ID service will no longer actively follow this patient please recall for further questions
Assessment / Plan
Folliculitis
Pruritus - likely due to xerosis
Advanced dementia with frequent falls
- agree with emollients for xerosis which may resolve itch
- add cetirizine
- raised, papular rash, no excoriations - overall improving
- c/w doxycycline x 7 days total - pruritus not likely to be due to doxycycline
- improve hygiene if safe/feasible - daily bathing and sheet changes
ID service will no longer actively follow this patient please recall for further questions
Chief Complaint
-: Other (rash)
Subjective / Review of Systems
afebrile
bp stable
rash continues to resolve
Vital Signs / Physical Exam
Vital Signs
Vital Signs
Temp Pulse Resp BP Pulse Ox
97.6 F 64 16 159/82 96
10/03/23 08:15 10/03/23 08:15 10/03/23 08:15 10/03/23 08:15 10/03/23 08:25
Physical Exam
Constitutional: No Acute Distress
Cardiovascular: Regular Rate and S1/S2; Negative Murmur or Rub
Pulmonary: Symmetric and Non Labored
Gastrointestinal: Non Tender and Non Distended
Skin: Warm, Dry and Rash (minimal folliculitis - nearly resolved); Negative Jaundice
Objective Data
Lab Data
Lab Results
09/30/23 07:44
09/30/23 07:44
PT 14.5 Sec (11.4-14.6) 08/21/23 09:45
INR 1.11 08/21/23 09:45
Estimated Creat Clear 77 ml/min 09/30/23 07:44
Total Bilirubin 0.8 mg/dl (0.2-1.3) 09/30/23 07:44
AST 22 U/L (17-59) 09/30/23 07:44
ALT 14 U/L (0-50) 09/30/23 07:44
Alkaline Phosphatase 56 U/L (38-126) 09/30/23 07:44
Most recent labs reviewed.
Micro Results:
08/20/23 18:28 Influenza Types A & B (SERGE) - Final
Nasal Swab Negative for Influenza A & B, NAAT
Negative results must be combined with clinical observations
and patient history.
Nucleic Acid Amplification test (NAAT)performed on the
[employer] platform.
Care Review
Plan reviewed with: Nurse (we are in agreement about rash resolving)
[2023-10-03] MEDS: HYDROPHOR 1 APPLIC TOPICAL (12:11)
--- NOTE | 2023-10-03 14:28 | W.PN.UPDATE ---
Update Note
Progress Note Update
patient seen chart reviewed. discussed with nursing. mr alonso was resting comfortably when seen. mental status has not and likely will not change. on a + note he has not had prns since around 5 pm on the so hopefully we are heading in the
right direction. ID note appreciated re rash. will continue to follow have ordered depakote level for friday .
[2023-10-03 16:00] VITALS: BP 165/92
--- NOTE | 2023-10-03 16:57 | PTCARENOTE ---
Pt sleeping intermittently. Rouses with stimuli. Restless while awake with intent to stand. Assisted OOB to chain with heavy assist x1. Unsteady gait. Close proximity required for ambulation. Incontinent of bladder. Bed bath performed and linens
changed. No bowel movement observed.
--- NOTE | 2023-10-03 17:08 | W.PN.HOSP.TC ---
Today's Communication/Plan
-
Continue antibiotics and psychiatric medication regimen
Assessment / Plan
Assessment / Plan
Physical Exam
General: Well Developed, Well Nourished and No Apparent Distress
HEENT: Normocephalic and Atraumatic
Respiratory: Clear to Auscultation
Cardiac: Regular Rhythm and S1/S2
GI: Soft, Nontender and Nondistended. Positive bowel sounds.
Musculoskeletal: No Cyanosis and No Edema
Skin: erythematous lesions lateral torso upper arms b/l signs of scratching, dry skin, right lower extremity papular rash
Neuro: Awake alert paucity of speech
Psych: Confused. Calm cooperative
Assessment/Plan
#Recurrent falls - reported 17 falls (in the 2 to 3 weeks prior to admission) per NH staff
-most likely multifactorial and associated with advance dementia
-fall precautions
-PT/OT, eventual SNF
-psychotropic med adjustment per psychiatry -Rash noted at time of admission to hospital (POA) possible drug rash Zyprexa, Lamictal, and Amlodipine stopped.
#Agitation/Dementia
- Zyprexa Lamictal discontinued as above
-Ativan and Seroquel increased to 0.5 mg tid and 50 mg QID, respectively
-Citalopram discontinued on 09/07/23 as per psychiatry
-Continue 1:1 as per psych, depakote started 09/26/23 - depakote increased on 10/02/23 - appreciate psychiatry assistance with this
Depakote lvl, repeat labwork 09.30
#Left elbow skin tear, right inner thigh bruise secondary to multiple falls
-Consulted wound care, recommendations appreciated
-improving
#Skin rash left and right lateral trunk unclear etiology -
-s/p Keflex course. Rash improved as above
-steroids discontinued as above
-switched to Aquaphor for dry skin itching, small dot like lesions likely due to scratching dry skin irritation
-hydroxyzine taper as per psych
-desenex back suspect bed rash
#New Rash on R flank/R posterior LE - likely Folliculitis
#Pruritus
-Emollients for the dry skin
-Cetirizine
-See wound note (dated 09/29/23) from Kathrin Love
-Appears to be papular rash
-No cable splicer helper on-call: doxycycline x 7 days and improve hygiene if safe/feasible - daily bathing and sheet changes
-Consulted ID, recommendations appreciated
#Alzheimer's Dementia�advanced
-Supportive care
#Afib
-not candidate for AC 09/05 falls
-rate OK off of Coreg
Bradycardia - RESOLVED
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
#Anemia-macrocytic
Hgb 13.5 on 09/12 was 11.12 June 2023
#Hypertension�benign
-BP ranges widely, relatively well controlled at this time, high values likely due to intermittent agitation
-Stopped Norvasc 5 mg daily
-consider resumption of Coreg depending on BP off Norvasc
-monitor and titrate antihypertensive regimen as tolerated
-given falls and dementia would avoid aggressively treating hypertension.
#Former alcohol abuse
Stopped 2022 drank greater than 2 glasses a day per
#Insomnia
-Continue melatonin at bedtime
#History of colon cancer with resection of [facility] 2018
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
#BPH
-Continue Flomax 0.4 mg at bedtime
Small stage 2 L coccyx buttocks pressure injury.�
New small open area on R sacrum (see wound note (dated 09/29/23) from Kathrin Love)
-cont local wound care.
DVT prophylaxis
SCDs
DNR
Anticipated Discharge: > 48 hours
Subjective/Interval History
-
Date of Service: October 03, 2023
Patient was seen and examined. He was sitting up in his chair, appeared comfortable, still agitated at times.
Objective Data
-
Vital Signs:
Vital Signs
Temp Pulse Resp BP Pulse Ox
98.0 F 65 18 165/92 96
10/03/23 16:00 10/03/23 16:00 10/03/23 16:00 10/03/23 16:00 10/03/23 16:00
I&O
10/02/23 10/03/23 10/04/23
06:59 06:59 06:59
Intake Total 720 / 720 1500 / 1500
Balance 720 / 720 1500 / 1500
[2023-10-03] MEDS: DEPAKOTE SPRINKLE PO (18:06)
--- NOTE | 2023-10-03 18:37 | PTCARENOTE ---
Pt without incident of aggression throughout shift.
[2023-10-03] MEDS: MELATONIN 5 MG PO (21:41)
[2023-10-03] MEDS: FLOMAX 0.400000000000000022 MG PO (21:45)
[2023-10-03 23:00] VITALS: BP 174/89
[2023-10-04 07:05] VITALS: BP 89/66
[2023-10-04 07:10] VITALS: BP 163/93
[2023-10-04] MEDS: ZYRTEC 10 MG PO (07:27)
[2023-10-04] MEDS: VIBRAMYCIN 100 MG PO ×2 (07:27→21:26)
[2023-10-04] MEDS: ASPIR LOW (ENTERIC COATED) 81 MG PO (07:28)
[2023-10-04] MEDS: ATIVAN 0.5 MG PO ×3 (07:28→21:27)
[2023-10-04] MEDS: DEPAKOTE SPRINKLE 250 MG PO ×4 (07:28→21:27)
[2023-10-04] MEDS: HYDROPHOR 1 APPLIC TOPICAL (07:29)
[2023-10-04] MEDS: DESENEX/MITRAZOL/ZEASORB 1 APPLIC TOPICAL ×2 (07:29→21:29)
[2023-10-04] MEDS: SEROQUEL 50 MG PO ×4 (07:35→21:29)
--- NOTE | 2023-10-04 08:30 | PTCARENOTE ---
Received pt. at 0700, pt. sleeping. Pt. woke at 0720, immediately tried to get OOB. Pt. incontinent of urine. This nurse and PCT changed pt. brief, pt. incorporative, pushed back on and grabbed staff. Pt. heavy assist to chair, unsteady on feet. Pt.
relaxed in chair for 30 minutes, then attempted to get up. Pt. assisted back to bed. Pt. sleeping at this time.
--- NOTE | 2023-10-04 11:55 | PTCARENOTE ---
Pt. woke up at 11:15, immediately attempted to get OOB. Pt. incontinent of urine. This nurse and PCT changed pt. brief. Pt. uncooperative, still attempting to get OOB, pushing back on/grabbing staff and swung fist towards staff, missed and punched
the bedside rail. Pt. sat on bedside, this nurse fed pt. as pt. unable to feed self at this time. Pt. then wanting to get OOB, this nurse tried to direct pt. to chair, attempts unsuccessful. Pt. stated to this nurse, 'you're bitchy'. This nurse
called for assistance from another staff nurse at this time for help getting pt. back to bed. Pt. settled in bed at this time, falling asleep.
--- NOTE | 2023-10-04 12:01 | W.PN.UPDATE ---
Update Note
Progress Note Update
Patient seen for follow-up. Known to me from a previous admission and chart reviewed. He is asleep in bed; had been agitated earlier per staff. A valproate level was 64.4 on 09/30/23. He continues on Seroquel 50 mg. QID, Ativan, Depakote and
melatonin. No changes in medications. Psych will follow.
[2023-10-04 16:08] VITALS: BP 153/93
--- NOTE | 2023-10-04 17:35 | W.PN.HOSP.TC ---
Today's Communication/Plan
-
Continue current management
Discharge planning
Assessment / Plan
Assessment / Plan
Physical Exam
General: Well Developed, Well Nourished and No Apparent Distress
HEENT: Normocephalic and Atraumatic
Respiratory: Clear to Auscultation
Cardiac: Regular Rhythm and S1/S2
GI: Soft, Nontender and Nondistended. Positive bowel sounds.
Musculoskeletal: No Cyanosis and No Edema
Skin: erythematous lesions lateral torso upper arms b/l signs of scratching, dry skin, right lower extremity papular rash
Neuro: Awake alert paucity of speech
Psych: Confused. Calm cooperative
Assessment/Plan
#Recurrent falls - reported 17 falls (in the 2 to 3 weeks prior to admission) per NH staff
-most likely multifactorial and associated with advance dementia
-fall precautions
-PT/OT, eventual SNF
-psychotropic med adjustment per psychiatry -Rash noted at time of admission to hospital (POA) possible drug rash Zyprexa, Lamictal, and Amlodipine stopped.
#Agitation/Dementia
- Zyprexa Lamictal discontinued as above
-Ativan and Seroquel increased to 0.5 mg tid and 50 mg QID, respectively
-Citalopram discontinued on 09/07/23 as per psychiatry
-Continue 1:1 as per psych, depakote started 09/26/23 - depakote increased on 10/02/23 - appreciate psychiatry assistance with this
Depakote lvl, repeat labwork 09.30
#Left elbow skin tear, right inner thigh bruise secondary to multiple falls
-Consulted wound care, recommendations appreciated
-improving
#Skin rash left and right lateral trunk unclear etiology -
-s/p Keflex course. Rash improved as above
-steroids discontinued as above
-switched to Aquaphor for dry skin itching, small dot like lesions likely due to scratching dry skin irritation
-hydroxyzine taper as per psych
-desenex back suspect bed rash
#New Rash on R flank/R posterior LE - likely Folliculitis
#Pruritus
-Emollients for the dry skin
-Cetirizine
-See wound note (dated 09/29/23) from Kathrin Love
-Appears to be papular rash
-No dowel inspector on-call: doxycycline x 7 days and improve hygiene if safe/feasible - daily bathing and sheet changes
-Consulted ID, recommendations appreciated
#Alzheimer's Dementia�advanced
-Supportive care
#Afib
-not candidate for AC 09/05 falls
-rate OK off of Coreg
Bradycardia - RESOLVED
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
#Anemia-macrocytic
Hgb 13.5 on 09/12 was 11.12 June 2023
#Hypertension�benign
-BP ranges widely, relatively well controlled at this time, high values likely due to intermittent agitation
-Stopped Norvasc 5 mg daily
-consider resumption of Coreg depending on BP off Norvasc
-monitor and titrate antihypertensive regimen as tolerated
-given falls and dementia would avoid aggressively treating hypertension.
#Former alcohol abuse
Stopped 2022 drank greater than 2 glasses a day per
#Insomnia
-Continue melatonin at bedtime
#History of colon cancer with resection of [facility] 2018
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
#BPH
-Continue Flomax 0.4 mg at bedtime
Small stage 2 L coccyx buttocks pressure injury.�
New small open area on R sacrum (see wound note (dated 09/29/23) from Kathrin Love)
-cont local wound care.
DVT prophylaxis
SCDs
DNR
Anticipated Discharge: > 48 hours
Subjective/Interval History
-
Date of Service: October 04, 2023
Patient was seen and examined. Some agitation on and off overnight.
Objective Data
-
Vital Signs:
Vital Signs
Temp Pulse Resp BP Pulse Ox
98.3 F 83 18 153/93 97
10/04/23 16:08 10/04/23 16:08 10/04/23 16:08 10/04/23 16:08 10/04/23 16:08
I&O
10/03/23 10/04/23 10/05/23
06:59 06:59 06:59
Intake Total 1500 / 1500 480 / 480
Balance 1500 / 1500 480 / 480
--- NOTE | 2023-10-04 18:14 | PTCARENOTE ---
Pt. awake from [id number], during this time visited and fed pt. a late lunch. Pt. cooperative during this time with no attempts to get OOB. Pt. fell back to sleep at 1630 and woke again at 1730. Pt. incontinent of urine at this time. This nurse
and PCT changed pt. brief, during personal care pt. pushed back against staff. Pt. dinner tray arrived at 1745, pt. agreeable to eat dinner at this time. This nurse assisted pt. with meal. Oral care provide post meal. Pt. fell back to sleep at 1810.
Pt. did not attempt to get OOB during this wake time.
[2023-10-04] MEDS: FLOMAX 0.400000000000000022 MG PO (21:26)
[2023-10-04] MEDS: MELATONIN 5 MG PO (21:26)
[2023-10-04 23:34] VITALS: BP 141/79
[2023-10-05 06:53] VITALS: BP 169/84
[2023-10-05] MEDS: SEROQUEL 50 MG PO ×3 (07:50→16:52)
[2023-10-05] MEDS: ZYRTEC 10 MG PO (07:50)
[2023-10-05] MEDS: ASPIR LOW (ENTERIC COATED) 81 MG PO (07:50)
[2023-10-05] MEDS: DEPAKOTE SPRINKLE 250 MG PO ×4 (07:51→21:42)
[2023-10-05] MEDS: VIBRAMYCIN 100 MG PO ×2 (07:51→19:58)
[2023-10-05] MEDS: ATIVAN 0.5 MG PO ×3 (07:51→21:42)
[2023-10-05] MEDS: HYDROPHOR 1 APPLIC TOPICAL (07:52)
[2023-10-05] MEDS: DESENEX/MITRAZOL/ZEASORB 1 APPLIC TOPICAL ×2 (07:52→19:57)
--- NOTE | 2023-10-05 15:00 | W.PN.UPDATE ---
Update Note
Progress Note Update
Patient with advanced dementia and behavioral disturbance seen for follow-up. He was again asleep peacefully. While agitation seems to be controlled now, he is so sedated he has not been eating and sleeps most of the day.
I will reduce Seroquel from 50 mg. QID to 50 mg. TID. He has labs ordered by hospitalist tomorrow and valproate level ordered by Dr. Dixon for 10/07/23.
Psychiatry will follow.
--- NOTE | 2023-10-05 17:11 | W.PN.HOSP.TC ---
Today's Communication/Plan
-
Placement pending
Seroquel frequency reduced
Assessment / Plan
Assessment / Plan
Physical Exam
General: Well Developed, Well Nourished and No Apparent Distress
HEENT: Normocephalic and Atraumatic
Respiratory: Clear to Auscultation
Cardiac: Regular Rhythm and S1/S2
GI: Soft, Nontender and Nondistended. Positive bowel sounds.
Musculoskeletal: No Cyanosis and No Edema
Skin: erythematous lesions lateral torso upper arms b/l signs of scratching, dry skin, right lower extremity papular rash
Neuro: Awake alert paucity of speech
Psych: Confused. Calm cooperative
Assessment/Plan
#Recurrent falls - reported 17 falls (in the 2 to 3 weeks prior to admission) per NH staff
-most likely multifactorial and associated with advance dementia
-fall precautions
-PT/OT, eventual SNF
-psychotropic med adjustment per psychiatry -Rash noted at time of admission to hospital (POA) possible drug rash Zyprexa, Lamictal, and Amlodipine stopped.
#Agitation/Dementia
- Zyprexa Lamictal discontinued as above
-Ativan increased to 0.5 mg tid previously. Seroquel was increased to 50 mg QID but now reduced to 50 mg TID.
-Citalopram discontinued on 09/07/23 as per psychiatry
-Continue 1:1 as per psych, Depakote started 09/26/23 - Depakote increased on 10/02/23 - appreciate psychiatry assistance with this
Depakote lvl, repeat labwork 09.30
#Left elbow skin tear, right inner thigh bruise secondary to multiple falls
-Consulted wound care, recommendations appreciated
-improving
#Skin rash left and right lateral trunk unclear etiology -
-s/p Keflex course. Rash improved as above
-steroids discontinued as above
-switched to Aquaphor for dry skin itching, small dot like lesions likely due to scratching dry skin irritation
-hydroxyzine taper as per psych
-desenex back suspect bed rash
#New Rash on R flank/R posterior LE - likely Folliculitis
#Pruritus
-Emollients for the dry skin
-Cetirizine
-See wound note (dated 09/29/23) from Kathrin Love
-Appears to be papular rash
-No farm rancher on-call: doxycycline x 7 days and improve hygiene if safe/feasible - daily bathing and sheet changes
-Consulted ID, recommendations appreciated
#Alzheimer's Dementia�advanced
-Supportive care
#Afib
-not candidate for AC 09/05 falls
-rate OK off of Coreg
Bradycardia - RESOLVED
-CHILD PSYCHOLOGIST Coreg stopped
#Anemia-macrocytic
Hgb 13.5 on 09/12 was 11.12 June 2023
#Hypertension�benign
-BP ranges widely, relatively well controlled at this time, high values likely due to intermittent agitation
-Stopped Norvasc 5 mg daily
-consider resumption of Coreg depending on BP off Norvasc
-monitor and titrate antihypertensive regimen as tolerated
-given falls and dementia would avoid aggressively treating hypertension.
#Former alcohol abuse
Stopped 2022 drank greater than 2 glasses a day per
#Insomnia
-Continue melatonin at bedtime
#History of colon cancer with resection of [facility] 2018
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
#BPH
-Continue Flomax 0.4 mg at bedtime
Small stage 2 L coccyx buttocks pressure injury.�
New small open area on R sacrum (see wound note (dated 09/29/23) from Kathrin Love)
-cont local wound care.
DVT prophylaxis
SCDs
DNR
Anticipated Discharge: > 48 hours
Subjective/Interval History
-
Date of Service: October 05, 2023
Patient was seen and examined. He was agitated at times overnight.
Objective Data
-
Vital Signs:
Vital Signs
Temp Pulse Resp BP Pulse Ox
97.7 F 68 16 169/84 97
10/05/23 06:53 10/05/23 06:53 10/05/23 06:53 10/05/23 06:53 10/05/23 08:43
I&O
10/04/23 10/05/23 10/06/23
06:59 06:59 06:59
Intake Total 480 / 480 540 / 540
Output Total 100 / 100
Balance 480 / 480 440 / 440
[2023-10-05] MEDS: FLOMAX 0.400000000000000022 MG PO (19:59)
[2023-10-05] MEDS: MELATONIN 5 MG PO (21:40)
[2023-10-05] MEDS: CALAMINE LOTION 5 ML TOPICAL (23:00)
[2023-10-05 23:29] VITALS: BP 153/90
[2023-10-06 05:55] LABS: % Eosinophils 4.2 % (0-6); % Immature Granulocytes 0.7 % (0-0.5); % Lymphocytes 22.5 % (20.5-51.1); % Monocytes 9.2 % (1.7-9.3); % Neutrophils 62.4 % (42.2-75.2); Absolute Basophils 0.1 10^3/uL (0-0.2); Absolute Eosinophils 0.3 10^3/uL (0-0.7); Absolute Lymphocytes 1.4 10^3/uL (1.2-3.4); Absolute Monocytes 0.6 10^3/uL (0.1-0.6); Absolute Neutrophils 3.7 10^3/uL (1.4-6.5); Hematocrit 44.8 % (39.0-52.0); Hemoglobin 15.5 g/dL (13.0-18.0); Mean Corp Hgb Conc. 34.6 g/dL (33.0-37.0); Mean Corpuscular Hgb 31.9 pg (27.0-31.0); Mean Corpuscular Volume 92.2 fL (80.0-94.0); Mean Platelet Volume 9.6 fL (7.4-10.4); Nucleated Red Blood Cells % 0 % (-); Platelet Count 105 10^3/uL (130-400); Red Blood Cell Count 4.86 10^6/uL (4.70-6.10); Red Cell Dist. Width 13.1 % (11.5-14.5)
[2023-10-06 06:17] LABS: ALT (SGPT) 19 U/L (0-50); AST (SGOT) 30 U/L (17-59); Albumin 3.9 g/dl (3.5-5.0); Alkaline Phosphatase 50 U/L (38-126); Blood Urea Nitrogen 20 mg/dl (9-20); Calcium 9.6 mg/dl (8.4-10.2); Carbon Dioxide 29 mmol/L (22-30); Chloride 104 mmol/L (98-107); Estimated Creatinine Clearance 77 ml/min; Glucose 83 mg/dl (70-99); Magnesium 2.2 mg/dl (1.6-2.3); Phosphorus 3.8 mg/dl (2.5-4.5); Potassium 4.1 mmol/L (3.5-5.1); Sodium 140 mmol/L (135-145); Total Bilirubin 0.8 mg/dl (0.2-1.3); Total Protein 6.6 g/dl (6.3-8.2); eGFR > 60.00
--- NOTE | 2023-10-06 06:17 | PTCARENOTE ---
At beginning of shift, pt was uncooperative w/care and turning, requiring 3 people due to his resistance and grabbing @ staff. Since 2099 has been calm and has not resisted incontinence care and turning. Slept most of night.
[2023-10-06] MEDS: CALAMINE LOTION 5 ML TOPICAL (06:25)
--- NOTE | 2023-10-06 06:50 | W.PN.HOSP.TC ---
Today's Communication/Plan
-
cont Seroquel 1:1 as as per psych
placement pending
Assessment / Plan
Assessment / Plan
Physical Exam
General: Well Developed, Well Nourished and No Apparent Distress
HEENT: Normocephalic and Atraumatic
Respiratory: Clear to Auscultation
Cardiac: Regular Rhythm and S1/S2
GI: Soft, Nontender and Nondistended. Positive bowel sounds.
Musculoskeletal: No Cyanosis and No Edema
Skin: erythematous lesions lateral torso upper arms b/l signs of scratching, dry skin, right lower extremity papular rash
Neuro: sleeping arousable
Psych: Calm
Assessment/Plan
#Recurrent falls - reported 17 falls (in the 2 to 3 weeks prior to admission) per NH staff
-most likely multifactorial and associated with advance dementia
-fall precautions
-PT/OT, eventual SNF
-psychotropic med adjustment per psychiatry -Rash noted at time of admission to hospital (POA) possible drug rash Zyprexa, Lamictal, and Amlodipine stopped.
#Agitation/Dementia
- Zyprexa Lamictal discontinued as above
-Ativan increased to 0.5 mg tid previously. Seroquel was increased to 50 mg QID but now reduced to 50 mg TID.
-Citalopram discontinued on 09/07/23 as per psychiatry
-Continue 1:1 as per psych, Depakote started 09/26/23 - Depakote increased on 10/02/23 - appreciate psychiatry assistance with this
Depakote lvl, repeat labwork 09.30
#Left elbow skin tear, right inner thigh bruise secondary to multiple falls
-Consulted wound care, recommendations appreciated
-improving
#Skin rash left and right lateral trunk unclear etiology -
-s/p Keflex course. Rash improved as above
-steroids discontinued as above
-switched to Aquaphor for dry skin itching, small dot like lesions likely due to scratching dry skin irritation
-hydroxyzine taper as per psych
-desenex back suspect bed rash
#New Rash on R flank/R posterior LE - likely Folliculitis
#Pruritus
-Emollients for the dry skin
-Cetirizine
-See wound note (dated 09/29/23) from Kathrin Love
-Appears to be papular rash
-No cane stripper on-call: doxycycline x 7 days and improve hygiene if safe/feasible - daily bathing and sheet changes
-Consulted ID, recommendations appreciated
#Alzheimer's Dementia�advanced
-Supportive care
#Afib
-not candidate for AC 09/05 falls
-rate OK off of Coreg
Bradycardia - RESOLVED
-CALL TAKER Coreg stopped
#Anemia-macrocytic
Hgb 13.5 on 09/12 was 11.12 June 2023
#Hypertension�benign
-BP ranges widely, relatively well controlled at this time, high values likely due to intermittent agitation
-Stopped Norvasc 5 mg daily
-consider resumption of Coreg depending on BP off Norvasc
-monitor and titrate antihypertensive regimen as tolerated
-given falls and dementia would avoid aggressively treating hypertension.
#Former alcohol abuse
Stopped 2022 drank greater than 2 glasses a day per
#Insomnia
-Continue melatonin at bedtime
#History of colon cancer with resection of [facility] 2018
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
#BPH
-Continue Flomax 0.4 mg at bedtime
Small stage 2 L coccyx buttocks pressure injury.�
New small open area on R sacrum (see wound note (dated 09/29/23) from Kathrin Love)
-cont local wound care.
DVT prophylaxis
SCDs
DNR
I spent a total of 50 minutes with the patient or on the floor. More than 50% of this time involved counseling and coordination of care.
Anticipated Discharge: 24 - 48 hours
Subjective/Interval History
-
Date of Service: October 06, 2023
sleeping off restraints remains on 1:1 no acute issues at this time.
Objective Data
-
Labs:
Laboratory Results
10/06/23
05:25
WBC 6.0
Hgb 15.5
Hct 44.8
Plt Count 105 L
Sodium 140
Potassium 4.1
Chloride 104
Carbon Dioxide 29
BUN 20
Creatinine 0.8
Glucose 83
Calcium 9.6
Total Bilirubin 0.8
AST 30
ALT 19
Alkaline Phosphatase 50
Vital Signs:
Vital Signs
Temp Pulse Resp BP Pulse Ox
97.7 F 84 18 153/90 94
10/05/23 23:29 10/05/23 23:29 10/05/23 23:29 10/05/23 23:29 10/05/23 23:29
I&O
10/04/23 10/05/23 10/06/23
06:59 06:59 06:59
Intake Total 480 / 480 540 / 540 75 / 75
Output Total 100 / 100
Balance 480 / 480 440 / 440 75 / 75
[2023-10-06] MEDS: ASPIR LOW (ENTERIC COATED) 81 MG PO (07:00)
[2023-10-06] MEDS: DEPAKOTE SPRINKLE 250 MG PO ×4 (07:01→20:23)
[2023-10-06] MEDS: SEROQUEL 50 MG PO ×3 (07:01→16:11)
[2023-10-06] MEDS: ATIVAN 0.5 MG PO ×3 (07:01→20:23)
[2023-10-06] MEDS: VIBRAMYCIN 100 MG PO ×2 (07:02→20:23)
[2023-10-06] MEDS: ZYRTEC 10 MG PO (07:02)
[2023-10-06] MEDS: DESENEX/MITRAZOL/ZEASORB 1 APPLIC TOPICAL ×2 (07:03→20:23)
[2023-10-06] MEDS: HYDROPHOR 1 APPLIC TOPICAL (07:04)
[2023-10-06 07:39] VITALS: BP 170/92
--- NOTE | 2023-10-06 11:01 | CM ---
nurse unit manager reviewed patient's chart and provided updated clinical to admissions at [facility], [facility], and [facility].
Plan; Continuing to look for skilled placement for patient.
[2023-10-06 16:30] VITALS: BP 155/108
[2023-10-06 18:26] VITALS: BP 158/91
--- NOTE | 2023-10-06 18:33 | PTCARENOTE ---
Pt drowsy. Sleeping intermittently but attempts to stand when rouses awake. Pt unable to stand with max assistance x1. Garbled speech. Full bed bath performed with shampoo cap and face shaved. Linens changed. No episodes of aggression observed this
shift.
[2023-10-06 20:17] VITALS: BP 171/92
[2023-10-06] MEDS: COREG 3.125 MG PO (20:22)
[2023-10-06] MEDS: MELATONIN 5 MG PO (20:22)
[2023-10-06] MEDS: FLOMAX 0.400000000000000022 MG PO (20:22)
[2023-10-07 04:57] VITALS: BP 163/86
--- NOTE | 2023-10-07 07:53 | W.PN.HOSP.TC ---
Today's Communication/Plan
-
cont seroquel depakote as per psych
monitor off 1:1
cont Coreg with holding parameters
Discharge planning SNF rehab
Assessment / Plan
Assessment / Plan
Physical Exam
General: Well Developed, Well Nourished and No Apparent Distress
HEENT: Normocephalic and Atraumatic
Respiratory: Clear to Auscultation
Cardiac: Regular Rhythm and S1/S2
GI: Soft, Nontender and Nondistended. Positive bowel sounds.
Musculoskeletal: No Cyanosis and No Edema
Skin: erythematous lesions lateral torso upper arms b/l signs of scratching, dry skin, right lower extremity papular rash
Neuro: sleeping arousable
Psych: Calm
Assessment/Plan
#Recurrent falls - reported 17 falls (in the 2 to 3 weeks prior to admission) per NH staff
-most likely multifactorial and associated with advance dementia
-fall precautions
-PT/OT, eventual SNF
-psychotropic med adjustment per psychiatry -Rash noted at time of admission to hospital (POA) possible drug rash Zyprexa, Lamictal, and Amlodipine stopped.
#Agitation/Dementia
- Zyprexa Lamictal discontinued as above
-Ativan increased to 0.5 mg tid previously. Seroquel was increased to 50 mg QID but now reduced to 50 mg TID.
-Citalopram discontinued on 09/07/23 as per psychiatry
-Depakote started 09/26/23 - Depakote increased on 10/02/23 as per psych
-psych eval appreciated 1:1 discontinued 10/06
depakote lvls stable therapeutic Tu Morning 09/30and 10/06
#Left elbow skin tear, right inner thigh bruise secondary to multiple falls
-Consulted wound care, recommendations appreciated
-improving
#Skin rash left and right lateral trunk unclear etiology -
-s/p Keflex course. Rash improved as above
-steroids discontinued as above
-switched to Aquaphor for dry skin itching, small dot like lesions likely due to scratching dry skin irritation
-hydroxyzine taper as per psych
-desenex back suspect bed rash
#New Rash on R flank/R posterior LE - likely Folliculitis
#Pruritus
-Emollients for the dry skin
-Cetirizine
-See wound note (dated 09/29/23) from Kathrin Love
-Appears to be papular rash
-hygiene if safe/feasible - daily bathing and sheet changes
-ID consult appreciated doxycycline x 7 days completed, rash since improved
#Alzheimer's Dementia�advanced
-Supportive care
#Afib
-not candidate for AC 09/05 falls
-cont coreg
Bradycardia - RESOLVED
-FIELD ADJUSTER Coreg stopped, since resumed reduced dosage
#Anemia-macrocytic
Hgb 13.5 on 09/12 was 11.12 June 2023
#Hypertension�benign
-BP ranges widely, relatively well controlled at this time, high values likely due to intermittent agitation
-Stopped Norvasc 5 mg daily
-Coreg resumed reduced dose, tolerating well
-monitor and titrate antihypertensive regimen as tolerated
-given falls and dementia would avoid aggressively treating hypertension.
#Former alcohol abuse
Stopped 2022 drank greater than 2 glasses a day per
#Insomnia
-Continue melatonin at bedtime
#History of colon cancer with resection of [facility] 2018
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
#BPH
-Continue Flomax 0.4 mg at bedtime
Small stage 2 L coccyx buttocks pressure injury.�
New small open area on R sacrum (see wound note (dated 09/29/23) from Kathrin Lvoe)
-cont local wound care.
DVT prophylaxis
SCDs
DNR
I spent a total of 55 minutes with the patient or on the floor. More than 50% of this time involved counseling and coordination of care.
Anticipated Discharge: 24 - 48 hours
Subjective/Interval History
-
Date of Service: October 07, 2023
Sleeping no acute distress appears comfortable at this time. easily arousable.
Objective Data
-
Vital Signs:
Vital Signs
Temp Pulse Resp BP Pulse Ox
98.5 F 76 18 163/86 96
10/06/23 20:17 10/06/23 20:17 10/06/23 20:17 10/07/23 04:57 10/06/23 20:17
I&O
10/06/23 10/07/23 10/08/23
06:59 06:59 06:59
Intake Total 75 / 75 120 / 120
Balance 75 / 75 120 / 120
[2023-10-07 07:55] VITALS: BP 116/112
[2023-10-07] MEDS: ATIVAN 0.5 MG PO ×3 (08:54→21:38)
[2023-10-07] MEDS: SEROQUEL 50 MG PO ×3 (08:55→18:00)
[2023-10-07] MEDS: COREG 3.125 MG PO ×2 (08:55→21:30)
[2023-10-07] MEDS: VIBRAMYCIN 100 MG PO (08:55)
[2023-10-07] MEDS: DEPAKOTE SPRINKLE 250 MG PO ×4 (08:55→21:36)
[2023-10-07] MEDS: ZYRTEC 10 MG PO (08:55)
[2023-10-07] MEDS: ASPIR LOW (ENTERIC COATED) 81 MG PO (08:55)
[2023-10-07] MEDS: HYDROPHOR 1 APPLIC TOPICAL (08:56)
[2023-10-07] MEDS: DESENEX/MITRAZOL/ZEASORB 1 APPLIC TOPICAL ×2 (08:56→21:37)
[2023-10-07 10:25] LABS: Depakane 85.6 ug/ml (50.0-120.0)
--- NOTE | 2023-10-07 10:34 | W.PN.UPDATE ---
Update Note
Progress Note Update
Patient seen at bedside resting comfortably and calmly, reviewed chart, discussed with staff. Mr. Ramirez was reportedly agitated this AM for morning care requiring 2 staff members to redirect and calm him but no PRNS were needed. He remains
impulsive and tries to get out of bed at times. Currently, he is not on a 1:1. DC planning efforts continue.
Impression/Plan:� Dementia, advanced, with intermittent behavioral disturbance/agitation which is typical progression of dementia - 1: 1 has been discontinued at this time, he is in private room close to nursing station, continue efforts to ensure
his safety. VPA level stable at 85.6 on 10/07/23. Continue Seroquel 50mg TID (decreased for oversedation), Ativan 0.5mg TID, and Depakote 25.mg TID.�
--- NOTE | 2023-10-07 12:54 | CM ---
CM following re: discharge planning.
Reviewed pt's chart. Per RN noted, pt has not been having aggressive behaviors since yesterday, off 1:1 since yesterday.
CM spoke to [facility] SNF liaison, updated on pt's progress and she will meet with the pt tomorrow to decide whether or not they will be able to offer a bed.
CM spoke to [facility] liaison Sona and she stated that [facility] has a memory care unit and they are looking for to accept the pt. per Sona, [facility] staff will talk to pt's RN to have more information regarding pt's
behavior.
D/C plan: SNF that can accept the pt. Most likely [facility].
CM will follow with discharge plan updates as hospitalization progresses
[2023-10-07 15:10] VITALS: BP 128/72
[2023-10-07] MEDS: FLOMAX 0.400000000000000022 MG PO (21:36)
[2023-10-07] MEDS: MELATONIN 5 MG PO (21:36)
[2023-10-07 22:30] VITALS: BP 143/82
[2023-10-08 07:30] VITALS: BP 132/84
--- NOTE | 2023-10-08 08:08 | W.PN.HOSP.TC ---
Today's Communication/Plan
-
Medically stable for discharge pending placement
Assessment / Plan
Assessment / Plan
Physical Exam
General: Well Developed, Well Nourished and No Apparent Distress
HEENT: Normocephalic and Atraumatic
Respiratory: Clear to Auscultation
Cardiac: Regular Rhythm and S1/S2
GI: Soft, Nontender and Nondistended. Positive bowel sounds.
Musculoskeletal: No Cyanosis and No Edema
Skin: erythematous lesions lateral torso upper arms b/l signs of scratching, dry skin, right lower extremity papular rash (improved)
Neuro: sleeping arousable
Psych: Calm
Assessment/Plan
#Recurrent falls - reported 17 falls (in the 2 to 3 weeks prior to admission) per NH staff
-most likely multifactorial and associated with advance dementia
-fall precautions
-PT/OT, eventual SNF
-psychotropic med adjustment per psychiatry -Rash noted at time of admission to hospital (POA) possible drug rash Zyprexa, Lamictal, and Amlodipine stopped.
#Agitation/Dementia
- Zyprexa Lamictal discontinued as above
-Ativan increased to 0.5 mg tid previously. Seroquel was increased to 50 mg QID but now reduced to 50 mg TID.
-Citalopram discontinued on 09/07/23 as per psychiatry
-Depakote started 09/26/23 - Depakote increased on 10/02/23 as per psych
-psych eval appreciated 1:1 discontinued 10/06
depakote lvls stable therapeutic Tu Morning 09/30and 10/06
#Left elbow skin tear, right inner thigh bruise secondary to multiple falls
-Consulted wound care, recommendations appreciated
-improving
#Skin rash left and right lateral trunk unclear etiology -
-s/p Keflex course. Rash improved as above
-steroids discontinued as above
-switched to Aquaphor for dry skin itching, small dot like lesions likely due to scratching dry skin irritation
-hydroxyzine taper as per psych
-desenex back suspect bed rash
#New Rash on R flank/R posterior LE - likely Folliculitis
#Pruritus
-Emollients for the dry skin
-Cetirizine
-See wound note (dated 09/29/23) from Kathrin Love
-Appears to be papular rash
-hygiene if safe/feasible - daily bathing and sheet changes
-ID consult appreciated doxycycline x 7 days completed, rash since improved
#Alzheimer's Dementia�advanced
-Supportive care
#Afib
-not candidate for AC 09/05 falls
-cont coreg
Bradycardia - RESOLVED
-CPC CODER Coreg stopped, since resumed reduced dosage
#Anemia-macrocytic
Hgb 13.5 on 09/12 was 11.12 June 2023
#Hypertension�benign
-BP ranges widely, relatively well controlled at this time, high values likely due to intermittent agitation
-Stopped Norvasc 5 mg daily
-Coreg resumed reduced dose, tolerating well
-monitor and titrate antihypertensive regimen as tolerated
-given falls and dementia would avoid aggressively treating hypertension.
#Former alcohol abuse
Stopped 2022 drank greater than 2 glasses a day per
#Insomnia
-Continue melatonin at bedtime
#History of colon cancer with resection of [facility] 2018
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
#BPH
Continue Flomax 0.4 mg at bedtime
Small stage 2 L coccyx buttocks pressure injury.�
cont local wound care
DVT prophylaxis
SCDs
DNR
I spent a total of 50 minutes with the patient or on the floor. More than 50% of this time involved counseling and coordination of care.
Anticipated Discharge: 24 - 48 hours
Subjective/Interval History
-
Date of Service: October 08, 2023
No acute distress. Comfortable. Off to 1:1
Objective Data
-
Vital Signs:
Vital Signs
Temp Pulse Resp BP Pulse Ox
97.4 F 81 18 143/82 96
10/07/23 22:30 10/07/23 22:30 10/07/23 22:30 10/07/23 22:30 10/07/23 22:30
I&O
10/07/23 10/08/23 10/09/23
06:59 06:59 06:59
Intake Total 120 / 120 1110 / 1110
Balance 120 / 120 1110 / 1110
[2023-10-08] MEDS: SEROQUEL 50 MG PO ×2 (10:05→17:33)
[2023-10-08] MEDS: ASPIR LOW (ENTERIC COATED) 81 MG PO (10:06)
[2023-10-08] MEDS: DEPAKOTE SPRINKLE 250 MG PO ×3 (10:06→21:07)
[2023-10-08] MEDS: ZYRTEC 10 MG PO (10:06)
[2023-10-08] MEDS: COREG 3.125 MG PO ×2 (10:06→20:19)
[2023-10-08] MEDS: ATIVAN 0.5 MG PO ×3 (10:07→21:07)
[2023-10-08] MEDS: HYDROPHOR 1 APPLIC TOPICAL (10:13)
[2023-10-08] MEDS: DESENEX/MITRAZOL/ZEASORB 1 APPLIC TOPICAL ×2 (10:14→20:21)
--- NOTE | 2023-10-08 10:50 | WOUNDNOTE ---
SACRAL/BUTTOCKS (with photo flash)
--- NOTE | 2023-10-08 10:54 | WOUNDNOTE ---
WOC RN note: Patient's sacral/buttocks stage 2 pressure injuries appear newly healed. Body rash improved from last week. Moisture cream/ointment and Calamine lotion being used. Silicone border foam applied to sacrum. Patient turned with help from
nurse Dagoberto. Skin on heels intact. Patient is on a Getable air bed and has an air chair cushion. Appetite remains good. Will follow as needed.
--- NOTE | 2023-10-08 11:46 | W.PN.UPDATE ---
Update Note
Progress Note Update
patient seen chart reviewed. mr celeste was resting w quietly when seen. noted that seroquel was cut back to tid over the weekend bc of sedation. spoke with dr almaraz using tiger text about that change. unfortunately a middle ground between sedation
and awake/appropriate/calm has not been able to be found during his stay. on a + note he is not on one to one at this point and also has not required a prn in several days. depakote level is in the 80's he has not required a prn of ativan since
2.28. psych will continue to see him periodically.
[2023-10-08] MEDS: DEPAKOTE SPRINKLE PO (13:00)
[2023-10-08] MEDS: SEROQUEL PO (13:00)
[2023-10-08 15:15] VITALS: BP 140/78
--- NOTE | 2023-10-08 15:39 | CM ---
Addendum entered by Teresita Vizcarra 10/08/23 16:29:
CM spoke with Sona from [facility], nurse will be coming out tomorrow to evaluate patient. CM spoke with patients daughter, discussed patient to be evaluated tomorrow. Daughter requesting referrals be sent out to previous facilities as patient is
no longer on 1:1, additional referrals sent in [facility]. CM placed call to [facility] Supervisor Cloth Winding, Myriam [phone], unable to leave message.
Original Note:
CM spoke to [facility] liaison Sona and she stated that she is having her nurse review clinicals now to see if they are able to accept patient, will call CM back. CM spoke with Ludivina at [facility], unable to accept patient due to
patients behaviors, as they do not have a locked unit or the staff to care for patients behaviors. CM will continue to follow for discharge planning needs.
D/C plan: SNF that can accept the patient. Most likely [facility]. Patient off 1:1
[2023-10-08] MEDS: MELATONIN 5 MG PO (21:06)
[2023-10-08] MEDS: FLOMAX 0.400000000000000022 MG PO (21:06)
--- NOTE | 2023-10-09 07:15 | W.PN.HOSP.TC ---
Today's Communication/Plan
-
Medically stable for discharge pending placement
Assessment / Plan
Assessment / Plan
Physical Exam
General: Well Developed, Well Nourished and No Apparent Distress
HEENT: Normocephalic and Atraumatic
Respiratory: Clear to Auscultation
Cardiac: Regular Rhythm and S1/S2
GI: Soft, Nontender and Nondistended. Positive bowel sounds.
Musculoskeletal: No Cyanosis and No Edema
Skin: erythematous lesions lateral torso upper arms b/l signs of scratching, dry skin, right lower extremity papular rash (improved)
Neuro: sleeping arousable
Psych: Calm
Assessment/Plan
#Recurrent falls - reported 17 falls (in the 2 to 3 weeks prior to admission) per NH staff
-most likely multifactorial and associated with advance dementia
-fall precautions
-PT/OT, eventual SNF
-psychotropic med adjustment per psychiatry -Rash noted at time of admission to hospital (POA) possible drug rash Zyprexa, Lamictal, and Amlodipine stopped.
#Agitation/Dementia
- Zyprexa Lamictal discontinued as above
-Ativan increased to 0.5 mg tid previously. Seroquel was increased to 50 mg QID but now reduced to 50 mg TID.
-Citalopram discontinued on 09/07/23 as per psychiatry
-Depakote started 09/26/23 - Depakote increased on 10/02/23 as per psych
-psych eval appreciated 1:1 discontinued 10/06, occasional medsitter present since then however
depakote lvls stable therapeutic Morning 09/30and 10/06
#Left elbow skin tear, right inner thigh bruise secondary to multiple falls
-Consulted wound care, recommendations appreciated
-improved
#Skin rash left and right lateral trunk unclear etiology -
-s/p Keflex course. Rash improved as above
-steroids discontinued as above
-switched to Aquaphor for dry skin itching, small dot like lesions likely due to scratching dry skin irritation
-hydroxyzine taper as per psych
-desenex for bed rash
#Rash on R flank/R posterior LE - likely Folliculitis
#Pruritus
-Emollients for the dry skin
-Cetirizine
-See wound note (dated 09/29/23) from Kathrin Love
-Appears to be papular rash
-hygiene if safe/feasible - daily bathing and sheet changes
-ID consult appreciated doxycycline x 7 days completed, rash since improved
#Alzheimer's Dementia�advanced
-Supportive care
#Afib
-not candidate for AC 09/05 falls
-cont coreg
Bradycardia - RESOLVED
-ASSISTANT DIRECTOR OF SECURITY Coreg stopped, since resumed reduced dosage
#Anemia-macrocytic
Hgb 13.5 on 09/12 was 11.12 June 2023
#Hypertension�benign
-BP ranges widely, relatively well controlled at this time, high values likely due to intermittent agitation
-Stopped Norvasc 5 mg daily
-Coreg resumed reduced dose, tolerating well
-monitor and titrate antihypertensive regimen as tolerated
-given falls and dementia would avoid aggressively treating hypertension.
#Former alcohol abuse
Stopped 2022 drank greater than 2 glasses a day per
#Insomnia
-Continue melatonin at bedtime
#History of colon cancer with resection of [facility] 2018
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
#BPH
Continue Flomax 0.4 mg at bedtime
Small stage 2 L coccyx buttocks pressure injury.�
cont local wound care
DVT prophylaxis
SCDs
DNR
I spent a total of 40 minutes with the patient or on the floor. More than 50% of this time involved counseling and coordination of care.
Anticipated Discharge: 24 - 48 hours
Subjective/Interval History
-
Date of Service: October 09, 2023
no acute distress. sleeping easily aroused. off 1:1.
Objective Data
-
Vital Signs:
Vital Signs
Temp Pulse Resp BP Pulse Ox
97.8 F 75 18 163/84 99
10/08/23 07:30 10/08/23 20:19 10/08/23 15:15 10/08/23 20:19 10/08/23 15:15
I&O
10/08/23 10/09/23 10/10/23
06:59 06:59 06:59
Intake Total 1110 / 1110 240 / 240
Balance 1110 / 1110 240 / 240
[2023-10-09 08:00] VITALS: BP 175/88
[2023-10-09] MEDS: ASPIR LOW (ENTERIC COATED) 81 MG PO (08:47)
[2023-10-09] MEDS: COREG 3.125 MG PO ×2 (08:47→20:09)
[2023-10-09] MEDS: SEROQUEL 50 MG PO ×3 (08:47→17:02)
[2023-10-09] MEDS: DEPAKOTE SPRINKLE 250 MG PO ×4 (08:47→21:14)
[2023-10-09] MEDS: ZYRTEC 10 MG PO (08:47)
[2023-10-09] MEDS: ATIVAN 0.5 MG PO ×2 (08:49→17:02)
[2023-10-09] MEDS: DESENEX/MITRAZOL/ZEASORB 1 APPLIC TOPICAL ×2 (08:57→20:19)
[2023-10-09] MEDS: HYDROPHOR 1 APPLIC TOPICAL (08:57)
--- NOTE | 2023-10-09 11:05 | W.PN.UPDATE ---
Update Note
Progress Note Update
patient quiet this am. he is off one to one though still has the med sitter. his room had to be changed to accomodate covid patients but he is now very close to nurse's station. he has not received a prn since 10/01. will continue to follow no
changes made in meds today.
--- NOTE | 2023-10-09 14:06 | CM ---
Chart reviewed and case aide met with patient and patient is on med sitter, referrals sent and case aide will reach out to Elder Care Pneumatic Tool Operator caser Myriam [phone] to review any options she may have for placement.
Plan; Patient needs to be off med sitter for skilled placement.
[2023-10-09 16:27] VITALS: BP 133/101
[2023-10-09] MEDS: MELATONIN 5 MG PO (21:14)
[2023-10-09] MEDS: FLOMAX 0.400000000000000022 MG PO (21:14)
[2023-10-09] MEDS: ATIVAN PO (23:01)
[2023-10-10] MEDS: ATIVAN 0.5 MG PO ×2 (06:38→15:52)
--- NOTE | 2023-10-10 07:15 | W.PN.HOSP.TC ---
Today's Communication/Plan
-
Placement remains difficult
Coreg increased for better blood pressure control
Pending Ethics committee meeting
Assessment / Plan
Assessment / Plan
Physical Exam
General: Well Developed, Well Nourished and No Apparent Distress
HEENT: Normocephalic and Atraumatic
Respiratory: Clear to Auscultation
Cardiac: Regular Rhythm and S1/S2
GI: Soft, Nontender and Nondistended. Positive bowel sounds.
Musculoskeletal: No Cyanosis and No Edema
Skin: rash improved fewer signs of itching scratching
Neuro: sleeping arousable
Psych: Calm
Assessment/Plan
#Recurrent falls - reported 17 falls (in the 2 to 3 weeks prior to admission) per NH staff
-most likely multifactorial and associated with advance dementia
-fall precautions
-PT/OT, eventual SNF
-psychotropic med adjustment per psychiatry -Rash noted at time of admission to hospital (POA) possible drug rash Zyprexa, Lamictal, and Amlodipine stopped.
#Agitation/Dementia
- Zyprexa Lamictal discontinued as above
-Ativan increased to 0.5 mg tid previously. Seroquel was increased to 50 mg QID but now reduced to 50 mg TID.
-Citalopram discontinued on 09/07/23 as per psychiatry
-Depakote started 09/26/23 - Depakote increased on 10/02/23 as per psych
-psych eval appreciated 1:1 discontinued 10/06, requires medsitter however
depakote lvls stable therapeutic Morning 09/30and 10/06
#Left elbow skin tear, right inner thigh bruise secondary to multiple falls
-Consulted wound care, recommendations appreciated
-improved
#Skin rash left and right lateral trunk unclear etiology -
-s/p Keflex course. Rash improved as above
-steroids discontinued as above
-switched to Aquaphor for dry skin itching, small dot like lesions likely due to scratching dry skin irritation
-hydroxyzine tapered off as per psych
-desenex for bed rash
#Rash on R flank/R posterior LE - likely Folliculitis
#Pruritus
-Emollients for the dry skin
-Cetirizine
-See wound note (dated 09/29/23) from Kathrin Love
-Appears to be papular rash
-hygiene if safe/feasible - daily bathing and sheet changes
-ID consult appreciated doxycycline x 7 days completed, rash since improved
#Alzheimer's Dementia�advanced
-Supportive care
#Afib
-not candidate for AC 09/05 falls
-cont coreg
Bradycardia - resolved
-TRANSMISSION SYSTEMS OPERATOR Coreg stopped, since resumed reduced dosage
#Anemia-macrocytic
Hgb 13.5 on 09/12 was 11.12 June 2023
#Hypertension�benign
-BP ranges widely, relatively well controlled at this time, high values likely due to intermittent agitation
-Stopped Norvasc 5 mg daily
-Coreg resumed reduced dose, tolerating well, titrated up to current 6.25 mg BID
-monitor and titrate antihypertensive regimen as tolerated
-given falls and dementia would avoid aggressively treating hypertension.
#Former alcohol abuse
Stopped 2022 drank greater than 2 glasses a day per
#Insomnia
-Continue melatonin at bedtime
#History of colon cancer with resection of [facility] 2018
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
#BPH
Continue Flomax 0.4 mg at bedtime
Small stage 2 L coccyx buttocks pressure injury.�
cont local wound care
DVT prophylaxis
SCDs
DNR
Placement remains difficult
Pending Ethics committee meeting
I spent a total of 49 minutes with the patient or on the floor. More than 50% of this time involved counseling and coordination of care.
Anticipated Discharge: 24 - 48 hours
Subjective/Interval History
-
Date of Service: October 10, 2023
sleeping naked except with diaper. Easily arousable. no acute distress.
Objective Data
-
Vital Signs:
Vital Signs
Temp Pulse Resp BP Pulse Ox
98.3 F 71 24 140/93 92
10/09/23 16:27 10/09/23 20:09 10/09/23 16:27 10/09/23 20:09 10/09/23 16:27
I&O
10/09/23 10/10/23 10/11/23
06:59 06:59 06:59
Intake Total 240 / 240 840 / 840
Balance 240 / 240 840 / 840
[2023-10-10] MEDS: COREG 3.125 MG PO (07:35)
[2023-10-10] MEDS: ZYRTEC 10 MG PO (07:38)
[2023-10-10] MEDS: DEPAKOTE SPRINKLE 250 MG PO ×3 (07:38→20:54)
[2023-10-10] MEDS: SEROQUEL 50 MG PO (07:38)
[2023-10-10] MEDS: ASPIR LOW (ENTERIC COATED) 81 MG PO (07:39)
[2023-10-10] MEDS: DESENEX/MITRAZOL/ZEASORB 1 APPLIC TOPICAL ×2 (07:40→20:52)
[2023-10-10] MEDS: HYDROPHOR 1 APPLIC TOPICAL (07:40)
[2023-10-10 07:59] VITALS: BP 187/104
--- NOTE | 2023-10-10 10:46 | W.PN.UPDATE ---
Addendum entered and electronically signed by Yayo Dixon MD 10/10/23 14:54:
spoke to daughter terri about ethics consult meeting to be held next week. she would like to be in attendance with her mother and patient's brother. will speak with ms mcneal whom i have already alerted re ethics consult.
Original Note:
Update Note
Progress Note Update
patient seen chart reviewed. spoke with nursing and with dr mena. nursing expressed great concern that patient is oversedated. i have writtten about this in prior notes. i have spoken with hospice. this is a dilemma as the patient vacillates
between oversedation and agitation which is potentially a risk to himself and those caring for him. i will cut back on meds today reduce seroquel by 50 mg and depakote by 250 mg but the risk of his becoming agitated again increases and this cannot
be comfortable for the patient and is a risk for staff. i have spoken at length w hospice. there is no obvious solution with engagement of hospice either. i am going to call ms mcneal about an ethics consult as how to proceed is not immediatly
obvious here in terms of the custodial and possibly family could come to the meeting.
[2023-10-10 15:00] VITALS: BP 187/126
[2023-10-10] MEDS: SEROQUEL 25 MG PO (15:10)
--- NOTE | 2023-10-10 15:54 | CM ---
CM spoke with [facility] ESTHER, Myriam Miguel will email facilities to send referrals to. Patients daughter requesting call from psych, TT sent to Dr. Dixon with request. CM will continue to follow for discharge planning and placement efforts.
Plan; patient must be off medsitter for SNF placement.
[2023-10-10] MEDS: COREG 6.25 MG PO (20:52)
[2023-10-10] MEDS: FLOMAX 0.400000000000000022 MG PO (20:55)
[2023-10-10] MEDS: MELATONIN PO (22:33)
[2023-10-10] MEDS: SEROQUEL PO (22:33)
[2023-10-10] MEDS: ATIVAN PO (22:33)
[2023-10-10 22:55] VITALS: BP 166/93
[2023-10-11 07:00] VITALS: BP 167/83
--- NOTE | 2023-10-11 08:00 | W.PN.HOSP.TC ---
Today's Communication/Plan
-
medically stable
Seroquel Depakote Ativan as per psych
Assessment / Plan
Assessment / Plan
Physical Exam
General: Well Developed, Well Nourished and No Apparent Distress
HEENT: Normocephalic and Atraumatic
Respiratory: Clear to Auscultation
Cardiac: Regular Rhythm and S1/S2
GI: Soft, Nontender and Nondistended. Positive bowel sounds.
Musculoskeletal: No Cyanosis and No Edema
Skin: rash improved fewer signs of itching scratching
Neuro: sleeping arousable
Psych: Calm
Assessment/Plan
#Recurrent falls - reported 17 falls (in the 2 to 3 weeks prior to admission) per NH staff
-most likely multifactorial and associated with advance dementia
-fall precautions
-PT/OT, eventual SNF
-psychotropic med adjustment per psychiatry -Rash noted at time of admission to hospital (POA) possible drug rash Zyprexa, Lamictal, and Amlodipine stopped.
#Agitation/Dementia
- Zyprexa Lamictal discontinued as above
-Ativan increased to 0.5 mg tid previously. Seroquel was increased to 50 mg QID but now reduced to 50 mg TID.
-Citalopram discontinued on 09/07/23 as per psychiatry
-Depakote started 09/26/23 - Depakote increased on 10/02/23 as per psych
-psych eval appreciated 1:1 discontinued 10/06, requires medsitter however
depakote lvls stable therapeutic Morning 09/30and 10/06
#Left elbow skin tear, right inner thigh bruise secondary to multiple falls
-Consulted wound care, recommendations appreciated
-improved
#Skin rash left and right lateral trunk unclear etiology -
-s/p Keflex course. Rash improved as above
-steroids discontinued as above
-switched to Aquaphor for dry skin itching, small dot like lesions likely due to scratching dry skin irritation
-hydroxyzine tapered off as per psych
-desenex for bed rash
#Rash on R flank/R posterior LE - likely Folliculitis
#Pruritus
-Emollients for the dry skin
-Cetirizine
-See wound note (dated 09/29/23) from Kathrin Love
-Appears to be papular rash
-hygiene if safe/feasible - daily bathing and sheet changes
-ID consult appreciated doxycycline x 7 days completed, rash since improved
#Alzheimer's Dementia�advanced
-Supportive care
#Afib
-not candidate for AC 09/05 falls
-cont coreg
Bradycardia - resolved
-PHYSICAL THERAPY TECHNICIAN Coreg stopped, since resumed reduced dosage
#Anemia-macrocytic
Hgb 13.5 on 09/12 was 11.12 June 2023
#Hypertension�benign
-BP ranges widely, relatively well controlled at this time, high values likely due to intermittent agitation
-Stopped Norvasc 5 mg daily
-Coreg resumed reduced dose, tolerating well, titrated up to current 6.25 mg BID
-monitor and titrate antihypertensive regimen as tolerated
-given falls and dementia would avoid aggressively treating hypertension.
#Former alcohol abuse
Stopped 2022 drank greater than 2 glasses a day per
#Insomnia
-Continue melatonin at bedtime
#History of colon cancer with resection of [facility] 2018
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
#BPH
Continue Flomax 0.4 mg at bedtime
Small stage 2 L coccyx buttocks pressure injury.�
cont local wound care
DVT prophylaxis
SCDs
DNR
Placement remains difficult
Pending Ethics committee meeting week of 10/12
I spent a total of 45 minutes with the patient or on the floor. More than 50% of this time involved counseling and coordination of care.
Anticipated Discharge: 24 - 48 hours
Subjective/Interval History
-
Date of Service: October 11, 2023
Sedated but arousable
Objective Data
-
Vital Signs:
Vital Signs
Temp Pulse Resp BP Pulse Ox
98.3 F 68 20 166/93 96
10/10/23 22:55 10/10/23 22:55 10/10/23 22:55 10/10/23 22:55 10/10/23 22:55
I&O
10/10/23 10/11/23 10/12/23
06:59 06:59 07:59
Intake Total 840 / 840 170 / 170
Balance 840 / 840 170 / 170
[2023-10-11] MEDS: SEROQUEL 50 MG PO (09:45)
[2023-10-11] MEDS: HYDROPHOR 1 APPLIC TOPICAL (09:45)
[2023-10-11] MEDS: ASPIR LOW (ENTERIC COATED) 81 MG PO (09:45)
[2023-10-11] MEDS: ATIVAN 0.5 MG PO ×3 (09:45→23:33)
[2023-10-11] MEDS: DESENEX/MITRAZOL/ZEASORB 1 APPLIC TOPICAL ×2 (09:45→19:50)
[2023-10-11] MEDS: COREG 6.25 MG PO ×2 (09:45→19:49)
[2023-10-11] MEDS: DEPAKOTE SPRINKLE 250 MG PO ×3 (09:45→23:31)
[2023-10-11] MEDS: ZYRTEC 10 MG PO (09:45)
--- NOTE | 2023-10-11 11:16 | W.PN.UPDATE ---
Update Note
Progress Note Update
Psychiatry consult. Chart reviewed. Seen by Dr. Dixon yesterday at which time there was concern for oversedation and seroquel was decreased to 50mg daily and 25mg BID and Depakote was decreased to 250mg TID. Dr. Dixon also recommended an ethics
consult secondary to management concerns given vacillation between oversedation and agitation (which is a potential risk to himself and those caring for him). Family will be involved. At this time patient is somnolent. I am able to arouse him but he
falls back asleep.
Plan- will see how he does with this recent reduction in medication and monitor agitation/confusion. Ethics meeting next week as noted above. Psych will follow.
[2023-10-11 15:00] VITALS: BP 156/97
[2023-10-11] MEDS: SEROQUEL PO ×2 (16:14→22:14)
[2023-10-11 19:45] VITALS: BP 153/87
[2023-10-11] MEDS: FLOMAX 0.400000000000000022 MG PO (19:51)
[2023-10-11] MEDS: MELATONIN PO (22:14)
[2023-10-11] MEDS: ATIVAN PO (22:14)
[2023-10-11] MEDS: DEPAKOTE SPRINKLE PO (22:14)
[2023-10-11] MEDS: MELATONIN 5 MG PO (23:30)
[2023-10-11] MEDS: SEROQUEL 25 MG PO (23:31)
[2023-10-12 00:36] VITALS: BP 138/88
[2023-10-12 07:00] VITALS: BP 165/93
--- NOTE | 2023-10-12 07:34 | W.PN.HOSP.TC ---
Today's Communication/Plan
-
scheduled ativan tapered due to oversedation
Depakote placed on hold d/t progressive thrombocytopenia, follow up AM depakote lvl and repeat CBC
Coreg titrated up to 12.5 mg BID
ativan prn
Assessment / Plan
Assessment / Plan
Physical Exam
General: Well Developed, Well Nourished and No Apparent Distress
HEENT: Normocephalic and Atraumatic
Respiratory: Clear to Auscultation
Cardiac: Regular Rhythm and S1/S2
GI: Soft, Nontender and Nondistended. Positive bowel sounds.
Musculoskeletal: No Cyanosis and No Edema
Skin: rash improved fewer signs of itching scratching
Neuro: sleeping arousable
Psych: Calm
Assessment/Plan
#Recurrent falls - reported 17 falls (in the 2 to 3 weeks prior to admission) per NH staff
-most likely multifactorial and associated with advance dementia
-fall precautions
-PT/OT, eventual SNF
-psychotropic med adjustment per psychiatry -Rash noted at time of admission to hospital (POA) possible drug rash Zyprexa, Lamictal, and Amlodipine stopped.
#Agitation/Dementia
- Zyprexa Lamictal discontinued as above
-Ativan tapered down to 0.25 mg tid due to oversedation. Seroquel tapered to 50 mg in AM and 25 mg afternoon and evening.
-Citalopram discontinued on 09/07/23 as per psychiatry
-Depakote started 09/26/23 - Depakote increased on 10/02/23 as per psych, 10/11 progressive thrombocytopenia plt 69, Depakote subsequently placed on hold, follow up lvl check am 10/12
-psych eval appreciated 1:1 discontinued 10/06, requires medsitter however
#Left elbow skin tear, right inner thigh bruise secondary to multiple falls
-Consulted wound care, recommendations appreciated
-improved
#Skin rash left and right lateral trunk unclear etiology -
-s/p Keflex course. Rash improved as above
-steroids discontinued as above
-switched to Aquaphor for dry skin itching, small dot like lesions likely due to scratching dry skin irritation
-hydroxyzine tapered off as per psych
-desenex for bed rash
#Rash on R flank/R posterior LE - likely Folliculitis
#Pruritus
-Emollients for the dry skin
-Cetirizine
-See wound note (dated 09/29/23) from Kathrin Love
-Appears to be papular rash
-hygiene if safe/feasible - daily bathing and sheet changes
-ID consult appreciated doxycycline x 7 days completed, rash since improved
#Alzheimer's Dementia�advanced
-Supportive care
#Afib
-not candidate for AC 09/05 falls
-cont coreg
Bradycardia - resolved
-MARKETING COMMUNICATIONS COORDINATOR Coreg stopped, since resumed reduced dosage
#Anemia-macrocytic
Hgb 13.5 on 09/12 was 11.12 June 2023
#Hypertension�benign
-BP ranges widely, relatively well controlled at this time, high values likely due to intermittent agitation
-Stopped Norvasc 5 mg daily
-Coreg resumed reduced dose, tolerating well, titrated up to current 12.5 mg BID
-monitor and titrate antihypertensive regimen as tolerated
-given falls and dementia would avoid aggressively treating hypertension.
#Former alcohol abuse
Stopped 2022 drank greater than 2 glasses a day per
#Insomnia
-Continue melatonin at bedtime
#History of colon cancer with resection of [facility] 2018
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
#BPH
Continue Flomax 0.4 mg at bedtime
Small stage 2 L coccyx buttocks pressure injury.�
cont local wound care
DVT prophylaxis
SCDs
DNR
Placement remains pending
Pending Ethics committee meeting week of 10/12
I spent a total of 50 minutes with the patient or on the floor. More than 50% of this time involved counseling and coordination of care.
Anticipated Discharge: 24 - 48 hours
Subjective/Interval History
-
Date of Service: October 12, 2023
sedated arousable
Objective Data
-
Vital Signs:
Vital Signs
Temp Pulse Resp BP Pulse Ox
97.5 F 71 16 138/88 96
10/12/23 00:36 10/12/23 00:36 10/12/23 00:36 10/12/23 00:36 10/12/23 00:36
I&O
10/11/23 10/12/23 10/13/23
05:59 06:59 06:59
Intake Total
Balance
[2023-10-12] MEDS: DEPAKOTE SPRINKLE 250 MG PO (09:57)
[2023-10-12] MEDS: SEROQUEL 50 MG PO (09:58)
[2023-10-12] MEDS: ASPIR LOW (ENTERIC COATED) PO ×2 (09:58→15:19)
[2023-10-12] MEDS: COREG 6.25 MG PO (09:58)
[2023-10-12] MEDS: ZYRTEC PO ×2 (09:58→15:19)
[2023-10-12] MEDS: HYDROPHOR 1 APPLIC TOPICAL (09:58)
[2023-10-12] MEDS: DESENEX/MITRAZOL/ZEASORB 1 APPLIC TOPICAL ×2 (09:59→21:23)
[2023-10-12] MEDS: ATIVAN PO (12:55)
[2023-10-12] MEDS: SEROQUEL 25 MG PO ×2 (15:27→21:13)
[2023-10-12] MEDS: ATIVAN 0.25 MG PO ×2 (15:28→21:22)
[2023-10-12 15:51] VITALS: BP 183/93
--- NOTE | 2023-10-12 16:24 | PTCARENOTE ---
Patient drowsy but arousable through out day. Feed assist with meals. Dr. Sanford notified of findings. Medications changed, see OCT. Medsitter service suspended as of 1400. Will monitor closely. Bed alarm in place for patient safety.
[2023-10-12 17:33] VITALS: BP 148/91
[2023-10-12 18:14] LABS: Hematocrit 49.2 % (39.0-52.0); Hemoglobin 17.5 g/dL (13.0-18.0); Mean Corp Hgb Conc. 35.6 g/dL (33.0-37.0); Mean Corpuscular Volume 89.9 fL (80.0-94.0); Mean Platelet Volume 10.9 fL (7.4-10.4); Red Blood Cell Count 5.47 10^6/uL (4.70-6.10); White Blood Cell Count 7.6 10^3/uL (4.8-10.8)
[2023-10-12 18:24] LABS: Ammonia < 9 umol/L (9-30)
[2023-10-12 18:27] LABS: ALT (SGPT) 20 U/L (0-50); AST (SGOT) 32 U/L (17-59); Albumin 4.3 g/dl (3.5-5.0); Alkaline Phosphatase 50 U/L (38-126); Blood Urea Nitrogen 28 mg/dl (9-20); Calcium 9.9 mg/dl (8.4-10.2); Carbon Dioxide 30 mmol/L (22-30); Chloride 104 mmol/L (98-107); Estimated Creatinine Clearance 68 ml/min; Glucose 98 mg/dl (70-99); Magnesium 2.2 mg/dl (1.6-2.3); Phosphorus 3.9 mg/dl (2.5-4.5); Potassium 4.4 mmol/L (3.5-5.1); Sodium 142 mmol/L (135-145); Total Bilirubin 1.1 mg/dl (0.2-1.3); Total Protein 7.4 g/dl (6.3-8.2); eGFR > 60.00
[2023-10-12 18:49] LABS: Platelet Count 69 10^3/uL (130-400)
[2023-10-12] MEDS: DEPAKOTE SPRINKLE PO (20:21)
[2023-10-12 21:12] VITALS: BP 174/113
[2023-10-12] MEDS: FLOMAX 0.400000000000000022 MG PO (21:13)
[2023-10-12] MEDS: COREG 12.5 MG PO (21:13)
[2023-10-12] MEDS: MELATONIN 5 MG PO (21:13)
[2023-10-12 23:32] VITALS: BP 110/63
[2023-10-13 08:14] LABS: % Basophils 0.8 % (0-2); % Eosinophils 3.7 % (0-6); % Immature Granulocytes 0.5 % (0-0.5); % Lymphocytes 19.3 % (20.5-51.1); % Monocytes 9.1 % (1.7-9.3); % Neutrophils 66.6 % (42.2-75.2); Absolute Basophils 0.1 10^3/uL (0-0.2); Absolute Eosinophils 0.3 10^3/uL (0-0.7); Absolute Lymphocytes 1.5 10^3/uL (1.2-3.4); Absolute Monocytes 0.7 10^3/uL (0.1-0.6); Absolute Neutrophils 5.2 10^3/uL (1.4-6.5); Hematocrit 54.2 % (39.0-52.0); Hemoglobin 18.2 g/dL (13.0-18.0); Mean Corp Hgb Conc. 33.6 g/dL (33.0-37.0); Mean Corpuscular Hgb 31.5 pg (27.0-31.0); Mean Corpuscular Volume 93.8 fL (80.0-94.0); Mean Platelet Volume 10.9 fL (7.4-10.4); Nucleated Red Blood Cells % 0 % (-); Platelet Count 81 10^3/uL (130-400); Red Blood Cell Count 5.78 10^6/uL (4.70-6.10); White Blood Cell Count 7.9 10^3/uL (4.8-10.8)
--- NOTE | 2023-10-13 08:23 | W.PN.HOSP.TC ---
Today's Communication/Plan
-
Polycythemia on labs -- will need work-up
Consulted hematology, recommendations appreciated
Placement Pending
Ethic Committee Meeting Planned
Called patient's daughter Lou and provided update
Assessment / Plan
Assessment / Plan
Physical Exam
General: Well Developed, Well Nourished and No Apparent Distress
HEENT: Normocephalic and Atraumatic
Respiratory: Clear to Auscultation
Cardiac: Regular Rhythm and S1/S2
GI: Soft, Nontender and Nondistended. Positive bowel sounds.
Musculoskeletal: No Cyanosis and No Edema
Skin: rash improved fewer signs of itching scratching
Neuro: sleeping arousable
Psych: Calm
Assessment/Plan
#Recurrent falls - reported 17 falls (in the 2 to 3 weeks prior to admission) per NH staff
-most likely multifactorial and associated with advance dementia
-fall precautions
-PT/OT, eventual SNF
-psychotropic med adjustment per psychiatry -Rash noted at time of admission to hospital (POA) possible drug rash Zyprexa, Lamictal, and Amlodipine stopped.
#Polycythemia
-New polycytemia on October 13, 2023: consulted hematology, recommendations appreciated
#Agitation/Dementia
- Zyprexa Lamictal discontinued as above
-Ativan tapered down to 0.25 mg tid due to oversedation. Seroquel tapered to 50 mg in AM and 25 mg afternoon and evening.
-Citalopram discontinued on 09/07/23 as per psychiatry
-Depakote started 09/26/23 - Depakote increased on 10/02/23 as per psych, 10/11 progressive thrombocytopenia plt 69, Depakote subsequently placed on hold, follow up lvl check am 10/12 - Depakote then placed on hold d/t progressive thrombocytopenia.
-psych eval appreciated 1:1 discontinued 10/06, requires medsitter however
#Left elbow skin tear, right inner thigh bruise secondary to multiple falls
-Consulted wound care, recommendations appreciated
-improved
#Skin rash left and right lateral trunk unclear etiology -
-s/p Keflex course. Rash improved as above
-steroids discontinued as above
-switched to Aquaphor for dry skin itching, small dot like lesions likely due to scratching dry skin irritation
-hydroxyzine tapered off as per psych
-desenex for bed rash
#Rash on R flank/R posterior LE - likely Folliculitis
#Pruritus
-Emollients for the dry skin
-Cetirizine
-See wound note (dated 09/29/23) from Kathrin Love
-Appears to be papular rash
-hygiene if safe/feasible - daily bathing and sheet changes
-ID consult appreciated doxycycline x 7 days completed, rash since improved
#Alzheimer's Dementia�advanced
-Supportive care
#Afib
-not candidate for AC 09/05 falls
-cont coreg
Bradycardia - resolved
-RAILROAD TRACK INSPECTOR Coreg stopped, since resumed reduced dosage
#Anemia-macrocytic
Hgb 13.5 on 09/12 was 11.12 June 2023
Hgb high at ~18 on October 13, 2023
#Hypertension�benign
-BP ranges widely, relatively well controlled at this time, high values likely due to intermittent agitation
-Stopped Norvasc 5 mg daily
-Coreg resumed reduced dose, tolerating well, titrated up to current 12.5 mg BID
-monitor and titrate antihypertensive regimen as tolerated
-given falls and dementia would avoid aggressively treating hypertension.
#Former alcohol abuse
Stopped 2022 drank greater than 2 glasses a day per
#Insomnia
-Continue melatonin at bedtime
#History of colon cancer with resection of [facility] 2018
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
#BPH
Continue Flomax 0.4 mg at bedtime
Small stage 2 L coccyx buttocks pressure injury.�
cont local wound care
DVT prophylaxis
SCDs
DNR
Placement remains pending
Pending Ethics committee meeting week of 10/13/23
Family Discussions
I called (on October 13, 2023) patient's daughter Lou - all questions and concerns were answered to satisfaction.
Anticipated Discharge: > 48 hours
Subjective/Interval History
-
Date of Service: October 13, 2023
Patient was seen and examined. He was sleeping comfortably at the time he was seen. Discussed case with patient's nurse who mentioned that patient has been off the 1:1 sitter for about a week, and off the med sitter for about 1 day.
Objective Data
-
Labs:
Laboratory Results
10/13/23
06:24
WBC 7.9
Hgb 18.2 H
Hct 54.2 H
Plt Count 81 L
Vital Signs:
Vital Signs
Temp Pulse Resp BP Pulse Ox
97.6 F 66 16 110/63 96
10/12/23 23:32 10/12/23 23:32 10/12/23 23:32 10/12/23 23:32 10/12/23 23:32
I&O
10/12/23 10/13/23 10/14/23
06:59 06:59 06:59
Intake Total 600 / 600
Balance 600 / 600
[2023-10-13 08:31] LABS: Depakane 47.1 ug/ml (50.0-120.0)
[2023-10-13 10:00] VITALS: BP 107/49
[2023-10-13] MEDS: ASPIR LOW (ENTERIC COATED) 81 MG PO (10:21)
[2023-10-13] MEDS: SEROQUEL 50 MG PO (10:21)
[2023-10-13] MEDS: ATIVAN 0.25 MG PO ×2 (10:22→20:28)
[2023-10-13] MEDS: ZYRTEC 10 MG PO (10:23)
[2023-10-13] MEDS: HYDROPHOR 1 APPLIC TOPICAL (10:24)
[2023-10-13] MEDS: DESENEX/MITRAZOL/ZEASORB 1 APPLIC TOPICAL (10:25)
[2023-10-13] MEDS: COREG 12.5 MG PO ×2 (10:25→20:28)
--- NOTE | 2023-10-13 14:30 | CON.ONC ---
Impression
Impression
New polycythemia
Dementia
Thrombocytopenia likely from Depakote
Iron overload, may be from previous EtOH +/- hereditary hemochromatosis, would NOT work up further in the setting of advanced dementia
Plan
Plan
Differential for acute polycythemia would be primarily volume depletion.
Although Cr stable, requested that weight be checked, compare with admission weight.
Question whether he may be having episodes of apnea in the setting of obtunded state.
Even so, Hgb would not be expected to rise so quickly.
Observe for improvement in Hgb with medications being reduced due to sedation.
Epo level.
Abd U/S, eval for splenomegaly suggestive of MPD. Cannot do patrol driver mutation panel in the hospital and index of suspicion is low.
Monitor CBC.
Patient History
History of Present Illness
Mr. Ramirez is an 83 yo male with HTN, Afib not on OAC, anxiety/depression and dementia, who presented to the ER in mid-August from [facility] unit after a fall.� They reported that he had fallen about 17 times in the last 2-3
weeks, not always witnessed by staff so unclear if this is syncope.� He was demented, disoriented and combative when seen in the ER.� He is admitted to the hospitalist service and has been here since then. Baseline Hgb on 06/05/23 was 14.3. On
admission to 08/20/22 his hemoglobin was 9.4. His hemoglobin has been rising recently and is now 18.2. His medications are being adjusted and he is felt to have been oversedated recently although he does not have any hypoxic episodes noted. Pt is
awake and sitting up in bed but completely unresponsive verbally and peterson not make eye contact.
Past-Medical/Surgical History
Past Medical History:
Alzheimer's dementia, anxiety, depression, paroxysmal A-fib, hypertension, colon cancer with resection 2018, and former alcohol abuse�
Past Surgical History:
Bowel Resection (2/ colon cancer )
Squamous cell CA removal from back
Social History
Tobacco: Non-Smoker
Alcohol: Former
Personal:
Living in memory care unit of detention
Family History
Family History: Not Pertinent
Patient Medication
Medication Instructions Recorded Confirmed Last Taken Type
amlodipine 5 mg tablet 5 mg PO DAILY Blood Pressure 07/03/23 08/20/23 07/03/23 08:00 History
aspirin 81 mg tablet,delayed 81 mg PO DAILY Blood Clot 07/03/23 08/20/23 07/03/23 08:00 History
release Prevention/Tx
carvedilol 25 mg tablet 25 mg PO BID Heart Failure 07/03/23 08/20/23 07/03/23 08:00 History
duloxetine 20 mg capsule,delayed 20 mg PO DAILY Pain 07/03/23 08/20/23 07/03/23 08:00 History
release
lamotrigine 150 mg tablet 150 mg PO DAILY Neurological 07/03/23 08/20/23 07/03/23 08:00 History
Condition
melatonin 5 mg tablet 5 mg PO HS Sleep 07/03/23 08/20/23 07/02/23 20:00 History
olanzapine 5 mg disintegrating 5 mg PO BIDPRN PRN anxiety 07/03/23 08/20/23 06/27/23 16:22 History
tablet
potassium chloride 20 mEq 40 meq PO DAILY Electrolyte 07/03/23 08/20/23 07/03/23 08:00 History
tablet,extended release(part/cryst) Repletion
tamsulosin 0.4 mg capsule 0.4 mg PO HS Urinary Issue 07/03/23 08/20/23 07/02/23 20:00 History
trazodone 100 mg tablet 100 mg PO HS Sleep 07/03/23 08/20/23 07/02/23 20:00 History
trazodone 50 mg tablet 25 mg PO HS Sleep 07/03/23 08/20/23 07/02/23 20:00 History
diphenoxylate-atropine 2.5 1 tab PO QID diarrhea 08/20/23 08/20/23 Unknown History
mg-0.025 mg tablet
olanzapine 7.5 mg tablet 7.5 mg PO TID Mental Health/Anxiety 08/20/23 08/20/23 Unknown History
Active Medications
Generic Name Dose Route Start Last Admin
Trade Name Freq PRN Reason Stop Dose Admin
Aspirin 81 mg 09/17/23 08:00 10/13/23 10:21
Aspirin 81 Mg (Enteric Coated) Tablet PO 10/15/23 07:59 81 mg
DAILY MICHAEL Administration
Calamine 0 ml 09/27/23 00:30 10/06/23 06:25
Calamine Lotion 120 Ml Bottle (6 Oz) TOPICAL 10/25/23 00:29 5 ml
TIDPRN PRN Administration
Itching
Carvedilol 12.5 mg 10/12/23 20:00 10/13/23 10:25
Carvedilol 12.5 Mg Tablet PO 11/09/23 19:59 12.5 mg
BID MICHAEL Administration
Cetirizine HCl 10 mg 10/02/23 14:00 10/13/23 10:23
Cetirizine Hcl 10 Mg Tablet PO 10/30/23 13:59 10 mg
DAILY MICHAEL Administration
Divalproex Sodium 250 mg 10/10/23 16:00 10/12/23 20:21
Divalproex Sodium 125 Mg Sprinkle Capsule PO 11/07/23 15:59 Not Given
TID MICHAEL
Emollient Ointment 0 applic 09/24/23 15:00 10/13/23 10:24
Petrolatum/Mineral Oil (Hydrophor) Oint 100 Gram TOPICAL 10/22/23 14:59 1 applic
DAILY MICHAEL Administration
Lorazepam 0.5 mg 09/18/23 12:20 10/01/23 17:22
Lorazepam 0.5 Mg Tablet PO 10/16/23 12:19 0.5 mg
Q6HPRN PRN Administration
agitation
Lorazepam 0.25 mg 10/12/23 13:52 10/13/23 10:22
Lorazepam 0.5 Mg Tablet PO 10/15/23 15:59 0.25 mg
TID MICHAEL Administration
Melatonin 5 mg 09/16/23 22:00 10/12/23 21:13
Melatonin 5 Mg Tablet PO 10/14/23 21:59 5 mg
HS MICHAEL Administration
Miconazole Nitrate 0 applic 09/27/23 20:00 10/13/23 10:25
Miconazole Powder Bottle TOPICAL 10/25/23 19:59 1 applic
BID MICHAEL Administration
Quetiapine Fumarate 50 mg 10/11/23 08:00 10/13/23 10:21
Quetiapine 25 Mg Tablet PO 11/08/23 07:59 50 mg
DAILY MICHAEL Administration
Quetiapine Fumarate 25 mg 10/10/23 14:00 10/12/23 21:13
Quetiapine 25 Mg Tablet PO 11/07/23 13:59 25 mg
BID@1400,2200 MICHAEL Administration
Sodium Chloride 0 flush 09/16/23 14:00
Sodium Chloride 0.9% (Flush) Syringe IV 10/14/23 13:59
PER PROTOCOL MICHAEL
Tamsulosin HCl 0.4 mg 09/16/23 22:00 10/12/23 21:13
Tamsulosin 0.4 Mg Capsule PO 10/14/23 21:59 0.4 mg
HS MICHAEL Administration
Review of Systems
-
Unable to obtain full review of systems at this time due to: Dementia and Patient Non Verbal
Physical Exam
-
General: Appears Chronically Ill and Other (diapered)
HEENT: Moist Mucous Membranes; Negative Jaundice
Cardiology: Normal Sinus Rhythm, S1 and S2
Pulmonary: Clear; Negative Wheezes
GI: Soft
Musculoskeletal: No Clubbing, No Cyanosis and No Edema
Extremities: Negative Phlebitic Signs
Neurology: Other (obtunded and non-verbal, motor grossly intact)
Skin: Warm and Lesions (excorations on back)
Hematologic / Lymphatic: No Lymphadenopathy
Psych: Apparent Dementia
Labs
Lab Results
WBC 7.9 10^3/uL (4.8-10.8) 10/13/23 06:24
RBC 5.78 10^6/uL (4.70-6.10) 10/13/23 06:24
Hgb 18.2 g/dL (13.0-18.0) H 10/13/23 06:24
Hct 54.2 % (39.0-52.0) H 10/13/23 06:24
MCV 93.8 fL (80.0-94.0) 10/13/23 06:24
MCH 31.5 pg (27.0-31.0) H 10/13/23 06:24
MCHC 33.6 g/dL (33.0-37.0) 10/13/23 06:24
RDW 13.0 % (11.5-14.5) 10/13/23 06:24
Plt Count 81 10^3/uL (130-400) L 10/13/23 06:24
MPV 10.9 fL (7.4-10.4) H 10/13/23 06:24
Abs Immat Gran (auto) 0.0 10^3/uL (0-0.05) 10/13/23 06:24
Absolute Neuts (auto) 5.2 10^3/uL (1.4-6.5) 10/13/23 06:24
Absolute Lymphs (auto) 1.5 10^3/uL (1.2-3.4) 10/13/23 06:24
Absolute Monos (auto) 0.7 10^3/uL (0.1-0.6) H 10/13/23 06:24
Absolute Eos (auto) 0.3 10^3/uL (0-0.7) 10/13/23 06:24
Absolute Basos (auto) 0.1 10^3/uL (0-0.2) 10/13/23 06:24
Immature Gran % 0.5 % (0-0.5) 10/13/23 06:24
Neutrophils % 66.6 % (42.2-75.2) 10/13/23 06:24
Lymphocytes % 19.3 % (20.5-51.1) L 10/13/23 06:24
Monocytes % 9.1 % (1.7-9.3) 10/13/23 06:24
Eosinophils % 3.7 % (0-6) 10/13/23 06:24
Basophils % 0.8 % (0-2) 10/13/23 06:24
Creatinine 0.9 mg/dL (0.7-1.3) 10/12/23 18:03
Vital Signs
Vital Signs
Temp Pulse Resp BP Pulse Ox
97.6 F 86 16 107/76 96
10/12/23 23:32 10/13/23 10:25 10/12/23 23:32 10/13/23 10:25 10/12/23 23:32
[2023-10-13] MEDS: SEROQUEL PO (15:00)
[2023-10-13] MEDS: ATIVAN PO (18:00)
--- NOTE | 2023-10-13 19:28 | PTCARENOTE ---
patient ordered abdominal ultrasound earlier today and pt was to be NPO for 6 hours prior to procedure, so the earliest pt could receive US would be 1700. due to pt unpredictable aggressive behavior, RN called US and spoke with Pacheco to ask if pt
could receive procedure at bedside. Pacheco from US said that they have limited staff after 1600 and couldn't do bedside today. RN asked if pt could receive US in morning instead and if it could be done at bedside, Pacheco stated that it shouldn't be a
problem for the morning. aware and okay for US to be done on 10/13. Report given to nightshift RN about bedside procedure in the morning and to follow up in the morning.
[2023-10-13 20:18] VITALS: BP 185/115
[2023-10-13] MEDS: FLOMAX 0.400000000000000022 MG PO (20:28)
[2023-10-13] MEDS: SEROQUEL 25 MG PO (20:28)
[2023-10-13] MEDS: MELATONIN 5 MG PO (20:28)
[2023-10-13 23:18] VITALS: BP 142/91
[2023-10-14] MEDS: DESENEX/MITRAZOL/ZEASORB 1 APPLIC TOPICAL ×3 (00:19→20:40)
[2023-10-14 06:00] VITALS: BMI 23.4
[2023-10-14 07:58] VITALS: BP 181/94
[2023-10-14] MEDS: ATIVAN 0.25 MG PO ×3 (07:59→21:53)
[2023-10-14] MEDS: SEROQUEL 50 MG PO (08:01)
[2023-10-14] MEDS: COREG 12.5 MG PO ×2 (08:01→20:39)
[2023-10-14] MEDS: HYDROPHOR 1 APPLIC TOPICAL (08:02)
[2023-10-14] MEDS: ASPIR LOW (ENTERIC COATED) PO ×2 (08:02→11:46)
[2023-10-14 08:57] LABS: % Basophils 0.5 % (0-2); % Eosinophils 3.3 % (0-6); % Immature Granulocytes 0.5 % (0-0.5); % Lymphocytes 15.1 % (20.5-51.1); % Neutrophils 70.6 % (42.2-75.2); Absolute Eosinophils 0.3 10^3/uL (0-0.7); Absolute Lymphocytes 1.2 10^3/uL (1.2-3.4); Absolute Monocytes 0.8 10^3/uL (0.1-0.6); Absolute Neutrophils 5.6 10^3/uL (1.4-6.5); Hematocrit 49.9 % (39.0-52.0); Mean Corp Hgb Conc. 34.1 g/dL (33.0-37.0); Mean Corpuscular Hgb 31.4 pg (27.0-31.0); Mean Corpuscular Volume 92.2 fL (80.0-94.0); Mean Platelet Volume 11.3 fL (7.4-10.4); Nucleated Red Blood Cells % 0 % (-); Platelet Count 73 10^3/uL (130-400); Red Blood Cell Count 5.41 10^6/uL (4.70-6.10); Red Cell Dist. Width 13.1 % (11.5-14.5); White Blood Cell Count 7.9 10^3/uL (4.8-10.8)
[2023-10-14 09:30] LABS: Blood Urea Nitrogen 33 mg/dl (9-20); Calcium 9.9 mg/dl (8.4-10.2); Carbon Dioxide 26 mmol/L (22-30); Chloride 109 mmol/L (98-107); Estimated Creatinine Clearance 77 ml/min; Glucose 104 mg/dl (70-99); Potassium 3.7 mmol/L (3.5-5.1); Sodium 145 mmol/L (135-145); eGFR > 60.00
--- NOTE | 2023-10-14 10:54 | W.PN.UPDATE ---
Update Note
Progress Note Update
Patient seen at bedside, resting comfortably, reviewed chart, discussed with staff. Mr. Ramirez with no acute events overnight reported. He is sedate but arousable. Continues to get agitated with attempts for care by staff. He remains impulsive and
tries to get out of bed at times. He was at the nurses station last night which was reportedly helpful. Currently, he is not on a 1:1. DC planning efforts continue. There will be an ethics meeting held with the concerns of the continued issues of
either being agitated and aggressive versus being too sedated. Medications have been adjusted both up and down throughout his hospitalization in hopes to find a balance but has mostly been unsuccessful. VPA held for thrombocytopenia.
Impression/Plan:� Dementia, advanced, with intermittent behavioral disturbance/agitation which is typical progression of dementia -� Off 1: 1 currently and his room close to nursing station, continue efforts to ensure his safety. VPA on hold.�
Continue Seroquel which has been decreased to 50mg in AM and 25mg at 1400 n& 2200 and Ativan 0.25mg TID (decreased from 0.5,g TID.
[2023-10-14] MEDS: ZYRTEC PO (11:46)
[2023-10-14 13:47] LABS: Erythropoietin (EPO) 9 mU/mL (4-27)
[2023-10-14] MEDS: SEROQUEL 25 MG PO ×2 (14:39→21:53)
[2023-10-14 15:10] VITALS: BP 178/104
[2023-10-14 15:48] VITALS: BP 138/74
--- NOTE | 2023-10-14 16:23 | W.PN.HOSP.TC ---
Today's Communication/Plan
-
Hgb improved from a high level yesterday
Abdominal ultrasound showed a normal spleen
Placement efforts
Assessment / Plan
Assessment / Plan
Physical Exam
General: Well Developed, Well Nourished and No Apparent Distress
HEENT: Normocephalic and Atraumatic
Respiratory: Clear to Auscultation
Cardiac: Regular Rhythm and S1/S2
GI: Soft, Nontender and Nondistended. Positive bowel sounds.
Musculoskeletal: No Cyanosis and No Edema
Skin: rash improved fewer signs of itching scratching
Neuro: sleeping arousable
Psych: Calm
Assessment/Plan
#Recurrent falls - reported 17 falls (in the 2 to 3 weeks prior to admission) per NH staff
-most likely multifactorial and associated with advance dementia
-fall precautions
-PT/OT, eventual SNF
-psychotropic med adjustment per psychiatry -Rash noted at time of admission to hospital (POA) possible drug rash Zyprexa, Lamictal, and Amlodipine stopped.
#Polycythemia - suspected to be from volume depletion
#Thrombocytopenia - likely from Depakote
-New polycythemia on October 13, 2023: consulted hematology, recommendations appreciated
-Check weight
-Episodes of apnea? But even with apnea won't get such a large rise in Hgb
-Abdominal ultrasound did not show splenomegaly
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
-Per hematology, would NOT work this up further in the setting of advanced dementia
#Agitation/Dementia
- Zyprexa Lamictal discontinued as above
-Ativan tapered down to 0.25 mg tid due to oversedation. Seroquel tapered to 50 mg in AM and 25 mg afternoon and evening.
-Citalopram discontinued on 09/07/23 as per psychiatry
-Depakote started 09/26/23 - Depakote increased on 10/02/23 as per psych, 10/11 progressive thrombocytopenia plt 69, Depakote subsequently placed on hold, follow up lvl check am 10/12 - Depakote then placed on hold d/t progressive thrombocytopenia.
-psych eval appreciated 1:1 discontinued 10/06, requires medsitter however
#Left elbow skin tear, right inner thigh bruise secondary to multiple falls
-Consulted wound care, recommendations appreciated
-improved
#Skin rash left and right lateral trunk unclear etiology -
-s/p Keflex course. Rash improved as above
-steroids discontinued as above
-switched to Aquaphor for dry skin itching, small dot like lesions likely due to scratching dry skin irritation
-hydroxyzine tapered off as per psych
-desenex for bed rash
#Rash on R flank/R posterior LE - likely Folliculitis
#Pruritus
-Emollients for the dry skin
-Cetirizine
-See wound note (dated 09/29/23) from Kathrin Love
-Appears to be papular rash
-hygiene if safe/feasible - daily bathing and sheet changes
-ID consult appreciated doxycycline x 7 days completed, rash since improved
#Alzheimer's Dementia�advanced
-Supportive care
#Afib
-not candidate for AC 09/05 falls
-cont coreg
Bradycardia - resolved
-PITCH FLAKER Coreg stopped, since resumed reduced dosage
#Anemia-macrocytic
Hgb 13.5 on 09/12 was 11.12 June 2023
Hgb high at ~18 on October 13, 2023
#Hypertension�benign
-BP ranges widely, relatively well controlled at this time, high values likely due to intermittent agitation
-Stopped Norvasc 5 mg daily
-Coreg resumed reduced dose, tolerating well, titrated up to current 12.5 mg BID
-monitor and titrate antihypertensive regimen as tolerated
-given falls and dementia would avoid aggressively treating hypertension.
#Former alcohol abuse
Stopped 2022 drank greater than 2 glasses a day per
#Insomnia
-Continue melatonin at bedtime
#History of colon cancer with resection of [facility] 2019
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
#BPH
Continue Flomax 0.4 mg at bedtime
Small stage 2 L coccyx buttocks pressure injury.�
cont local wound care
Cholelithiasis
1.5 cm hepatic cyst
Bilateral parapelvic renal cysts
-Above findings present on abdominal ultrasound, as per radiologist's report
DVT prophylaxis
SCDs
DNR
Placement remains pending
Pending Ethics committee meeting week of 10/13/23
Family Discussions
I called (on October 13, 2023) patient's daughter Lou - all questions and concerns were answered to satisfaction.
Anticipated Discharge: > 48 hours
Subjective/Interval History
-
Date of Service: October 14, 2023
Patient was seen and examined. He was sleeping comfortably at the time he was seen.
Objective Data
-
Labs:
Laboratory Results
10/14/23
08:35
WBC 7.9
Hgb 17.0
Hct 49.9
Plt Count 73 L
Sodium 145
Potassium 3.7
Chloride 109 H
Carbon Dioxide 26
BUN 33 H
Creatinine 0.8
Glucose 104 H
Calcium 9.9
Vital Signs:
Vital Signs
Temp Pulse Resp BP Pulse Ox
97.6 F 76 16 138/74 100
10/14/23 15:10 10/14/23 15:10 10/14/23 15:10 10/14/23 15:48 10/14/23 15:10
I&O
10/13/23 10/14/23 10/15/23
06:59 06:59 06:59
Intake Total 600 / 600 240 / 240
Balance 600 / 600 240 / 240
--- NOTE | 2023-10-14 21:47 | PTCARENOTE ---
Patient awake and restless at beginning of shift. Constantly trying to get up from bed and chair. Patient toileted and offered food and drink. No nonverbal signs of pain or discomfort. Patient needing frequent redirection. Tolerated medications.
Patient resting at current time.
[2023-10-14] MEDS: MELATONIN 5 MG PO (21:52)
[2023-10-14] MEDS: FLOMAX 0.400000000000000022 MG PO (21:53)
[2023-10-15 07:30] VITALS: BP 212/125
--- NOTE | 2023-10-15 09:53 | WOUNDNOTE ---
JENI (L LATERAL POSTERIOR)
--- NOTE | 2023-10-15 09:53 | WOUNDNOTE ---
L KNEE (POSTERIOR LATERAL)
--- NOTE | 2023-10-15 10:04 | WOUNDNOTE ---
[facility] RN note: Location where previous stage 2 sacral/buttocks pressure injuries resolved. Patient has a new red raised area on his R sacral iliac area. Body rash noted mostly on arms, legs, hips. Aquaphor ointment was applied by RN Will. Applied
Aquaphor to legs. Patient now out of Aquaphor. t/c Pharmacy and requested more Aquaphor and also Calamine lotion. t/c Ordered hypoallergenic sheets from [facility]. Patient is on a [employer] air bed and has an air chair cushion R heel blanchable dull red.
Patient moves his feet/legs frequently. Updated Dr. Ward re: new raised red area R sacral iliac, body rash still present mostly on arms, legs, hips, ordered hypoallergenic sheets from [facility]; defer to hospitalist if general surgery consult vs
reconsult ID indicated to evaluate R sacral iliac for possible abscess. Discussed with RN Will.
--- NOTE | 2023-10-15 10:07 | W.PN.HOSP.TC ---
Today's Communication/Plan
-
Ethics meeting tomorrow
Eliquis started for DVT in the RLE - continue Eliquis while following Fall Precautions
RLE does not appear to have any ischemia symptoms/signs at this time
Discussing case with IR and Hematology: no need for thrombectomy (RLE is not threatened with acute limb ischemia) and if patient continues to take Eliquis, then no need for IVC filter
Assessment / Plan
Assessment / Plan
Physical Exam
General: Not in acute distress
HEENT: Normocephalic and Atraumatic
Respiratory: Clear to Auscultation
Cardiac: Regular Rhythm and S1/S2
GI: Soft, Nontender and Nondistended. Positive bowel sounds.
Musculoskeletal: No Cyanosis and No Edema
Skin: Warm. Dry.
Neuro: sleeping arousable
Psych: Calm
Assessment/Plan
#Recurrent falls - reported 17 falls (in the 2 to 3 weeks prior to admission) per NH staff
-most likely multifactorial and associated with advance dementia
-fall precautions
-PT/OT, eventual SNF
-psychotropic med adjustment per psychiatry
-patient remains quite unsteady with ambulation, also has weight loss
#Deep Venous Thrombosis of the Right Lower Extremity
-Finding was present on CT Pelvis with IV contrast from October 15, 2023
-On October 15, 2023, I spoke via phone with rotor balancer Dr. Samantha Red
-Based on above discussion, Eliquis will be started on October 15, 2023 at 10 mg BID (for a total of 14 doses) followed by 5 mg BID for at least 3 months, and no IVC filter at this time.
-Eliquis okay to do as long platelets remain above 50k -- continue to monitor CBC
-Patient has been noted to get very agitated and needle injection of medicines is not an option - discussed with Dr. Dixon by phone on October 15, 2023 who recommended against trying Heparin Drip as it involves needle injection/IV
-Lovenox subq has not been an option (for DVT prophylaxis or therapeutic for DVT treatment) as patient would get very agitated with needles/injections
-Sequential compression devices/pneumatic compression sleeves also agitate the patient and he has been refusing them
-Updated family on the above
#Polycythemia - suspected to be from volume depletion - IMPROVED
#Thrombocytopenia - likely from Depakote
-New polycythemia on October 13, 2023: consulted hematology, recommendations appreciated
-Episodes of apnea? But even with apnea won't get such a large rise in Hgb
-Abdominal ultrasound did not show splenomegaly
-Monitor CBC
#Recurrent Pressure Wounds
#New Pressure Wound based on CT Scan on October 15, 2023
-Continue wound care and offloading
-Recurrent pressure wounds with patient's lack of adequate mobility in the setting advanced dementia qualifies patient for hospice
-Keflex antibiotics per ID, ID assistance appreciated
#Rash on R flank/R posterior LE - likely Folliculitis
#Pruritus
-Emollients for the dry skin
-Cetirizine
-See wound note (dated 09/29/23) from Kathrin Love
-Appears to be papular rash
-hygiene if safe/feasible - daily bathing and sheet changes
-ID consult appreciated doxycycline x 7 days was completed, rash since improved
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
-Per hematology, would NOT work this up further in the setting of advanced dementia
#Agitation/Dementia (End-Stage Dementia)
-Zyprexa Lamictal discontinued as above
-Ativan tapered down to 0.25 mg tid due to oversedation. Seroquel tapered to 50 mg in AM and 25 mg afternoon and evening.
-Citalopram discontinued on 09/07/23 as per psychiatry
-Depakote started 09/26/23 - Depakote increased on 10/02/23 as per psych, 10/11 progressive thrombocytopenia plt 69, Depakote subsequently placed on hold, follow up lvl check am 10/12 - Depakote then placed on hold d/t progressive thrombocytopenia.
-psych eval appreciated 1:1 discontinued 10/06, required medsitter however
#Left elbow skin tear, right inner thigh bruise secondary to multiple falls
-Consulted wound care, recommendations appreciated
#Skin rash left and right lateral trunk unclear etiology -
-s/p Keflex course (but now on Keflex again due to pressure wound infection concerns). Rash improved as above
-steroids discontinued as above
-switched to Aquaphor for dry skin itching, small dot like lesions likely due to scratching dry skin irritation
-hydroxyzine tapered off as per psych
-desenex for bed rash
#Alzheimer's Dementia�advanced
-Supportive care
#Atrial Fibrillation
-Prior to arrival, he was not candidate for anticoagulation secondary to falls
-However, started Eliquis while inpatient due to suspected DVT (see above)
-Continue Coreg
#Bradycardia - resolved
-GREEN CHAIN OFF BEARER Coreg stopped, since resumed reduced dosage
#Anemia-macrocytic
Hgb 13.5 on 09/12 was 11.12 June 2023
Hgb high at ~18 on October 13, 2023 -- then improved
#Hypertension�benign
-BP ranges widely - as high as 212 systolic blood pressure on October 15, 2023 - high values likely due to intermittent agitation
-Restarted Norvasc on October 15, 2023 due to severely elevated blood pressure
-Coreg resumed reduced dose, tolerating well, titrated up to current 12.5 mg BID
-Monitor and titrate antihypertensive regimen as tolerated
-given falls and dementia would avoid aggressively treating hypertension.
#Former alcohol abuse
Stopped 2022 drank greater than 2 glasses a day per
#Insomnia
-Continue melatonin at bedtime
#History of colon cancer with resection of [facility] 2018
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
#BPH
Continue Flomax 0.4 mg at bedtime
Small stage 2 L coccyx buttocks pressure injury.�
cont local wound care
Cholelithiasis
1.5 cm hepatic cyst
Bilateral parapelvic renal cysts
-Above findings present on abdominal ultrasound, as per radiologist's report
DVT prophylaxis: SCDs. Patient would not be able to consistently tolerate subq injections (e.g. Lovenox subq or Heparin subq) due to agitation.
DNR
Placement remains pending
Pending Ethics committee meeting on 10/15/23
Family Discussions
I called (on October 13, 2023) patient's daughter Lou - all questions and concerns were answered to satisfaction.
I called (on October 15, 2023) patient's daughter Lou - all questions and concerns were answered to satisfaction. I explained to her that patient will need Eliquis for DVT anticoagulation.
Total time spent today on performing chart review, documentation, speaking with patient's daughter over the phone, seeing and examining the patient and speaking with other specialists including IR was 85 minutes.
Anticipated Discharge: > 48 hours
Subjective/Interval History
-
Date of Service: October 15, 2023
Patient was seen and examined. He appeared to be mildly agitated this morning, pulling down his blanket/clothes.
Objective Data
-
Vital Signs:
Vital Signs
Temp Pulse Resp BP Pulse Ox
97.4 F 73 24 212/125 97
10/15/23 07:30 10/15/23 07:30 10/15/23 07:30 10/15/23 07:30 10/15/23 07:30
I&O
10/14/23 10/15/23 10/16/23
06:59 06:59 06:59
Intake Total 240 / 240
Balance 240 / 240
[2023-10-15 10:49] VITALS: BP 169/96
[2023-10-15] MEDS: ASPIR LOW (ENTERIC COATED) 81 MG PO (10:51)
[2023-10-15] MEDS: ATIVAN 0.25 MG PO ×3 (10:51→17:21)
[2023-10-15] MEDS: SEROQUEL 50 MG PO (10:53)
[2023-10-15] MEDS: COREG 12.5 MG PO ×2 (10:53→19:48)
[2023-10-15] MEDS: ZYRTEC 10 MG PO (10:54)
[2023-10-15] MEDS: HYDROPHOR 1 APPLIC TOPICAL (10:54)
[2023-10-15] MEDS: DESENEX/MITRAZOL/ZEASORB 1 APPLIC TOPICAL ×2 (10:55→19:49)
[2023-10-15] MEDS: NORVASC 5 MG PO (10:58)
--- NOTE | 2023-10-15 13:21 | CM ---
CM left voicemail for [facility], awaiting return call regarding accepting patient. CM spoke with Myriam, Rouge Sifter from [facility], also will reach out to [facility]. Additional referrals sent again to [facility],
[facility] as [place]. CM spoke with Ludivina from [facility], unable to accept patient at [facility] or [facility]. [facility] also unable to accept patient at this time. Per Myriam, awaiting responses from Tiesha Madera
in [place], Donna in [place], and [facility] Let[facility].
Ethics meeting planned for tomorrow at 12:00 p.m. CM will continue to follow for discharge planning needs.
Plan; SNF pending placement.
--- NOTE | 2023-10-15 13:30 | W.PN.ID1 ---
Addendum entered and electronically signed by Veronica Sethi MD 10/15/23 16:35:
New pressure wound felt to be developing based on CT scan
Wound care and offloading
Another indication for hospice
will start keflex
Original Note:
Date of Service
Date of Service: October 15, 2023
Today's Communication
End stage dementia - continue to recommend hospice
evaluate for possible abscess with CT scan
Assessment / Plan
End Stage Dementia
- delirious, incontinent, unable to feed self; does speak a few words,
- 17 falls recorded outpatient; functionally nonambulatory at this time, PTs reporting very unsteady gait and he is not improving with PT when he is able to participate
- note 16 kg weight loss - RDs following
- developing recurrent pressure wounds
- in my opinion would meet criteria for hospice for end stage dementia with less than a 6 month expected life span. I will attend the ethics meeting tomorrow at noon. I have spoken with Dr Ward who has agreed to attend this meeting.
Probable Developing Sacral Abscess
- CT scan with contrast if safe/feasible; if patient unable to tolerate a PIV then will order it noncontrasted
- further recommendations pending CT scan
Chief Complaint
-: Other (rash)
Subjective / Review of Systems
Asked to reassess patient for possible sacral abscess with raise, erythematous area on the buttocks
Note healing of previous stage 2 sacral wound
New R heel stage I pressure ulcer
Big picture - gait remains very unsteady, patient at high risk for falls
PT reporting patient abulic
has lost 16 kg in the last 3 months
Vital Signs / Physical Exam
Vital Signs
Vital Signs
Temp Pulse Resp BP Pulse Ox
96.5 F L 72 20 169/96 96
10/15/23 11:21 10/15/23 10:53 10/15/23 11:21 10/15/23 10:53 10/15/23 11:21
Physical Exam
Constitutional: No Acute Distress and Chronically Ill
Cardiovascular: Regular Rate and S1/S2; Negative Murmur or Rub
Pulmonary: Clear and Symmetric; Negative Wheezes or Rales
Gastrointestinal: Soft, Non Tender, Non Distended and Normal Bowel Sounds
Skin: Warm and Dry; Negative Rash or Jaundice
Objective Data
Lab Data
Lab Results
10/14/23 08:35
10/14/23 08:35
PT 14.5 Sec (11.4-14.6) 08/21/23 09:45
INR 1.11 08/21/23 09:45
Estimated Creat Clear 77 ml/min 10/14/23 08:35
Total Bilirubin 1.1 mg/dl (0.2-1.3) 10/12/23 18:03
AST 32 U/L (17-59) 10/12/23 18:03
ALT 20 U/L (0-50) 10/12/23 18:03
Alkaline Phosphatase 50 U/L (38-126) 10/12/23 18:03
Most recent labs reviewed.
Micro Results:
08/20/23 18:28 Influenza Types A & B (SERGE) - Final
Nasal Swab Negative for Influenza A & B, NAAT
Negative results must be combined with clinical observations
and patient history.
Nucleic Acid Amplification test (NAAT)performed on the
[employer] platform.
Care Review
Plan reviewed with: Physician (Dr Ward - end stage dementia)
[2023-10-15] MEDS: SEROQUEL PO ×3 (13:56→21:17)
--- NOTE | 2023-10-15 14:01 | W.PN.UPDATE ---
Update Note
Progress Note Update
patient seen chart reviewed. discussed with nursing and with case management. mr alonso remains much the same. he was sedated when i saw him today along with nursing. it was lunchtime and they wanted to feed him. we held the seroquel as he was
somewhat difficult to rouse as per the order. speaking with staff as to the situation . patient has been her at since mid august with no placement [facility] so he remains in an acute care hospital without an acute problem needing care.
dr adams sent me a message re development of a pressure ulcer. ethics committee meeting tentatively scheduled for tomorrow to brainstorm re a plan for mr alonso's future. have added hold for sedation to ativan standing order
--- NOTE | 2023-10-15 14:42 | HOSPNOTE ---
Ethics meeting tomorrow at 12noon. I will be attending supporting family make some decisions about hospice care and the philosophy and the goals of care.
[2023-10-15 16:42] LABS: Hemoglobin 17.3 g/dL (13.0-18.0); Mean Corp Hgb Conc. 33.9 g/dL (33.0-37.0); Mean Corpuscular Hgb 31.6 pg (27.0-31.0); Mean Corpuscular Volume 93.2 fL (80.0-94.0); Mean Platelet Volume 11.2 fL (7.4-10.4); Platelet Count 66 10^3/uL (130-400); Red Blood Cell Count 5.47 10^6/uL (4.70-6.10); Red Cell Dist. Width 13.2 % (11.5-14.5); White Blood Cell Count 10.1 10^3/uL (4.8-10.8)
[2023-10-15 16:58] LABS: Blood Urea Nitrogen 33 mg/dl (9-20); Calcium 9.7 mg/dl (8.4-10.2); Carbon Dioxide 30 mmol/L (22-30); Chloride 107 mmol/L (98-107); Estimated Creatinine Clearance 77 ml/min; Glucose 105 mg/dl (70-99); Potassium 3.9 mmol/L (3.5-5.1); Sodium 145 mmol/L (135-145); eGFR > 60.00
[2023-10-15] MEDS: ELIQUIS 10 MG PO (17:22)
[2023-10-15] MEDS: KEFLEX 500 MG PO ×2 (17:25→21:17)
[2023-10-15] MEDS: FLOMAX 0.400000000000000022 MG PO (21:16)
[2023-10-15] MEDS: ATIVAN PO (21:18)
[2023-10-15] MEDS: MELATONIN PO (21:18)
[2023-10-15] MEDS: SEROQUEL 25 MG PO (23:15)
[2023-10-15 23:30] VITALS: BP 152/89
--- NOTE | 2023-10-16 01:55 | PTCARENOTE ---
Patient sleeping in beginning of shift. Ativan and Seroquel initially held. Patient woke up and was becoming restless with multiple attempts to get out of bed on own. Scheduled Seroquel given but Ativan held.
[2023-10-16 07:30] VITALS: BP 156/96
[2023-10-16 08:42] LABS: Hematocrit 55.6 % (39.0-52.0); Hemoglobin 18.7 g/dL (13.0-18.0); Mean Corp Hgb Conc. 33.6 g/dL (33.0-37.0); Mean Corpuscular Hgb 31.3 pg (27.0-31.0); Mean Corpuscular Volume 93.1 fL (80.0-94.0); Mean Platelet Volume 11.2 fL (7.4-10.4); Platelet Count 73 10^3/uL (130-400); Red Blood Cell Count 5.97 10^6/uL (4.70-6.10); Red Cell Dist. Width 13.2 % (11.5-14.5); White Blood Cell Count 9.9 10^3/uL (4.8-10.8)
[2023-10-16] MEDS: NORVASC 5 MG PO (08:55)
[2023-10-16] MEDS: SEROQUEL 50 MG PO (08:55)
[2023-10-16] MEDS: COREG 12.5 MG PO ×2 (08:56→20:02)
[2023-10-16] MEDS: ATIVAN 0.25 MG PO ×3 (08:56→22:28)
[2023-10-16] MEDS: ELIQUIS 10 MG PO ×2 (08:57→20:01)
[2023-10-16] MEDS: ZYRTEC 10 MG PO (08:57)
[2023-10-16] MEDS: KEFLEX 500 MG PO ×3 (08:57→16:34)
[2023-10-16] MEDS: DESENEX/MITRAZOL/ZEASORB 1 APPLIC TOPICAL ×2 (08:58→20:01)
[2023-10-16] MEDS: HYDROPHOR 1 APPLIC TOPICAL (08:58)
[2023-10-16 09:34] LABS: ALT (SGPT) 27 U/L (0-50); AST (SGOT) 33 U/L (17-59); Albumin 4.6 g/dl (3.5-5.0); Alkaline Phosphatase 61 U/L (38-126); Blood Urea Nitrogen 28 mg/dl (9-20); Calcium 10.1 mg/dl (8.4-10.2); Carbon Dioxide 31 mmol/L (22-30); Chloride 107 mmol/L (98-107); Estimated Creatinine Clearance 77 ml/min; Glucose 83 mg/dl (70-99); Magnesium 2.3 mg/dl (1.6-2.3); Phosphorus 3.4 mg/dl (2.5-4.5); Potassium 3.8 mmol/L (3.5-5.1); Sodium 149 mmol/L (135-145); Total Bilirubin 1.1 mg/dl (0.2-1.3); Total Protein 7.9 g/dl (6.3-8.2); eGFR > 60.00
--- NOTE | 2023-10-16 10:14 | W.PN.UPDATE ---
Update Note
Progress Note Update
patient seen chart reviewed. at this moment mr alonso is dozing and resting quietly. he still has not had prns since october 01. noted yesterday in peripheral vascular ultrasound occlusive and non occlusive thrombi of the rt le which are being rx
at this point w ashok. this afternoon there will be a meeting of several deparments within the context of ethics committee to discuss the best way to proceed with mr alonso's care and disposition going forward.
[2023-10-16] MEDS: D5W 1000 IV ×2 (11:50→14:10)
--- NOTE | 2023-10-16 13:05 | HOSPNOTE ---
Patient will be transferred to [facility] and admitted on hospice inpatient tomorrow 10/16. Family meeting and family in agreement with hospice and the philosophy. Case management aware of plan.
--- NOTE | 2023-10-16 13:42 | W.CON.NEPH ---
Consultation
-
Date/Time Consultation Requested: 10/16/23 10:20AM
Date/Time Consultation Performed: 10/16/23 1:43PM
Requesting Provider: Erasmo Fraser
Performing Provider: Mansi Espana
Reason for Consultation: hypernatremia
Medical History
-
Chief Complaint: hypernatremia
History of Present Illness:
Mr. Ramirez is a 83YOM with PMH of Alzhiemers dementia, anxiety, depression, pAfib, HTN, colon cancer with resection, former alcohol abuse who presents to the hospital for recurrent falls (arrived from memory care unit). [facility] reported they
are unable to care for him. Patient has been in the hospital since 08/20/23. It appears that he has had multiple complications including DVT of RLE, polycythemia, pressure wounds, rashes, agitation/dementia. His dementia is very advanced. Nephrology
is now being consulted for hypernatremia with his Na rising from 145--> 149 over the past day. Per primary team, there are ongoing hospice discussions.
Past Medical History
Alzhiemers dementia
anxiety
depression
Afib
HTN
colon cancer
former alcohol abuse
BPH
cholelithiasis
recurrent pressure wounds
Social History
Tobacco: Non-Smoker
Alcohol: Former
Drug: None
Personal:
Living: Other ([facility] )
Family History
Family History: Not Pertinent
Allergies / Home Medications
Allergy/AdvReac Type Severity Reaction Status Date / Time
No Known Allergies Allergy Verified 08/20/23 12:41
Medication Instructions Recorded Confirmed Type
amlodipine 5 mg tablet 5 mg PO DAILY Blood Pressure 07/03/23 08/20/23 History
aspirin 81 mg tablet,delayed 81 mg PO DAILY Blood Clot 07/03/23 08/20/23 History
release Prevention/Tx
carvedilol 25 mg tablet 25 mg PO BID Heart Failure 07/03/23 08/20/23 History
duloxetine 20 mg capsule,delayed 20 mg PO DAILY Pain 07/03/23 08/20/23 History
release
lamotrigine 150 mg tablet 150 mg PO DAILY Neurological 07/03/23 08/20/23 History
Condition
melatonin 5 mg tablet 5 mg PO HS Sleep 07/03/23 08/20/23 History
olanzapine 5 mg disintegrating 5 mg PO BIDPRN PRN anxiety 07/03/23 08/20/23 History
tablet
potassium chloride 20 mEq 40 meq PO DAILY Electrolyte 07/03/23 08/20/23 History
tablet,extended release(part/cryst) Repletion
tamsulosin 0.4 mg capsule 0.4 mg PO HS Urinary Issue 07/03/23 08/20/23 History
trazodone 100 mg tablet 100 mg PO HS Sleep 07/03/23 08/20/23 History
trazodone 50 mg tablet 25 mg PO HS Sleep 07/03/23 08/20/23 History
diphenoxylate-atropine 2.5 1 tab PO QID diarrhea 08/20/23 08/20/23 History
mg-0.025 mg tablet
olanzapine 7.5 mg tablet 7.5 mg PO TID Mental Health/Anxiety 08/20/23 08/20/23 History
Review of Systems
-
Unable to obtain full review of systems at this time due to: Dementia
History Source: Physician
Physical Exam
Vital Signs
Vital Signs
Temp Pulse Resp BP Pulse Ox
97.3 F 75 18 155/96 96
10/16/23 07:30 10/16/23 08:55 10/16/23 07:30 10/16/23 08:55 10/16/23 07:30
Lab Results
WBC 9.9 10^3/uL (4.8-10.8) 10/16/23 07:27
RBC 5.97 10^6/uL (4.70-6.10) 10/16/23 07:27
Hgb 18.7 g/dL (13.0-18.0) H 10/16/23 07:27
Hct 55.6 % (39.0-52.0) H 10/16/23 07:27
Plt Count 73 10^3/uL (130-400) L 10/16/23 07:27
Sodium 149 mmol/L (135-145) H 10/16/23 07:27
Potassium 3.8 mmol/L (3.5-5.1) 10/16/23 07:27
Chloride 107 mmol/L (98-107) 10/16/23 07:27
Carbon Dioxide 31 mmol/L (22-30) H 10/16/23 07:27
BUN 28 mg/dl (9-20) H 10/16/23 07:27
Creatinine 0.8 mg/dL (0.7-1.3) 10/16/23 07:27
eGFR > 60.00 10/16/23 07:27
Glucose 83 mg/dl (70-99) 10/16/23 07:27
Calcium 10.1 mg/dl (8.4-10.2) 10/16/23 07:27
Phosphorus 3.4 mg/dl (2.5-4.5) 10/16/23 07:27
Albumin 4.6 g/dl (3.5-5.0) 10/16/23 07:27
Physical Exam
General: Awake, No Distress and Nontoxic
HEENT: PERRL, EOMI, Anicteric, Conjunctivae Clear and Ear/Nose Intact
Respiratory: Clear
Cardiac: S1/S2, Regular Rate/Rhythm and No Edema
Breast: N/A
Abdomen: Soft, Nontender and Nondistended
Rectal: Deferred by Provider
Musculoskeletal: No Clubbing and No Cyanosis
Skin: Warm and Dry
Neuro: Other (AO to name only)
Psych: Other (calm)
Assessment/Plan
-
Assessment:
hypernatremia
end stage dementia
pressure wounds
dvt
afib
recurrent falls
Plan:
- patient has about a 2.5L free water deficit not accounting for free water losses
- please initiate DW at 100cc/hr with plans to continue until Na improves
- likely developed hypernatremia in the setting of advanced dementia and poor intake
- monitor I/Os
- ethics meeting pendign
Data Reviewed
-
Radiology: Image Personally Visualized and interpreted (CXR clear)
CT Scan: Report Reviewed by me
Ultrasound: Report Reviewed by me
Labs: Labs Reviewed by me and Discussed with Physician
Old Records: Reviewed
--- NOTE | 2023-10-16 14:38 | CHAP ---
Ethics consult placed and panel convened. Family attended. Meeting ended with all parties in agreement for hospice as the plan with comfort and dignity as the goal. Family expressed gratitude. Pastoral Care will continue to follow with the
family.
--- NOTE | 2023-10-16 15:15 | W.PN.HOSP.TC ---
Today's Communication/Plan
-
Ethics meeting took place today - decision has been made after discussion with family, for hospice
Hypernatremia treatment - consulted nephrology
Continue Eliquis
Continue fall precautions
Please see below
Assessment / Plan
Assessment / Plan
Physical Exam
General: Not in acute distress
HEENT: Normocephalic and Atraumatic
Respiratory: Clear to Auscultation
Cardiac: Regular Rhythm and S1/S2
GI: Soft, Nontender and Nondistended. Positive bowel sounds.
Musculoskeletal: No Cyanosis and No Edema
Skin: Warm. Dry.
Neuro: sleeping arousable
Psych: Calm
Assessment/Plan
#Recurrent falls - reported 17 falls (in the 2 to 3 weeks prior to admission) per NH staff
-most likely multifactorial and associated with advance dementia
-fall precautions
-PT/OT, eventual SNF
-psychotropic med adjustment per psychiatry
-patient remains quite unsteady with ambulation, also has weight loss
#Deep Venous Thrombosis of the Right Lower Extremity
-Finding was present on CT Pelvis with IV contrast from October 15, 2023
-On October 15, 2023, I spoke via phone with gas operations superintendent Dr. Samantha Red
-Based on above discussion, Eliquis started on October 15, 2023 at 10 mg BID (for a total of 14 doses) followed by 5 mg BID for at least 3 months, and no IVC filter at this time.
-Eliquis okay to do as long platelets remain above 50k -- continue to monitor CBC
-Patient has been noted to get very agitated and needle injection of medicines is not an option - discussed with Dr. Dixon by phone on October 15, 2023 who recommended against trying Heparin Drip as it involves needle injection/IV
-Lovenox subq has not been an option (for DVT prophylaxis or therapeutic for DVT treatment above) as patient would get very agitated with needles/injections and it would be difficult to consistently administer it
-Sequential compression devices/pneumatic compression sleeves - for DVT prophylaxis - also agitate the patient
-Updated family on the above
#Polycythemia - suspected to be from volume depletion
#Thrombocytopenia - likely from Depakote
-New polycythemia on October 13, 2023: consulted hematology, recommendations appreciated
-Episodes of apnea? But even with apnea won't get such a large rise in Hgb
-Abdominal ultrasound did not show splenomegaly
-Monitor CBC
#Recurrent Pressure Wounds
#New Pressure Wound based on CT Scan on October 15, 2023
-Continue wound care and offloading
-Recurrent pressure wounds with patient's lack of adequate mobility in the setting advanced dementia qualifies patient for hospice
-Keflex antibiotics per ID, ID assistance appreciated
#Rash on R flank/R posterior LE - likely Folliculitis
#Pruritus
-Emollients for the dry skin
-Cetirizine
-See wound note (dated 09/29/23) from Kathrin Love
-Appears to be papular rash
-hygiene if safe/feasible - daily bathing and sheet changes
-ID consult appreciated doxycycline x 7 days was completed, rash since improved
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
-Per hematology, would NOT work this up further in the setting of advanced dementia
#Agitation/Dementia (End-Stage Dementia)
-Zyprexa and Lamictal discontinued as above
-Ativan tapered down to 0.25 mg tid due to oversedation. Seroquel tapered to 50 mg in AM and 25 mg afternoon and evening.
-Citalopram discontinued on 09/07/23 as per psychiatry
-Depakote started 09/26/23 - Depakote increased on 10/02/23 as per psych, 10/11 progressive thrombocytopenia plt 69, Depakote subsequently placed on hold, follow up lvl check am 10/12 - Depakote then placed on hold d/t progressive thrombocytopenia.
-psych eval appreciated 1:1 discontinued 10/06, required medsitter however
#Left elbow skin tear, right inner thigh bruise secondary to multiple falls
-Consulted wound care, recommendations appreciated
#Skin rash left and right lateral trunk unclear etiology -
-s/p Keflex course (but now on Keflex again due to pressure wound infection concerns). Rash improved as above
-steroids discontinued as above
-switched to Aquaphor for dry skin itching, small dot like lesions likely due to scratching dry skin irritation
-hydroxyzine tapered off as per psych
-desenex for bed rash
#Hypernatremia
-Consulted nephrology, recommendations appreciated
-D5W as per nephrology
-Monitor BMP/electrolytes
#Alzheimer's Dementia�advanced
-Supportive care
#Atrial Fibrillation
-Prior to arrival, he was not candidate for anticoagulation secondary to falls
-However, started Eliquis while inpatient due to suspected DVT (see above)
-Continue Coreg
#Bradycardia - resolved
-SENIOR ACCOUNTANT ANALYST Coreg stopped, since resumed reduced dosage
#Anemia-macrocytic
Hgb 13.5 on 09/12 was 11.12 June 2023
Hgb high at ~18 on October 13, 2023 -- then improved --then worsened
#Hypertension�benign
-BP ranges widely - as high as 212 systolic blood pressure on October 15, 2023 - high values likely due to intermittent agitation
-Restarted Norvasc on October 15, 2023 due to severely elevated blood pressure
-Coreg resumed reduced dose, tolerating well, titrated up to current 12.5 mg BID
-Monitor and titrate antihypertensive regimen as tolerated
-given falls and dementia would avoid aggressively treating hypertension.
#Former alcohol abuse
Stopped 2022 drank greater than 2 glasses a day per
#Insomnia
-Continue melatonin at bedtime
#History of colon cancer with resection of [facility] 2018
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
#BPH
Continue Flomax 0.4 mg at bedtime
Small stage 2 L coccyx buttocks pressure injury.�
cont local wound care
Cholelithiasis
1.5 cm hepatic cyst
Bilateral parapelvic renal cysts
-Above findings present on abdominal ultrasound, as per radiologist's report
DVT prophylaxis: Currently on Eliquis as above; patient could not wear SCDs due to agitation, and Lovenox/Heparin subq has not been an option (for DVT prophylaxis or therapeutic for DVT treatment above) as patient would get very agitated with
needles/injections and it would be difficult to consistently administer it.
Code Status: DNR
Placement remains pending
Pending Ethics committee meeting on 10/15/23
Family Discussions
I called (on October 13, 2023) patient's daughter Lou - all questions and concerns were answered to satisfaction.
I called (on October 15, 2023) patient's daughter Lou - all questions and concerns were answered to satisfaction. I explained to her that patient will need Eliquis for DVT anticoagulation.
Ethics meeting took place on October 16, 2023 and patient's family have decided to start the hospice process.
Total time spent today on performing chart review, documentation, attending ethics meeting, seeing and examining the patient and speaking with other specialists was 95 minutes.
Anticipated Discharge: > 48 hours
Subjective/Interval History
-
Date of Service: October 16, 2023
Patient was seen and examined. He appeared to be sleeping comfortably. Nurse mentioned that patient has been having formed stools every day, and that he has not been eating and drinking by himself, but needs someone to feed him.
Objective Data
-
Labs:
Laboratory Results
10/16/23
07:27
WBC 9.9
Hgb 18.7 H
Hct 55.6 H
Plt Count 73 L
Sodium 149 H
Potassium 3.8
Chloride 107
Carbon Dioxide 31 H
BUN 28 H
Creatinine 0.8
Glucose 83
Calcium 10.1
Total Bilirubin 1.1
AST 33
ALT 27
Alkaline Phosphatase 61
Vital Signs:
Vital Signs
Temp Pulse Resp BP Pulse Ox
97.3 F 75 18 155/96 96
10/16/23 07:30 10/16/23 08:55 10/16/23 07:30 10/16/23 08:55 10/16/23 07:30
I&O
10/15/23 10/16/23 10/17/23
06:59 06:59 06:59
Intake Total 1080 / 1080
Balance 1080 / 1080
--- NOTE | 2023-10-16 15:26 | CM ---
Ethics meeting held. Family agreeable to hospice, patient will be transferred to and admitted to hospice tomorrow, 10/16. Hospice referral sent in [facility]. CM will continue to offer support to family. CM will continue to follow for discharge
planning needs.
Plan; admit to hospice 10/16, transfer to to private room.
[2023-10-16 15:30] VITALS: BP 122/69
[2023-10-16] MEDS: SEROQUEL 25 MG PO ×2 (16:34→22:28)
--- NOTE | 2023-10-16 17:30 | W.PN.ID1 ---
Date of Service
Date of Service: October 16, 2023
Today's Communication
- in my opinion would meet criteria for hospice for end stage dementia with less than a 6 month expected life span. Discussed with family at Ethics meeting today laying out the concerns above and my recommendation of hospice which was accepted.
Will stop keflex; Dr Ward will assist with inpatient hospice plans
I will no longer actively follow this patient but remain available to reassess or discuss further with family or staff if additional questions arise.
Assessment / Plan
End Stage Dementia
Deep Tissue injury
- delirious, incontinent, unable to feed self; does speak a few words,
- 17 falls recorded outpatient; functionally nonambulatory at this time, PTs reporting very unsteady gait and he is not improving with PT when he is able to participate
- note 16 kg weight loss - RDs following
- developing recurrent pressure wounds - bilateral sacral deep tissue injuries noted
- in my opinion would meet criteria for hospice for end stage dementia with less than a 6 month expected life span. Discussed with family at Ethics meeting today laying out the concerns above and my recommendation of hospice which was accepted.
Will stop keflex; Dr Ward will assist with inpatient hospice plans
I will no longer actively follow this patient but remain available to reassess or discuss further with family or staff if additional questions arise.
Chief Complaint
-: Other (rash)
Subjective / Review of Systems
afebrile
bp stable
sedated
family meeting/ethics consult held today; had long discussion with patients family and staff.
Vital Signs / Physical Exam
Vital Signs
Vital Signs
Temp Pulse Resp BP Pulse Ox
97.8 F 67 18 122/69 96
10/16/23 15:30 10/16/23 15:30 10/16/23 15:30 10/16/23 15:30 10/16/23 15:30
Objective Data
Lab Data
Lab Results
10/16/23 07:27
PT 14.5 Sec (11.4-14.6) 08/21/23 09:45
INR 1.11 08/21/23 09:45
Estimated Creat Clear 77 ml/min 10/16/23 07:27
Total Bilirubin 1.1 mg/dl (0.2-1.3) 10/16/23 07:27
AST 33 U/L (17-59) 10/16/23 07:27
ALT 27 U/L (0-50) 10/16/23 07:27
Alkaline Phosphatase 61 U/L (38-126) 10/16/23 07:27
Most recent labs reviewed.
Micro Results:
08/20/23 18:28 Influenza Types A & B (SERGE) - Final
Nasal Swab Negative for Influenza A & B, NAAT
Negative results must be combined with clinical observations
and patient history.
Nucleic Acid Amplification test (NAAT)performed on the
[employer] platform.
Care Review
Plan reviewed with: Physician (Dr Ward, Dr Dixon - hospice recommendation)
[2023-10-16 21:45] LABS: Blood Urea Nitrogen 32 mg/dl (9-20); Calcium 9.3 mg/dl (8.4-10.2); Carbon Dioxide 31 mmol/L (22-30); Chloride 105 mmol/L (98-107); Estimated Creatinine Clearance 68 ml/min; Glucose 116 mg/dl (70-99); Magnesium 2.3 mg/dl (1.6-2.3); Potassium 3.6 mmol/L (3.5-5.1); Sodium 144 mmol/L (135-145); eGFR > 60.00
[2023-10-16] MEDS: FLOMAX 0.400000000000000022 MG PO (22:28)
[2023-10-16] MEDS: MELATONIN 5 MG PO (22:28)
[2023-10-16 23:12] VITALS: BP 121/74
[2023-10-17] MEDS: D5W 1000 IV
[2023-10-17] MEDS: ATIVAN 0.5 MG PO (02:15)
--- NOTE | 2023-10-17 03:31 | PTCARENOTE ---
Pt restless, stripping clothes and brief, unable to be redirected or follow directions, attempting to pull IV. Incontinence care provided, 1:1 time provided without any + effect, PRN Ativan administered. Pt remains restless and physically
aggressive towards staff during care.
[2023-10-17 06:43] LABS: Hematocrit 49.9 % (39.0-52.0); Mean Corp Hgb Conc. 34.1 g/dL (33.0-37.0); Mean Corpuscular Hgb 31.6 pg (27.0-31.0); Mean Corpuscular Volume 92.8 fL (80.0-94.0); Platelet Count 69 10^3/uL (130-400); Red Blood Cell Count 5.38 10^6/uL (4.70-6.10); Red Cell Dist. Width 13.2 % (11.5-14.5)
[2023-10-17 06:55] LABS: Blood Urea Nitrogen 27 mg/dl (9-20); Calcium 8.9 mg/dl (8.4-10.2); Carbon Dioxide 27 mmol/L (22-30); Chloride 110 mmol/L (98-107); Estimated Creatinine Clearance 88 ml/min; Glucose 114 mg/dl (70-99); Magnesium 2.1 mg/dl (1.6-2.3); Potassium 3.5 mmol/L (3.5-5.1); Sodium 143 mmol/L (135-145); eGFR > 60.00
[2023-10-17 07:30] VITALS: BP 154/90
[2023-10-17] MEDS: ATIVAN 0.25 MG PO (09:50)
[2023-10-17] MEDS: ELIQUIS 10 MG PO (09:51)
[2023-10-17] MEDS: HYDROPHOR 1 APPLIC TOPICAL (09:51)
[2023-10-17] MEDS: SEROQUEL 50 MG PO (09:51)
[2023-10-17] MEDS: DESENEX/MITRAZOL/ZEASORB 1 APPLIC TOPICAL (09:51)
[2023-10-17] MEDS: COREG 12.5 MG PO (09:52)
[2023-10-17] MEDS: THIAMINE INJECTION 100 MG IV (09:52)
[2023-10-17] MEDS: NORVASC 5 MG PO (09:52)
[2023-10-17] MEDS: ZYRTEC 10 MG PO (09:52)
--- NOTE | 2023-10-17 10:03 | W.PN.HOSP.TC ---
Today's Communication/Plan
-
Discharge to General Inpatient Hospice
Assessment / Plan
Assessment / Plan
Physical Exam
General: Not in acute distress
HEENT: Normocephalic and Atraumatic
Respiratory: Clear to Auscultation
Cardiac: Regular Rhythm and S1/S2
GI: Soft, Nontender and Nondistended. Positive bowel sounds.
Musculoskeletal: No Cyanosis and No Edema
Skin: Warm. Dry.
Neuro: Awake. Alert.
Psych: Calm
Assessment/Plan
#Recurrent falls - reported 17 falls (in the 2 to 3 weeks prior to admission) per NH staff
#Deep Venous Thrombosis of the Right Lower Extremity
#Polycythemia - suspected to be from volume depletion
#Thrombocytopenia - likely from Depakote
#Recurrent Pressure Wounds
#New Pressure Wound based on CT Scan on October 15, 2023
#Rash on right flank/right posterior lower extremity - likely Folliculitis
#Pruritus
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
#Agitation/Dementia (End-Stage Dementia)
#Left elbow skin tear, right inner thigh bruise secondary to multiple falls
#Skin rash left and right lateral trunk unclear etiology -
#Hypernatremia
#Alzheimer's Dementia�advanced
#Atrial Fibrillation
#Bradycardia - resolved
#Anemia-macrocytic
#Hypertension�benign
#Former alcohol abuse
#Insomnia
#History of colon cancer with resection of [facility] 2018
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
#BPH
#Small stage 2 L coccyx buttocks pressure injury.�
#Cholelithiasis
#1.5 cm hepatic cyst
#Bilateral parapelvic renal cysts
-Patient remains confused, unable to eat by himself, very high falls risk -- his functioning has declined in the setting of his end-stage dementia
-Patient meets criteria for hospice with decline in the setting of end-stage dementia
-Ethics meeting took place on October 16, 2023 and patient's family have decided to start the hospice
-Admit to [facility] Inpatient Hospice
More than 30 minutes spent in discharge including
Final examination of the patient
Summarizing hospital stay
Instructions for continuing care to all relevant caregivers
Preparation of discharge records, prescriptions, and referral forms
Total time spent (in minutes): 35
Anticipated Discharge: Today
Subjective/Interval History
-
Date of Service: October 17, 2023
Patient was seen and examined. He was lying in bed, looking at the ceiling, moved his eyes a little and uttered some words which were not intelligible.
Objective Data
-
Labs:
Laboratory Results
10/17/23
06:03
WBC 10.0
Hgb 17.0
Hct 49.9
Plt Count 69 L
Sodium 143
Potassium 3.5
Chloride 110 H
Carbon Dioxide 27
BUN 27 H
Creatinine 0.7
Glucose 114 H
Calcium 8.9
Vital Signs:
Vital Signs
Temp Pulse Resp BP Pulse Ox
97.7 F 75 18 154/90 98
10/17/23 07:30 10/17/23 07:30 10/17/23 07:30 10/17/23 09:52 10/17/23 07:30
I&O
10/16/23 10/17/23 10/18/23
06:59 06:59 06:59
Intake Total 1080 / 1080 1040 / 1040 700 / 700
Balance 1080 / 1080 1040 / 1040 700 / 700
--- NOTE | 2023-10-17 10:58 | W.DCSUMMARY ---
Discharge Summary
Discharge Data
Date of Admission: 08/20/23
Date of Discharge: 10/17/23
Total time spent discharging patient (in min): 35
-
Pending Results: No
Hospital Course
83-year-old male with a past medical history of Alzheimer's Dementia, diarrheal illness in July 2023, anxiety, depression, paroxysmal atrial fibrillation (not on anticoagulation outpatient due to falls and dementia), hypertension, colon cancer
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 Patient was sent
to the emergency room for evaluation due to yet another fall in the morning of the day of presentation along with an abrasion to his left elbow with some right hip pain -- and no one was able to pick him up. [facility] reported they were unable
to take care of him as he required too much care. Patient had a recent diarrheal illness in July 2023 and after the diarrheal illness, he started falling. Per patient's family, patient was agitated so agitation medications were increased, and
there had been an issue with too much sedation versus agitation. Patient also had an itchy rash in his left chest and axillary area. CT Head did not show any acute changes and CT Cervical Spine did not show any acute changes. No hip fracture or
dislocation was identified on initial imaging. 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 Eventually patient's Coreg was restarted.
Infectious Disease was consulted for patient's rash on his left chest, and Keflex antibiotics was started for possible folliculitis.
Psychiatry was consulted for patient's agitation and some of his routine medications were adjusted/stopped to see whether that would help with the falls. Anticholinergic effects from some of his medications were a concern. Patient required Zyprexa
and as needed Ativan for agitation. Patient required a 1:1 sitter, and it was noted that patient needed to be off the 1:1 sitter for at least 24 hours before patient could be considered for acceptance to a [facility]. Patient did need
to be moved to a nurses station for close monitoring. Patient became more calm during his hospitalization but still had periods of increased agitation and becoming easily very agitated, with including times when staff were trying to perform routine
care for him. Patient also had a Code Purple called for agitation, and also needed 4-point restraints. Patient also tried to get up on his own but was noted to be very unsteady on his feet. Patient was too agitated to work with physical therapy.
Psychiatry continued to adjust his medications throughout the hospitalization. Patient was later started on Depakote but it was discontinued due to worsening thrombocytopenia.
It was noted that patient became upset/agitated with any kind of drawing blood, and with any other care including vital signs check or any other routine care would make him agitated. It was noted that a dementia unit would be more appropriate for
the patient but it was noted he would not be accepted unless he able to be off of 1:1 sitter.
Patient's rash became itchy later on and was on the trunk and his legs - after some of his psychiatric medications were stopped, his rash improved. General surgery mentioned that patient can have rash followed-up outpatient with dermatology. Later,
Doxycycline and Cetirizine were also given for possible folliculitis and itching.
Patient developed a deep vein thrombosis in his right lower extremity (in the setting of being too agitated to get sequential compression devices/pneumatic compression sleeves and too agitated for needle sticks with Lovenox/Heparin) and was started
on Eliquis, which he was able to take. Patient was found to be developing a new pressure wound based on CT imaging.
Patient developed polycythemia and hypernatremia - likely due to dehydration. Patient was able to be given some intravenous fluids with improvement in lab-work. Patient's blood pressure was noted to get very elevated (into the 200s systolic blood
pressure -- likely from his agitation, and his Amlodipine was continued.
Patient's behavior demonstrated dementia progression. Ethics meeting was held on October 16, 2023 and it was decided that given patient's advancing dementia, agitation, sedation, weight loss, and very high falls risk, hospice would be the best option
in this case, which patient's family accepted.
Discharge Plan
-
Patient Disposition: Hospice - Inpatient [facility]
Discharge Orders:
Discharge Patient (As Directed); Ordered 10/17/23
Ordered By: Erasmo Ward
--- NOTE | 2023-10-17 14:45 | CM ---
Patient has been transitioned to inpatient hospice.
== END 2023-10-17 11:00 | disposition hospice, inpatient (51) | DRG 57 ==
LOC: 2 NORTH 09:01
PROVIDERS: Clinical Nurse Specialist Family Health; Internal Medicine; Physician Assistant; Student in an Organized Health Care Education/Training Program; ADMITTING PHYSICIAN Hospitalist; CONSULT PHYSICIAN Internal Medicine Cardiovascular Disease; CONSULT PHYSICIAN Internal Medicine Hematology & Oncology; CONSULT PHYSICIAN Psychiatry & Neurology Psychiatry; CONSULT PHYSICIAN Student in an Organized Health Care Education/Training Program; EMERGENCY PHYSICIAN Emergency Medicine; FAMILY PHYSICIAN Family Medicine
DX: G30.9 Alzheimer's disease, unspecified (principal); F02.818 Dementia in other diseases classified elsewhere, unspecified severity, with other behavioral disturbance; F02.84 Dementia in other diseases classified elsewhere, unspecified severity, with anxiety; F02.811 Dementia in other diseases classified elsewhere, unspecified severity, with agitation; F02.83 Dementia in other diseases classified elsewhere, unspecified severity, with mood disturbance; I48.21 Permanent atrial fibrillation; E87.0 Hyperosmolality and hypernatremia; I82.411 Acute embolism and thrombosis of right femoral vein; D75.1 Secondary polycythemia; D69.59 Other secondary thrombocytopenia; T42.6X5A Adverse effect of other antiepileptic and sedative-hypnotic drugs, initial encounter; E86.0 Dehydration; L89.152 Pressure ulcer of sacral region, stage 2; L89.322 Pressure ulcer of left buttock, stage 2; F32.A Depression, unspecified; R29.6 Repeated falls; I10 Essential (primary) hypertension; L73.9 Follicular disorder, unspecified; S70.11XA Contusion of right thigh, initial encounter; S51.012A Laceration without foreign body of left elbow, initial encounter; W19.XXXA Unspecified fall, initial encounter; F10.10 Alcohol abuse, uncomplicated; S50.312A Abrasion of left elbow, initial encounter; E83.110 Hereditary hemochromatosis; Z75.1 Person awaiting admission to adequate facility elsewhere; M25.551 Pain in right hip; D53.9 Nutritional anemia, unspecified; R00.1 Bradycardia, unspecified; G47.00 Insomnia, unspecified; N40.0 Benign prostatic hyperplasia without lower urinary tract symptoms; Z66 Do not resuscitate; Z85.038 Personal history of other malignant neoplasm of large intestine; Z79.82 Long term (current) use of aspirin; Z11.52 Encounter for screening for COVID-19
CPT/HCPCS: 70450; 71045; 72125; 72193; 73502; 76700; 80048; 80053; 80164; 81003; 81015; 82140; 82248; 82607; 82668; 82728; 82746; 83540; 83550; 83735; 84100; 84443; 85025; 85027; 85610; 87502; 87811; 93005; 93306; 93970; 97116; 97162; 97166; 97530; 97535; 99284; J2358; Q9967

== ENCOUNTER 2023-10-17 11:01 | Inpatient (IN) | payer OTHER, SELFPAY ==
[2023-10-17 07:00] VITALS: BP 131/71
--- NOTE | 2023-10-17 12:35 | ADM.HSP ---
Admission - Hospice
History of Present Illness
Please see discharge summary from today for History of Present Illness
Assessment/Medication Plan
Generic Name Dose Route Start Last Admin
Trade Name Freq PRN Reason Stop Dose Admin
Acetaminophen 650 mg 10/17/23 12:25
Acetaminophen 650 Mg Rectal Suppository RECTAL 11/14/23 12:24
Q4HPRN PRN
mild pain, BOLAÑOS, or temp >100.4F
Acetaminophen 650 mg 10/17/23 12:25
Acetaminophen 325 Mg Tablet PO 11/14/23 12:24
Q4HPRN PRN
mild pain, BOLAÑOS, or temp >100.4F
Al Hydrox/Mg Hydrox/Simethicone 30 ml 10/17/23 12:25
Mag/Al/Simethicone Suspension 30 Ml Cup PO 11/14/23 12:24
Q6HPRN PRN
heartburn
Bisacodyl 10 mg 10/17/23 12:25
Bisacodyl 10 Mg Rectal Suppository RECTAL 11/14/23 12:24
DAILYPRN PRN
if no BM for 3 days
Calamine 0 ml 10/17/23 12:23
Calamine Lotion 120 Ml Bottle (6 Oz) TOPICAL 11/14/23 12:22
TIDPRN PRN
itching
Cetirizine HCl 10 mg 10/17/23 13:00
Cetirizine Hcl 10 Mg Tablet PO 11/14/23 12:59
DAILY MICHAEL
Glycopyrrolate 0.2 mg 10/17/23 12:25
Glycopyrrolate 0.2 Mg/Ml Vial IV 11/14/23 12:24
Q4HPRN PRN
excessive secretions
Haloperidol Lactate 0.5 mg 10/17/23 12:25
Haloperidol Oral Concentrate (10 Mg/5 Ml) Cup SL 11/14/23 12:24
Q4HPRN PRN
agitation/terminal delirium
Haloperidol Lactate 0.5 mg 10/17/23 12:25
Haloperidol 5 Mg/Ml 1 Ml Vial IV 11/14/23 12:24
Q4HPRN PRN
agitation/terminal delirium
Hyoscyamine Sulfate 0.125 mg 10/17/23 12:25
Hyoscyamine Sulfate 0.125 Mg/Ml In Oral Syringe SL 11/14/23 12:24
Q4HPRN PRN
excessive secretions
Lorazepam 0.25 mg 10/17/23 20:00
Lorazepam 0.5 Mg Tablet PO 11/14/23 19:59
BID MICHAEL
Lorazepam 2 mg 10/17/23 12:25
Lorazepam 2 Mg/Ml Vial IV 11/14/23 12:24
Q1HPRN PRN
seizure
Protocol
Lorazepam 0.5 mg 10/17/23 12:25
Lorazepam 2 Mg/Ml Vial IV 11/14/23 12:24
Q2HPRN PRN
anxiety
Protocol
Lorazepam 0.5 mg 10/17/23 12:25
Lorazepam 0.5 Mg Tablet PO 11/14/23 12:24
Q2HPRN PRN
anxiety
Magnesium Hydroxide 30 ml 10/17/23 12:25
Milk Of Magnesia 30 Ml Cup PO 11/14/23 12:24
HSPRN PRN
constipation
Melatonin 5 mg 10/17/23 22:00
Melatonin 5 Mg Tablet PO 11/14/23 21:59
HS MICHAEL
Morphine Sulfate 2 mg 10/17/23 12:25
Morphine 2 Mg/Ml Syringe IV 10/31/23 12:24
Q1HPRN PRN
moderate-severe pain / dyspnea
Ondansetron HCl 4 mg 10/17/23 12:25
Ondansetron 4 Mg/2 Ml Vial IV 11/14/23 12:24
Q6HPRN PRN
nausea/vomiting
Prochlorperazine Edisylate 5 mg 10/17/23 12:25
Prochlorperazine 10 Mg/2 Ml Vial IV 11/14/23 12:24
Q6HPRN PRN
nausea/vomiting
Quetiapine Fumarate 50 mg 10/18/23 08:00
Quetiapine 25 Mg Tablet PO 11/15/23 07:59
DAILY MICHAEL
Quetiapine Fumarate 25 mg 10/17/23 14:00
Quetiapine 25 Mg Tablet PO 11/14/23 13:59
BID MICHAEL
Tamsulosin HCl 0.4 mg 10/17/23 22:00
Tamsulosin 0.4 Mg Capsule PO 11/14/23 21:59
HS MICHAEL
--- NOTE | 2023-10-17 14:09 | HOSPNOTE ---
Patient has been admitted under GIP level of hospice care. Patient requires GIP level of hospice care for the management of agitation and pain with the use of IV medications. Daughter Lou updated on medications and GIP level of hospice care and
is in agreement. Informal report with RN Katelyn. Will attempt to give medications orally and utilize IVP PRN as needed. Patient will be seen daily by hospice. Discharge planning continues. Dr. Ward is updated and in agreement with [facility] level of
hospice care.
--- NOTE | 2023-10-17 14:46 | CM ---
Transitioned to inpatient hospice. CM will remain available to support hospice team and family.
[2023-10-17] MEDS: SEROQUEL 25 MG PO (14:57)
[2023-10-17] MEDS: MORPHINE SULFATE 2 MG IV ×3 (14:59→22:52)
[2023-10-17 19:28] VITALS: BP 154/83
[2023-10-17] MEDS: SEROQUEL PO (21:17)
[2023-10-17] MEDS: HALDOL 0.5 MG IV (21:20)
[2023-10-18] MEDS: ATIVAN IV (00:04)
[2023-10-18] MEDS: ATIVAN 2 MG IV (00:10)
--- NOTE | 2023-10-18 00:11 | PTCARENOTE ---
At start of shift patient was unable to follow directions to swallow applesauce and therefore unable to take PO medications. IV medications given per prn MAR. at approx 00:00 pt awoke and become aggressive and trying to grab at staff. PRN ativan
given at that time See MAR
[2023-10-18] MEDS: MORPHINE SULFATE 2 MG IV ×3 (01:46→10:30)
[2023-10-18 07:45] VITALS: BP 106/68
[2023-10-18] MEDS: ATIVAN 0.5 MG IV ×4 (08:28→20:55)
--- NOTE | 2023-10-18 10:02 | W.PN.HOSP.TC ---
Addendum entered and electronically signed by Erasmo Ward MD 10/18/23 14:13:
Today, I discussed patient's case with patient's nurse Teresita Rainey and hospice nurse Sophy Penaloza regarding the patient's pain and associated grimacing; hospice nurse Sophy Penaloza called the patient's daughter Lou, who agreed that
the patient has been in more pain and less aggression recently. Per hospice nurse Sophy, patient's daughter Lou called her (Sophy) back and they (the patient's family) told Sophy they are comfortable starting the Morphine infusion.
Since family is in agreement with Morphine infusion (as above), I will order Morphine infusion right now to better address the patient's pain and make the patient more comfortable.
Original Note:
Today's Communication/Plan
-
Continue Hospice
Continue to adjust medications to help with patient's agitation
Doses of IV Ativan and IV Haldol prn doses increased
Assessment / Plan
Assessment / Plan
Physical Exam
General: Not in acute distress
HEENT: Normocephalic and Atraumatic
Respiratory: Clear to Auscultation
Cardiac: Regular Rhythm and S1/S2
GI: Soft, Nontender and Nondistended. Positive bowel sounds.
Musculoskeletal: No Cyanosis and No Edema
Skin: Warm. Dry.
Neuro: Awake. Alert.
Psych: Calm
Assessment/Plan
#Recurrent falls - reported 17 falls (in the 2 to 3 weeks [facility] to [facility]
#Deep Venous Thrombosis of the Right Lower Extremity
#Polycythemia - suspected to be from volume depletion
#Thrombocytopenia - likely from Depakote
#Recurrent Pressure Wounds
#New Pressure Wound based on CT Scan on October 15, 2023
#Rash on right flank/right posterior lower extremity - likely Folliculitis
#Pruritus
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
#Agitation/Dementia (End-Stage Dementia)
#Left elbow skin tear, right inner thigh bruise secondary to multiple falls
#Skin rash left and right lateral trunk unclear etiology -
#Hypernatremia
#Alzheimer's Dementia�advanced
#Atrial Fibrillation
#Bradycardia - resolved
#Anemia-macrocytic
#Hypertension�benign
#Former alcohol abuse
#Insomnia
#History of colon cancer with resection of [facility] 2019
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
#BPH
#Small stage 2 L coccyx buttocks pressure injury.�
#Cholelithiasis
#1.5 cm hepatic cyst
#Bilateral parapelvic renal cysts
-Patient remains confused, unable to eat by himself, very high falls risk -- his functioning has declined in the setting of his end-stage dementia
-Continue hospice
-As needed Ativan IV and as needed IV Haldol increased for better control of agitation
Anticipated Discharge: > 48 hours
Subjective/Interval History
-
Date of Service: October 18, 2023
Patient was seen and examined. Patient's nurse reported that patient is very restless this morning, taking his gown and sheets off, not alert enough to take oral medications, despite as needed Ativan IV and Morphine IV.
Objective Data
-
Vital Signs:
Vital Signs
Temp Pulse Resp BP Pulse Ox
97.7 F 72 20 106/68 99
10/18/23 07:45 10/18/23 07:45 10/18/23 07:45 10/18/23 07:45 10/18/23 07:45
I&O
10/17/23 10/18/23 10/19/23
06:59 06:59 06:59
Intake Total 240 / 240
Balance 240 / 240
--- NOTE | 2023-10-18 12:33 | HOSPNOTE ---
Patient remains GIP level of care appropriate, required Morphine IV x 6 in last 20 hours for grimacing and apparent pain. Patient also received Ativan x 2 and Haldol x 1 in same time frame. Patient has an extensive history of agitation and
aggression but staff and this hospice nurse see pain an the present problem. Hospice nurse called daughter Lou and spoke to Dr Ward. discussed my recommendation for a continuos morphine infusion as comfort is consistently obtained with
morphine alone, so agitation does not seem to be the current problem. Daughter is in agreement that the family as seem less aggressive behaviors and more grimacing and pain signs. Daughter is currently at lunch with family she will convey our
conversation and call the hospice nurse back with their thoughts. Hospice nurse offered a conference call with family if they wanted one.
[2023-10-18] MEDS: SEROQUEL PO ×2 (13:01→21:02)
[2023-10-18] MEDS: MORPHINE 100 IV (15:30)
[2023-10-18 19:21] VITALS: BP 162/88
[2023-10-19] MEDS: ATIVAN 0.5 MG IV ×2 (02:35→14:48)
[2023-10-19] MEDS: MORPHINE SULFATE 2 MG IV ×9 (03:36→19:30)
[2023-10-19 07:01] VITALS: BP 112/70
--- NOTE | 2023-10-19 07:23 | W.PN.HOSP.TC ---
Addendum entered and electronically signed by Erasmo Ward MD 10/19/23 15:35:
Patient's nurse reported that patient looks very uncomfortable and occasionally moaning, and that he has been getting a breakthrough Morphine Dose essentially hourly for the past 4.5 hours. Discussed case with nurse Lo and hospice nurse Sophy
and increased Morphine Drip to Step 2 of the protocol to help make the patient more comfortable.
Addendum entered and electronically signed by Erasmo Ward MD 10/19/23 11:13:
Gore catheter placed (for patient comfort) as patient's nurse noted patient was retaining urine, and that turning and changing seemed to cause the patient discomfort.
Addendum entered and electronically signed by Erasmo Ward MD 10/19/23 11:08:
Correction to addendum from 8:34 AM:
Patient's daughter Lou called back and I spoke to her over the phone earlier this morning. I updated her on patient's current condition, including the fact he is getting Morphine Drip, that he is having apneic episodes, that he is comfortable and
that he can pass at any time. I explained to her that we were giving Morphine Drip to the patient to keep him comfortable since he had been in pain prior to starting the Morphine Drip, and also mentioned that one of the significant side effects of
Morphine is respiratory depression and what that meant - including . All questions and concerns were answered to satisfaction. I advised her that it would be a good idea to come in and see the patient today.
Also, please note the following addition/addendum note:
Hospice nurse Sophy Penaloza spoke (this morning) to patient's daughter at length regarding decline and Morphine and even discussed stopping Morphine as her option. Sophy mentioned that the patient's daughter is comfortable with the Morphine Drip
and the path the hospital care team and hospice team is taking. Patient's daughter plans to visit patient later today.
Addendum entered and electronically signed by Erasmo Ward MD 10/19/23 08:34:
Patient's daughter Lou called back and I just spoke to her over the phone. I updated her on patient's current condition, including his apneic episodes, that he is comfortable and that can pass at any time. All questions and concerns were answered
to satisfication. Hospice nurse Sophy will call the patient's family again later this morning.
Original Note:
Today's Communication/Plan
-
Continue hospice/comfort care
Assessment / Plan
Assessment / Plan
Physical Exam
General: Not in acute distress
HEENT: Normocephalic and Atraumatic
Respiratory: Clear to Auscultation
Cardiac: Regular Rhythm and S1/S2
GI: Soft, Nontender and Nondistended. Positive bowel sounds.
Musculoskeletal: No Cyanosis and No Edema
Skin: Warm. Dry.
Neuro: Sleeping comfortably
Psych: Calm
Assessment/Plan
#Recurrent falls - reported 17 falls (in the 2 to 3 weeks prior to admission) per [facility] staff
#Deep Venous Thrombosis of the Right Lower Extremity
#Polycythemia - suspected to be from volume depletion
#Thrombocytopenia - likely from Depakote
#Recurrent Pressure Wounds
#New Pressure Wound based on CT Scan on October 15, 2023
#Rash on right flank/right posterior lower extremity - likely Folliculitis
#Pruritus
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
#Agitation/Dementia (End-Stage Dementia)
#Left elbow skin tear, right inner thigh bruise secondary to multiple falls
#Skin rash left and right lateral trunk unclear etiology -
#Hypernatremia
#Alzheimer's Dementia�advanced
#Atrial Fibrillation
#Bradycardia - resolved
#Anemia-macrocytic
#Hypertension�benign
#Former alcohol abuse
#Insomnia
#History of colon cancer with resection of [facility] 2018
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
#BPH
#Small stage 2 L coccyx buttocks pressure injury.�
#Cholelithiasis
#1.5 cm hepatic cyst
#Bilateral parapelvic renal cysts
-Patient had remained confused, unable to eat by himself, very high falls risk -- his functioning has declined in the setting of his end-stage dementia
-Continue hospice
-Morphine Infusion started on October 18, 2023
-Patient noted to have episodes of apnea overnight
-Continue Morphine Infusion to keep the patient comfortable
I discussed case with patient's nurse and contact hospice nurse this morning. I also called patient's contacts on the chart, Pia, to update them however it went straight to voicemail -- left voice messages to call back.
Anticipated Discharge: > 48 hours
Subjective/Interval History
-
Date of Service: October 19, 2023
Patient was seen and examined. He appeared to be sleeping comfortably when he was seen, on Step 1 of Morphine Infusion, overnight he was reported to have periods of apnea.
Objective Data
-
Vital Signs:
Vital Signs
Temp Pulse Resp BP Pulse Ox
98.5 F 85 6 112/70 95
10/19/23 07:01 10/19/23 07:01 10/19/23 07:01 10/19/23 07:01 10/19/23 07:01
I&O
10/18/23 10/19/23 10/20/23
06:59 06:59 06:59
Intake Total 240 / 240
Balance 240 / 240
[2023-10-19] MEDS: ROBINUL 0.200000000000000011 MG IV ×2 (08:47→15:16)
[2023-10-19] MEDS: SEROQUEL PO (13:02)
--- NOTE | 2023-10-19 13:51 | CM ---
Patient GIP hospice at this time.
Plan; Hospice [facility]
--- NOTE | 2023-10-19 13:51 | HOSPNOTE ---
patient remains GIP appropriate level of care. Morphine continuous infusion at step 1. Morphine prn x 5 since infusion started. Ativan x 3 in last 24 hours. Significant decline over last 48 hours. Patient with apnea this am. Notified by
physician and facility nurse of rapid decline. Hospice nurse called daughter Lou discussed decline, discussed the low dosing of morphine but if they were uncomfortable with the sudden decline we could alter the morphine, but in my opinion the
dose he is receiving did not cause decline. After much review of patient status over last 2-3 weeks po intake has declined, agitation has declined and pain has been the most distressing to patient and family.
Daughter is comfortable with maintaining the morphine continuous infusion.
Family visiting upon hospice nurse arrival to hospital, patient appears to be in pain grimacing and moving in bed. Repositioned without relief and morphine prn given. Support provided to the family.
[2023-10-19] MEDS: TRANSDERM-SCOP 1 PATCH TRANSDERM (15:59)
--- NOTE | 2023-10-19 18:30 | PTCARENOTE ---
Patient with intermittent periods of drowsiness and restlessness throughout shift, occasionally grimacing and moving in bed. Breathing shallow with frequent periods of apnea; PRN doses of morphine and ativan administered as needed for patient's
symptoms - see OCT. R buttock wound covered with foam, pillow placed under patient for comfort; static air overlay in place on top of bed. PRN robinul given for occasional oral secretions. This RN in communication with MD and dolly driver throughout
shift; morphine gtt increased to step 2 per protocol, scopolamine patch ordered and placed behind L ear, and nunez catheter placed for end of life comfort.
[2023-10-19 21:27] VITALS: BP 122/80
[2023-10-20] MEDS: MORPHINE SULFATE 2 MG IV ×4 (05:46→12:59)
--- NOTE | 2023-10-20 06:35 | W.PN.HOSP.TC ---
Today's Communication/Plan
-
cont comfort care
morphine gtt titrated up to 3 mg/hr
End stage Disease Dementia onset years w/ comorbidities atrial fibrillation hypertension
Assessment / Plan
Assessment / Plan
Limited Physical Exam Comfort Care
General: Not in acute distress, appears comfortable
HEENT: Normocephalic and Atraumatic
Respiratory: Agonal breathing
Neuro: Sedated
Assessment/Plan
#Recurrent falls - reported 17 falls (in the 2 to 3 weeks prior to admission) per [facility] staff
#Deep Venous Thrombosis of the Right Lower Extremity
#Polycythemia - suspected to be from volume depletion
#Thrombocytopenia - likely from Depakote
#Recurrent Pressure Wounds
#New Pressure Wound based on CT Scan on October 15, 2023
#Rash on right flank/right posterior lower extremity - likely Folliculitis
#Pruritus
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
#Agitation/Dementia (End-Stage Dementia)
#Left elbow skin tear, right inner thigh bruise secondary to multiple falls
#Skin rash left and right lateral trunk unclear etiology -
#Hypernatremia
#Alzheimer's Dementia�advanced
#Atrial Fibrillation
#Bradycardia - resolved
#Anemia-macrocytic
#Hypertension�benign
#Former alcohol abuse
#Insomnia
#History of colon cancer with resection of [facility] 2018
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
#BPH
#Small stage 2 L coccyx buttocks pressure injury.�
#Cholelithiasis
#1.5 cm hepatic cyst
#Bilateral parapelvic renal cysts
-Patient had remained confused, unable to eat by himself, very high falls risk -- his functioning has declined in the setting of his end-stage dementia
-Continue hospice
-Morphine Infusion started on October 18, 2023 titrated up to 3mg/hr
-Patient noted to have episodes of apnea overnight
-Continue Morphine Infusion to keep the patient comfortable
discussed with patient's daughter Lou, Юлия, nurse, and hospice nurse
I spent a total of 50 minutes with the patient or on the floor. More than 50% of this time involved counseling and coordination of care.
Anticipated Discharge: 24 - 48 hours
Subjective/Interval History
-
Date of Service: October 20, 2023
In agonal breathing, otherwise appears comfortable, recently received prn morphine for breakthrough discomfort.
Objective Data
-
Vital Signs:
Vital Signs
Temp Pulse Resp BP Pulse Ox
98.4 F 93 8 122/80 89
10/19/23 21:27 10/19/23 21:27 10/19/23 21:27 10/19/23 21:27 10/19/23 21:27
I&O
10/18/23 10/19/23 10/20/23
06:59 06:59 06:59
Intake Total 240 / 240
Output Total 350 / 350
Balance 240 / 240 -350 / -350
[2023-10-20 07:34] VITALS: BP 99/55
--- NOTE | 2023-10-20 10:48 | HOSPNOTE ---
Headrig Sawyer visited patient in room at [facility]. Patient was sleeping and did not awake to prompting. Chaplian provided support through prayer and companionship. Headrig Sawyer will visit three times per week
--- NOTE | 2023-10-20 15:24 | HOSPNOTE ---
IV Morphine hourly drip increased to 3mg/hr due to unmanaged labored breathing.Patient does not indicate pain or discomfort when repositioned. He is having 60 to 70 second periods of apnea. He will remain GIP due to needing frequent skilled
assessment of symptoms for titration of medications for optimal comfort. Spoke to the patients daughter during this visit to update her . She will be visiting this afternoon
--- NOTE | 2023-10-20 16:16 | CM ---
Inpatient hospice. CM will remain available to hospice team and family.
[2023-10-20] MEDS: MORPHINE 100 IV (18:08)
[2023-10-20 23:00] VITALS: BP 83/50
[2023-10-21 07:39] VITALS: BP 97/59
--- NOTE | 2023-10-21 07:58 | W.PN.HOSP.TC ---
Today's Communication/Plan
-
cont comfort measures
Assessment / Plan
Assessment / Plan
Limited Physical Exam Comfort Care
General: Not in acute distress, appears comfortable
HEENT: Normocephalic and Atraumatic
Respiratory: Agonal breathing
Neuro: Sedated, noverbal
Assessment/Plan
#Recurrent falls - reported 17 falls (in the 2 to 3 weeks prior to admission) per NH staff
#Deep Venous Thrombosis of the Right Lower Extremity
#Polycythemia - suspected to be from volume depletion
#Thrombocytopenia - likely from Depakote
#Recurrent Pressure Wounds
#New Pressure Wound based on CT Scan on October 15, 2023
#Rash on right flank/right posterior lower extremity - likely Folliculitis
#Pruritus
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
#Agitation/Dementia (End-Stage Dementia)
#Left elbow skin tear, right inner thigh bruise secondary to multiple falls
#Skin rash left and right lateral trunk unclear etiology -
#Hypernatremia
#Alzheimer's Dementia�advanced
#Atrial Fibrillation
#Bradycardia - resolved
#Anemia-macrocytic
#Hypertension�benign
#Former alcohol abuse
#Insomnia
#History of colon cancer with resection of [facility] 2018
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
#BPH
#Small stage 2 L coccyx buttocks pressure injury.�
#Cholelithiasis
#1.5 cm hepatic cyst
#Bilateral parapelvic renal cysts
-Patient had remained confused, unable to eat by himself, very high falls risk -- functional decline end-stage dementia
-Continue hospice
-Morphine Infusion started on October 18, 2023, titrated up to 3mg/hr
-Agonal breathing
-Continue Morphine Infusion to keep the patient comfortable
discussed with patient's daughter Lou and hospice nurse
When patient passes, likely cause of End stage Disease Dementia onset years w/ comorbidities atrial fibrillation hypertension
I spent a total of 50 minutes with the patient or on the floor. More than 50% of this time involved counseling and coordination of care.
Anticipated Discharge: 24 - 48 hours
Subjective/Interval History
-
Date of Service: October 21, 2023
No acute distress, appears comfortable at this time. Agonal breathing persists. Daughter Lou at bedside present during evaluation.
Objective Data
-
Vital Signs:
Vital Signs
Temp Pulse Resp BP Pulse Ox
99.2 F 91 12 97/59 94
10/21/23 07:39 10/21/23 07:39 10/21/23 07:39 10/21/23 07:39 10/21/23 07:39
I&O
10/20/23 10/21/23 10/22/23
06:59 06:59 06:59
Intake Total 0 / 0
Output Total 350 / 350 175 / 175
Balance -350 / -350 -175 / -175
[2023-10-21] MEDS: MORPHINE SULFATE 3 MG IV ×4 (10:13→16:10)
--- NOTE | 2023-10-21 10:25 | CM ---
Inpatient hospice. CM will remain available for hospice team and family.
--- NOTE | 2023-10-21 10:37 | HOSPNOTE ---
Spoke with daughter and explained the dying process. Emotional support given. Patient is on a morphine drip and appears comfortable at this time. Asked nurses to please medicate prior to any care or repositioning since patient can become quite
agitated. Will see patient daily.
--- NOTE | 2023-10-21 17:10 | PTCARENOTE ---
Daughter notified this RN that she thinks pt. has passed. Dr. Sanford notified. Pt found to be breathless with no pulse.
--- NOTE | 2023-10-21 17:17 | W.PN.DEATH ---
Pronouncement of
-
Called to see patient to pronounce.
No spontaneous heart tones or respirations noted.
Patient not responsive to verbal stimuli.
Patient is pronounced .
Time of : 17:00
Date of : 10/21/23
Cause of : End stage Disease Dementia onset years w/ comorbidities atrial fibrillation hypertension
Family Notified: Yes (Daughter at bedside when patient passed)
--- NOTE | 2023-10-21 17:19 | W.DCSUMMARY ---
Discharge Summary
Discharge Data
Date of Admission: 10/17/23
Date of Discharge: 10/21/23
-
Pending Results: No
Discharge Plan
-
Referrals:
UNKNOWN - PT DOES,NOT KNOW [Family Provider] -
Prescriptions:
No Action
lamotrigine 150 mg tablet
150 mg PO DAILY
carvedilol 25 mg tablet
25 mg PO BID
trazodone 50 mg tablet
25 mg PO HS
Rx Instructions:
taken w/ 100mg = 125mg
amlodipine 5 mg tablet
5 mg PO DAILY
aspirin 81 mg tablet,delayed release (DR/EC)
81 mg PO DAILY
potassium chloride 20 mEq tablet,ER particles/crystals
40 meq PO DAILY
tamsulosin 0.4 mg capsule
0.4 mg PO HS
trazodone 100 mg tablet
100 mg PO HS
Rx Instructions:
taken w/ 25mg = 125mg
olanzapine 5 mg tablet,disintegrating
5 mg PO BIDPRN PRN (Reason: anxiety)
duloxetine 20 mg capsule,delayed release(DR/EC)
20 mg PO DAILY
melatonin 5 mg tablet
5 mg PO HS
diphenoxylate-atropine 2.5-0.025 mg tablet
1 tab PO QID
olanzapine 7.5 mg tablet
7.5 mg PO TID
--- NOTE | 2023-10-21 18:00 | PTCARENOTE ---
Called [phone] spoke with Roger Sneed. Pt not candidate.
--- NOTE | 2023-10-22 09:04 | CM ---
Patient 10/21/23, 5:19PM.
== END 2023-10-21 21:53 | disposition expired | DRG 951 ==
LOC: 2 NORTH 11:01
PROVIDERS: ADMITTING PHYSICIAN Hospitalist; ATTENDING PHYSICIAN Internal Medicine
DX: Z51.5 Encounter for palliative care (principal); I82.401 Acute embolism and thrombosis of unspecified deep veins of right lower extremity; F02.C11 Dementia in other diseases classified elsewhere, severe, with agitation; E87.0 Hyperosmolality and hypernatremia; Q61.02 Congenital multiple renal cysts; R29.6 Repeated falls; D75.1 Secondary polycythemia; D69.6 Thrombocytopenia, unspecified; G30.9 Alzheimer's disease, unspecified; E83.110 Hereditary hemochromatosis; I48.91 Unspecified atrial fibrillation; I10 Essential (primary) hypertension; D64.9 Anemia, unspecified; F10.11 Alcohol abuse, in remission; L89.152 Pressure ulcer of sacral region, stage 2; N40.0 Benign prostatic hyperplasia without lower urinary tract symptoms; K76.89 Other specified diseases of liver; K80.20 Calculus of gallbladder without cholecystitis without obstruction; Z85.038 Personal history of other malignant neoplasm of large intestine